=== PATIENT | female | born 1940 | race Caucasian/White ===

== ENCOUNTER 2021-02-10 13:03 | Outpatient (CLI) | payer MEDICARE, SELFPAY ==
--- NOTE | ~2021-02-10 | US_ITS ---
EXAMINATION: US venous doppler LE RT DATE: 02/10/2021 14:03 INDICATION: Right lower limb pain TECHNIQUE: Westbrook scale images without and with compression and Doppler images of the right lower extre mity veins were obtained. COMPARISON: 07/20/2016 FINDINGS: The right common femoral vein, profunda femoral vein, femoral vein, popliteal vein, peronea l trunk, posterior tibial veins, and greater saphenous vein are patent. IMPRESSION: 1. Patent right lower extremity veins. No evidence of deep venous thrombosis. Reviewed, dictated and finalized at location A.
== END 2021-02-10 13:04 | disposition home or self-care (01) ==
LOC: ANHIMG 13:04
PROVIDERS: PCP Nurse Practitioner Adult Health
DX: M79.661 Pain in right lower leg (principal)
CPT/HCPCS: 93971

== ENCOUNTER 2021-07-22 14:50 | Outpatient (CLI) | payer MEDICARE, SELFPAY ==
--- NOTE | ~2021-07-22 | CT_ITS ---
EXAMINATION: CT abdomen pelvis wo con DATE: 07/22/2021 15:15 INDICATION: Left lower quadrant abdominal pain TECHNIQUE: Computed tomography (CT) of the abdomen and pelvis was performed without intravenous contr ast. Automated exposure control and iterative reconstruction technique were employed. Exam dose: 991 .70 mGy-cm total exam DLP. COMPARISON: November 01, 2016 CT abdomen pelvis FINDINGS: Mild atelectasis at the lung bases. Normal heart size. No pericardial or pleural effusion. Large hiatal hernia. There are numerous calcified granulomas of the liver and spleen consistent with old granulomatous dis ease. The no hepatic, splenic, pancreatic, and adrenal or renal space-occupying mass lesion is eviden t on this limited noncontrast examination. Status post cholecystectomy. Bilateral renal cortical irregularity, which may be due to chronic pyelonephritis or less likely pers istent lobation. No urinary tract calculus or hydroureteronephrosis. Minimal sigmoid diverticulosis; no CT evidence of diverticulitis. No bowel obstruction, bowel wall th ickening, pneumatosis or intraperitoneal free air. The urinary bladder is relatively evacuated but otherwise unremarkable. Status post hysterectomy. There is atherosclerotic calcification but no aneurysm of the abdominal aorta. No intraperitoneal or retroperitoneal or pelvic mass lesion or adenopathy or ascites. Status post left total hip arthroplasty. Diffuse osteopenia. Degenerative changes of the thoracic and lumbar spine, including prominent degene rative disc disease at L2-3 and L4-5 and prominent degenerative change at the apophyseal joints, with associated minimal grade 1 anterolisthesis at L5-S1. IMPRESSION: Large hiatal hernia Old granulomatous disease Status post cholecystectomy Minimal diverticulosis of sigmoid colon; no CT evidence of diverticulitis Bilateral cortical irregularity, likely due to chronic pyelonephritis Status post hysterectomy Status post left total hip arthroplasty Reviewed, dictated and finalized at Location A. Reviewed, dictated and finalized at location A.
== END 2021-07-22 14:51 | disposition home or self-care (01) ==
LOC: ANHIMG 14:56
PROVIDERS: PCP Nurse Practitioner Adult Health; Visit Provider Nurse Practitioner Adult Health
DX: R10.32 Left lower quadrant pain (principal); K44.9 Diaphragmatic hernia without obstruction or gangrene; K57.30 Diverticulosis of large intestine without perforation or abscess without bleeding; Z90.49 Acquired absence of other specified parts of digestive tract; Z90.710 Acquired absence of both cervix and uterus; Z96.642 Presence of left artificial hip joint
CPT/HCPCS: 74176

== ENCOUNTER 2022-02-08 15:13 | Outpatient (CLI) | payer MEDICARE, SELFPAY ==
--- NOTE | ~2022-02-08 | MR_ITS ---
EXAMINATION: MR ankle LT wo con DATE: 02/08/2022 16:07 INDICATION: Posterior tibial tendinitis with dorsal left foot pain TECHNIQUE: Magnetic resonance imaging (MRI) of the left ankle was performed without intravenous contr ast. Sequences included sagittal, coronal, and axial proton-density weighted fast spin echo without a nd with fat saturation. COMPARISON: None. FINDINGS: Medial ankle ligaments: Deep and superficial deltoid ligaments as well as the spring ligament are normal. Lateral ankle ligaments: The anterior and posterior inferior tibiofibular ligaments are normal. The anterior talofibular and c alcaneofibular ligaments are normal. There is mild thickening and mild increased signal of the opener tender ior talofibular ligament. Tendons: Achilles tendon is normal. The peroneus longus and brevis tendons are normal. The tibialis anterior a nd extensor hallucis longus and extensor digitorum longus tendons are normal. The tibialis posterior, flexor digitorum longus and flexor hallucis longus tendons are normal. Plantar fascia: Moderate plantar calcaneal spur with mild thickening and mild increased signal of the proximal planta r aponeurosis and mild surrounding soft tissue edema consistent with mild likely acute on chronic hiren ntar fasciitis. Bones/other: Bone alignment is normal. No fracture or pathologic marrow replacing process. There is prominent syno vitis and small multiloculated ganglion cyst situated between the posterior margin of the posterior t alofibular ligament and a trigonal process at the posterior aspect of the talus. This can be seen in the setting of posterior ankle impingement. There is cystic change underlying the fibular footplate o f the posterior talofibular ligament. 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 Fluid: Ganglion cyst arising from the dorsal/lateral aspect of the talonavicular joint. Small subtalar joint effusion collecting both the anterior and posterior recess of the joint space. IMPRESSION: 1. Trigonal process, thickened posterior talofibular ligament and surrounding synovitis and small mul tilobulated ganglion cysts suggestive of posterior hindfoot impingement. 2. Likely acute on chronic mild plantar fasciitis. 3. Mild to moderate polyarticular osteoarthritis at a few joints in the left mid and hindfoot. Reviewed, dictated and finalized at location B. IMPRESSION: 1. Trigonal process, thickened posterior talofibular ligament and surrounding s ynovitis and small multilobulated ganglion cysts suggestive of posterior hindfo ot impingement. 2. Likely acute on chronic mild plantar fasciitis. 3. Mild to moderate polyarticular osteoarthritis at a few joints in the left mi d and hindfoot.
== END 2022-02-08 15:14 | disposition home or self-care (01) ==
PROVIDERS: PCP Nurse Practitioner Adult Health; Visit Provider Podiatrist Foot & Ankle Surgery
DX: M76.822 Posterior tibial tendinitis, left leg (principal); M67.462 Ganglion, left knee; M77.32 Calcaneal spur, left foot; M19.042 Primary osteoarthritis, left hand
CPT/HCPCS: 73721

== ENCOUNTER 2022-05-17 11:00 | Outpatient (CLI) | payer MEDICARE, SELFPAY ==
--- NOTE | ~2022-05-17 | US_ITS ---
EXAMINATION: US thyroid DATE: 05/17/2022 12:01 INDICATION: Dysphagia. Thyroid nodule. TECHNIQUE: Multiple ultrasound images of the thyroid were obtained. COMPARISON: 05/02/2012 FINDINGS: The right thyroid lobe measures 4.8 x 1.2 x 2.3 cm. The left thyroid lobe measures 4.3 x 1.9 x 1.7 c m. 1.1 cm TI RADS 1 entirely anechoic cystic nodules in the right thyroid lobe. 1.1 cm taller than w gillian solid isoechoic nodule with internal echogenic foci of (TI-RADS 5, highly suspicious , FNA if >=1 .0 cm, annual followup is >0.5 cm) at the inferior right thyroid lobe. 1.3 cm wider than tall solid v jarocho hypoechoic nodule with smooth margins and without echogenic foci. (TI-RADS 4, moderately suspicio us , FNA if >=1.5 cm, annual followup is >=1 cm) at the mid left thyroid. Again seen is a poorly visu alized 1.4 x 1.1 cm lesion at the posterior margin of the inferior left thyroid which appears more li ebonie extra thyroidal. Correlation with intervening CT neck dated 06/20/2013 demonstrates a likely degr ee in gas-filled diverticulum at this location. There is normal echotexture, echogenicity and vascula r flow throughout the thyroid gland. IMPRESSION: 1. Multinodular goiter. Recommend ultrasound-guided fine-needle aspiration of the 1.1 cm TI RADS 5 ri ght thyroid nodule. 2. 1.4 x 1.1 cm lesion along the posterior margin of the inferior left thyroid lobe which based on ne ck CT images dated 06/20/2013 most likely represents a Zenker's or proximal esophageal diverticulum. C ould consider either endoscopy or esophagram for further evaluation. Reviewed, dictated and finalized at location A. IMPRESSION: 1. Multinodular goiter. Recommend ultrasound-guided fine-needle aspiration of t he 1.1 cm TI RADS 5 right thyroid nodule. 2. 1.4 x 1.1 cm lesion along the posterior margin of the inferior left thyroid lobe which based on neck CT images dated 06/20/2013 most likely represents a Emir ker's or proximal esophageal diverticulum. Could consider either endoscopy or e sophagram for further evaluation.
== END 2022-05-17 11:01 | disposition home or self-care (01) ==
PROVIDERS: PCP Nurse Practitioner Adult Health; Visit Provider Nurse Practitioner Adult Health
DX: R13.10 Dysphagia, unspecified (principal); E04.2 Nontoxic multinodular goiter
CPT/HCPCS: 76536

== ENCOUNTER 2022-05-24 08:32 | Outpatient (CLI) | payer MEDICARE, SELFPAY ==
--- NOTE | ~2022-05-24 | XR_ITS ---
EXAMINATION: XR barium swallow DATE: 05/24/2022 09:25 INDICATION: Dysphagia. TECHNIQUE: The patient drank thick barium, gas-producing crystals, and thin barium. Fluoroscopic spot radiographs of the hypopharynx and esophagus were obtained. Fluoroscopy exposure time was 2.3 minut es. A total of 1541 fluoroscopic images were recorded. COMPARISON: CT dated 06/20/2013, 07/22/2021 and 07/20/2016 FINDINGS: The pharynx is symmetric and without evidence of mass lesion or mucosal irregularity. There is a Ratcliff Roel diverticulum arising from the left side of the proximal cervical esophagus. Th ere is a second pulsion diverticulum along the posterior margin of the mid thoracic esophagus. Esopha geal motility is within normal limits for age. There is a moderate-sized sliding-type hiatal hernia. There was no gastroesophageal reflux with provocative maneuvers. Prominent calcified lymph node in th e epigastric region likely related to old granulomatous disease. IMPRESSION: 1. Moderate-sized sliding-type hiatal hernia. 2. 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 Reviewed, dictated and finalized at location A. IMPRESSION: 1. Moderate-sized sliding-type hiatal hernia. 2. Ratcliff-Laredo diverticulum at the left side of the proximal cervical esoph piter with additional pulsion diverticulum at the posterior aspect of the mid th oracic esophagus.
== END 2022-05-24 08:33 | disposition home or self-care (01) ==
LOC: ANHIMG 08:36
PROVIDERS: PCP Nurse Practitioner Adult Health; Visit Provider Nurse Practitioner Adult Health
DX: R13.10 Dysphagia, unspecified (principal); K44.9 Diaphragmatic hernia without obstruction or gangrene; K57.90 Diverticulosis of intestine, part unspecified, without perforation or abscess without bleeding; M47.812 Spondylosis without myelopathy or radiculopathy, cervical region
CPT/HCPCS: 74220

== ENCOUNTER 2022-07-27 08:50 | Outpatient (CLI) | payer MEDICARE, SELFPAY ==
--- NOTE | ~2022-07-27 | US_ITS ---
EXAMINATION: US FNA w image guidance DATE: 07/27/2022 10:35 INDICATION: Multinodular goiter TECHNIQUE: A time-out was performed to verify the patient's name, date of , and procedure to be performed . The procedure and its benefits and risks were discussed with the patient. Risks specifically discus sed included bleeding and infection. The patient understood the risks and agreed to proceed. The neck was prepped and draped in the usual sterile manner. 3 mL 1% lidocaine was used for local anesthesia . 6 passes were made with a 25G needle into the lesion. Appropriate needle location was documented with continuous sonographic guidance. A sterile bandage was applied. There were no immediate compli cations. FINDINGS: Grayscale ultrasound images demonstrate biopsy needles advanced into the previous noted TI RADS 5 iso echoic nodule with multiple internal echogenic foci which currently measures 9 mm in the inferior rig ht thyroid. IMPRESSION: 1. Successful ultrasound-guided fine needle aspiration of a 9 mm TI RADS 5 nodule in the inferior ri ght thyroid. Reviewed, dictated and finalized at location A. IS SPECIALIST IMPRESSION: 1. Successful ultrasound-guided fine needle aspiration of a 9 mm TI RADS 5 nod ule in the inferior right thyroid.
== END 2022-07-27 08:51 | disposition home or self-care (01) ==
PROVIDERS: PCP Nurse Practitioner Adult Health
DX: E04.2 Nontoxic multinodular goiter (principal); E07.9 Disorder of thyroid, unspecified
CPT/HCPCS: 10005; 88173; 88305

== ENCOUNTER 2022-08-01 13:00 | Outpatient (NON) | payer MEDICARE, SELFPAY | END 2022-08-01 13:01 | disposition home or self-care (01) | LOC: ANHLAB 08-02 10:23 | PROVIDERS: PCP Nurse Practitioner Adult Health; Visit Provider Nurse Practitioner | DX: C44.311 Basal cell carcinoma of skin of nose (principal) | CPT/HCPCS: 88305 ==

== ENCOUNTER 2022-10-18 10:06 | Outpatient (CLI) | payer MEDICARE, SELFPAY ==
[2022-10-18 16:53] LABS: Kit Draw Collected
== END 2022-10-18 10:07 | disposition home or self-care (01) ==
LOC: ANHGOSHLAB 10:08
PROVIDERS: PCP Family Medicine; Visit Provider Internal Medicine
DX: E04.2 Nontoxic multinodular goiter (principal); M81.0 Age-related osteoporosis without current pathological fracture
CPT/HCPCS: 36415

== ENCOUNTER 2022-11-29 14:28 | Outpatient (CLI) | payer MEDICARE, SELFPAY ==
[2022-11-29 20:03] LABS: Immunoglobulin A 93 mg/dL (70-400); Immunoglobulin G 574 mg/dL (700-1600); Immunoglobulin M 33 mg/dL (40-230)
[2022-12-03 14:50] LABS: Kappa\\Lambda Light Chains 0.93 (0.26-1.65); Lambda Light Chain 10.4 mg/L (5.7-26.3)
== END 2022-11-29 14:29 | disposition home or self-care (01) ==
LOC: ANHGOSHLAB 14:30
PROVIDERS: PCP Family Medicine; Visit Provider Internal Medicine Cardiovascular Disease
DX: G93.32 Myalgic encephalomyelitis/chronic fatigue syndrome (principal); I51.7 Cardiomegaly
CPT/HCPCS: 36415; 82784; 83883; 86334

== ENCOUNTER 2022-12-07 00:14 | Day surgery (SDC) | payer MEDICARE, SELFPAY ==
[2022-10-13 13:00] VITALS: BMI 32.9
--- NOTE | 2022-10-25 14:25 | PM.HPGS ---
History of Present Illness History of Present Illness Consent: Risks, benefits, and alternatives have been discussed and questions answered. Patient agrees to proceed with procedure. Chief complaint: neoplasm screening Narrative: Mary Ellen Robles is a 82 year old female Was referred for colon cancer screening. A little more than 7 years ago she had 2 polyps removed. Review of Systems Review of Systems: All systems reviewed & are unremarkable except as noted in HPI and below PMFSH Past Medical History Medical History Actinic keratosis Benign mole Endometriosis Obesity Osteoporosis Skin neoplasm Surgical History Surgical History History of appendectomy 1960 History of cholecystectomy 1966 History of hip replacement 12/2005, left History of knee replacement right 2020 Left 2018 History of surgery on lower extremity 2001, closure of bilateral varicose veins S/P JASON-BSO 1969 Family History Family History Sibling Leukemia Lung cancer Social History Social History Smoking status: Never smoker Living arrangements: with family Spiritual care concerns: No Meds Home Medications and Allergies Home Medications Medication Instructions Recorded Confirmed Type ascorbic acid (vitamin C) 500 mg 500 mg PO DAILY 10/11/22 10/13/22 History capsule aspirin 81 mg chewable tablet 81 mg PO DAILY 10/11/22 10/13/22 History calcium carbonate 600 mg calcium 600 mg PO DAILY 10/11/22 10/13/22 History (1,500 mg) tablet (Calcium) cholecalciferol (vitamin D3) 25 25 mcg PO DAILY 10/11/22 10/13/22 History mcg (1,000 unit) capsule coenzyme Q10 10 mg capsule 10 mg PO DAILY 10/11/22 10/13/22 History losartan 25 mg tablet 100 mg PO DAILY 10/11/22 10/13/22 History mecobalamin (vitamin B12) 1,000 1,000 mcg PO DAILY 10/11/22 10/13/22 History mcg chewable tablet vitamins A,C,I-gjpp-bjdwla 4,296 1 cap PO DAILY 10/11/22 10/13/22 History mcg-226 mg-90 mg capsule (PreserVision AREDS) Allergies Allergy/AdvReac Type Severity Reaction Status Date / Time adhesive Allergy Mild BLISTERS/RA Verified 10/13/22 12:56 SH morphine Allergy Mild Rash, Verified 10/13/22 12:56 difficulty waking up lisinopril Allergy Unknown Cough Verified 10/13/22 12:56 olmesartan [From Benicar] Allergy Unknown Cough Verified 10/13/22 12:56 Exam Const: General: alert Orientation/consciousness: patient oriented x3 Resp: Auscultation: clear to auscultation bilaterally Cardio: Rhythm: regular rhythm GI: GI Palp: Yes Soft to palpation and No Tenderness to palpation present (GI) Neuro: General: patient oriented x3 Assessment and Plan Assessment and plan (1) Colon cancer screening: Code(s): Z12.11 - Encounter for screening for malignant neoplasm of colon Status: Acute Assessment and Plan: Colonoscopy with possible biopsy or polypectomy or cautery or injection of substances.
[2022-11-24 09:58] VITALS: BMI 32.9
--- NOTE | 2022-12-06 16:45 | PM.HPGS ---
History of Present Illness History of Present Illness Consent: Risks, benefits, and alternatives have been discussed and questions answered. Patient agrees to proceed with procedure. Chief complaint: neoplasm screening Narrative: Mary Ellen Robles is a 82 year old female Referred for colon cancer screening. Review of Systems Review of Systems: All systems reviewed & are unremarkable except as noted in HPI and below PMFSH Past Medical History Medical History (Updated 12/07/22 @ 08:02 by Gagan Atwood, DO) Actinic keratosis Aortic regurgitation mild,PERLA 1.4.23 Atrial fibrillation Benign mole Endometriosis Essential hypertension Hiatal hernia 9.7.22 barium swallow: . Moderate-sized sliding-type hiatal hernia. Obesity Osteoporosis PONV (postoperative nausea and vomiting) Skin neoplasm Surgical History Surgical History History of appendectomy 1960 History of cholecystectomy 1967 History of hip replacement 12/2005, left History of knee replacement right 2020 Left 2018 History of surgery on lower extremity 2001, closure of bilateral varicose veins S/P JASON-BSO 1969 Family History Family History Sibling Leukemia Lung cancer Social History Social History Smoking status: Never smoker Living arrangements: with family Spiritual care concerns: No Meds Home Medications and Allergies Home Medications Medication Instructions Recorded Confirmed Type ascorbic acid (vitamin C) 500 mg 500 mg PO DAILY 10/11/22 11/24/22 History capsule aspirin 81 mg chewable tablet 81 mg PO DAILY 10/11/22 11/24/22 History calcium carbonate 600 mg calcium 600 mg PO DAILY 10/11/22 11/24/22 History (1,500 mg) tablet (Calcium) cholecalciferol (vitamin D3) 25 25 mcg PO DAILY 10/11/22 11/24/22 History mcg (1,000 unit) capsule coenzyme Q10 10 mg capsule 10 mg PO DAILY 10/11/22 11/24/22 History mecobalamin (vitamin B12) 1,000 1,000 mcg PO DAILY 10/11/22 11/24/22 History mcg chewable tablet vitamins A,C,V-rcnp-pbvoth 4,296 1 cap PO DAILY 10/11/22 11/24/22 History mcg-226 mg-90 mg capsule (PreserVision AREDS) losartan 100 mg tablet 100 mg PO DAILY #90 tabs 11/15/22 11/24/22 Rx Allergies Allergy/AdvReac Type Severity Reaction Status Date / Time adhesive Allergy Mild BLISTERS/RA Verified 12/07/22 07:49 SH morphine Allergy Mild Rash, Verified 12/07/22 07:49 difficulty waking up lisinopril Allergy Unknown Cough Verified 12/07/22 07:49 olmesartan [From Benicar] Allergy Unknown Cough Verified 12/07/22 07:49 Exam Resp: Auscultation: clear to auscultation bilaterally Cardio: Rate: regular rate Rhythm: regular rhythm GI: GI Palp: Yes Soft to palpation and No Tenderness to palpation present (GI) Assessment and Plan Assessment and plan (1) Colon cancer screening: Code(s): Z12.11 - Encounter for screening for malignant neoplasm of colon Status: Acute Assessment and Plan: Colonoscopy with possible biopsy or polypectomy or cautery or injection of substances.
--- NOTE | 2022-12-07 07:34 | WPDANESEPPF ---
Anes - Initial Pre Proc Eval Procedure: Operation Date: 12/07/22 09:00 Proposed Procedures p Screening Colonoscopy - Preston Bertrand MD Date/Time: 12/07/22 07:34 Surgeon: Preston Bertrand MD Pre Op Diagnosis: neoplasm screening Patient Data Age: 82 Gender: F Height: 1.7 m Weight: 95.4 kg Allergies Allergy/AdvReac Type Severity Reaction Status Date / Time adhesive Allergy Mild BLISTERS/RA Verified 12/07/22 07:49 SH morphine Allergy Mild Rash, Verified 12/07/22 07:49 difficulty waking up lisinopril Allergy Unknown Cough Verified 12/07/22 07:49 olmesartan [From Benicar] Allergy Unknown Cough Verified 12/07/22 07:49 Home Medications Medication Instructions Recorded Confirmed Type ascorbic acid (vitamin C) 500 mg 500 mg PO DAILY 10/11/22 11/24/22 History capsule aspirin 81 mg chewable tablet 81 mg PO DAILY 10/11/22 11/24/22 History calcium carbonate 600 mg calcium 600 mg PO DAILY 10/11/22 11/24/22 History (1,500 mg) tablet (Calcium) cholecalciferol (vitamin D3) 25 25 mcg PO DAILY 10/11/22 11/24/22 History mcg (1,000 unit) capsule coenzyme Q10 10 mg capsule 10 mg PO DAILY 10/11/22 11/24/22 History mecobalamin (vitamin B12) 1,000 1,000 mcg PO DAILY 10/11/22 11/24/22 History mcg chewable tablet vitamins A,C,J-hqgb-wotiqg 4,296 1 cap PO DAILY 10/11/22 11/24/22 History mcg-226 mg-90 mg capsule (PreserVision AREDS) losartan 100 mg tablet 100 mg PO DAILY #90 tabs 11/15/22 11/24/22 Rx Patient hx anesthesia problems: none Family hx anesthesia problems: none Results Review: All pre-operative results and documents have been reviewed as part of the pre-operative evaluation. [facility] Past Medical History Medical History (Updated 12/07/22 @ 08:02 by Gagan Atwood DO) Actinic keratosis Aortic regurgitation mild,PERLA 1.4.23 Atrial fibrillation Benign mole Endometriosis Essential hypertension Hiatal hernia 9.7.22 barium swallow: . Moderate-sized sliding-type hiatal hernia. Obesity Osteoporosis PONV (postoperative nausea and vomiting) Skin neoplasm Surgical History Surgical History History of appendectomy 1960 History of cholecystectomy 1967 History of hip replacement 12/2005, left History of knee replacement right 2020 Left 2018 History of surgery on lower extremity 2001, closure of bilateral varicose veins S/P JASON-BSO 1969 Family History Family History Sibling Leukemia Lung cancer Social History Social History Smoking status: Never smoker Living arrangements: with family Spiritual care concerns: No Anes - Eval Final PreProcedure Day of Procedure 12/07/22 07:34 Patient weight: obese Heart: regular rate and rhythm Lungs: clear to auscultation Airway: Mallampati scale class II Neurological: alert and oriented Last oral intake: >/= 8 hours ASA classification: III Emergent: no Anesthetic plan: proceed Anesthesia type and monitoring: general GIVS and standard monitoring Results Review: All pre-operative results and documents have been reviewed as part of the pre-operative evaluation. Informed Consent: The patient's anesthetic plan and its attendant risks and benefits were discussed with the patient/family/POA. Questions were solicited and answers provided to the satisfaction of the patient/family/POA.
[2022-12-07 07:50] VITALS: BP 161/89; PULSE 86; RESP 18; TEMP 36.6; O2SAT 98
[2022-12-07] MEDS: LACTATED RINGERS 1,000 ML 150 ML IV CONT (07:59)
[2022-12-07 09:16] VITALS: BP 146/89; PULSE 77; RESP 17; O2SAT 99
[2022-12-07 09:26] VITALS: BP 161/86; PULSE 73; RESP 20; O2SAT 99
[2022-12-07 09:36] VITALS: BP 177/92; PULSE 71; RESP 17; O2SAT 99
== END 2022-12-07 09:48 | disposition home or self-care (01) ==
PROVIDERS: PCP Family Medicine; Visit Provider Internal Medicine Gastroenterology
PROC: 0DJD8ZZ Inspection of Lower Intestinal Tract, Via Natural or Artificial Opening Endoscopic (ICD-10-PCS; CPT 45378; principal; 2022-12-07 09:00)
DX: Z12.11 Encounter for screening for malignant neoplasm of colon (principal); D17.5 Benign lipomatous neoplasm of intra-abdominal organs; K57.30 Diverticulosis of large intestine without perforation or abscess without bleeding; I48.91 Unspecified atrial fibrillation; I10 Essential (primary) hypertension; M81.0 Age-related osteoporosis without current pathological fracture; E66.9 Obesity, unspecified; Z68.33 Body mass index [BMI] 33.0-33.9, adult; Z79.82 Long term (current) use of aspirin
CPT/HCPCS: G0121; J2001; J2704; J7120

== ENCOUNTER 2022-12-27 09:14 | Outpatient (NON) | payer MEDICARE, SELFPAY ==
[2022-12-27 19:07] LABS: Creatinine Urine 57.9 mg/dL
[2022-12-27 19:37] LABS: Creatinine 24 Hour Urine 1.1 gm/24 (0.8-1.8); Total Volume 24 Hour Urine 2000 ml
== END 2022-12-27 09:15 | disposition home or self-care (01) ==
LOC: ANHGOSHLAB 09:15
PROVIDERS: PCP Family Medicine; Visit Provider Internal Medicine
DX: M81.0 Age-related osteoporosis without current pathological fracture (principal)
CPT/HCPCS: 81050; 82570

== ENCOUNTER 2023-01-03 11:14 | Outpatient (CLI) | payer MEDICARE, SELFPAY ==
[2023-01-03 19:55] LABS: Parathyroid Intact 47.1 pg/mL (7.5-53.5)
[2023-01-10 05:47] LABS: Calcium/Creatinine Ratio, Ur 133 mg/g creat (10-320); Urine Calcium, Random 13.8 mg/dL (***)
== END 2023-01-03 11:15 | disposition home or self-care (01) ==
LOC: ANHGOSHLAB 11:18
PROVIDERS: PCP Family Medicine; Visit Provider Internal Medicine
DX: M81.0 Age-related osteoporosis without current pathological fracture (principal)
CPT/HCPCS: 36415; 82310; 82570; 83970

== ENCOUNTER 2023-01-17 09:59 | Outpatient (CLI) | payer MEDICARE, SELFPAY ==
--- NOTE | ~2023-01-17 | US_ITS ---
EXAMINATION: US thyroid DATE: 01/17/2023 10:44 INDICATION: Nontoxic multinodular goiter. TECHNIQUE: Multiple ultrasound images of the thyroid were obtained. COMPARISON: Ultrasound 05/17/2022, 05/02/12 FINDINGS: The right thyroid lobe measures 4.2 x 1.4 x 2.1 cm. The left thyroid lobe measures 3.5 x 1.1 x 1.5 c m. In the right thyroid lobe, there is an 11 mm cystic nodule (TI-RADS TR1). In the right thyroid lo be, there is a 7 mm solid, hyperechoic, wider than tall nodule with smooth margin with punctate echog enic foci (TR4). In the right thyroid lobe, there is a 9 mm solid, hyperechoic, wider than tall nodul e with smooth margin without echogenic foci (TR3). In the left thyroid lobe, there is a 10 mm solid, hypoechoic, wider than tall nodule with smooth margin without echogenic foci (TR4). IMPRESSION: 1. Small thyroid nodules. Consider thyroid ultrasound in one year if clinically indicated given the p atient's age. Reviewed, dictated and finalized at location A. IMPRESSION: 1. Small thyroid nodules. Consider thyroid ultrasound in one year if clinically indicated given the patient's age.
== END 2023-01-17 10:00 | disposition home or self-care (01) ==
LOC: ANHIMG 10:01
PROVIDERS: PCP Family Medicine; Visit Provider Internal Medicine
DX: E04.2 Nontoxic multinodular goiter (principal)
CPT/HCPCS: 76536

== ENCOUNTER 2023-01-29 11:25 | Observation (INO) | payer MEDICARE, SELFPAY ==
[2023-01-29] VITALS (27 sets, daily range): BP systolic 136–185; BP diastolic 52–105; PULSE 65–92; RESP 11–24; TEMP 36.1–36.8; O2SAT 97–99; BMI 34.5
--- NOTE | ~2023-01-29 | MR_ITS ---
MRI of the brain Clinical History: TIA Technique: Axial and sagittal T1-weighted images were acquired. These were followed by axial T2-weigh nuha, diffusion weighted, gradient, and FLAIR images. Following intravenous administration of 20 cc Mu ltiHance gadolinium, T1-weighted fat-sat imaging was performed in the axial and coronal planes. Findings: There is no acute infarct, intracranial hemorrhage, or mass lesion. There are moderate surface grinder tender jannet microvascular ischemic changes in the periventricular white matter bilaterally. Ventricles and subarachnoid spaces are mildly dilated. Orbits are unremarkable. Paranasal sinuses and mastoid air cell are clear. Major intracranial flow voids are intact. Sagittal midline structures are intact. IMPRESSION: No abnormal postcontrast enhancement identified. IMPRESSION: No intracranial hemorrhage, mass lesion, or acute infarct. Moderate chronic microvascular ischemic change, and mild generalized atrophy. Reviewed, dictated and finalized at [facility]. IMPRESSION: No abnormal postcontrast enhancement identified.
--- NOTE | ~2023-01-29 | XR_ITS ---
Clinical Indication: Stroke AP and lateral views of the chest: Comparison: 10/21/2017 Findings: The lungs are clear, without evidence of focal consolidation or pleural effusion. Cardiome diastinal silhouette is within normal limits. Probable small to moderate hiatal hernia. Osseous struc tures are intact. Impression: Clear lungs. Probable small to moderate hiatal hernia. Reviewed, dictated and finalized at location . Impression: Clear lungs. Probable small to moderate hiatal hernia.
--- NOTE | ~2023-01-29 | CT_ITS ---
EXAMINATION: CTA brain carotid DATE: 01/29/2023 14:21 INDICATION: Right facial weakness. TECHNIQUE: Computed tomographic angiography (CTA) of the head was performed without and with 100 mL O mnipaque-350 intravenous contrast. CTA of the neck was performed with intravenous contrast. Automated exposure control and iterative reconstruction technique were employed. The dose-length product was 1 715.78 mGy-cm. Maximum intensity projection and volume rendered 3D-reconstructions were created by jennifer dalal technologist on a separate workstation. COMPARISON: Head CT 11/16/2012 FINDINGS: HEAD CTA: There are scattered areas of low attenuation in the cerebral white matter. There is no intr acranial hemorrhage, acute infarction, or abnormal intracranial mass lesion. The ventricles are kaila l in size. There are likely changes of ocular lens replacement surgeries. There is mild mucosal thick ening in the paranasal sinuses. The mastoid air cells are normal. Left vertebral artery is dominant. There is no significant stenosis of basilar artery or the posterior cerebral arteries. The posterior communicating arteries are normal. There is no significant stenosis of intracranial internal carotid arteries or anterior or middle cerebral arteries. Anterior communicating artery is normal. There is n o aneurysm. NECK CTA: There is mild scarring at the lung apices. There are nodules in the thyroid measuring up to 10 mm, likely not clinically significant. There is no significant stenosis of the vertebral arteries . There is an aberrant right subclavian artery. There is plaque in the proximal internal carotid [place]. There is 0% stenosis of the proximal right internal carotid artery relative to normal distal ar melanie lumen diameter (NASCET criteria). There is 0% stenosis of the proximal left internal carotid art jarocho relative to normal distal artery lumen diameter. There is mild cervical spondylosis. IMPRESSION: 1. Moderate nonspecific cerebral white matter disease, which likely represents chronic small vessel i schemic disease. 2. No aneurysm or significant intracranial arterial stenosis. 3. 0% stenosis of the proximal internal carotid arteries relative to normal distal artery lumen diame ters (NASCET criteria). Reviewed, dictated and finalized at location A. IMPRESSION: 1. Moderate nonspecific cerebral white matter disease, which likely represents chronic small vessel ischemic disease. 2. No aneurysm or significant intracranial arterial stenosis. 3. 0% stenosis of the proximal internal carotid arteries relative to normal dis frannie artery lumen diameters (NASCET criteria).
--- NOTE | 2023-01-29 12:17 | ECG_ITS ---
Measurements Intervals [place] Rate: 75 P: 66 WI: 173 QRS: 40 QRSD: 102 T: 50 QT: 390 QTc: 436 Interpretive Statements SINUS RHYTHM POSSIBLE LEFT ATRIAL ENLARGEMENT MINIMAL Q WAVES- INFERIOR LEADS BASELINE ARTIFACT- I, III, AVL, V1-V3 BORDERLINE ECG COMPARED TO ECG 10/19/2018 16:50:11 NO SIGNIFICANT CHANGES Electronically Signed On 01-29-2023 13:20:30 CDT by All Marc D.O.
[2023-01-29 12:46] LABS: Basophils Absolute Auto 0.1 K/mm3 (0.0-0.1); Basophils Percent Auto 1.3 % (0.2-1.2); Eosinophils Absolute Auto 0.1 K/mm3 (0-0.3); Eosinophils Percent Auto 2.8 % (0-4.4); Hematocrit 34.3 % (37.0-47.0); Hemoglobin 10.4 g/dL (12.0-15.0); Lymphocytes Absolute Auto 1.93 K/mm3 (0.9-3.2); Lymphocytes Percent Auto 48.7 % (18.3-44.2); Mean Corpuscular HGB Conc 30.3 g/dl (32-36); Mean Corpuscular Hemoglobin 24.4 pg (26-34); Mean Corpuscular Volume 80.5 fl (80-100); Monocytes Absolute Auto 0.6 K/mm3 (0.1-0.6); Monocytes Percent Auto 14.4 % (2.6-8.5); Neutrophils Absolute Auto 1.3 K/mm3 (1.3-6.7); Neutrophils Percent Auto 32.8 % (45.5-73.1); Platelet Count Result 278 k/mm3 (150-375); Red Blood Count 4.26 M/mm3 (4.2-5.4); Red Cell Distribution Width 16.1 % (11.5-14.5)
[2023-01-29 12:52] LABS: Alanine Aminotransferase 28 U/L (6-35); Albumin Level 4.1 g/dL (3.5-5.1); Alkaline Phosphatase 102 U/L (38-126); Anion Gap 4 mmol/L (8-16); Aspartate Amino Transferase 34 U/L (14-36); Bilirubin,Total 0.3 mg/dL (0.2-1.3); Blood Urea Nitrogen 13 mg/dL (7-17); Calcium 8.7 mg/dL (8.4-10.2); Carbon Dioxide 31 mmol/L (22-30); Chloride 102 mmol/L (98-107); Estimated CRCL calculation 90 ml/min; Estimated Glomerular Filt Rate > 60; Glucose 110 mg/dL (65-110); Potassium 4.2 mmol/L (3.4-5.0); Sodium 137 mmol/L (137-145)
[2023-01-29 12:56] LABS: Glucose Point of Care 107 mg/dl (65-105)
[2023-01-29 12:57] LABS: Prothrombin Time 13.2 Seconds (11.1-14.7)
[2023-01-29 12:58] LABS: Partial Thromboplastin Time 25.1 SECONDS (22.3-36.8)
[2023-01-29] MEDS: ONDANSETRON INJ 4 MG/2 ML VIAL IV PUSH (13:02)
[2023-01-29 13:04] LABS: Troponin I < 0.012 ng/mL (0.000-0.034)
--- NOTE | 2023-01-29 13:52 | ED.GENADULT ---
HPI - General Adult General Chief complaint: Neuro Symptoms/Deficit Stated complaint: right facial droop Time Seen by Provider: 01/29/23 12:02 History of Present Illness HPI narrative: Patient is an 82-year-old female who presents ER with concerns for CVA. Woke up yesterday morning with right-sided facial droop. She noticed in the mirror and tried to make her face move but could not. She then went back to bed and when she woke up again it was gone. She went through her day without any additional issues. After contacting her PCP today she was told to come to the ER to be evaluated further for possible stroke. No history of previous CVA. Denies any chest pain or chest pressure. No irregular heartbeats or dizziness. No recent trauma. She has had some mild sinus congestion. Related Data Home Medications Medication Instructions Recorded Confirmed ascorbic acid (vitamin C) 500 mg 500 mg PO DAILY 10/11/22 01/29/23 capsule aspirin 81 mg chewable tablet 81 mg PO DAILY 10/11/22 01/29/23 cholecalciferol (vitamin D3) 25 25 mcg PO DAILY 10/11/22 01/29/23 mcg (1,000 unit) capsule coenzyme Q10 10 mg capsule 10 mg PO DAILY 10/11/22 01/29/23 mecobalamin (vitamin B12) 1,000 1,000 mcg PO DAILY 10/11/22 01/29/23 mcg chewable tablet vitamins A,C,X-xbus-puiroc 4,296 1 cap PO DAILY 10/11/22 01/29/23 mcg-226 mg-90 mg capsule (PreserVision AREDS) Allergies Allergy/AdvReac Type Severity Reaction Status Date / Time adhesive Allergy Mild BLISTERS/RA Verified 01/10/23 08:58 SH morphine Allergy Mild Rash, Verified 01/10/23 08:58 difficulty waking up lisinopril Allergy Unknown Cough Verified 01/10/23 08:58 olmesartan [From Benicar] Allergy Unknown Cough Verified 01/10/23 08:58 Review of Systems Review of Systems: All systems reviewed & are unremarkable except as noted in HPI and below Constitutional: Constitutional: Denies chills, Denies fatigue and Denies fever(s) ENT: Reports nasal congestion and Denies sore throat Cardiovascular: Cardiovascular: Denies chest pain, Denies rapid heart rate and Denies radiating jaw, neck or arm pain Respiratory: Respiratory: Denies cough and Denies dyspnea Gastrointestinal: Gastrointestinal: Denies abdominal pain, Denies nausea and Denies vomiting Neurologic: Denies syncope, Denies headache(s), Reports focal weakness and Denies numbness PMFSH Past Medical History Medical History Actinic keratosis Aortic regurgitation mild,PERLA 1.4.23 Atrial fibrillation Benign mole Endometriosis Essential hypertension Hiatal hernia 9.7.22 barium swallow: . Moderate-sized sliding-type hiatal hernia. Obesity Osteoporosis PONV (postoperative nausea and vomiting) Skin neoplasm Surgical History Surgical History History of appendectomy 1960 History of cholecystectomy 1966 History of hip replacement 12/2005, left History of knee replacement right 2020 Left 2018 History of surgery on lower extremity 2001, closure of bilateral varicose veins S/P JASON-BSO 1969 Family History Family History (Updated 01/29/23 @ 18:51 by Daija Martinez RN) Sibling Leukemia Lung cancer Parkinson disease Mother Parkinson disease Father Heart attack Sibling Brain tumor Sibling Diabetes mellitus Social History Social History Smoking status: Never smoker Second hand tobacco smoke exposure: Yes Alcohol intake: current Drinks per week: 1 Lack of Transportation: No Lack of Food: Never True Current Housing: I Have Housing Concerned About Future Housing: No Difficulty Paying Gas/Electric Bills: No Difficulty Paying for Meds: No Currently Unemployed: No Education: High School Diploma/GED Difficulty w/ Childcare or Family Care: No Living arrangements: with family Spiritual care concerns: No
--- NOTE | 2023-01-29 18:30 | ADMGEN ---
This patient, Mary Ellen Robles, was admitted to [facility] Surg Room 322-02. Patient/family oriented to hospital policies and general routines including ID bracelet, bed and alarms, visiting hours, pain management, procedures, bathroom and other care routines, personal items, smoking policy, room service/diet, and visiting hours. Information on how to activate the Rapid Response Team has been discussed. Patient/Family are encouraged to report perceived risks to care and to ask questions if they do not understand what they are told or what they should do.
--- NOTE | 2023-01-29 23:24 | PM.IMHP ---
H&P: HPI History of Present Illness Date/Time: 01/29/23 23:24 Chief Complaint: right facial droop Narrative: 82 years old lady with history of hypertension, paroxysmal atrial fibrillation, hyperlipidemia, presents ED with a chief complaint of right facial droop. Patient woke up on Sunday morning and noticed right facial droop. Patient denied headache, focal weakness. Patient also denies chest pain, palpitation, shortness of breath, fever, chills, nausea vomiting diarrhea dysuria. Patient denies history of CVA. Patient was brought to ED evaluation. CTA of head shows no aneurysm, or significant intracranial artery stenosis, EKG shows sinus rhythm Review of Systems Review of Systems: RS negative except above [facility] Past Medical History Medical History Actinic keratosis Aortic regurgitation mild,PERLA 1.4.23 Atrial fibrillation Benign mole Endometriosis Essential hypertension Hiatal hernia 9.7.22 barium swallow: . Moderate-sized sliding-type hiatal hernia. Obesity Osteoporosis PONV (postoperative nausea and vomiting) Skin neoplasm Surgical History Surgical History History of appendectomy 1960 History of cholecystectomy 1967 History of hip replacement 12/2005, left History of knee replacement right 2020 Left 2019 History of surgery on lower extremity 2001, closure of bilateral varicose veins S/P JASON-BSO 1968 Family History Family History (Updated 01/29/23 @ 18:51 by Daija Martinez RN) Sibling Leukemia Lung cancer Parkinson disease Mother Parkinson disease Father Heart attack Sibling Brain tumor Sibling Diabetes mellitus Social History Social History Smoking status: Never smoker Second hand tobacco smoke exposure: Yes Alcohol intake: current Drinks per week: 1 Lack of Transportation: No Lack of Food: Never True Current Housing: I Have Housing Concerned About Future Housing: No Difficulty Paying Gas/Electric Bills: No Difficulty Paying for Meds: No Currently Unemployed: No Education: High School Diploma/GED Difficulty w/ Childcare or Family Care: No Living arrangements: with family Spiritual care concerns: No Meds Home Medications and Allergies Home Medications Medication Instructions Recorded Confirmed Type ascorbic acid (vitamin C) 500 mg 500 mg PO DAILY 10/11/22 01/29/23 History capsule aspirin 81 mg chewable tablet 81 mg PO DAILY 10/11/22 01/29/23 History cholecalciferol (vitamin D3) 25 25 mcg PO DAILY 10/11/22 01/29/23 History mcg (1,000 unit) capsule coenzyme Q10 10 mg capsule 10 mg PO DAILY 10/11/22 01/29/23 History mecobalamin (vitamin B12) 1,000 1,000 mcg PO DAILY 10/11/22 01/29/23 History mcg chewable tablet vitamins A,C,X-deez-jjcsep 4,296 1 cap PO DAILY 10/11/22 01/29/23 History mcg-226 mg-90 mg capsule (PreserVision AREDS) losartan 100 mg tablet 100 mg PO DAILY #90 tabs 11/15/22 01/29/23 Rx calcium carbonate 600 mg calcium 600 mg PO DAILY #90 tabs 01/10/23 01/29/23 Rx (1,500 mg) tablet (Calcium) Allergies Allergy/AdvReac Type Severity Reaction Status Date / Time adhesive Allergy Mild BLISTERS/RA Verified 01/10/23 08:58 SH morphine Allergy Mild Rash, Verified 01/10/23 08:58 difficulty waking up lisinopril Allergy Unknown Cough Verified 01/10/23 08:58 olmesartan [From Benicar] Allergy Unknown Cough Verified 01/10/23 08:58 Vital Signs Vital Signs - 24 hr 01/29/23 11:27 01/29/23 11:56 01/29/23 12:01 Temperature 98.2 F Pulse Rate 91 82 75 Respiratory Rate 16 24 H 17 Blood Pressure 185/90 H 164/74 H 152/73 H Pulse Oximetry 99 Oxygen Delivery 01/29/23 12:15 01/29/23 12:17 01/29/23 12:30 Temperature Pulse Rate 78 74 76 Respiratory Rate 18 20 17 Blood Pressure 165/105 H Pulse Oximetry Ox
[2023-01-30] VITALS (7 sets, daily range): BP systolic 151–161; BP diastolic 74–76; PULSE 65–86; RESP 16; TEMP 36.3–36.4; O2SAT 95–97
--- NOTE | 2023-01-30 00:08 | ECHO_ITS ---
Patient Info Name: Mary Ellen Robles Age: 82 years : 1940 Gender: Female Ht: 67 in Wt: 220 lbs BSA: 2.21 m2 HR: 71 bpm BP: 144 / 52 mmHg Heart Rhythm: Sinus Rhythm Technical Quality: Good Exam Date: 01/30/2023 3:34 PM Exam Location: [facility] Pulmonary Patient Status: Outpatient Admit Date: 01/29/2023 Staff Ordering Physician: Mar Jacobsen MD Classification Inspector: Sintia Nieves RDCS Attending Provider: Serina Valverde MD Referring Physician: Gregory Cook MD; Exam Type: CA echo doppler w bubble study Study Info Indications - TIA Complete two-dimensional, color flow and Doppler transthoracic echocardiogram is performed with agitated saline. Contrast/Agitated Saline Contrast/Ag. Saline: Agitated Saline Amount: 20.00 ml Existing IV Access: Yes IV Access Condition: patent with no signs of infiltration Summary 1. Left ventricular chamber dimension is normal. 2. Left ventricular systolic function is normal, estimated at 65-70%. 3. There is mildly increased left ventricular wall thickness. 4. The left ventricular diastolic function is grade I diastolic dysfunction. 5. Left atrial chamber dimension is mildly enlarged. 6. Intact interatrial septum visualized by color flow and agitated saline imaging. 7. There is mild aortic valve regurgitation. 8. There is mild mitral valve regurgitation. 9. The mitral valve has thickened leaflets and calcified annulus. 10. There is mild tricuspid valve regurgitation. Left Ventricle Left ventricular chamber dimension is normal. Left ventricular systolic function is normal, estimated at 65-70%. There is mildly increased left ventricular wall thickness. The left ventricular diastolic function is grade I diastolic dysfunction. Right Ventricle Right ventricular chamber dimension is normal. Right ventricular systolic function is normal. Left Atria Left atrial chamber dimension is mildly enlarged. Right Atria Right atrial chamber dimension is normal. Atrial Septum Intact interatrial septum visualized by color flow and agitated saline imaging. Aortic Valve The aortic valve is trileaflet. There is no aortic valve sclerosis. There is no aortic valve stenosis. There is mild aortic valve regurgitation. Pulmonic Valve The pulmonic valve is normal. There is no pulmonic valve stenosis. There is trace pulmonic regurgitation. Mitral Valve The mitral valve has thickened leaflets and calcified annulus. There is no mitral valve stenosis. There is mild mitral valve regurgitation. Tricuspid Valve The tricuspid valve leaflets are normal. There is no significant tricuspid valve stenosis. There is mild tricuspid valve regurgitation. No pulmonary hypertension, estimated pulmonary arterial systolic pressure is 27 mmHg. Pericardium/Pleural The pericardium appears normal. There is no pericardial effusion. Inferior Vena Cava Normal inferior vena cava with >50% collapse upon inspiration consistent with normal right atrial pressure, 10 mmHg. Aorta The aortic root size at the sinus of Valsalva is normal. The prox ascending aorta size is normal. Left Ventricular Outflow Tract Name Value Normal LVOT 2D LVOT Diameter 2.0 cm LVOT Doppler
[2023-01-30 01:15] LABS: Cholesterol 150 mg/dL (0-200); HDL Direct 79 mg/dL; Triglycerides 84 mg/dL (<150)
[2023-01-30 01:26] LABS: LDL Cholesterol Direct 60 mg/dL
[2023-01-30 01:39] LABS: Iron 19 ug/dL (37-170)
[2023-01-30 01:50] LABS: Percent Iron Saturation 4 % (20-50)
[2023-01-30] MEDS: CYANOCOBALAMIN 1,000 MCG TABLET 1000 MCG PO (09:13)
[2023-01-30] MEDS: CHOLECALCIFEROL 1,000 UNITS TABLET 1000 UNITS PO (09:13)
[2023-01-30] MEDS: ATORVASTATIN 40 MG TABLET PO (09:13)
[2023-01-30] MEDS: ASPIRIN 81 MG CHEWABLE TABLET PO (09:13)
[2023-01-30] MEDS: LOSARTAN POTASSIUM 100 MG TABLET PO (09:13)
[2023-01-30] MEDS: OPTI-GEN TAB 1 TABLET PO (09:13)
--- NOTE | 2023-01-30 12:57 | PM.CNCAR ---
Assessment and Plan Assessment and plan (1) Brain TIA: Code(s): G45.9 - Transient cerebral ischemic attack, unspecified Status: Acute Assessment and Plan: Concern for TIA. Brain MRI negative for acute stroke. Continue ASA 81mg once daily. Has statin intolerance. Echo with bubble study is pending. Consider Neurology consultation. (2) Paroxysmal SVT (supraventricular tachycardia): Code(s): I47.1 - Supraventricular tachycardia Status: Acute Assessment and Plan: We are consulted to assess anticoagulation need in this patient as atrial fibrillation is listed in the chart. Patient states she has occasional atrial fibrillation that goes away whenever she bears down. Has not had an episode for almost a year. I reviewed Dr. Cook's clinic notes, which do not mention any history of atrial fibrillation, but she does have paroxysmal SVT. Telemetry thus far shows sinus rhythm without arrhythmias. Anticoagulation is not indicated for SVT. History of Present Illness History of Present Illness Consult date/time: 01/30/23 12:57 Requesting physician: Mar Jacobsen MD Consult reason: Other (History of atrial fibrillation, not on blood thinner) Reason For Visit: TIA Narrative: This is an 82-year-old female who follows with Dr. Cook in clinic. Has diabetes, hypertension, mild PAD, pulmonary hypertension, SVT, statin myopathy, PVCs who presented to [place] for right facial droop. Patient states she woke up on Sunday morning and had right facial droop. States she wasn't feeling right. Went back to sleep, and woke up an hour later and it was gone. She called her PCP and Dr. Cook's office on Sunday, who recommended going to ER. Brain MRI done 11/30 which shows no acute infarct or other acute findings. EKG with sinus rhythm. We are consulted to assess anticoagulation need in this patient as atrial fibrillation is listed in the chart. Patient states she has occasional atrial fibrillation that goes away whenever she bears down. Has not had an episode for almost a year. I reviewed Dr. Cook's clinic notes, which do not mention any history of atrial fibrillation, but she does have paroxsmal SVT. Telemetry thus far shows sinus rhythm without arrhythmias. Echocardiogram with bubble study is pending. Review of Systems Review of Systems: All systems reviewed & are unremarkable except as noted in HPI and below (HPI) PMFSH Past Medical History Medical History Actinic keratosis Aortic regurgitation mild,PERLA 1.4.23 Atrial fibrillation Benign mole Endometriosis Essential hypertension Hiatal hernia 9.7.22 barium swallow: . Moderate-sized sliding-type hiatal hernia. Obesity Osteoporosis PONV (postoperative nausea and vomiting) Skin neoplasm Surgical History Surgical History History of appendectomy 1960 History of cholecystectomy 1967 History of hip replacement 12/2005, left History of knee replacement right 2020 Left 2018 History of surgery on lower extremity 2001, closure of bilateral varicose veins S/P JASON-BSO 1969 Family History Family History Sibling Leukemia Lung cancer Parkinson disease Mother Parkinson disease Father Heart attack Sibling Brain tumor Sibling Diabetes mellitus Social History Social History Smoking status: Never smoker Second hand tobacco smoke exposure: Yes Alcohol intake: current Drinks per week: 1 Lack of Transportation: No Lack of Food: Never True Current Housing: I Have Housing Concerned About Future Housing: No Difficulty Paying Gas/Electric Bills: No Difficulty Paying for Meds: No Currently Unemployed: No Education: High School Diploma/GED Difficulty w/ Childcare or Family Care: No Living arrangements: with family Spiritual
[2023-01-30 14:59] LABS: IFOB Positive Control Positive; Immunochemical Fecal Occult Bl Negative (N)
--- NOTE | 2023-01-30 17:29 | PM.DS ---
DS: Admitting Diagnosis Discharge Date 01/30/2023 Admitting Diagnosis Facial droop TIA DS: Discharge Diagnosis Discharge Diagnosis (1) Brain TIA: Code(s): G45.9 - Transient cerebral ischemic attack, unspecified Status: Acute (2) Essential hypertension: Code(s): I10 - Essential (primary) hypertension Status: Acute Plan TIA Patient noticed facial droop when patient woke up on Sunday morning, and lasted about 4 hours. Patient denies focal weakness CTA of the head shows no acute intracranial intralesional,,show no stenosis no aneurysm ECG shows normal sinus rhythm no severe specific ST T wave changes continue aspirin 81 mg daily p.o., start Lipitor 40 mg daily p.o. follow-up brain MR neuro checks Fall percussion telemetry monitoring essential hypertension hypertension permission is over Continue losartan 100 mg daily p.o. optimize medication for better blood pressure control chronic anemia no obvious bleeding Follow-up stool guaiac, ferritin level, paroxysmal AFib Now patient has sinus rhythm Patient is not on blood thinner Patient states her last episode of proximal AFib possibly year ago given TIA, patient may need blood thinner Consult import/export agent for evaluation consult PT OT for evaluation cardiac diet DS: Summary Hospital Course Reason for hospitalization: 82 years old lady with history of hypertension, paroxysmal atrial fibrillation, hyperlipidemia, presents ED with a chief complaint of right facial droop.? Patient woke up? on Sunday morning and noticed right facial droop.? Patient denied headache, focal weakness.? Patient also denies chest pain, palpitation, shortness? of breath, fever, chills, nausea vomiting diarrhea dysuria.? Patient denies history of CVA.? Patient was brought to ED evaluation. ? CTA of head shows no aneurysm, or significant intracranial artery stenosis, EKG shows sinus rhythm Hospital Course: 82-year-old female presented with a complaint of facial droop to further evaluate patient had a CTA of the head and MRI of the brain essentially normal without any acute injury, a cardiac echo essentially normal, there was a concern the patient may have atrial fibrillation patient was seen her cardiology and review her telemetry patient has a SVT but no atrial fibrillation and does not need anticoagulation, patient is clinically stable will discharge the patient today. Time Spent with Patient Time attestation: Total time spent providing and/or coordinating discharge services: Exam Narrative: Patient is comfortable, NAD HEENT: eyes are clear and none icteric LUNGS: Normal respiratory ABD: Not distended Lower extremities: no edema SKIN: nonjaundiced Neuro: grossly intact. DS: Data Data Completed and Pending Labs on day of discharge: Labs from last 24 hours 01/30/23 01/30/23 11:36 00:39 Iron 19 L TIBC 452 % Saturation 4 L Triglycerides 84 Cholesterol 150 LDL Cholesterol Direct 60 HDL Direct 79 Stl Occult Blood (IFOB) Negative Discharge Plan Discharge Attending physician on discharge: Serina Valverde Consulting providers: Moises Hood; All Marc; Bharat Clemente V.; Jose Anna Discharging Clinician: Serina Valverde Patient Disposition: Home, Self-Care Activity: as tolerated Diet: heart healthy Discharge Instructions: Patient to follow-up with her primary care provider as soon as possible, patient is instructed if any symptoms redevelop to go to nearest emergency department Patient Instructions: Antibiotic Form Stand Alone Forms: General Discharge Information Follow-up/Referrals: Peyton Andre MD [Primary Care Provider] - Discharge Medications: New atorvastatin 40 mg Tablet 40 mg PO DAILY Qty: 30 0RF Continued aspirin 81 mg tablet,chewable 81 mg PO DAILY coenzyme Q10 10 mg capsule 10 mg PO DAILY PreserVision ARED
== END 2023-01-30 17:50 | disposition home or self-care (01) ==
LOC: ANHED 12:15 → ANH3MEDSUR 17:24
PROVIDERS: Admitting Provider Hospitalist; Emergency Provider Emergency Medicine; PCP Family Medicine; Referring Provider Internal Medicine Cardiovascular Disease; Visit Provider Family Medicine
DX: G45.9 Transient cerebral ischemic attack, unspecified (principal); I11.9 Hypertensive heart disease without heart failure; D64.9 Anemia, unspecified; I08.3 Combined rheumatic disorders of mitral, aortic and tricuspid valves; I47.1 Supraventricular tachycardia; I48.91 Unspecified atrial fibrillation; I48.0 Paroxysmal atrial fibrillation; E66.9 Obesity, unspecified; M81.0 Age-related osteoporosis without current pathological fracture; K44.9 Diaphragmatic hernia without obstruction or gangrene; R90.82 White matter disease, unspecified; Z68.34 Body mass index [BMI] 34.0-34.9, adult; F10.90 Alcohol use, unspecified, uncomplicated; Z79.82 Long term (current) use of aspirin; Z79.899 Other long term (current) drug therapy
CPT/HCPCS: 36415; 70496; 70498; 70553; 71046; 80053; 80061; 82274; 82948; 83540; 83550; 84484; 85025; 85610; 85730; 93005; 93306; 96374; 96375; 97161; 97165; 99285; A9270; A9577; G0378; J2405; Q9967

== ENCOUNTER 2023-04-12 10:34 | Outpatient (CLI) | payer MEDICARE, SELFPAY ==
[2023-04-12 13:06] LABS: Basophils Absolute Auto 0.1 K/mm3 (0.0-0.1); Basophils Percent Auto 0.9 % (0.2-1.2); Eosinophils Absolute Auto 0.1 K/mm3 (0-0.3); Eosinophils Percent Auto 2.5 % (0-4.4); Hematocrit 38.2 % (37.0-47.0); Hemoglobin 11.3 g/dL (12.0-15.0); Immature Granulocyte Absolute 0.01 K/mm3 (0.00-0.031); Immature Granulocyte Percent A 0.2 % (0-0.5); Lymphocytes Absolute Auto 1.86 K/mm3 (0.9-3.2); Lymphocytes Percent Auto 32.9 % (18.3-44.2); Mean Corpuscular HGB Conc 29.6 g/dl (32-36); Mean Corpuscular Hemoglobin 23.3 pg (26-34); Mean Corpuscular Volume 78.9 fl (80-100); Mean Platelet Volume 9.8 fl (7.4-10.4); Monocytes Absolute Auto 0.6 K/mm3 (0.1-0.6); Monocytes Percent Auto 10.2 % (2.6-8.5); Neutrophils Percent Auto 53.3 % (45.5-73.1); Platelet Count Result 331 k/mm3 (150-375); Red Blood Count 4.84 M/mm3 (4.2-5.4); Red Cell Distribution Width 19.5 % (11.5-14.5); White Blood Count 5.7 K/mm3 (4.5-10.0)
[2023-04-12 13:09] LABS: Alanine Aminotransferase 35 U/L (6-35); Albumin Level 4.3 g/dL (3.5-5.1); Alkaline Phosphatase 116 U/L (38-126); Anion Gap 6 mmol/L (8-16); Aspartate Amino Transferase 54 U/L (14-36); Bilirubin,Total 0.5 mg/dL (0.2-1.3); Blood Urea Nitrogen 18 mg/dL (7-17); Calcium 9.4 mg/dL (8.4-10.2); Carbon Dioxide 30 mmol/L (22-30); Chloride 102 mmol/L (98-107); Estimated Glomerular Filt Rate > 60; Glucose 87 mg/dL (65-110); Potassium 4.2 mmol/L (3.4-5.0); Sodium 138 mmol/L (137-145)
[2023-04-12 13:34] LABS: Anisocytosis 1+ (NORMAL); Hypochromasia 1+ (NORMAL); Microcytosis 1+ (NORMAL); Platelet Estimate Adequate (Adequate); Schistocytes None Seen (NORMAL)
[2023-04-12 14:20] LABS: Hemoglobin A1C 6.2 % (<5.7)
[2023-04-12 16:12] LABS: Free T4 Free Thyroxine 1.46 ng/mL (0.78-2.19); Vitamin D 25 Hydroxy 55.7 ng/mL
[2023-04-15 01:35] LABS: Thyroid Peroxidase Antibodies <1 IU/mL (<9)
[2023-04-15 19:01] LABS: Thyrotropin Receptor Antibody <1.00 IU/L (<=2.00)
[2023-04-18 13:52] LABS: Thyroid Stimulating Immunoglob <89 % baseline (<140)
== END 2023-04-12 10:35 | disposition home or self-care (01) ==
LOC: ANHWCLAB 10:39
PROVIDERS: PCP Family Medicine; Visit Provider Internal Medicine
DX: E04.2 Nontoxic multinodular goiter (principal); R73.03 Prediabetes; R73.9 Hyperglycemia, unspecified; I10 Essential (primary) hypertension; M81.0 Age-related osteoporosis without current pathological fracture; I35.1 Nonrheumatic aortic (valve) insufficiency; I47.1 Supraventricular tachycardia; E66.9 Obesity, unspecified; R53.83 Other fatigue
CPT/HCPCS: 36415; 80053; 82306; 82607; 83036; 83519; 84439; 84443; 84445; 85025; 86376

== ENCOUNTER → 2023-05-04 14:19 | Outpatient (CLI) | payer MEDICARE, SELFPAY ==
--- NOTE | ~2023-05-04 | US_ITS ---
EXAMINATION: US renal BI DATE: 05/04/2023 14:43 INDICATION: Urinary tract infection. Abdominal pain. TECHNIQUE: Multiple ultrasound grayscale images of the kidneys were obtained. COMPARISON: CT abdomen and pelvis dated 07/22/2021 FINDINGS: The right kidney measures 10.1 x 5.8 x 5.8 cm. The left kidney measures 12.7 x 3.8 x 4.9 cm. The kidn eys demonstrate normal echogenicity. Again seen are normal retained lobulations of both kidneys . There is no hydronephrosis in either kidney. No stones identified. The bladder is normal. A few sm all echogenic calcified granulomata in the liver. IMPRESSION: 1. Normal kidneys without hydronephrosis. Reviewed, dictated and finalized at location A.
== END ==
PROVIDERS: PCP Family Medicine; Visit Provider Nurse Practitioner Family
DX: R10.9 Unspecified abdominal pain (principal)
CPT/HCPCS: 76775

== ENCOUNTER 2023-05-09 09:02 | Outpatient (CLI) | payer MEDICARE, SELFPAY ==
[2023-05-09 19:03] LABS: Alanine Aminotransferase 53 U/L (6-35); Albumin Level 4.1 g/dL (3.5-5.1); Alkaline Phosphatase 113 U/L (38-126); Anion Gap 4 mmol/L (8-16); Aspartate Amino Transferase 56 U/L (14-36); Bilirubin,Total 0.3 mg/dL (0.2-1.3); Blood Urea Nitrogen 25 mg/dL (7-17); Calcium 9.1 mg/dL (8.4-10.2); Carbon Dioxide 34 mmol/L (22-30); Chloride 98 mmol/L (98-107); Estimated Glomerular Filt Rate > 60; Glucose 94 mg/dL (65-110); Potassium 4.5 mmol/L (3.4-5.0); Sodium 136 mmol/L (137-145)
[2023-05-09 19:05] LABS: Basophils Absolute Auto 0.1 K/mm3 (0.0-0.1); Basophils Percent Auto 0.9 % (0.2-1.2); Eosinophils Absolute Auto 0.1 K/mm3 (0-0.3); Eosinophils Percent Auto 1.9 % (0-4.4); Hematocrit 36.4 % (37.0-47.0); Hemoglobin 11.1 g/dL (12.0-15.0); Immature Granulocyte Absolute 0.05 K/mm3 (0.00-0.031); Immature Granulocyte Percent A 0.7 % (0-0.5); Lymphocytes Absolute Auto 2.16 K/mm3 (0.9-3.2); Lymphocytes Percent Auto 31.3 % (18.3-44.2); Mean Corpuscular HGB Conc 30.5 g/dl (32-36); Mean Corpuscular Hemoglobin 24.1 pg (26-34); Mean Corpuscular Volume 79.1 fl (80-100); Mean Platelet Volume 9.4 fl (7.4-10.4); Monocytes Absolute Auto 0.5 K/mm3 (0.1-0.6); Monocytes Percent Auto 7.4 % (2.6-8.5); Neutrophils Percent Auto 57.8 % (45.5-73.1); Platelet Count Result 404 k/mm3 (150-375); Red Cell Distribution Width 19.8 % (11.5-14.5); White Blood Count 6.9 K/mm3 (4.5-10.0)
[2023-05-09 19:11] LABS: Appearance Urine Clear (Clear); Bacteria Urine None Seen /hpf; Bilirubin Urine Negative (Negative); Blood Urine Negative (Negative); Color Urine Yellow (Yellow); Glucose Urine UA Negative (Negative); Ketones Urine Negative (Negative); Leukocyte Esterase Ur Trace LEU/UL (Negative); Nitrate Urine Negative (Negative); Protein Urine Negative (Negative); Specific Grav Ur 1.013 (1.001-1.035); Squamous Epithelial Cell Urine Occasional /hpf (Few); Urobilinogen Urine 0.2 mg/dL (<2.0)
[2023-05-09 19:18] LABS: Add Urine Microscopic? YES
== END 2023-05-09 09:03 | disposition home or self-care (01) ==
LOC: ANHGOSHLAB 09:05
PROVIDERS: PCP Family Medicine; Visit Provider Nurse Practitioner Family
DX: R10.9 Unspecified abdominal pain (principal); R53.83 Other fatigue; E66.9 Obesity, unspecified
CPT/HCPCS: 36415; 80053; 81001; 85025; 87086; 87088

== ENCOUNTER 2023-05-09 11:12 | Outpatient (CLI) | payer MEDICARE, SELFPAY ==
--- NOTE | ~2023-05-09 | US_ITS ---
EXAMINATION: US FNA w image guidance DATE: 05/09/2023 13:49 INDICATION: Thyroid nodules. TECHNIQUE: The procedure and its benefits and risks were discussed with the patient. Risks specifically discusse d included bleeding. The patient verbalized understanding of the risks and agreed to proceed. The nec k was prepped and draped in the usual sterile manner. 1% lidocaine was used for local anesthesia. 6 passes were made with a 25G needle into the lesion under ultrasound guidance. There were no immedia te complications. FINDINGS: Grayscale ultrasound images demonstrate needles advanced into a 10 mm nodule in left thyroid lobe for biopsy. IMPRESSION: 1. Ultrasound-guided fine needle aspiration of a 10 mm left thyroid nodule. Reviewed, dictated and finalized at location A.
== END 2023-05-09 11:13 | disposition home or self-care (01) ==
PROVIDERS: PCP Family Medicine; Visit Provider Internal Medicine
DX: E04.1 Nontoxic single thyroid nodule (principal)
CPT/HCPCS: 10005; 36415; 80053; 81001; 85025; 87086; 88173; 88305

== ENCOUNTER 2023-05-17 14:55 | Outpatient (CLI) | payer MEDICARE, SELFPAY ==
[2023-05-17 20:00] LABS: Appearance Urine Clear (Clear); Bacteria Urine None Seen /hpf; Bilirubin Urine Negative (Negative); Blood Urine Negative (Negative); Color Urine Yellow (Yellow); Glucose Urine UA Negative (Negative); Ketones Urine Negative (Negative); Leukocyte Esterase Ur Trace LEU/UL (NEGATIVE); Nitrate Urine Negative (Negative); Non Pathogenic Casts 0-2; Protein Urine Negative (Negative); RBC Urine 0-2 /hpf (0-2); Specific Grav Ur 1.011 (1.001-1.035); Squamous Epithelial Cell Urine Occasional /hpf (Few); Urobilinogen Urine 0.2 mg/dL (<2.0); pH Urine 5.5 (5.0-9.0)
[2023-05-17 20:02] LABS: Add Urine Microscopic? YES
== END 2023-05-17 14:56 | disposition home or self-care (01) ==
LOC: ANHGOSHLAB 15:03
PROVIDERS: PCP Family Medicine; Visit Provider Family Medicine
DX: R30.0 Dysuria (principal)
CPT/HCPCS: 81001

== ENCOUNTER 2023-05-23 09:16 | Outpatient (CLI) | payer MEDICARE, SELFPAY ==
[2023-05-23 17:57] LABS: Basophils Absolute Auto 0.1 K/mm3 (0.0-0.1); Basophils Percent Auto 1.4 % (0.2-1.2); Eosinophils Absolute Auto 0.1 K/mm3 (0-0.3); Hematocrit 38.3 % (37.0-47.0); Hemoglobin 11.5 g/dL (12.0-15.0); Immature Reticulocyte Fraction 15.8 % (3.0-15.9); Lymphocytes Absolute Auto 1.81 K/mm3 (0.9-3.2); Lymphocytes Percent Auto 41.9 % (18.3-44.2); Mean Corpuscular Hemoglobin 24.8 pg (26-34); Mean Corpuscular Volume 82.5 fl (80-100); Mean Platelet Volume 10.4 fl (7.4-10.4); Monocytes Absolute Auto 0.4 K/mm3 (0.1-0.6); Monocytes Percent Auto 9.3 % (2.6-8.5); Neutrophils Absolute Auto 1.9 K/mm3 (1.3-6.7); Neutrophils Percent Auto 44.4 % (45.5-73.1); Platelet Count Result 308 k/mm3 (150-375); Red Blood Count 4.64 M/mm3 (4.2-5.4); Reticulocyte Hemoglobin Conten 29.4 pg (28.2-35.7); Reticulocyte Percent 1.78 % (0.7-4.3); Reticulocytes Absolute 0.08 M/mm3 (0.02-0.1); White Blood Count 4.3 K/mm3 (4.5-10.0)
[2023-05-23 19:21] LABS: Iron 63 ug/dL (37-170)
[2023-05-23 20:05] LABS: Alanine Aminotransferase 33 U/L (6-35); Albumin Level 3.9 g/dL (3.5-5.1); Alkaline Phosphatase 99 U/L (38-126); Aspartate Amino Transferase 65 U/L (14-36); Bilirubin,Total 0.5 mg/dL (0.2-1.3)
[2023-05-23 20:57] LABS: Percent Iron Saturation 13 % (20-50)
== END 2023-05-23 09:17 | disposition home or self-care (01) ==
LOC: ANHGOSHLAB 09:19
PROVIDERS: PCP Family Medicine; Visit Provider Family Medicine
DX: D50.9 Iron deficiency anemia, unspecified (principal)
CPT/HCPCS: 36415; 80076; 82728; 83540; 83550; 85025; 85046

== ENCOUNTER 2023-06-01 15:43 | Outpatient (CLI) | payer MEDICARE, SELFPAY ==
[2023-06-01 15:58] LABS: Appearance Urine Clear (Clear); Bilirubin Urine Negative (Negative); Blood Urine Trace-Intact (Negative); Color Urine Light Yellow (Yellow); Glucose Urine UA Negative (Negative); Ketones Urine Negative (Negative); Leukocyte Esterase Ur Trace LEU/UL (Negative); Nitrate Urine Negative (Negative); Protein Urine Trace (Negative); Specific Grav Ur 1.025 (1.010-1.020); Urobilinogen Urine 0.2 mg/dL (0.2-1.0)
[2023-06-01 16:02] LABS: Add Urine Microscopic? YES
[2023-06-01 16:03] LABS: Bacteria Urine Trace /hpf; Mucus Urine Few /lpf; Squamous Epithelial Cell Urine Few /hpf (Few)
== END 2023-06-01 15:44 | disposition home or self-care (01) ==
LOC: CHSLAB 15:45
PROVIDERS: PCP Family Medicine; Visit Provider Nurse Practitioner Family
DX: R10.9 Unspecified abdominal pain (principal)
CPT/HCPCS: 81001

== ENCOUNTER 2023-06-27 08:12 | Outpatient (CLI) | payer MEDICARE, SELFPAY ==
[2023-06-27 18:25] LABS: Basophils Absolute Auto 0.1 K/mm3 (0.0-0.1); Basophils Percent Auto 1.4 % (0.2-1.2); Eosinophils Absolute Auto 0.1 K/mm3 (0-0.3); Hematocrit 40.4 % (37.0-47.0); Hemoglobin 12.5 g/dL (12.0-15.0); Immature Granulocyte Absolute 0.01 K/mm3 (0.00-0.031); Immature Granulocyte Percent A 0.2 % (0-0.5); Lymphocytes Absolute Auto 1.76 K/mm3 (0.9-3.2); Lymphocytes Percent Auto 40.2 % (18.3-44.2); Mean Corpuscular HGB Conc 30.9 g/dl (32-36); Mean Corpuscular Hemoglobin 26.3 pg (26-34); Mean Corpuscular Volume 85.1 fl (80-100); Mean Platelet Volume 10.3 fl (7.4-10.4); Monocytes Absolute Auto 0.5 K/mm3 (0.1-0.6); Monocytes Percent Auto 10.3 % (2.6-8.5); Neutrophils Percent Auto 44.9 % (45.5-73.1); Platelet Count Result 257 k/mm3 (150-375); Red Blood Count 4.75 M/mm3 (4.2-5.4); Red Cell Distribution Width 19.8 % (11.5-14.5); Reticulocyte Hemoglobin Conten 32.3 pg (28.2-35.7); Reticulocyte Percent 0.96 % (0.7-4.3); Reticulocytes Absolute 0.05 M/mm3 (0.02-0.1); White Blood Count 4.4 K/mm3 (4.5-10.0)
[2023-06-27 19:23] LABS: Alanine Aminotransferase 29 U/L (6-35); Albumin Level 4.3 g/dL (3.5-5.1); Alkaline Phosphatase 100 U/L (38-126); Anion Gap 4 mmol/L (8-16); Aspartate Amino Transferase 49 U/L (14-36); Bilirubin,Total 0.5 mg/dL (0.2-1.3); Blood Urea Nitrogen 14 mg/dL (7-17); Calcium 9.4 mg/dL (8.4-10.2); Carbon Dioxide 34 mmol/L (22-30); Chloride 102 mmol/L (98-107); Cholesterol 176 mg/dL (0-200); Estimated Glomerular Filt Rate > 60; Glucose 96 mg/dL (65-110); HDL Direct 84 mg/dL; Potassium 3.7 mmol/L (3.4-5.0); Sodium 140 mmol/L (137-145); Triglycerides 59 mg/dL (<150)
[2023-06-27 19:34] LABS: LDL Cholesterol Direct 70 mg/dL
[2023-06-27 20:11] LABS: Vitamin D 25 Hydroxy 66.8 ng/mL
[2023-06-27 20:13] LABS: Vitamin B12 > 1000.0 pg/mL (239-931)
[2023-06-27 20:56] LABS: Hemoglobin A1C 5.5 % (<5.7)
== END 2023-06-27 08:13 | disposition home or self-care (01) ==
PROVIDERS: PCP Family Medicine; Visit Provider Family Medicine
DX: D50.9 Iron deficiency anemia, unspecified (principal); R73.03 Prediabetes; E66.9 Obesity, unspecified; M81.0 Age-related osteoporosis without current pathological fracture; E04.2 Nontoxic multinodular goiter
CPT/HCPCS: 36415; 80053; 80061; 82306; 82607; 82728; 83036; 84443; 85025; 85046

== ENCOUNTER 2023-07-04 00:52 | Day surgery (SDC) | payer MEDICARE, SELFPAY ==
[2023-06-25 09:31] VITALS: BMI 32.0
--- NOTE | 2023-07-03 14:53 | PM.HPGS ---
History of Present Illness History of Present Illness Consent: Risks, benefits, and alternatives have been discussed and questions answered. Patient agrees to proceed with procedure. Chief complaint: iron deficiency anemia, HX of peptic ulcer disease Narrative: Mary Ellen Robles is a 83 year old female referred for endoscopy because of a history of peptic ulcer disease and ongoing anemia. Recent ferritin level is 10.8 Review of Systems Review of Systems: All systems reviewed & are unremarkable except as noted in HPI and below PMFSH Past Medical History Medical History Actinic keratosis Aortic regurgitation mild,PERLA 1.4.23 Atrial fibrillation Benign mole Brain TIA 2022 Endometriosis Essential hypertension Hiatal hernia 9.7.22 barium swallow: . Moderate-sized sliding-type hiatal hernia. Obesity PONV (postoperative nausea and vomiting) Skin neoplasm Surgical History Surgical History History of appendectomy 1960 History of cholecystectomy 1966 History of hip replacement 12/2005, left History of knee replacement right 2020 Left 2018 History of surgery on lower extremity 2001, closure of bilateral varicose veins S/P JASON-BSO 1969/endometriosis Family History Family History Sibling Leukemia Lung cancer Parkinson disease Mother Parkinson disease Father Heart attack Sibling Brain tumor Sibling Diabetes mellitus Social History Social History Smoking status: Never smoker Second hand tobacco smoke exposure: Yes Alcohol intake: current Drinks per week: 1 Substance use type: does not use Lack of Transportation: No Lack of Food: Never True Current Housing: I Have Housing Concerned About Future Housing: No Difficulty Paying Gas/Electric Bills: No Difficulty Paying for Meds: No Currently Unemployed: No Education: High School Diploma/GED Difficulty w/ Childcare or Family Care: No Living arrangements: other Additional living arrangements comments: with sp Spiritual care concerns: No Meds Home Medications and Allergies Home Medications Medication Instructions Recorded Confirmed Type ascorbic acid (vitamin C) 500 mg 500 mg PO DAILY 10/11/22 06/25/23 History capsule aspirin 81 mg chewable tablet 81 mg PO DAILY 10/11/22 06/25/23 History cholecalciferol (vitamin D3) 25 25 mcg PO DAILY 10/11/22 06/25/23 History mcg (1,000 unit) capsule coenzyme Q10 10 mg capsule 10 mg PO DAILY 10/11/22 06/25/23 History mecobalamin (vitamin B12) 1,000 1,000 mcg PO DAILY 10/11/22 06/25/23 History mcg chewable tablet vitamins A,C,N-riul-vlltvw 4,296 2 cap PO DAILY 10/11/22 06/25/23 History mcg-226 mg-90 mg capsule (PreserVision AREDS) losartan 100 mg tablet 100 mg PO DAILY #90 tabs 11/15/22 06/25/23 Rx calcium carbonate 600 mg calcium 600 mg PO DAILY #90 tabs 01/10/23 06/25/23 Rx (1,500 mg) tablet (Calcium) blood-glucose meter (KetchupppTouch #1 ea 02/27/23 06/25/23 Rx Verio Flex Meter) lancets 33 gauge (OneTouch Delica #100 ea 02/27/23 06/25/23 Rx Lancets) blood sugar diagnostic (Blood #100 ea 03/09/23 06/25/23 Rx Glucose Test strips) amlodipine 10 mg tablet 10 mg PO DAILY 06/25/23 06/25/23 History Allergies Allergy/AdvReac Type Severity Reaction Status Date / Time atorvastatin Allergy Intermediate Cramping Verified 07/04/23 07:54 of the Muscles adhesive Allergy Mild BLISTERS/RA Verified 07/04/23 07:54 SH morphine Allergy Mild Rash, Verified 07/04/23 07:54 difficulty waking up lisinopril Allergy Unknown Cough Verified 07/04/23 07:54 olmesartan [From Benicar] Allergy Unknown Cough Verified 07/04/23 07:54 Exam Const: General: alert Orientation/consciousness: patient oriented x3 Resp: Auscultation: nikole
[2023-07-04 08:00] VITALS: BP 169/92; PULSE 85; RESP 18; TEMP 36.2; O2SAT 99
[2023-07-04] MEDS: LACTATED RINGERS 1,000 ML 150 ML IV CONT (08:17)
[2023-07-04 09:00] VITALS: BP 132/71; PULSE 73; RESP 12; O2SAT 98
[2023-07-04 09:10] VITALS: BP 136/79; PULSE 79; RESP 15; O2SAT 98
[2023-07-04 09:20] VITALS: BP 128/79; PULSE 73; RESP 20; O2SAT 96
== END 2023-07-04 09:31 | disposition home or self-care (01) ==
PROVIDERS: PCP Family Medicine; Visit Provider Internal Medicine Gastroenterology
PROC: 0DJ08ZZ Inspection of Upper Intestinal Tract, Via Natural or Artificial Opening Endoscopic (ICD-10-PCS; CPT 43235; principal; 2023-07-04 09:00)
DX: K25.9 Gastric ulcer, unspecified as acute or chronic, without hemorrhage or perforation (principal); D50.9 Iron deficiency anemia, unspecified; K21.9 Gastro-esophageal reflux disease without esophagitis; K44.9 Diaphragmatic hernia without obstruction or gangrene; K29.70 Gastritis, unspecified, without bleeding; I48.91 Unspecified atrial fibrillation; I10 Essential (primary) hypertension; Z86.73 Personal history of transient ischemic attack (TIA), and cerebral infarction without residual deficits; E66.9 Obesity, unspecified; Z68.32 Body mass index [BMI] 32.0-32.9, adult
CPT/HCPCS: 43239; 87081; 88305; J2704; J7120

== ENCOUNTER 2023-07-05 19:13 | Outpatient (NON) | payer MEDICARE, SELFPAY | END 2023-07-05 19:14 | disposition home or self-care (01) | LOC: ANHGOSHLAB 19:17 | PROVIDERS: PCP Family Medicine; Visit Provider Physician Assistant | DX: N30.01 Acute cystitis with hematuria (principal) | CPT/HCPCS: 87077; 87086; 87186 ==

== ENCOUNTER 2023-07-06 07:16 | Outpatient (CLI) | payer MEDICARE, SELFPAY ==
--- NOTE | ~2023-07-06 | XR_ITS ---
XR abdomen/kub 1V DATE: 07/06/2023 07:38 INDICATION: Microhematuria TECHNIQUE: 2 supine AP views COMPARISON: 07/06/2023 CT abdomen pelvis FINDINGS: Multiple surgical clips, right upper quadrant, consistent with cholecystectomy. Hepatic and particularly numerous splenic calcified granulomas. The psoas shadows are intact. No visceromegaly is evident. Moderately large hiatal hernia. There is a prominent of fecal material in the right colon in particul ar. No bowel obstruction is noted. Osteitis pubis. Status post left total hip arthroplasty. Levoscoliosis and degenerative change of the lumbar spine. IMPRESSION: Status post cholecystectomy Moderately large hiatal hernia. Prominent amount fecal material in the colon; no bowel obstruction Osteitis pubis Status post left total hip arthroplasty Levoscoliosis and degenerative change of the lumbar spine Reviewed, dictated and finalized at Location [facility]. Reviewed, dictated and finalized at location B.
--- NOTE | ~2023-07-06 | CT_ITS ---
EXAMINATION: CT abdomen pelvis wo/w con DATE: 07/06/2023 08:04 INDICATION: Microhematuria TECHNIQUE: Computed tomography (CT) of the abdomen and pelvis was performed without and subsequently with 130 CC Omnipaque 350 intravenous contrast. Automated exposure control and iterative reconstructi on technique were employed. Exam dose: 1978.34 mGy-cm total exam DLP. COMPARISON: 07/22/2021 CT abdomen pelvis 07/06/2023 KUB FINDINGS: There is mild left basilar atelectasis or fibrotic change. No infiltrate or consolidation a t the lung bases. Heart size is borderline. No pericardial or pleural effusion. Moderately large sliding hiatal hernia. Numerous hepatic and splenic calcified granulomas consistent with old granulomatous disease. Status post cholecystectomy. No bile duct dilatation. No pancreatic mass lesion, calcification or ductal dilatation. Normal morphology of the adrenal glands. There is severe right hydroureteronephrosis. The right ureter is dilated up to 2.1 cm diameter. There is an approximately 1.5-2 cm soft tissue mass of the right ureter at the lower sacroiliac level, lik alejandra a urothelial malignancy obstructing the ureter, normal caliber of the right ureter distal to this point. There is bilateral renal persistent lobation. No renal mass lesion is evident. There is atherosclerotic calcification but normal caliber of the abdominal aorta and iliac arteries. No intraperitoneal or retroperitoneal or pelvic mass lesion or adenopathy or ascites is noted otherwi se. There is considerable streak artifact from left total hip arthroplasty hardware, limiting evaluation of the pelvic structures. The urinary bladder therefore is not optimally evaluated, in addition to un henrique distention of the urinary bladder. Recommend urological consultation for evaluation for any possi ble drop metastases. Status post hysterectomy. The appendix is not identified. Diverticulosis of the sigmoid colon; no CT evidence of diverticulitis . No bowel obstruction, bowel wall thickening, pneumatosis or intraperitoneal free air. Very small fat-containing umbilical hernia. Degenerative changes of the thoracic and particularly lumbar spine, including particularly severe deg enerative change at the lumbar apophyseal joints with associated grade 1 anterolisthesis of L5-S1, an d moderately severe degenerative disc disease at L2-3 and L4-5. Left total hip arthroplasty. No suspicious osteolytic or osteoblastic lesions are noted. 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 Reviewed, dictated and finalized at location B. 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
== END 2023-07-06 07:17 | disposition home or self-care (01) ==
PROVIDERS: PCP Family Medicine; Visit Provider Nurse Practitioner Adult Health
DX: R31.29 Other microscopic hematuria (principal); K44.9 Diaphragmatic hernia without obstruction or gangrene; M86.9 Osteomyelitis, unspecified; M41.86 Other forms of scoliosis, lumbar region; Z90.49 Acquired absence of other specified parts of digestive tract; Z96.642 Presence of left artificial hip joint
CPT/HCPCS: 74018; 74178; Q9967

== ENCOUNTER 2023-08-02 00:44 | Day surgery (SDC) | payer MEDICARE, SELFPAY ==
[2023-07-30 14:51] VITALS: BMI 32.0
--- NOTE | 2023-07-30 14:58 | PC.NURSE ---
Report to the Outpatient Waiting Room, entrance under the green pavilion located off [facility], at time _0630_ on date _[id number]_. Planned Procedure Time: _0830_. Time changes happen often and if your time is changed the preop area will call you the afternoon before. - You and your visitor will be asked to self-screen and do not enter if you have any COVID symptoms. - A mask is optional within the hospital at this time. Patients may have clear liquids (water, carbonated beverages, clear teas, apple juice) until 3 hours prior to surgery with a maximum of 20 ounces. - No food from midnight until time of surgery Take the following medications with a SIP of water the morning of surgery: __Amlodipine DO NOT STOP ANY OF YOUR OTHER PRESCRIPTION MEDICATIONS PRIOR TO SURGERY ?EXCEPT THE FOLLOWING Medications to discontinue per physician ___Vitamins and supplements. Date to take last dose___Stop today. Please no make-up, nail maori, hairspray, perfume, deodorant, or body powder the day of surgery. No jewelry (including any body piercings) or valuables the day of surgery, leave them at home. Please take a shower or bath the night before, or the morning of, surgery with an antibacterial soap. Wear comfortable, loose fitting clothing. - Jewelry must be removed prior to entering the operating room. Rings and piercings that are not removed may be cut off. - The hospital will not accept responsibility for valuables. - Please leave all valuables, including medications, at home the day of surgery. If you are going home after surgery, a licensed scoop driver must drive you home. - NO public transportation without another adult if you receive anesthesia. - We recommend that an adult stay with you for 24 hours following discharge. - We also recommend that you do not drive, make important decision, drink alcoholic beverages, or take any drugs that were not prescribed by your health care provider for at least 24 hours after your discharge time. Follow any additional instructions given to you from your surgeon. If you or anyone in your household have experienced Covid symptoms in the past week, please notify your surgeon or the nurse liaison at the phone number below for possible testing. Telephone instructions given to __Mary Ellen__and asked if any additional questions and then verbalized understanding. Patient advised to call surgeon office or pre surgery nurse liaison [phone] if any additional questions.
--- NOTE | 2023-08-01 06:55 | PM.HPGS ---
History of Present Illness History of Present Illness Consent: Risks, benefits, and alternatives have been discussed and questions answered. Patient agrees to proceed with procedure. Chief complaint: Ureteral Mass Narrative: Mary Ellen Robles is a 83 year old female who been seen in our office with overactive bladder symptoms. During the course of evaluation she was found to have microscopic hematuria. CT urogram demonstrated right hydronephrosis with an apparent filling defect in the right mid to distal ureter. She presents for cystoscopy with right retrograde pyelography, right ureteroscopy with biopsy. She is aware the risk including, but not limited to, need for additional procedures, ureteral stent placement and hematuria. Review of Systems Review of Systems: All systems reviewed & are unremarkable except as noted in HPI and below PMFSH Past Medical History Medical History Actinic keratosis Aortic regurgitation mild,PERLA 1.4.23 Atrial fibrillation Benign mole Brain TIA 2022 Endometriosis Essential hypertension Hiatal hernia 9.7.22 barium swallow: . Moderate-sized sliding-type hiatal hernia. Obesity PONV (postoperative nausea and vomiting) Skin neoplasm Surgical History Surgical History History of appendectomy 1960 History of cholecystectomy 1967 History of hip replacement 12/2005, left History of knee replacement right 2020 Left 2018 History of surgery on lower extremity 2001, closure of bilateral varicose veins S/P JASON-BSO 1969/endometriosis Family History Family History Sibling Leukemia Lung cancer Parkinson disease Mother Parkinson disease Father Heart attack Sibling Brain tumor Sibling Diabetes mellitus Social History Social History Smoking status: Never smoker Second hand tobacco smoke exposure: Yes Alcohol intake: current Drinks per week: 1 Substance use type: does not use Lack of Transportation: No Lack of Food: Never True Current Housing: I Have Housing Concerned About Future Housing: No Difficulty Paying Gas/Electric Bills: No Difficulty Paying for Meds: No Currently Unemployed: No Education: High School Diploma/GED Difficulty w/ Childcare or Family Care: No Living arrangements: with family Additional living arrangements comments: with sp Spiritual care concerns: No Meds Home Medications and Allergies Home Medications Medication Instructions Recorded Confirmed Type ascorbic acid (vitamin C) 500 mg 500 mg PO DAILY 10/11/22 07/30/23 History capsule cholecalciferol (vitamin D3) 25 25 mcg PO DAILY 10/11/22 07/30/23 History mcg (1,000 unit) capsule coenzyme Q10 10 mg capsule 10 mg PO DAILY 10/11/22 07/30/23 History mecobalamin (vitamin B12) 1,000 1,000 mcg PO DAILY 10/11/22 07/30/23 History mcg chewable tablet vitamins A,C,S-jbvq-dnsqxe 4,296 2 cap PO DAILY 10/11/22 07/30/23 History mcg-226 mg-90 mg capsule (PreserVision AREDS) losartan 100 mg tablet 100 mg PO DAILY #90 tabs 11/15/22 07/30/23 Rx calcium carbonate 600 mg calcium 600 mg PO DAILY #90 tabs 01/10/23 07/30/23 Rx (1,500 mg) tablet (Calcium) blood sugar diagnostic (Blood #100 ea 03/09/23 07/30/23 Rx Glucose Test strips) amlodipine 10 mg tablet 10 mg PO DAILY 06/25/23 07/30/23 History pantoprazole 40 mg tablet,delayed 40 mg PO QAM #30 tabs 07/04/23 07/30/23 Rx release blood-glucose meter (Contour Next 07/26/23 07/30/23 History Glucose Meter kit) Allergies Allergy/AdvReac Type Severity Reaction Status Date / Time atorvastatin Allergy Intermediate Cramping Verified 07/30/23 14:48 of the Muscles adhesive Allergy Mild BLISTERS/RA Verified 07/30/23 14:48 SH morphine Allergy Mild Rash, Ve
[2023-08-02] VITALS (8 sets, daily range): BP systolic 160–180; BP diastolic 75–90; PULSE 63–82; RESP 10–18; TEMP 36.2–36.7; O2SAT 94–100; BMI 31.8
--- NOTE | ~2023-08-02 | XR_ITS ---
EXAMINATION: XR retrograde pyelogram RT DATE: 08/02/2023 09:08 INDICATION: Right ureteral mass. TECHNIQUE: 105 intraoperative fluoroscopic views of the abdomen and pelvis were obtained. I was not p resent. Fluoroscopy exposure time was 144 seconds. COMPARISON: CT abdomen and pelvis 07/06/2023 FINDINGS: There is a focal stricture of distal right ureter with proximal hydroureter. The cystogram is normal. There is a total left hip arthroplasty. IMPRESSION: 1. Focal stricture of the distal right ureter, consistent with urothelial carcinoma. Reviewed, dictated and finalized at location A. KEEPER RECEPTIONIST IMPRESSION: 1. Focal stricture of the distal right ureter, consistent with urothelial carci noma.
--- NOTE | 2023-08-02 06:19 | WPDHPUPDATE1 ---
History and Physical Update Update Date/Time: 08/02/23 06:19 History and Physical has been reviewed, including an updated exam of the patient. There are NO changes in the patient's condition. Risks, benefits, and alternatives have been discussed and questions answered. Patient agrees to proceed with procedure.
--- NOTE | 2023-08-02 07:26 | WPDANESEPPF ---
Anes - Initial Pre Proc Eval Procedure: Operation Date: 08/02/23 08:30 Proposed Procedures p Cystoscopy, Right Ureteroscopy with Possible Right Ureteral Biopsy, Right Retrograde Pyelogram - Champ Simental MD Date/Time: 08/02/23 07:26 Surgeon: Champ Simental MD Pre Op Diagnosis: Ureteral Mass Patient Data Age: 83 Gender: F Height: 1.7 m Weight: 92.7 kg Allergies Allergy/AdvReac Type Severity Reaction Status Date / Time atorvastatin Allergy Intermediate Cramping Verified 07/30/23 14:48 of the Muscles adhesive Allergy Mild BLISTERS/RA Verified 07/30/23 14:48 SH morphine Allergy Mild Rash, Verified 07/30/23 14:48 difficulty waking up lisinopril Allergy Unknown Cough Verified 07/30/23 14:48 olmesartan [From Benicar] Allergy Unknown Cough Verified 07/30/23 14:48 Home Medications Medication Instructions Recorded Confirmed Type ascorbic acid (vitamin C) 500 mg 500 mg PO DAILY 10/11/22 07/30/23 History capsule cholecalciferol (vitamin D3) 25 25 mcg PO DAILY 10/11/22 07/30/23 History mcg (1,000 unit) capsule coenzyme Q10 10 mg capsule 10 mg PO DAILY 10/11/22 07/30/23 History mecobalamin (vitamin B12) 1,000 1,000 mcg PO DAILY 10/11/22 07/30/23 History mcg chewable tablet vitamins A,C,V-hpcz-svfftp 4,296 2 cap PO DAILY 10/11/22 07/30/23 History mcg-226 mg-90 mg capsule (PreserVision AREDS) losartan 100 mg tablet 100 mg PO DAILY #90 tabs 11/15/22 07/30/23 Rx calcium carbonate 600 mg calcium 600 mg PO DAILY #90 tabs 01/10/23 07/30/23 Rx (1,500 mg) tablet (Calcium) blood sugar diagnostic (Blood #100 ea 03/09/23 07/30/23 Rx Glucose Test strips) amlodipine 10 mg tablet 10 mg PO DAILY 06/25/23 07/30/23 History pantoprazole 40 mg tablet,delayed 40 mg PO QAM #30 tabs 07/04/23 07/30/23 Rx release blood-glucose meter (Contour Next 07/26/23 07/30/23 History Glucose Meter kit) Patient hx anesthesia problems: none Family hx anesthesia problems: none Results Review: All pre-operative results and documents have been reviewed as part of the pre-operative evaluation. [facility] Past Medical History Medical History Actinic keratosis Aortic regurgitation mild,PERLA 1.4.23 Atrial fibrillation Benign mole Brain TIA 2022 Endometriosis Essential hypertension Hiatal hernia 9.7.22 barium swallow: . Moderate-sized sliding-type hiatal hernia. Obesity PONV (postoperative nausea and vomiting) Skin neoplasm Surgical History Surgical History History of appendectomy 1960 History of cholecystectomy 1966 History of hip replacement 12/2005, left History of knee replacement right 2020 Left 2018 History of surgery on lower extremity 2001, closure of bilateral varicose veins S/P JASON-BSO 1969/endometriosis Family History Family History Sibling Leukemia Lung cancer Parkinson disease Mother Parkinson disease Father Heart attack Sibling Brain tumor Sibling Diabetes mellitus Social History Social History Smoking status: Never smoker Second hand tobacco smoke exposure: Yes Alcohol intake: current Drinks per week: 1 Substance use type: does not use Lack of Transportation: No Lack of Food: Never True Current Housing: I Have Housing Concerned About Future Housing: No Difficulty Paying Gas/Electric Bills: No Difficulty Paying for Meds: No Currently Unemployed: No Education: High School Diploma/GED Difficulty w/ Childcare or Family Care: No Living arrangements: with family Additional living arrangements comments: with sp Spiritual care concerns: No Anes - Eval Final PreProcedure Day of Procedure 08/02/23 07:26 Patient weight: obese Heart: regular rate and rhythm Lungs: clear to auscultation
[2023-08-02] MEDS: LACTATED RINGERS 1,000 ML 30 ML IV CONT (07:50)
[2023-08-02] MEDS: ceFAZolin 2 GM/D5W 50 ML 2 GM/50 ML BAG IVPB (08:22)
--- NOTE | 2023-08-02 08:44 | SUR.OPER ---
urine cytology given to JUAN Hodgson. Received in lab by He at [id number]
--- NOTE | 2023-08-02 09:01 | W.PM.PROC2 ---
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 Cystoscopy was undertaken with a 19 F rigid cystoscope. Bladder neck and urethra endoscopically normal. Urine was collected for cytology. Bladder mucosa is normal without hyperemia. There was no intravesical neoplasm. She has a single orthotopic ureteral orifice bilaterally. 0.035 in glidewire was advanced into her right renal pelvis and the distal ureter was dilated with an 8 F 10 F dilator. Ureteroscopy was 1st undertaken with a semi-rigid ureteral scope. Most distal ureter is endoscopically normal but there is a obvious, very papillary, low-grade appearing neoplasm that is confined to the right mid ureter, just below the iliac vessels. Filling defect can clearly be identified on the retrograde pyelogram which I obtain. Biopsies were obtained with a small biopsy forceps. Or flexible ureteroscopy was undertaken with a 7.5 F flexible ureteral scope. Retrograde pyelography and outline all calices which were carefully inspected. The upper urinary tract including the collecting system and more proximal ureter were without mucosal abnormalities. Scopes and wires removed. I did perform a cystogram which demonstrated low pressure filling to 350 cc. Pathology Yes Condition Stable
--- NOTE | 2023-08-02 09:25 | SUR.PHASEI ---
0925: Simple mask removed.
== END 2023-08-02 10:45 | disposition home or self-care (01) ==
PROVIDERS: PCP Family Medicine; Visit Provider Urology
PROC: (CPT 52352; principal; 2023-08-02 08:30)
DX: C66.1 Malignant neoplasm of right ureter (principal); I10 Essential (primary) hypertension; I48.91 Unspecified atrial fibrillation; Z85.828 Personal history of other malignant neoplasm of skin; Z80.1 Family history of malignant neoplasm of trachea, bronchus and lung; Z82.49 Family history of ischemic heart disease and other diseases of the circulatory system; Z86.73 Personal history of transient ischemic attack (TIA), and cerebral infarction without residual deficits; E66.9 Obesity, unspecified; Z68.31 Body mass index [BMI] 31.0-31.9, adult
CPT/HCPCS: 52354; 74420; 88108; 88305; C1769; J0690; J1200; J2405; J2704; J3010; J7120; Q9966

== ENCOUNTER 2023-08-27 13:43 | Outpatient (CLI) | payer MEDICARE, SELFPAY ==
--- NOTE | ~2023-08-27 | XR_ITS ---
EXAMINATION: XR chest 2V DATE: 08/27/2023 15:18 INDICATION: Malignant neoplasm of right ureter. TECHNIQUE: Frontal and lateral views of the chest were obtained. COMPARISON: Chest 2 views 01/29/2023 FINDINGS: There is no pneumonia, pleural effusion, or pneumothorax. The heart size is normal. There i s a moderate-sized hiatal hernia. There are surgical clips in right abdomen. IMPRESSION: 1. Moderate-sized hiatal hernia. Reviewed, dictated and finalized at location A. TIC INSTALLER
[2023-08-27 15:03] LABS: Basophils Absolute Auto 0.1 K/mm3 (0.0-0.1); Basophils Percent Auto 0.8 % (0.2-1.2); Eosinophils Absolute Auto 0.2 K/mm3 (0-0.3); Eosinophils Percent Auto 3.5 % (0-4.4); Hemoglobin 12.1 g/dL (12.0-15.0); Immature Granulocyte Absolute 0.02 K/mm3 (0.00-0.031); Immature Granulocyte Percent A 0.3 % (0-0.5); Lymphocytes Absolute Auto 2.43 K/mm3 (0.9-3.2); Lymphocytes Percent Auto 38.9 % (18.3-44.2); Mean Corpuscular HGB Conc 31.8 g/dl (32-36); Mean Corpuscular Hemoglobin 27.7 pg (26-34); Mean Platelet Volume 9.1 fl (7.4-10.4); Monocytes Absolute Auto 0.5 K/mm3 (0.1-0.6); Monocytes Percent Auto 8.5 % (2.6-8.5); Platelet Count Result 262 k/mm3 (150-375); Red Blood Count 4.37 M/mm3 (4.2-5.4); Red Cell Distribution Width 15.9 % (11.5-14.5); White Blood Count 6.2 K/mm3 (4.5-10.0)
[2023-08-27 15:13] LABS: Prothrombin Time 13.1 Seconds (11.1-14.7)
[2023-08-27 15:14] LABS: Alanine Aminotransferase 26 U/L (6-35); Albumin Level 4.3 g/dL (3.5-5.1); Alkaline Phosphatase 112 U/L (38-126); Anion Gap 7 mmol/L (8-16); Aspartate Amino Transferase 31 U/L (14-36); Bilirubin,Total 0.3 mg/dL (0.2-1.3); Blood Urea Nitrogen 23 mg/dL (7-17); Calcium 9.6 mg/dL (8.4-10.2); Carbon Dioxide 28 mmol/L (22-30); Chloride 100 mmol/L (98-107); Estimated Glomerular Filt Rate > 60; Glucose 113 mg/dL (65-110); Partial Thromboplastin Time 25.2 SECONDS (22.3-36.8); Potassium 4.1 mmol/L (3.4-5.0); Sodium 135 mmol/L (137-145)
== END 2023-08-27 13:44 | disposition home or self-care (01) ==
LOC: ANHSURGERY 13:48
PROVIDERS: PCP Family Medicine; Visit Provider Urology
DX: Z01.812 Encounter for preprocedural laboratory examination (principal); C66.1 Malignant neoplasm of right ureter; K44.9 Diaphragmatic hernia without obstruction or gangrene
CPT/HCPCS: 36415; 71046; 80053; 85025; 85610; 85730; 86850; 86900; 86901

== ENCOUNTER 2023-09-06 14:09 | Inpatient (IN) | payer MEDICARE, SELFPAY ==
[2023-08-27 13:53] VITALS: BMI 31.8
--- NOTE | 2023-08-27 14:25 | PC.NURSE ---
Report to the Outpatient Waiting Room, entrance under the green pavilion located off [facility], at time _0600 on date 09/06/23 . Planned Procedure Time: __0730 . Time changes happen often and if your time is changed the preop area will call you the afternoon before. - You and your visitor will be asked to self-screen and do not enter if you have any COVID symptoms. - A mask is optional within the hospital at this time. Patients may have clear liquids (water, carbonated beverages, clear teas, apple juice) until 3 hours prior to surgery(4:30 am) with a maximum of 20 ounces. - No food from midnight until time of surgery - Infants may have breast milk until 4 hours before surgery, infant formula 6 hours prior to surgery. - Children will be allowed to drink immediately following surgery. If applicable, please bring a bottle or sippy cup to assist with drinking. Juice, water, soda, and popsicles are readily available. For infants on formula, please bring formula the day of surgery. Pacifiers are allowed. Take the following medications with a SIP of water the morning of surgery: __AMLODIPINE, DO NOT STOP ANY OF YOUR OTHER PRESCRIPTION MEDICATIONS PRIOR TO SURGERY ?EXCEPT THE FOLLOWING Medications to discontinue per physician _PATIENT STATES HOLD ASPIRIN AND ALL VITAMINS AND SUPPLEMENTS 7 DAYS PRE OP PER DR ANGELES. LAST DOSE 08/29/23 Please no make-up, nail south african, hairspray, perfume, deodorant, or body powder the day of surgery. No jewelry (including any body piercings) or valuables the day of surgery, leave them at home. Please take a shower or bath the night before, or the morning of, surgery with an antibacterial soap. Wear comfortable, loose fitting clothing. Children are encouraged to wear pajamas. - Jewelry must be removed prior to entering the operating room. Rings and piercings that are not removed may be cut off. - The hospital will not accept responsibility for valuables. - Please leave all valuables, including medications, at home the day of surgery. If you are going home after surgery, a licensed gravel truck driver must drive you home. - NO public transportation without another adult if you receive anesthesia. - We recommend that an adult stay with you for 24 hours following discharge. - We also recommend that you do not drive, make important decision, drink alcoholic beverages, or take any drugs that were not prescribed by your health care provider for at least 24 hours after your discharge time. For Pediatric surgeries, we recommend two adults accompany the child home. Follow any additional instructions given to you from your surgeon. If you or anyone in your household have experienced Covid symptoms in the past week, please notify your surgeon or the nurse liaison at the phone number below for possible testing. VERBAL AND WRITTEN instructions given to ____PATIENT and asked if any additional questions and then verbalized understanding. Patient advised to call surgeon office or pre surgery nurse liaison [phone] if any additional questions.
[2023-08-27 14:44] VITALS: BP 173/85; PULSE 71; RESP 18; TEMP 36.6; O2SAT 98
--- NOTE | 2023-08-29 07:41 | PM.IMHP ---
H&P: HPI History of Present Illness Date/Time: 08/29/23 07:41 Chief Complaint: Right ureteral mass Review of Systems Review of Systems: Mary Ellen Robles is a 83 year old female?who been seen in our office with overactive bladder symptoms.? During the course of evaluation she was found to have microscopic hematuria.? CT urogram demonstrated right hydronephrosis with an apparent filling defect in the right mid to distal ureter.? 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 The more proximal ureter and collecting system were endoscopically normal, as was the bladder. After careful discussion she elects for robotic assisted right distal ureterectomy with ureteral reimplantation including possible psoas hitch. she is aware of the risks including, but not limited to, adverse cardiopulmonary events, wound infection, need for additional procedures for this carcinoma in the potential for recurrence. Cardiovascular: Cardiovascular: Denies chest pain, Denies lightheadedness, Denies palpitations and Denies dyspnea Respiratory: Respiratory: Denies dyspnea Gastrointestinal: Gastrointestinal: Denies diarrhea, Denies nausea and Denies vomiting Genitourinary: Genitourinary: Denies hematuria and Denies dysuria Endocrine: Endocrine: Denies palpitations PMFSH Past Medical History Medical History Actinic keratosis Aortic regurgitation mild,PERLA 1.4.23 Atrial fibrillation Benign mole Brain TIA 2022 Endometriosis Essential hypertension Hiatal hernia 9.7.22 barium swallow: . Moderate-sized sliding-type hiatal hernia. Obesity PONV (postoperative nausea and vomiting) Skin neoplasm Surgical History Surgical History History of appendectomy 1960 History of cholecystectomy 1967 History of hip replacement 12/2005, left History of knee replacement right 2020 Left 2019 History of surgery on lower extremity 2001, closure of bilateral varicose veins S/P JASON-BSO 1969/endometriosis Family History Family History Sibling Leukemia Lung cancer Parkinson disease Mother Parkinson disease Father Heart attack Sibling Brain tumor Sibling Diabetes mellitus Social History Social History Smoking status: Never smoker Second hand tobacco smoke exposure: Yes Alcohol intake: current Drinks per week: 1 Substance use type: does not use Lack of Transportation: No Lack of Food: Never True Current Housing: I Have Housing Concerned About Future Housing: No Difficulty Paying Gas/Electric Bills: No Difficulty Paying for Meds: No Currently Unemployed: No Education: High School Diploma/GED Difficulty w/ Childcare or Family Care: No Living arrangements: with family Additional living arrangements comments: with sp Spiritual care concerns: No Meds Home Medications and Allergies Home Medications Medication Instructions Recorded Confirmed Type ascorbic acid (vitamin C) 500 mg 500 mg PO DAILY 10/11/22 08/27/23 History capsule vitamins A,C,I-tcgk-drturd 4,296 2 cap PO DAILY 10/11/22 08/27/23 History mcg-226 mg-90 mg capsule (PreserVision AREDS) losartan 100 mg tablet 100 mg PO DAILY #90 tabs 11/15/22 08/27/23 Rx calcium carbonate 600 mg calcium 600 mg PO DAILY #90 tabs 01/10/23 08/27/23 Rx (1,500 mg) tablet (Calcium) blood sugar diagnostic (Blood #100 ea 03/09/23 08/10/23 Rx Glucose Test strips) blood-glucose meter (Contour Next 07/26/23 08/10/23 History Glucose Meter kit) aspirin 81 mg tablet,delayed 81 mg PO DAILY 08/27/23 08/27/23 History release (Adult Low Dose Aspirin) cholecalciferol (vitamin D3) 125 12.5 mcg PO DAILY 08/27/23 12
--- NOTE | 2023-09-05 14:08 | WPDANESEPPF ---
Anes - Initial Pre Proc Eval Procedure: Operation Date: 09/06/23 07:30 Proposed Procedures p Robotic Assisted Right Distal Ureterectomy with Psoas Hitch, Ureteroneocystotomy - Champ Simental MD Date/Time: 09/05/23 14:08 Surgeon: Champ Simental MD Pre Op Diagnosis: right ureteral ca Patient Data Age: 83 Gender: F Height: 1.7 m Weight: 92.1 kg Last Vital Signs Temp 36.6 C 08/27/23 14:44 Pulse 71 08/27/23 14:44 Resp 18 08/27/23 14:44 BP 173/85 H 08/27/23 14:44 Pulse Ox 98 08/27/23 14:44 O2 Del Method Room Air 08/27/23 14:44 Allergies Allergy/AdvReac Type Severity Reaction Status Date / Time atorvastatin Allergy Intermediate Cramping Verified 08/29/23 13:03 of the Muscles cephalexin Allergy Intermediate Rash TO Verified 09/06/23 06:30 LEGS adhesive Allergy Mild BLISTERS/RA Verified 08/29/23 13:03 SH morphine Allergy Mild Rash, Verified 08/29/23 13:03 difficulty waking up lisinopril Allergy Unknown Cough Verified 08/29/23 13:03 olmesartan [From Benicar] Allergy Unknown Cough Verified 08/29/23 13:03 Home Medications Medication Instructions Recorded Confirmed Type ascorbic acid (vitamin C) 500 mg 500 mg PO DAILY 10/11/22 09/06/23 History capsule vitamins A,C,G-bgsz-oaagxi 4,296 2 cap PO DAILY 10/11/22 09/06/23 History mcg-226 mg-90 mg capsule (PreserVision AREDS) losartan 100 mg tablet 100 mg PO DAILY #90 tabs 11/15/22 09/06/23 Rx calcium carbonate 600 mg calcium 600 mg PO DAILY #90 tabs 01/10/23 09/06/23 Rx (1,500 mg) tablet (Calcium) blood sugar diagnostic (Blood #100 ea 03/09/23 08/10/23 Rx Glucose Test strips) blood-glucose meter (Contour Next 07/26/23 08/10/23 History Glucose Meter kit) aspirin 81 mg tablet,delayed 81 mg PO DAILY 08/27/23 09/06/23 History release (Adult Low Dose Aspirin) cholecalciferol (vitamin D3) 125 12.5 mcg PO DAILY 08/27/23 09/06/23 History mcg/mL (5,000 unit/mL) oral drops coQ10 (ubiquinol) 200 mg capsule 200 mg PO DAILY 08/27/23 09/06/23 History cyanocobalamin (vitamin B-12) 1,000 mcg PO DAILY 08/27/23 09/06/23 History 1,000 mcg tablet amlodipine 10 mg tablet 10 mg PO DAILY #90 tabs 08/28/23 09/06/23 Rx nitrofurantoin 100 mg PO BID 09/06/23 09/06/23 History monohydrate/macrocrystals 100 mg capsule Patient hx anesthesia problems: post op nausea/vomiting Family hx anesthesia problems: none Results Review: All pre-operative results and documents have been reviewed as part of the pre-operative evaluation. [facility] Past Medical History Medical History (Updated 09/05/23 @ 14:09 by Gagan Atwood DO) Actinic keratosis Aortic regurgitation mild,PERLA 1.4.23 Atrial fibrillation Benign mole Brain TIA 2022 Endometriosis Essential hypertension Hiatal hernia 9.7.22 barium swallow: . Moderate-sized sliding-type hiatal hernia. Obesity PONV (postoperative nausea and vomiting) Skin neoplasm SVT (supraventricular tachycardia) Surgical History Surgical History History of appendectomy 1960 History of cholecystectomy 1967 History of hip replacement 12/2005, left History of knee replacement right 2020 Left 2019 History of surgery on lower extremity 2001, closure of bilateral varicose veins S/P JASON-BSO 1969/endometriosis Family History Family History Sibling Leukemia Lung cancer Parkinson disease Mother Parkinson disease Father Heart attack Sibling Brain tumor Sibling Diabetes mellitus Social History Social History Smoking status: Never smoker Second hand tobacco smoke exposure: Yes Alcohol intake: current Drinks per week: 1 Substance use type: does not use Lack of Transportation: No Lack of Food: Never True Current Housing: I Have Housing Concerned A
[2023-09-06] VITALS (15 sets, daily range): BP systolic 125–169; BP diastolic 72–89; PULSE 72–88; RESP 10–18; TEMP 35.8–36.4; O2SAT 92–99
--- NOTE | ~2023-09-06 | XR_ITS ---
EXAM: XR abdomen/kub 1V DATE: 09/06/2023 16:54 HISTORY: Right ureteral stent position . COMPARISON: Retrograde pyelogram 08/02/2023; CT abdomen pelvis 07/06/2023. FINDINGS: Dense left medial pleural calcification. Cholecystectomy clips. A catheter overlies the lo wer abdomen. Partially visualized left hip arthroplasty hardware. Right ureteral stent, proximal coil overlying the expected location of the renal pelvis, distal coil overlying the expected location of the urinary bladder. Subcutaneous gas over the right lateral abdomen. Normal bowel gas pattern. No or ganomegaly. Degenerative changes in the lumbar spine, pubic symphysis and right hip. IMPRESSION: Right ureteral stent, in good position. Reviewed, dictated and finalized at location K. RVISOR PERSONNEL CLERKS
--- NOTE | 2023-09-06 06:32 | WPDHPUPDATE1 ---
History and Physical Update Update Date/Time: 09/06/23 06:32 History and Physical has been reviewed, including an updated exam of the patient. There are NO changes in the patient's condition. Risks, benefits, and alternatives have been discussed and questions answered. Patient agrees to proceed with procedure.
[2023-09-06] MEDS: LACTATED RINGERS 1,000 ML 30 ML IV CONT ×3 (06:45→13:42)
[2023-09-06 06:52] LABS: Glucose Point of Care 112 mg/dl (65-105)
[2023-09-06] MEDS: levoFLOXacin 500 MG/D5W 100 ML 500 MG/100 ML BAG 100 MG IVPB (07:26)
[2023-09-06 12:44] LABS: Glucose Point of Care 165 mg/dl (65-105)
[2023-09-06] MEDS: fentaNYL CITRATE INJ (*CRX) 100 MCG/2 ML VIAL 25 MCG IV PUSH ×7 (12:48→13:52)
--- NOTE | 2023-09-06 12:52 | W.PM.PROC2 ---
Procedure Note - Detailed Date of Procedure 09/06/23 Pre-op Diagnosis Right ureteral ca Post-op Diagnosis Same Procedure Performed Robotic assisted right distal ureterectomy with right pelvic lymphadenectomy, right psoas hitch /Boari flap ureteral reimplantation Surgeon Champ Simental MD Anesthesia General Description of Procedure patient has brought the operative suite where she was prepped prepped and draped in routine fashion while in dorsal lithotomy position after the uneventful induction of a general endotracheal anesthetic. Arobotic trocar is placed in a supra-umbilical position after inflating the abdomen with a Veress needle. There was a very few wispy adhesions in the right lower quadrant. Three robotic trocars and a 12mm city carrier assistant port or placed in a crescent shaped fashion in the lower abdomen, each by 10 cm. finely, a 5 mm suction port is placed. The peritoneum in the right lower quadrant is incised allowing for access to the right retroperitoneum. The right ureter is easily identified and found to be quite dilated to the iliac vessels where there is a obvious neoplasm in the ureter. The more distal ureter is of normal caliber. The ureter is dissected from above the iliac vessels to the ureterovesical junction. Bladder was filled and a bladder cuff is taken. The bladder was closed in 2 layers of 2-0 Vicryl. The ureter is then transected above the iliac vessels and sent for frozen section. The frozen section shows some mild atypia so I took a 2nd section approximately 2 cm proximal. That showed no signs of neoplasm, carcinoma in Situ dysplasia or atypia. Bladder was dropped by incising lateral to the median umbilical ligaments. Psoas hitch is performed using a 0 silk in the anterior psoas muscle with great care to avoid injury to the genitofemoral no refill ( which is easily identify) and placed in a superficial fashion to minimize any risk of injury to the femoral nerve. Although I can reach the distal right ureter to the dome of the bladder it seems to be under just enough tension that I opted to perform a Boari flap. A 4 cm flap with a 3 cm base is created and tubularized over a 10 F red rubber catheter. Ureteral vesical anastomosis is undertaken across a 6 F stent using a combination of interrupted and running 4-0 Vicryl. The cystotomy was closed in 2 layers with 2-0 Vicryl. A 10 mm IAN drain is placed in the pelvis and secured with a nylon suture. A pelvic lymphadenectomy had been performed with the limits being the inguinal ligament distally the obturator nerve posteriorly. The bifurcation of the iliac vein proximally in the lateral aspect of the iliac artery laterally. Blood loss was less than 30 cc. Patient tolerated the procedure well was taken recovery room good condition. Estimated Blood Loss 30 Drains No Packing No Pathology Yes
[2023-09-06] MEDS: ONDANSETRON INJ 4 MG/2 ML VIAL IV PUSH ×2 (13:41→14:55)
--- NOTE | 2023-09-06 13:51 | SUR.PHASEI ---
CORRCTION: CHARTING FROM 1315 ON IS BY THIS RN, IVORY MAN RN.
--- NOTE | 2023-09-06 14:20 | ADMGEN ---
This patient, Mary Ellen Robles, was admitted to [facility] Surg Room 321-01. Patient/family oriented to hospital policies and general routines including ID bracelet, bed and alarms, visiting hours, pain management, procedures, bathroom and other care routines, personal items, smoking policy, room service/diet, and visiting hours. Information on how to activate the Rapid Response Team has been discussed. Patient/Family are encouraged to report perceived risks to care and to ask questions if they do not understand what they are told or what they should do.
--- NOTE | 2023-09-06 14:42 | PC.NURSE ---
Patient arrived to the floor from surgery. Patient is actively vomiting. No PRN nausea medications to be given to the patient. This RN called MD cell, office number and surgery department. Unable to reach MD at this time.
--- NOTE | 2023-09-06 14:45 | PC.NURSE ---
Physician returned call. States he will put new orders in.
[2023-09-06] MEDS: KETOROLAC 15 MG/ML VIAL (*BKC) IV PUSH ×2 (14:56→20:52)
[2023-09-06] MEDS: LACTATED RINGERS 1,000 ML 125 ML IV CONT ×2 (14:57→20:52)
--- NOTE | 2023-09-06 15:11 | SUR.PHASEI ---
FLOOR RN CALLED RE: SLIGHT REDNESS AND SWELLING TO RIGHT UP AND LOWER LIPS. DR. RESTREPO STATED THAT IT WAS PROBABLY FROM PRESSURE OF THE ENDOTRACHEAL TUBE DURING SURGERY.
[2023-09-06] MEDS: HYOSCYAMINE SULFATE 0.125 MG TABLET SUBLINGUAL (20:52)
[2023-09-07 03:54] VITALS: BP 139/67; PULSE 69; RESP 16; TEMP 36.6; O2SAT 96
[2023-09-07] MEDS: KETOROLAC 15 MG/ML VIAL (*BKC) IV PUSH (05:55)
[2023-09-07] MEDS: LACTATED RINGERS 1,000 ML 125 ML IV CONT (05:56)
--- NOTE | 2023-09-07 07:18 | WPDUROPN2 ---
Progress Note: A&P Assessment and Plan (1) Carcinoma of right ureter: Code(s): C66.1 - Malignant neoplasm of right ureter Status: Acute Assessment and Plan: Doing well POD #1. Increase diet/ambulation today. Right ureteral stent in good position. Check IAN creat. -> remove prior to discharge output doesn't progress. Anticipate discharge Sunday Subjective Subjective Date/Time Seen: 09/07/23 07:18 Interval history: POD #1 Right distal ureterectomy with ureteroneocystostomy - comfortable, no events overnight Review of Systems Cardiovascular: Cardiovascular: Denies chest pain, Denies lightheadedness, Denies palpitations and Denies dyspnea Respiratory: Respiratory: Denies dyspnea Gastrointestinal: Gastrointestinal: Denies diarrhea, Denies nausea and Denies vomiting Genitourinary: Genitourinary: Denies hematuria and Denies dysuria Endocrine: Endocrine: Denies palpitations Objective Data Vital Signs Vital Signs: Vital Signs - 24 hr 09/06/23 12:16 09/06/23 12:30 09/06/23 12:45 Temperature 97.4 F L Pulse Rate 81 77 75 Respiratory Rate 16 14 14 Blood Pressure 125/89 144/78 H 139/73 Pulse Oximetry 95 98 97 Oxygen Delivery Simple Face Mask Simple Face Mask Simple Face Mask Oxygen Flow Rate 10 6 6 09/06/23 13:00 09/06/23 13:30 09/06/23 13:45 Temperature Pulse Rate 73 72 79 Respiratory Rate 11 L 10 L 15 Blood Pressure 142/75 H 144/72 H 143/76 H Pulse Oximetry 92 94 96 Oxygen Delivery Room Air Nasal Cannula Nasal Cannula Oxygen Flow Rate 1 1 09/06/23 14:00 09/06/23 14:45 09/06/23 15:00 Temperature 96.4 F L 96.9 F L Pulse Rate 78 78 78 Respiratory Rate 12 18 18 Blood Pressure 146/74 H 152/78 H 152/75 H Pulse Oximetry 94 94 99 Oxygen Delivery Nasal Cannula Oxygen Flow Rate 1 09/06/23 15:30 09/06/23 16:30 09/06/23 14:50 Temperature 97.0 F L 97.1 F L Pulse Rate 84 84 Respiratory Rate 18 18 Blood Pressure 149/77 H 146/82 H Pulse Oximetry 98 99 98 Oxygen Delivery Nasal Cannula Oxygen Flow Rate 2 09/06/23 22:24 09/06/23 19:54 12/21/23 23:54 Temperature 97.3 F L 97.4 F L Pulse Rate 88 82 Respiratory Rate 16 16 Blood Pressure 155/75 H 149/76 H Pulse Oximetry 98 98 Oxygen Delivery Room Air Oxygen Flow Rate 09/07/23 03:54 Temperature 97.9 F Pulse Rate 69 Respiratory Rate 16 Blood Pressure 139/67 Pulse Oximetry 96 Oxygen Delivery Oxygen Flow Rate Intake/Output Intake/Output: Intake & Output 09/04/23 09/05/23 09/06/23 09/07/23 23:59 23:59 23:59 23:59 Intake Total 1950 1000 Output Total 2120 1815 Balance -170 -815 Meds/Results Medications: Active Medications Generic Name Dose Route Start Last Admin Trade Name Freq PRN Reason Stop Dose Admin Amlodipine Besylate 10 mg 09/07/23 09:00 Amlodipine Besylate 5 Mg Tablet PO DAILY CRISTINE Hyoscyamine 0.125 mg 09/06/23 14:09 09/06/23 20:52 Hyoscyamine Sulfate 0.125 Mg Tablet SUBLINGUAL 0.125 mg Q4H PRN Administration Bladder Spasm Lactated Ringer's 1,000 mls @ 125 mls/hr 09/06/23 14:09 09/07/23 05:56 Lr - Lactated Ringers Iv IV CONT 125 mls/hr .Q8H CRISTINE Administration Ketorolac Tromethamine 15 mg 09/06/23 14:09 09/07/23 05:55 Ketorolac 15 Mg/Ml Vial (*Bkc) IV PUSH 09/07/23 14:08 15 mg Q6H PRN Administration Pain Rated 4-6 Levofloxacin 500 mg 09/07/23 09:00 Levofloxacin 500 Mg Tablet PO DAILY CRISTINE Naloxone HCl 0.1 mg 09/06/23 14:09 Naloxone Hcl 0.4 Mg/Ml Vial IV PUSH Q2M PRN Opiate Reversal Ondansetron HCl 4 mg 09/06/23 14:47 09/06/23 14:55 Ondansetron Inj 4 Mg/2 Ml Vial IV PUSH 4 mg Q4H PRN Administration Nausea And Vomiting Radiology Results: ITS Impressions Abdomen X-Ray 09/06/23 16:55 IMPRESSION: Right ureteral stent, in good position. Labs Labs: Laboratory Results - last 24 hr 09/06/23 12:41 POC Capillary Glucose 165 H
[2023-09-07 07:29] LABS: Hematocrit 32.3 % (37.0-47.0); Hemoglobin 10.2 g/dL (12.0-15.0)
[2023-09-07 07:40] LABS: Anion Gap 6 mmol/L (8-16); Blood Urea Nitrogen 12 mg/dL (7-17); Calcium 8.8 mg/dL (8.4-10.2); Carbon Dioxide 26 mmol/L (22-30); Chloride 102 mmol/L (98-107); Estimated CRCL calculation 64 ml/min; Estimated Glomerular Filt Rate > 60; Glucose 112 mg/dL (65-110); Potassium 3.6 mmol/L (3.4-5.0); Sodium 134 mmol/L (137-145)
[2023-09-07 07:41] VITALS: BP 141/60; PULSE 64; RESP 16; TEMP 36.4; O2SAT 98
[2023-09-07 08:42] LABS: Creatinine Urine < 3.2 mg/dL
[2023-09-07] MEDS: amLODIPine BESYLATE 5 MG TABLET 10 MG PO (09:32)
[2023-09-07] MEDS: levoFLOXacin 500 MG TABLET PO (09:32)
[2023-09-07 11:54] VITALS: BP 141/60; PULSE 64; RESP 16; TEMP 36.4; O2SAT 98
[2023-09-07 15:54] VITALS: BP 149/61; PULSE 77; RESP 18; TEMP 36.9; O2SAT 95
[2023-09-07 21:14] VITALS: PULSE 77; RESP 18; O2SAT 95
[2023-09-07 21:59] VITALS: BP 167/78; PULSE 76; RESP 16; TEMP 36.8; O2SAT 95
[2023-09-08 06:11] VITALS: BP 158/65; PULSE 76; RESP 18; TEMP 36.6; O2SAT 94
[2023-09-08] MEDS: amLODIPine BESYLATE 5 MG TABLET 10 MG PO (09:04)
[2023-09-08] MEDS: levoFLOXacin 500 MG TABLET PO (09:04)
[2023-09-08 10:00] VITALS: PULSE 76; RESP 18; O2SAT 94
--- NOTE | 2023-09-08 11:26 | WPDUROPN2 ---
Progress Note: A&P Assessment and Plan (1) Carcinoma of right ureter: Code(s): C66.1 - Malignant neoplasm of right ureter Status: Acute Assessment and Plan: Cleared for d/c home Nursing to remove IAN drain, provider catheter teaching Follow up already arranged per Dr. Simental Subjective Subjective Date/Time Seen: 09/08/23 11:26 Interval history: POD #2 ? Right distal ureterectomy with ureteroneocystostomy - comfortable, no events overnight; IAN Cr was low -- tolerating diet, ready for d/c home Exam Narrative: No acute distress IAN serous Crawford pink Incisions c/d/i Abd appropriately tender to touch Objective Data Vital Signs Vital Signs: Vital Signs - 24 hr 09/07/23 11:54 09/07/23 15:54 09/07/23 21:14 Temperature 36.4 C L 36.9 C Pulse Rate 64 77 77 Respiratory Rate 16 18 18 Blood Pressure 141/60 H 149/61 H Pulse Oximetry 98 95 95 Oxygen Delivery Room Air 09/07/23 21:59 09/08/23 06:11 Temperature 36.8 C 36.6 C Pulse Rate 76 76 Respiratory Rate 16 18 Blood Pressure 167/78 H 158/65 H Pulse Oximetry 95 94 Oxygen Delivery Intake/Output Intake/Output: Intake & Output 09/05/23 09/06/23 09/07/23 09/08/23 23:59 23:59 23:59 23:59 Intake Total 1950 3600 540 Output Total 2120 3915 2050 Balance -693 -369 -1118 Meds/Results Medications: Active Medications Generic Name Dose Route Start Last Admin Trade Name Freq PRN Reason Stop Dose Admin Amlodipine Besylate 10 mg 09/07/23 09:00 09/08/23 09:04 Amlodipine Besylate 5 Mg Tablet PO 10 mg DAILY CRISTINE Administration Hyoscyamine 0.125 mg 09/06/23 14:09 09/06/23 20:52 Hyoscyamine Sulfate 0.125 Mg Tablet SUBLINGUAL 0.125 mg Q4H PRN Administration Bladder Spasm Levofloxacin 500 mg 09/07/23 09:00 09/08/23 09:04 Levofloxacin 500 Mg Tablet PO 500 mg DAILY CRISTINE Administration Naloxone HCl 0.1 mg 09/06/23 14:09 Naloxone Hcl 0.4 Mg/Ml Vial IV PUSH Q2M PRN Opiate Reversal Ondansetron HCl 4 mg 09/06/23 14:47 09/06/23 14:55 Ondansetron Inj 4 Mg/2 Ml Vial IV PUSH 4 mg Q4H PRN Administration Nausea And Vomiting Radiology Results: ITS Impressions Abdomen X-Ray 09/06/23 16:55 IMPRESSION: Right ureteral stent, in good position.
--- NOTE | 2023-09-08 11:44 | PM.DS ---
DS: Admitting Diagnosis Discharge Date 09/08/2023 Admitting Diagnosis Right ureteral malignancy DS: Discharge Diagnosis Discharge Diagnosis Plan D/c home without IAN, but with barrientos. Has cystogram and follow up arranged. DS: Summary Hospital Course Reason for hospitalization: Right ureteral tumor Hospital Course: Patient underwent right distal ureterectomy and reimplant with Dr. Simental on 09/06/2023 -- did well post-op transitioning from IV to PO. IAN output minimal and IAN Cr was serum. Discharged to home 09/08/2023 without IAN and with Barrientos. Status at Discharge Overall status at discharge: patient is progressing back to baseline Time Spent with Patient Time attestation: Total time spent providing and/or coordinating discharge services: Exam Narrative: NAD Nontender abdomen Incisions c/d/i IAN Serous Barrientos CYU DS: Data Data Completed and Pending Completed studies during hospitalization: Pending at discharge 09/06/23 08:52 Surgical [PTH] Routine Pending studies at discharge: Pending at discharge 09/06/23 10:15 Surgical [PTH] Routine 09/06/23 11:16 Surgical [PTH] Routine Discharge Plan Discharge Attending physician on discharge: Champ Simental Discharging Clinician: Champ Simental Patient Disposition: Home, Self-Care Activity: other - see discharge instructions Diet: other - see discharge instructions Discharge Instructions: 1) Barrientos catheter -> leg bag / bedside bag at night. 2) No lifting/straining >15lbs. x3 weeks. 3) No driving x1-week. 4) Resume normal, pre-operative diet. 5) My office will contact regarding follow-up in 1-week with cystogram. Patient Instructions: Antibiotic Form, Aspirin (By mouth) Stand Alone Forms: General Discharge Information Follow-up/Referrals: Champ Simental MD [Physician] - Discharge Medications: New ketorolac 10 mg tablet 10 mg PO Q6H 5 Days Qty: 20 0RF sulfamethoxazole-trimethoprim 800-160 mg tablet 1 tablet PO Q12H Qty: 10 0RF Continued PreserVision AREDS 14,320-226-200 oebx-er-ksji capsule 2 cap PO DAILY ascorbic acid (vitamin C) 500 mg capsule 500 mg PO DAILY (DME) blood-glucose meter [Contour Next Glucose Meter] Kit See Rx Instructions .Route Rx Instructions: As directed calcium carbonate [Calcium 600] 600 mg calcium (1,500 mg) tablet 600 mg PO DAILY Qty: 90 0RF aspirin [Adult Low Dose Aspirin] 81 mg Tablet,Delayed Release (Dr/Ec) 81 mg PO DAILY coQ10 (ubiquinol) 200 mg Capsule 200 mg PO DAILY cholecalciferol (vitamin D3) 125 mcg/mL (5,000 unit/mL) Drops 12.5 mcg PO DAILY cyanocobalamin (vitamin B-12) 1,000 mcg Tablet 1,000 mcg PO DAILY nitrofurantoin monohyd/m-cryst 100 mg capsule 100 mg PO BID losartan 100 mg tablet 100 mg PO DAILY Qty: 90 1RF (DME) Blood Glucose Test Strip See Rx Instructions .Route Qty: 100 3RF Rx Instructions: 1 q day amlodipine 10 mg tablet 10 mg PO DAILY Qty: 90 3RF Date of admission: 09/06/23 14:09 Primary Care Provider: Peyton Andre Admitting Provider: Champ Simental Attending physician on admission: Champ Simental Condition: Stable
== END 2023-09-08 15:30 | disposition home or self-care (01) | DRG 654 ==
LOC: ANH3MEDSUR 14:20
PROVIDERS: Admitting Provider Urology; PCP Family Medicine; Visit Provider Urology
PROC: 0TSB4ZZ Reposition Bladder, Percutaneous Endoscopic Approach (ICD-10-PCS; CPT 50949; principal; 2023-09-06 07:30)
DX: C66.1 Malignant neoplasm of right ureter (principal); N13.30 Unspecified hydronephrosis; R31.29 Other microscopic hematuria; E66.9 Obesity, unspecified; I10 Essential (primary) hypertension; I48.91 Unspecified atrial fibrillation; Z96.653 Presence of artificial knee joint, bilateral; Z96.642 Presence of left artificial hip joint; Z86.73 Personal history of transient ischemic attack (TIA), and cerebral infarction without residual deficits; Z68.32 Body mass index [BMI] 32.0-32.9, adult; Z90.49 Acquired absence of other specified parts of digestive tract; Z90.710 Acquired absence of both cervix and uterus; Z90.722 Acquired absence of ovaries, bilateral
CPT/HCPCS: 36415; 74018; 80048; 82570; 82948; 85014; 85018; 88305; 88331; 88332; 88342; A9270; C1769; C2617; J1100; J1885; J1956; J2405; J2704; J3010; J7120; Q9968

== ENCOUNTER 2023-09-14 10:53 | Outpatient (CLI) | payer MEDICARE, SELFPAY ==
--- NOTE | ~2023-09-14 | XR_ITS ---
EXAMINATION: XR cystogram DATE: 09/14/2023 11:34 INDICATION: Right ureteral mass status post right distal ureterectomy. TECHNIQUE: Water-soluble contrast was gravity-infused through the patient's Crawford catheter. Multiple fluoroscopic images were obtained. Fluoroscopy exposure time was 0.3 minutes. The total number of shakira ges was 9. COMPARISON: CT abdomen and pelvis 07/06/2023 FINDINGS: There is a right internal ureteral stent in expected position. There are surgical changes o f right-sided psoas hitch. There is no extraluminal leakage of contrast. No ureteral reflux. There is a total left hip arthroplasty. IMPRESSION: 1. No extraluminal leakage of contrast. Reviewed, dictated and finalized at location A. [employer]
== END 2023-09-14 10:54 | disposition home or self-care (01) ==
PROVIDERS: PCP Family Medicine; Visit Provider Urology
DX: N28.89 Other specified disorders of kidney and ureter (principal)
CPT/HCPCS: 51600; 74430; Q9967

== ENCOUNTER 2023-10-10 10:52 | Outpatient (CLI) | payer MEDICARE, SELFPAY ==
[2023-10-10 14:18] LABS: Appearance Urine Clear (Clear); Bacteria Urine None Seen /hpf; Bilirubin Urine Negative (Negative); Blood Urine Trace (Negative); Color Urine Yellow (Yellow); Glucose Urine UA Negative (Negative); Ketones Urine Negative (Negative); Leukocyte Esterase Ur Trace LEU/UL (Negative); Nitrate Urine Negative (Negative); Protein Urine 1+ mg/dL (Negative); Specific Grav Ur 1.015 (1.001-1.035); Squamous Epithelial Cell Urine Occasional /hpf (Few); Urobilinogen Urine 0.2 mg/dL (<2.0)
[2023-10-10 14:20] LABS: Add Urine Microscopic? YES
[2023-10-10 20:05] LABS: Hemoglobin A1C 5.8 % (<5.7)
== END 2023-10-10 10:53 | disposition home or self-care (01) ==
PROVIDERS: Internal Medicine; PCP Family Medicine; Visit Provider Family Medicine
DX: R73.03 Prediabetes (principal); N30.00 Acute cystitis without hematuria
CPT/HCPCS: 36415; 81001; 83036; 87086

== ENCOUNTER 2023-10-17 08:19 | Outpatient (CLI) | payer MEDICARE, SELFPAY ==
--- NOTE | ~2023-10-17 | CT_ITS ---
Clinical Indication: Ureteral cancer CT Scan of the Chest with Contrast: Technique: Contiguous sections were acquired throughout the chest after intravenous administration of 75 cc of Omnipaque 350. Dose reduction technique was used on this scan by utilizing automated exposu re control and iterative reconstruction technique. The dose-length product (DLP) was 204.65 mGy-cm. Findings: There is no evidence of any significant mediastinal, hilar or axillary lymphadenopathy. There is no f illing defect in the pulmonary arterial tree to suggest pulmonary embolus. There is no evidence of ao rtic dissection or aneurysm. Aberrant right subclavian artery noted. Moderate hiatal hernia present. There is no evidence of pleural or pericardial effusion. The lungs are clear. No pulmonary nodules or infiltrates are noted. Images through the upper abdomen reveal calcified granulomas and cholecystectomy clips. Impression: No evidence of malignancy or metastatic disease in the thorax. Moderate hiatal hernia. Reviewed, dictated and finalized at [facility]. AGING COORDINATOR Impression: No evidence of malignancy or metastatic disease in the thorax. Moderate hiatal hernia.
== END 2023-10-17 08:20 | disposition home or self-care (01) ==
PROVIDERS: PCP Family Medicine; Visit Provider Internal Medicine Hematology & Oncology
DX: C66.9 Malignant neoplasm of unspecified ureter (principal); K44.9 Diaphragmatic hernia without obstruction or gangrene
CPT/HCPCS: 71260; Q9967

== ENCOUNTER 2023-12-17 12:12 | Outpatient (CLI) | payer MEDICARE, SELFPAY ==
--- NOTE | ~2023-12-17 | US_ITS ---
EXAMINATION: US venous doppler UE LT DATE: 12/17/2023 14:12 INDICATION: Left upper limb swelling. TECHNIQUE: Grayscale ultrasound images without and with compression and Doppler ultrasound images of the left upper extremity veins were obtained. COMPARISON: None. FINDINGS: The visualized portions of the left internal jugular vein, subclavian vein, axillary vein, brachial v eins, basilic vein, cephalic vein, radial vein, and ulnar vein are patent. IMPRESSION: 1. No deep venous thrombosis. Reviewed, dictated and finalized at location A.
== END 2023-12-17 12:13 | disposition home or self-care (01) ==
PROVIDERS: PCP Family Medicine; Visit Provider Internal Medicine Hematology & Oncology
DX: M79.89 Other specified soft tissue disorders (principal); L53.9 Erythematous condition, unspecified
CPT/HCPCS: 93971

== ENCOUNTER 2023-12-19 02:12 | Day surgery (SDC) | payer MEDICARE, SELFPAY ==
[2023-12-18 10:57] VITALS: BMI 31.7
--- NOTE | 2023-12-18 11:22 | PC.NURSE ---
Report to the Outpatient Waiting Room, entrance under the green pavilion located off [facility], at time __11:45AM on date __12/19/23 . Planned Procedure Time: ___1:45PM . Time changes happen often and if your time is changed the preop area will call you the afternoon before. - You and your visitor will be asked to self-screen and do not enter if you have any COVID symptoms. - A mask is optional within the hospital at this time. Patients may have clear liquids (water, carbonated beverages, clear teas, apple juice) until 3 hours prior to surgery with a maximum of 20 ounces. - No food from midnight until time of surgery - Infants may have breast milk until 4 hours before surgery, infant formula 6 hours prior to surgery. - Children will be allowed to drink immediately following surgery. If applicable, please bring a bottle or sippy cup to assist with drinking. Juice, water, soda, and popsicles are readily available. For infants on formula, please bring formula the day of surgery. Pacifiers are allowed. Take the following medications with a SIP of water the morning of surgery: ___AMLODIPINE & NITROFURANTOIN DO NOT STOP ANY OF YOUR OTHER PRESCRIPTION MEDICATIONS PRIOR TO SURGERY ?EXCEPT THE FOLLOWING Medications to discontinue per physician ___HOLD ALL VITAMINS/SUPPLEMENTS STARTING NOW-12/18/23 Please no make-up, nail yi, hairspray, perfume, deodorant, or body powder the day of surgery. No jewelry (including any body piercings) or valuables the day of surgery, leave them at home. Please take a shower or bath the night before, or the morning of, surgery with an antibacterial soap. Wear comfortable, loose fitting clothing. Children are encouraged to wear pajamas. - Jewelry must be removed prior to entering the operating room. Rings and piercings that are not removed may be cut off. - The hospital will not accept responsibility for valuables. - Please leave all valuables, including medications, at home the day of surgery. If you are going home after surgery, a licensed lumber stacker driver must drive you home. - NO public transportation without another adult if you receive anesthesia. - We recommend that an adult stay with you for 24 hours following discharge. - We also recommend that you do not drive, make important decision, drink alcoholic beverages, or take any drugs that were not prescribed by your health care provider for at least 24 hours after your discharge time. For Pediatric surgeries, we recommend two adults accompany the child home. Follow any additional instructions given to you from your surgeon. If you or anyone in your household have experienced Covid symptoms in the past week, please notify your surgeon or the nurse liaison at the phone number below for possible testing. Telephone instructions given to ____PATIENT and asked if any additional questions and then verbalized understanding. Patient advised to call surgeon office or pre surgery nurse liaison [phone] if any additional questions.
--- NOTE | ~2023-12-19 | XR_ITS ---
XR chest port-a-cath/central DATE: 12/19/2023 15:18 INDICATION: Port-A-Cath insertion TECHNIQUE: Portable upright AP chest on December 19, 2023 at 1513 hours COMPARISON: 08/27/2023 2 view chest FINDINGS: Right subclavian Port-A-Cath catheter tip overlies the superior vena cava. Heart size is within normal range. Is aortic calcification. Moderate sized hiatal hernia. There is mild atelectasis in the left lower lobe. The lungs otherwise a ppear clear. No pleural effusion or pulmonary vascular congestion or pneumothorax. Osteopenia. Surgical clips, right upper quadrant, consistent with cholecystectomy. IMPRESSION: Right subclavian Port-A-Cath catheter placement, distal tip overlying superior vena cava Reviewed, dictated and finalized at Location [facility]. Reviewed, dictated and finalized at location B. IMPRESSION: Right subclavian Port-A-Cath catheter placement, distal tip overlyi ng superior vena cava
--- NOTE | ~2023-12-19 | XR_ITS ---
EXAMINATION: XR fl guide central line place DATE: 12/19/2023 15:02 INDICATION: Port placement. TECHNIQUE: A single intraoperative fluoroscopic view of the chest was obtained. I was not present. Fl uoroscopy exposure time was 22 seconds. COMPARISON: Chest CT 10/17/2023 FINDINGS: There is a right subclavian port with tip at superior cavoatrial junction. IMPRESSION: 1. Right subclavian port with tip at superior cavoatrial junction. Reviewed, dictated and finalized at location A.
[2023-12-19 12:53] VITALS: BP 151/84; PULSE 87; RESP 16; TEMP 36.8; O2SAT 99
--- NOTE | 2023-12-19 12:58 | PM.IMHP ---
H&P: HPI History of Present Illness Date/Time: 12/19/23 12:58 Chief Complaint: Ureteral cancer Narrative: The patient is an 83-year-old female presenting for venous access device. The patient is undergoing chemotherapy for ureteral cancer. The patient denies any previous central venous catheterization. Patient reports she is ambidextrous but prefers port be placed on right side. Review of Systems Review of Systems: All systems reviewed & are unremarkable except as noted in HPI and below PMFSH Past Medical History Medical History Actinic keratosis Aortic regurgitation mild,PERLA 1.4.23 Atrial fibrillation Benign mole Brain TIA 2022 Endometriosis Essential hypertension Hiatal hernia 9.7.22 barium swallow: . Moderate-sized sliding-type hiatal hernia. Obesity PONV (postoperative nausea and vomiting) Skin neoplasm SVT (supraventricular tachycardia) Surgical History Surgical History History of appendectomy 1960 History of cholecystectomy 1966 History of hip replacement 12/2005, left History of knee replacement right 2020 Left 2019 History of surgery on lower extremity 2001, closure of bilateral varicose veins S/P JASON-BSO 1969/endometriosis Family History Family History Sibling Leukemia Lung cancer Parkinson disease Mother Parkinson disease Father Heart attack Sibling Brain tumor Sibling Diabetes mellitus Social History Social History Smoking status: Never smoker Second hand tobacco smoke exposure: Yes Alcohol intake: never Drinks per week: 1 Substance use: never Substance use type: does not use Do You Feel Safe in your Home?: Yes Lack of Transportation: No Lack of Food: Never True Current Housing: I Have Housing Concerned About Future Housing: No Difficulty Paying Gas/Electric Bills: No Difficulty Paying for Meds: No Currently Unemployed: No Education: Decline to Answer Difficulty w/ Childcare or Family Care: No Living arrangements: with family Additional living arrangements comments: [facility] Spiritual care concerns: No Meds Home Medications and Allergies Home Medications Medication Instructions Recorded Confirmed Type ascorbic acid (vitamin C) 500 mg 500 mg PO DAILY 10/11/22 12/18/23 History capsule vitamins A,C,J-lwxb-clbrgn 4,296 2 cap PO DAILY 10/11/22 12/18/23 History mcg-226 mg-90 mg capsule (PreserVision AREDS) calcium carbonate 600 mg calcium 600 mg PO DAILY #90 tabs 01/10/23 12/18/23 Rx (1,500 mg) tablet (Calcium) blood sugar diagnostic (Blood #100 ea 03/09/23 12/12/23 Rx Glucose Test strips) blood-glucose meter (Contour Next 07/26/23 12/12/23 History Glucose Meter kit) cholecalciferol (vitamin D3) 125 12.5 mcg PO DAILY 08/27/23 12/18/23 History mcg/mL (5,000 unit/mL) oral drops coQ10 (ubiquinol) 200 mg capsule 200 mg PO DAILY 08/27/23 12/18/23 History cyanocobalamin (vitamin B-12) 1,000 mcg PO DAILY 08/27/23 12/18/23 History 1,000 mcg tablet amlodipine 10 mg tablet 10 mg PO DAILY #90 tabs 08/28/23 12/18/23 Rx ferrous sulfate 325 mg (65 mg 325 mg PO DAILY 12/18/23 12/18/23 History iron) capsule,extended release lactobacillus combination no.8 3 3 cell PO DAILY 12/18/23 12/18/23 History billion cell capsule losartan 100 mg tablet 100 mg PO QAM 12/18/23 12/18/23 History magnesium 500 mg tablet 15 mg PO DAILY 12/18/23 12/18/23 History nitrofurantoin macrocrystal 50 mg 50 mg PO QAM 12/18/23 12/18/23 History capsule zoledronic acid 5 mg/100 mL in 5 mg IV ONCE 12/18/23 12/18/23 History mannitol 5 %-water intravenous piggybck (Reclast) Allergies Allergy/AdvReac Type Severity Reaction Status Date / Time cephalexin Allergy Intermediate Rash TO Verified 12/19/23 11:39
--- NOTE | 2023-12-19 13:00 | WPDHPUPDATE1 ---
History and Physical Update Update Date/Time: 12/19/23 13:00 History and Physical has been reviewed, including an updated exam of the patient. There are NO changes in the patient's condition. Risks, benefits, and alternatives have been discussed and questions answered. Patient agrees to proceed with procedure.
[2023-12-19] MEDS: LACTATED RINGERS 1,000 ML 30 ML IV CONT (13:04)
[2023-12-19 13:14] LABS: Glucose Point of Care 90 mg/dl (65-105)
[2023-12-19 13:20] LABS: INR 0.9; Prothrombin Time 12.7 Seconds (11.1-14.7)
[2023-12-19 13:21] LABS: Partial Thromboplastin Time 23.3 Seconds (22.3-36.8)
--- NOTE | 2023-12-19 13:43 | WPDANESEPPF ---
Anes - Initial Pre Proc Eval Procedure: Operation Date: 12/19/23 13:45 Proposed Procedures p Insertion Vivienne Cath - Tasia Tadeo MD Date/Time: 12/19/23 13:43 Surgeon: Tasia Tadeo MD Pre Op Diagnosis: Malig Neoplasm of Ureter Patient Data Age: 83 Gender: F Height: 1.7 m Weight: 92.9 kg Last Vital Signs Temp 98.3 F 12/19/23 12:53 Pulse 87 12/19/23 12:53 Resp 16 12/19/23 12:53 BP 151/84 H 12/19/23 12:53 Pulse Ox 99 12/19/23 12:53 O2 Del Method Room Air 12/19/23 12:53 Allergies Allergy/AdvReac Type Severity Reaction Status Date / Time cephalexin Allergy Intermediate Rash TO Verified 12/19/23 11:39 LEGS adhesive Allergy Mild BLISTERS/RA Verified 12/19/23 11:39 SH morphine Allergy Mild Rash, Verified 12/19/23 11:39 difficulty waking up atorvastatin AdvReac Intermediate Cramping Verified 12/19/23 11:39 of the Muscles lisinopril AdvReac Unknown Cough Verified 12/19/23 11:39 olmesartan [From Benicar] AdvReac Unknown Cough Verified 12/19/23 11:39 Home Medications Medication Instructions Recorded Confirmed Type ascorbic acid (vitamin C) 500 mg 500 mg PO DAILY 10/11/22 12/18/23 History capsule vitamins A,C,Y-esid-lvnqjd 4,296 2 cap PO DAILY 10/11/22 12/18/23 History mcg-226 mg-90 mg capsule (PreserVision AREDS) calcium carbonate 600 mg calcium 600 mg PO DAILY #90 tabs 01/10/23 12/18/23 Rx (1,500 mg) tablet (Calcium) blood sugar diagnostic (Blood #100 ea 03/09/23 12/12/23 Rx Glucose Test strips) blood-glucose meter (Contour Next 07/26/23 12/12/23 History Glucose Meter kit) cholecalciferol (vitamin D3) 125 12.5 mcg PO DAILY 08/27/23 12/18/23 History mcg/mL (5,000 unit/mL) oral drops coQ10 (ubiquinol) 200 mg capsule 200 mg PO DAILY 08/27/23 12/18/23 History cyanocobalamin (vitamin B-12) 1,000 mcg PO DAILY 08/27/23 12/18/23 History 1,000 mcg tablet amlodipine 10 mg tablet 10 mg PO DAILY #90 tabs 08/28/23 12/18/23 Rx ferrous sulfate 325 mg (65 mg 325 mg PO DAILY 12/18/23 12/18/23 History iron) capsule,extended release lactobacillus combination no.8 3 3 cell PO DAILY 12/18/23 12/18/23 History billion cell capsule losartan 100 mg tablet 100 mg PO QAM 12/18/23 12/18/23 History magnesium 500 mg tablet 15 mg PO DAILY 12/18/23 12/18/23 History nitrofurantoin macrocrystal 50 mg 50 mg PO QAM 12/18/23 12/18/23 History capsule zoledronic acid 5 mg/100 mL in 5 mg IV ONCE 12/18/23 12/18/23 History mannitol 5 %-water intravenous piggybck (Reclast) Laboratory Tests 12/19/23 12/19/23 12:25 13:06 PT 12.7 Seconds (11.1-14.7) INR 0.9 APTT 23.3 Seconds (22.3-36.8) POC Capillary Glucose 90 mg/dl (65-105) Patient hx anesthesia problems: other (Pt reports she had some confusion the evening of her most recent GA. ) Family hx anesthesia problems: none Results Review: All pre-operative results and documents have been reviewed as part of the pre-operative evaluation. FORMERLY [facility], [facility] Past Medical History Medical History Actinic keratosis Aortic regurgitation mild,PERLA 1.4.23 Atrial fibrillation Benign mole Brain TIA 2022 Endometriosis Essential hypertension Hiatal hernia 9.7.22 barium swallow: . Moderate-sized sliding-type hiatal hernia. Obesity PONV (postoperative nausea and vomiting) Skin neoplasm SVT (supraventricular tachycardia) Surgical History Surgical History History of appendectomy 1960 History of cholecystectomy 1967 History of hip replacement 12/2005, left History of knee replacement right 2020 Left 2019 History of surgery on lower extremity 2001, closure of bilateral varicose veins S/P JASON-BSO 1969/endometriosis Family History Family History Sibling Leukemia Lung cancer Parkinson dise
[2023-12-19] MEDS: KETOROLAC 15 MG/ML VIAL (*BKC) IV PUSH (13:51)
[2023-12-19] MEDS: CLINDAMYCIN 900 MG/D5W 50 ML 900 MG/50 ML PIGGYBACK 50 MG IVPB (14:30)
[2023-12-19] MEDS: BUPIVACAINE/EPINEPHRINE 0.5% 30 ML VIAL INFILTRATE (14:55)
[2023-12-19 15:10] VITALS: BP 132/56; PULSE 85; RESP 20; O2SAT 97
--- NOTE | 2023-12-19 15:11 | W.PM.PROC2 ---
Procedure Note - Detailed Date of Procedure 12/19/23 Pre-op Diagnosis Ureteral cancer Post-op Diagnosis Same Procedure Performed placement right subclavian venous access device under fluroscopic guidance Surgeon Tasia Tadeo MD Anesthesia General and Local Indications 83-year-old female with ureteral cancer requiring access for chemotherapy Findings 1st stick R SCV Description of Procedure Patient was brought into the operating room and placed in the supine position. After adequate induction of general anesthesia, the patient was prepped and draped in normal sterile fashion. Time-out was then done to verify the patient's identity, as well as the procedure being performed. I began by making a small incision in the right chest, I then gained access into the right subclavian vein with an 18 gauge needle. I then placed the guidewire into the vein and confirmed placement via fluoroscopic guidance. I then locally anesthetized the area in the right chest. I then enlarged the incision around the guidewire including making a subcutaneous pocket inferiorly to allow placement of the port itself. I then placed a dilating sheath over the guidewire into the right subclavian vein via sterile Seldinger technique. This was once again done and confirmed via fluoroscopic guidance. I then removed the dilator and the guidewire, now just leaving the sheath in the vein. I then fed the previously flushed catheter into the right subclavian vein under fluoroscopic guidance. At approximately 15 cm, the catheter was noted to be near the atrial caval junction. I then peeled away the sheath, now just leaving the catheter in the vein. I then was able to easily draw and flush from the catheter. The catheter was cut to fit and attached to the port itself. The port was placed into the previously made subcutaneous pocket and sutured in with 0 Ethibond suture. Final fluoroscopic view showed the termination of the catheter at the atrial caval junction with a nice smooth curvature back to the port itself. I was able to gain access to the port with a Estrada needle and was able to easily draw and flush from the port. I then flushed 4 cc of a final heparin flush into the port. The incision was closed with 3 0 Vicryl suture in the subcutaneous tissue and the skin was closed with 4 O Monocryl subcuticular suture. Dermabond was then placed on wound. The patient tolerated the procedure well and will be sent to the recovery room in stable condition. Implants R SCV VAD Estimated Blood Loss 5 Drains No Packing No Pathology None sent Complications No immediate complications Condition Stable Disposition PACU [facility] Billing Surgery - Charge Forward: Surgery Billing
[2023-12-19 15:40] VITALS: BP 131/51; PULSE 80; RESP 20
[2023-12-19 16:00] VITALS: BP 136/66; PULSE 78; RESP 20
== END 2023-12-19 16:10 | disposition home or self-care (01) ==
PROVIDERS: PCP Family Medicine; Visit Provider Surgery
PROC: (CPT 36561; principal; 2023-12-19 13:45)
DX: C66.9 Malignant neoplasm of unspecified ureter (principal); I48.91 Unspecified atrial fibrillation; I10 Essential (primary) hypertension; Z86.73 Personal history of transient ischemic attack (TIA), and cerebral infarction without residual deficits; E66.9 Obesity, unspecified; Z68.32 Body mass index [BMI] 32.0-32.9, adult; Z79.899 Other long term (current) drug therapy
CPT/HCPCS: 36561; 36415; 77001; 82948; 85610; 85730; C1788; J1644; J1885; J2704; J3010; J7030; J7120

== ENCOUNTER 2024-02-26 11:47 | Outpatient (CLI) | payer MEDICARE, SELFPAY ==
--- NOTE | ~2024-02-26 | XR_ITS ---
EXAMINATION: XR chest 2V 02/26/2024 12:01 INDICATION: Pneumonia PROCEDURE: AP and lateral views of the chest COMPARISON: Comparison to multiple prior studies sequentially, with oldest reviewed study dated 12/2027. FINDINGS: The lungs are clear. The cardiomediastinal silhouette is within normal limits. There are no pleural effusions. There is no pneumothorax suspected. There is a hiatal hernia. Port catheter t ip in the SVC. There are cholecystectomy clips. IMPRESSION: 1: NO ACUTE CARDIOPULMONARY DISEASE. Reviewed, dictated and finalized at location B.
== END 2024-02-26 11:48 ==
PROVIDERS: PCP Family Medicine; Visit Provider Family Medicine
DX: J18.9 Pneumonia, unspecified organism (principal)
CPT/HCPCS: 71046

== ENCOUNTER 2024-03-12 13:21 | Emergency (ER) | payer MEDICARE, SELFPAY ==
--- NOTE | ~2024-03-12 | XR_ITS ---
EXAMINATION: XR chest 2V DATE: 03/12/2024 14:41 INDICATION: Chest pain. Cough. TECHNIQUE: Frontal and lateral views of the chest were obtained. COMPARISON: Chest 2 views 02/26/2024 FINDINGS: There is mild atelectasis in lingula. No pleural effusion or pneumothorax. The heart size i s normal. There is a moderate-sized hiatal hernia. There is a right subclavian port with tip in super ior vena cava. Again seen is deviation of the catheter between the clavicle and first rib. Surgical c lips in the right upper quadrant are likely from cholecystectomy. IMPRESSION: 1. Mild atelectasis in lingula. 2. Moderate-sized hiatal hernia. Reviewed, dictated and finalized at location A.
--- NOTE | 2024-03-12 13:22 | ECG_ITS ---
Test Date: 2024-03-12 13:26:34 Measurements Intervals Spicer Rate: 89 P: 49 [place]: 158 QRS: 12 QRSD: 102 T: 47 QT: 346 QTc: 423 Interpretive Statements SINUS RHYTHM WITH FREQUENT SUPRAVENTRICULAR PREMATURE COMPLEXES POSSIBLE LEFT ATRIAL ENLARGEMENT [-0.1mV P-WAVE IN V1/V2] No previous ECG available for comparison Electronically Signed On 03-13-2024 13:29:41 CDT by Moises Hood M.D.
[2024-03-12 13:33] VITALS: BP 146/74; PULSE 89; RESP 16; TEMP 36.9; O2SAT 100
[2024-03-12 13:53] LABS: Basophils Absolute Auto 0.1 K/mm3 (0.0-0.1); Eosinophils Absolute Auto 0.1 K/mm3 (0-0.3); Eosinophils Percent Auto 1.4 % (0-4.4); Hematocrit 38.7 % (37.0-47.0); Hemoglobin 12.2 g/dL (12.0-15.0); Immature Granulocyte Absolute 0.06 K/mm3 (0.00-0.031); Immature Granulocyte Percent A 0.8 % (0-0.5); Lymphocytes Absolute Auto 2.21 K/mm3 (0.9-3.2); Lymphocytes Percent Auto 28.6 % (18.3-44.2); Mean Corpuscular HGB Conc 31.5 g/dl (32-36); Mean Corpuscular Hemoglobin 29.5 pg (26-34); Mean Corpuscular Volume 93.7 fl (80-100); Monocytes Absolute Auto 0.7 K/mm3 (0.1-0.6); Monocytes Percent Auto 8.9 % (2.6-8.5); Neutrophils Absolute Auto 4.6 K/mm3 (1.3-6.7); Neutrophils Percent Auto 59.3 % (45.5-73.1); Platelet Count Result 306 k/mm3 (150-375); Red Blood Count 4.13 M/mm3 (4.2-5.4); Red Cell Distribution Width 19.1 % (11.5-14.5); White Blood Count 7.7 K/mm3 (4.5-10.0)
[2024-03-12 14:03] LABS: Alanine Aminotransferase 39 U/L (6-35); Albumin Level 4.3 g/dL (3.5-5.1); Alkaline Phosphatase 88 U/L (38-126); Anion Gap 7 mmol/L (4-12); Aspartate Amino Transferase 29 U/L (14-36); Bilirubin,Total 0.3 mg/dL (0.2-1.3); Blood Urea Nitrogen 22 mg/dL (7-17); Calcium 9.6 mg/dL (8.4-10.2); Carbon Dioxide 30 mmol/L (22-30); Chloride 99 mmol/L (98-107); Estimated CRCL calculation 72 ml/min; Estimated Glomerular Filt Rate > 60; Glucose 146 mg/dL (65-110); Lipase 60 U/L (23-300); Potassium 4.1 mmol/L (3.4-5.0); Prothrombin Time 13.2 Seconds (11.1-14.7); Sodium 136 mmol/L (137-145)
[2024-03-12 14:04] LABS: Partial Thromboplastin Time 31.1 Seconds (22.3-36.8)
[2024-03-12 14:14] LABS: Troponin I < 0.012 ng/mL (0.000-0.034)
[2024-03-12] MEDS: ASPIRIN 81 MG CHEWABLE TABLET 324 MG PO (14:19)
--- NOTE | 2024-03-12 15:13 | ED.CHESTPAIN ---
HPI - Chest Pain General Chief Complaint: Chest Pain Stated Complaint: chest tightness, hx pnemonia Time Seen by Provider: 03/12/24 15:03 History of Present Illness HPI narrative: Pt presents with complaints of intermittent chest tightness over the last 5 days. Pt says she just got over pneumonia and has just completed antibiotics and prednisone. Pt has an occasional dry cough but no fever or SOB. She says the feeling of tightness will come and go on it's own and it's not exertional. Pt is still on an inhaler. Pt says the spells last and hour or so and are mild and resolve on their own. Pt has probable had 10 or so spells in the last 5 days. Pt was instructed to get checked out by her PCP. Pt is asymptomatic now. Related Data Home Medications Medication Instructions Recorded Confirmed ascorbic acid (vitamin C) 500 mg 500 mg PO DAILY 10/11/22 02/26/24 capsule vitamins A,C,G-mtgu-bnzdnw 4,296 2 cap PO DAILY 10/11/22 02/26/24 mcg-226 mg-90 mg capsule (PreserVision AREDS) blood-glucose meter (Contour Next 07/26/23 02/26/24 Glucose Meter kit) cholecalciferol (vitamin D3) 125 12.5 mcg PO DAILY 08/27/23 02/26/24 mcg/mL (5,000 unit/mL) oral drops coQ10 (ubiquinol) 200 mg capsule 200 mg PO DAILY 08/27/23 02/26/24 cyanocobalamin (vitamin B-12) 1,000 mcg PO DAILY 08/27/23 02/26/24 1,000 mcg tablet ferrous sulfate 325 mg (65 mg 325 mg PO DAILY 12/18/23 02/26/24 iron) capsule,extended release lactobacillus combination no.8 3 3 cell PO DAILY 12/18/23 02/26/24 billion cell capsule losartan 100 mg tablet 100 mg PO QAM 12/18/23 02/26/24 magnesium 500 mg tablet 15 mg PO DAILY 12/18/23 02/26/24 zoledronic acid 5 mg/100 mL in 5 mg IV ONCE 12/18/23 02/26/24 mannitol 5 %-water intravenous piggybck (Reclast) Allergies Allergy/AdvReac Type Severity Reaction Status Date / Time cephalexin Allergy Intermediate Rash TO Verified 03/12/24 14:15 LEGS adhesive Allergy Mild BLISTERS/RA Verified 03/12/24 14:15 SH morphine Allergy Mild Rash, Verified 03/12/24 14:15 difficulty waking up atorvastatin AdvReac Intermediate Cramping Verified 03/12/24 14:15 of the Muscles lisinopril AdvReac Unknown Cough Verified 03/12/24 14:15 olmesartan [From Benicar] AdvReac Unknown Cough Verified 03/12/24 14:15 Review of Systems Review of Systems: All systems reviewed & are unremarkable except as noted in HPI and below PMFSH Past Medical History Medical History (Updated 03/12/24 @ 15:29 by Inderjit Martin III, DO) Actinic keratosis Aortic regurgitation mild,PERLA 1.4.23 Benign mole Brain TIA 2022 Endometriosis Essential hypertension Hiatal hernia 9.7.22 barium swallow: . Moderate-sized sliding-type hiatal hernia. Obesity PONV (postoperative nausea and vomiting) Skin neoplasm SVT (supraventricular tachycardia) Surgical History Surgical History History of appendectomy 1960 History of cholecystectomy 1967 History of hip replacement 12/2005, left History of knee replacement right 2020 Left 2019 History of surgery on lower extremity 2001, closure of bilateral varicose veins S/P JASON-BSO 1969/endometriosis Family History Family History Sibling Leukemia Lung cancer Parkinson disease Mother Parkinson disease Father Heart attack Sibling Brain tumor Sibling Diabetes mellitus Social History Social History Smoking status: Never smoker Second hand tobacco smoke exposure: Yes Alcohol intake: never Drinks per week: 1 Substance use: never Substance use type: does not use Do You Feel Safe in your Home?: Yes Lack of Transportation: No Lack of Food: Never True Current Housing: I Have Housing Concerned About Future Housing: No Difficulty Paying Gas/Electric Bills: No Difficulty P
[2024-03-12 15:40] VITALS: PULSE 82
[2024-03-12 15:41] VITALS: BP 149/75; PULSE 70; RESP 14; O2SAT 95
== END 2024-03-12 15:42 | disposition home or self-care (01) ==
PROVIDERS: Emergency Provider Emergency Medicine; PCP Family Medicine
DX: R07.89 Other chest pain (principal); I35.1 Nonrheumatic aortic (valve) insufficiency; I10 Essential (primary) hypertension; E66.9 Obesity, unspecified; Z68.32 Body mass index [BMI] 32.0-32.9, adult; Z96.642 Presence of left artificial hip joint; Z96.653 Presence of artificial knee joint, bilateral; Z90.710 Acquired absence of both cervix and uterus; Z90.49 Acquired absence of other specified parts of digestive tract; Z85.828 Personal history of other malignant neoplasm of skin; Z86.73 Personal history of transient ischemic attack (TIA), and cerebral infarction without residual deficits; Z79.899 Other long term (current) drug therapy; R94.31 Abnormal electrocardiogram [ECG] [EKG]
CPT/HCPCS: 36415; 71046; 80053; 83690; 84484; 85025; 85610; 85730; 93005; 99284; A9270

== ENCOUNTER 2024-04-08 11:24 | Outpatient (CLI) | payer MEDICARE, SELFPAY ==
--- NOTE | ~2024-04-08 | US_ITS ---
EXAMINATION:US venous doppler LE RT INDICATION:Right leg swelling and pain TECHNIQUE: Multiple grayscale, color flow and Doppler images of the right lower extremity deep venous systems were obtained and reviewed. COMPARISON:02/10/2021 FINDINGS: The common femoral, superficial femoral and popliteal veins demonstrate normal respiratory variation, augmentation and compressibility. Color flow is also seen within the posterior tibial, pe roneal, greater saphenous and profunda veins. IMPRESSION: 1: No lower extremity deep venous thrombosis. Reviewed, dictated and finalized at location B.
== END 2024-04-08 11:25 | disposition home or self-care (01) ==
LOC: ANHIMG 11:24
PROVIDERS: PCP Family Medicine; Visit Provider Family Medicine
DX: M79.89 Other specified soft tissue disorders (principal)
CPT/HCPCS: 93971

== ENCOUNTER 2024-04-11 11:01 | Outpatient (CLI) | payer MEDICARE, SELFPAY ==
--- NOTE | ~2024-04-11 | US_ITS ---
EXAMINATION: US thyroid DATE: 04/11/2024 11:39 INDICATION: Multinodular goiter. TECHNIQUE: Multiple ultrasound images of the thyroid were obtained. COMPARISON: Ultrasound 01/17/2023 FINDINGS: The right thyroid lobe measures 3.7 x 1.3 x 2.1 cm. The left thyroid lobe measures 3.2 x 1.2 x 1.5 c m. The thyroid demonstrates increased vascularity. There are multiple subcentimeter nodules in the t hyroid. In the right thyroid lobe, there is a 9 mm predominantly solid, hypoechoic, wider than tall n odule with ill-defined margin without echogenic foci (TR4). In the right thyroid lobe, there is a 12 mm mixed cystic and solid, isoechoic, wider than tall nodule with smooth margin without echogenic foc i (TR2). In the thyroid isthmus, there is an 8 mm solid, hypoechoic, wider than tall nodule with ill- defined margin without echogenic foci (TR4). In the left thyroid lobe, is 11 mm solid, hypoechoic, wi henrique than tall nodule with smooth margin without echogenic foci (TR4), stable from 05/09/23 when biopsy was benign. IMPRESSION: 1. Multinodular goiter, likely not clinically significant. No follow-up is needed. Reviewed, dictated and finalized at location E. IMPRESSION: 1. Multinodular goiter, likely not clinically significant. No follow-up is need ed.
== END 2024-04-11 11:02 | disposition home or self-care (01) ==
PROVIDERS: PCP Family Medicine; Visit Provider Internal Medicine
DX: E04.2 Nontoxic multinodular goiter (principal)
CPT/HCPCS: 76536

== ENCOUNTER 2024-04-29 08:52 | Outpatient (CLI) | payer MEDICARE, SELFPAY ==
--- NOTE | ~2024-04-29 | CT_ITS ---
CT abdomen pelvis w con Ordering provider: Riki Garcia MD History: 84 years Female with . Malignant neoplasm of ureter . Comparison: None. Technique: CT abdomen and pelvis with IV and without oral contrast. Automated exposure control and it erative reconstruction technique were employed. The dose-length product was 795.30 mGy-cm. 100 mL Omn ipaque 350 was given IV. Findings: VISUALIZED LOWER CHEST: Dependent atelectatic changes. UPPER ABDOMINAL ORGANS: Liver: Mild fat infiltration. Multiple small benign calcifications. Gallbladder: Status post cholecystectomy. Spleen: Benign calcifications. Stomach/duodenum: Normal. Pancreas: Normal. Adrenals: Normal. Kidneys: Minimal fullness of the renal pelvis bilaterally. No definite mass is seen along the course of the ureters. The lower ureters are not demonstrated due to artifacts. Possibility of slight thicke helder of the junction of the bladder with the right ureter is not excluded with tenting in the urinar y bladder as seen in the sagittal images. Lobulated outline of the kidneys. Small cyst in the right k idney upper pole. PELVIC ORGANS: The bladder is not well demonstrated due to artifacts. Thickened wall is seen with und erfilling. BOWEL AND MESENTERY: Colon: Mild sigmoid diverticulosis without diverticulitis. Fecal material is seen in the colon sugges tive of constipation. Appendix is not well demonstrated. Small Bowel: Normal. No obstruction. Peritoneum/mesentery: No free air or free fluid. No mesenteric lymphadenopathy. RETROPERITONEUM: Mild atheromatous disease of the abdominal aorta. No retroperitoneal lymphadenopat hy. Small para-aortic lymph nodes are noted. MUSCULOSKELETAL: Superficial soft tissues: The superficial soft tissues are normal. Bones: Age appropriate degenerative changes of the spine. Left total hip replacement. Levoscoliosis. IMPRESSION: 1. No evidence of acute abdominal process. 2. Large sliding hiatus hernia. 3. Minimal fullness of the renal pelvis bilaterally. Slight thickening in the lower ureter at the ju nction with the urinary bladder with tenting of the bladder in the area. 4. Constipation. Reviewed, dictated and finalized at location A. IMPRESSION: 1. No evidence of acute abdominal process. 2. Large sliding hiatus hernia. 3. Minimal fullness of the renal pelvis bilaterally. Slight thickening in the lower ureter at the junction with the urinary bladder with tenting of the bladd er in the area. 4. Constipation.
== END 2024-04-29 08:53 | disposition home or self-care (01) ==
PROVIDERS: PCP Family Medicine; Visit Provider Internal Medicine Hematology & Oncology
DX: C66.9 Malignant neoplasm of unspecified ureter (principal); K44.9 Diaphragmatic hernia without obstruction or gangrene; K59.00 Constipation, unspecified
CPT/HCPCS: 74177; Q9967

== ENCOUNTER 2024-07-24 08:14 | Outpatient (CLI) | payer MEDICARE, SELFPAY ==
[2024-07-24 09:49] LABS: Cholesterol 202 mg/dL (0-200); HDL Direct 95 mg/dL; Triglycerides 88 mg/dL (<150)
[2024-07-24 10:00] LABS: LDL Cholesterol Direct 75 mg/dL
== END 2024-07-24 08:15 | disposition home or self-care (01) ==
LOC: ANHGOSHLAB 08:16
PROVIDERS: PCP Family Medicine; Visit Provider Student in an Organized Health Care Education/Training Program
DX: E78.2 Mixed hyperlipidemia (principal)
CPT/HCPCS: 36415; 80061

== ENCOUNTER 2024-07-29 07:57 | Outpatient (CLI) | payer MEDICARE, SELFPAY ==
--- NOTE | ~2024-07-29 | CT_ITS ---
EXAMINATION: CT abdomen pelvis w con DATE: 07/29/2024 09:03 INDICATION: Malignant neoplasm of the ureter TECHNIQUE: Computed tomography (CT) of the abdomen and pelvis was performed with 100 mL Omnipaque-350 intravenous contrast. Automated exposure control and iterative reconstruction technique were employe d. The dose-length product was 1021.25 mGy-cm. COMPARISON: None FINDINGS: Mild reticular opacities at the periphery of the dependent lower lobes which could represent atelecta sis or mild chronic interstitial lung disease. Heart size is normal. No pericardial or pleural effusi on. Moderate-sized sliding-type hiatal hernia. Calcified left subphrenic lymph node and numerous smal l hepatic and splenic calcifications consistent with old granulomatous disease. Cholecystectomy clips the gallbladder fossa. Pancreas, bilateral adrenal glands and kidneys are normal. No hydronephrosis. Postoperative change of prior distal right ureteral resection with psoas hitch procedure resulting i n cephalad tenting of the right side of the dome of the bladder. The uterus is not identified and has likely been surgically resected. There is mild colonic diverticulosis with a sigmoid predominance. There is no adjacent inflammatory change to suggest diverticulitis. Unchanged small region of mild luo ziness to the root of the mesentery consistent with chronic mesenteric panniculitis. The appendix is not visualized. No pericecal inflammatory change to suggest acute appendicitis. No free intraperitone al gas or fluid. No pathologically enlarged abdominal or pelvic lymphadenopathy. Thoracolumbar levosc oliosis with moderate lower thoracic and moderate to severe lumbar spondylosis. Left total hip arthro plasty. IMPRESSION: 1. Postoperative change of prior distal right ureteral resection and reanastomosis with psoas hitch f or reported ureteral malignancy. No hydronephrosis or evident residual, locally recurrent or metastat ic disease. 2. Moderate-sized sliding-type hiatal hernia. Reviewed, dictated and finalized at location B. 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 Postoperative change of prior distal right ureteral resection and reanastomo sis with psoas hitch for reported ureteral malignancy. No hydronephrosis or carolina dent residual, locally recurrent or metastatic disease. 2. Moderate-sized sliding-type hiatal hernia.
[2024-07-29 08:54] LABS: Estimated Glomerular Filt Rate > 60
== END 2024-07-29 07:58 | disposition home or self-care (01) ==
PROVIDERS: PCP Family Medicine; Visit Provider Internal Medicine Hematology & Oncology
DX: C66.9 Malignant neoplasm of unspecified ureter (principal); K44.9 Diaphragmatic hernia without obstruction or gangrene
CPT/HCPCS: 74177; Q9967

== ENCOUNTER 2024-09-15 09:32 | Outpatient (CLI) | payer MEDICARE, SELFPAY ==
--- NOTE | ~2024-09-15 | XR_ITS ---
CHEST RADIOGRAPH, PA AND LATERAL CLINICAL HISTORY: R05.9 - Cough, unspecified . COMPARISON: 03/12/2024 TECHNIQUE: PA and lateral views of the chest. FINDINGS Left subclavian central venous port catheter identified with tip projecting over the superior vena ca va. Hiatal hernia is redemonstrated. The remainder of the cardiomediastinal silhouette is otherwise unremarkable. The lungs are clear. Visualized osseous structures and soft tissues are unremarkable. IMPRESSION: No focal infiltrate or effusion. Reviewed, dictated and finalized at location A. 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
== END 2024-09-15 09:33 | disposition home or self-care (01) ==
LOC: GOSHIMG 09:33
PROVIDERS: PCP Internal Medicine Hematology & Oncology; Referring Provider Urology; Visit Provider Student in an Organized Health Care Education/Training Program
DX: R05.9 Cough, unspecified (principal)
CPT/HCPCS: 71046

== ENCOUNTER 2024-10-14 11:23 | Outpatient (CLI) | payer MEDICARE, SELFPAY ==
--- OUTSIDE RECORDS SUMMARY | 2024-10-14 12:33 | XMS_ITS | Encounter Summary ---
Author Organization [facility] Health Address [address] [place] [address] Care Team Providers Care Maintenance Worker Municipal Name Role Phone Maury Mcgarry MD Unavailable [phone] Brenda Durbin MD Primary Care Provider [phone] Valencia Luna MD Primary Care Provider [phone] Gregory Cook MD Unavailable [phone] Brenda Durbin MD Primary Care Provider [phone] Emilia [facility] Primary Care Provider + Encounter Details Date Type Department Care Team (Late st Contact Info) Description 01/14/2018 [facility] Outpatient [facility] [address] [place] [address] [place] [address] [address] Social History Tobacco Use Types Packs/Day Years Used Date Smoking Tobacco: Never Smokeless Tobacco: Never Alcohol Use Standard Drinks/Week Comments Yes 0 (1 standard drink = 0.6 oz pur e alcohol) Sex and Gender Information Value Date Recorded Sex Assigned at Not on file Gender Identity Not on file Sexual Orientation Not on file documented as of this encounter Plan of Treatment Not on file documented as of this encounter Visit Diagnoses Not on filedocumented in this encounter Care Teams Maintenance Worker Municipal Relationship Specialty Start Date End Date Brenda Durbin MD [address] [facility] [address] [place] [address] PCP - General 04/18/19 10/28/19 Valencia Luna MD [address] [place] [phone] PCP - General Family Medicine 10/29/19 07/02/22 Brenda Durbin MD [address] [facility] [address] [place] [phone] PCP - General 07/03/22 08/15/22 Emilia Brown APRN-[facility] [address] [facility] [address] [phone] PCP - General 08/16/22 [place] [address] [facility] [address] [place] [address] Orthopedic Surgery 07/26/15 Gregory Cook MD [facility] [facility] [address] [place] [address] Cardiovascular Disease 12/03/19 documented as of this encounter
--- OUTSIDE RECORDS SUMMARY | 2024-10-14 12:33 | XMS_ITS | Referral Summary ---
Author Organization [facility] [address] [facility] [address] Address [address] [place] [address] Care Team Providers Care Small Animal Veterinarian Name Role Phone Peyton Andre MD Primary Care Provider + Allergies Active Allergy Reactions Criticality Noted Date Comments Adhesive Hives Medium 07/26/2015 Adhesive Tape-Silicones Unknown 07/26/2015 Aspirin Other (See comments) Medium Peptic Ulcers Clindamycin Diarrhea Low 04/30/2023 Latex Rash Medium 01/03/2021 Morphine Unknown 07/26/2015 Doluozz-Zdp-Knq Reductase Inhibitors Muscle pain Medium 10/14/2020 Ezetimibe Muscle pain Medium 06/25/2023 Medications losartan (COZAAR) 100 mg tablet take 1 tablet (100MG) by oral route every day 30 5 2 Active coenzyme Q10 200 mg capsule Take 1 capsule (200 mg total) by mouth daily Active VIT A/VIT C/VIT E/ZINC/COPPER (PRESERVISION AREDS ORAL) Take by mouth. Active ascorbate calcium/bioflavono id (TALA-C WITH BIOFLAVONOIDS ORAL) Take by mouth as directed 3 tablets daily Active cyanocobalamin (Vitamin B-12) 100 mcg tabletIndications: Prevention of Vitamin B12 Deficiency Take 1 tablet (100 mcg total) by mouth daily Active cholecalciferol, vitamin D3, 500 unit/5 mL liquid Take 5,000 Units by mouth daily Active ascorbic acid (VITAMIN C) 500 mg tablet,chewable Acti ve amLODIPine (NORVASC) 10 mg tablet Take 1 tablet (10 mg total) by mouth daily 3 Active ferrous sulfate 325 mg (65 mg of elemental iron) tabletIndications: Iron Deficiency Anemia Take 1 tablet (325 mg total) by mouth 2 (two) times a day Active Active Problems Problem Noted Date Diagnosed Date TIA (transient ischemic attack) 02/02/2023 Moderate left ventricular hypertrophy 11/29/2022 Nonrheumatic mitral valve stenosis 04/14/2022 Mixed diabetic hyperlipidemi a associated with type 2 diabetes mellitus 04/20/2021 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 Double vision 09/11/2019 H/O: duodenal ulcer 09/11/2019 PSVT (paroxysmal supraventricular tachycardia) ( [facility]/HCC) 11/29/2017 Preoperative cardiovascular examination 08/15/20 17 Gastroduodenal ulcer 01/15/2017 Overview (02/09/2017): PUD (peptic ulcer disease) Iron deficiency anemia 01/15/2017 Overview (02/09/2017): Other iron deficiency anemia Chronic fatigue syndrome 07/27/2016 Overview (12/22/2016): Chronic fatigue Chest pain 07/27/2016 Overview (12/22/2016): Chest pain in adult Dyspnea on exertion 07/27/2016 Overview (12/22/2016): SERRATO (dyspnea on exertion) Pulmonary hypertension 06/20/2016 Overview (12/22/2016): Pulmonary HTN Diabetes mellitus with circulatory complication 06/20/2016 Overview (12/22/2016): Type 2 diabetes mellitus with complication, without long-term current use of insulin Hypertension associated with diabetes 06/20/2016 Overview (12/22/2016): HTN (hypertension), benign PVCs (premature ventricular contractions) 2015 Overview (12/22/2016): PVC's (premature ventricular contractions) Peripheral arterial occlusive disease 06/20/2016 Overview (12/22/2016): Peripheral artery disease Aortic valve insufficiency 06/20/2016 Overview (12/22/2016): Nonrheumatic aortic valve insufficiency Knee pain 11/25/2012 Arthralgia of hip 11/21/2012 Social History Tobacco Use Types Packs/Day Years Used Date Smoking Tobacco: Never Smokeless Tobacco: Never Tobacco Cessation:Counseling Given: Not Answered Alcohol Use Standard Drinks/Week Comments Yes 0 (1 standard drink = 0.6 oz pur e alcohol) Comments Unknown Sex and Gender Information Value Date Recorded Sex Assigned at Not on file Legal Sex Female 6:50 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 Gender Identity Not on file Sexual Orientation Not on file Last Filed Vital Signs Vital Sign Reading Time Taken Comments Blood Pressure 120/64 02/19/2024 2:30 PM CDT Pulse 86 02/19/2024 2:30 PM CDT Temperature - - Respiratory Rate - - Oxygen Saturation 97% 02/19/2024 2:30 PM CDT Inhaled Oxygen Concentration - - Weight 95.7 kg (211 lb) 02/19/2024 2:30 PM CDT Height 170.2 cm (5' 7 ) 02/19/2024 2:30 PM CDT Body Mass Index 33.05 02/19/2024 2:30 PM CDT Plan of Treatment Not on file Procedures Procedure Name Priority Date/Time Associated Diagnosis Comments POCT LIPID PANEL Routine 06/25/2023 1:30 PM CDT Mixed diabetic hyperlipidemia associated with type 2 diabetes mellitus (HCC) from Last 3 Months or Most Recently Relevant to Health Maintenance Results * POCT lipid panel (06/25/2023 1:30 PM CDT) Cholesterol, POC 169 mg/dL Comment:GLU = 95 HDL, POC 78 mg/dL Triglycerides, POC 52 mg/dL LDL Cholesterol POC 81 mg/dL Chol/HDL Ratio, POC 1.0 Non-HDL Cholesterol, POC 91 mg/dL Cholesterol Total, POC 169 mg/dL Capillary blood 06/25/2023 1 :30 PM CDT Gregory Cook MD POINT OF CARE TEST ORDER GELY Final Result from Last 3 Months or Most Recently Relevant to Health Maintenance Insurance [place] [employer] [facility] Care Teams Small Animal Veterinarian Relationship Specialty Start Date End Date Peyton Andre MD PCP - General Family Medicine 10/18/22
--- OUTSIDE RECORDS SUMMARY | 2024-10-14 12:33 | XMS_ITS | Continuity of Care Document ---
Author Organization [facility] Address [address] [place] [address] [address] [place] [address] Phone Care Team Providers Care Watch Technician Name Role Phone Fatuma Snyder Unavailable Unavailable Advance Directives Directive Yes / No Effective Date File Name No Information Encounters Encounter Description Practice Location Reason(s) For Visit Diagnoses Date Provider Providers Copied on Encounter [facility], [address], [place], [place], [id number], [place] tel:[phone] [facility] No Information 0-200 6 Lillian Burris. [address] , [address], [place], [address], [place]. tel:[phone] Family History Family Member Type Diagnosis Age At Onset No Information Payers Payer name Insurance type Covered libertarian ID Authoriza timeena(s) [facility] CI [id number] Social History Type Description Quantity Date Captured [...]
--- OUTSIDE RECORDS SUMMARY | 2024-10-14 12:33 | XMS_ITS | Referral Summary ---
Author Organization [facility] Address [address] [facility] [place] [address] Care Team Providers Care Mail Order Sorter Name Role Phone Maury Mcgarry MD Unavailable [phone] Gregory Cook MD Unavailable [phone] Emilia Brown APRN-PRICE CHANGER Primary Care Provider + Source Comments [facility],non-owned Affiliates and Associated Physician Practices is amultiple site organization consisting of ambulatory clinics and hospital sitesin [place], [place], [place] and [place]. This disclosure is being madepursuant to the Care Everywhere program and may not contain all information available regarding this patient. Last updated 18.[facility] Allergies Active Allergy Reactions Criticality Noted Date Comments Adhesive Sensitivity 07/26/2015 Hmg-Coa-R Inhibitors Myalgias Medium 10/14/2020 Latex Rash Medium 01/03/2021 Morphine Rash Medium 07/26/2015 Medications * Be aware that medications may not be up to date on this document. Alwaysverify current medications with the patient. Medication Sig Dispensed Refills Start Date End Date Status losartan (COZAAR) 100 MG tablet Take 100 mg by mouth once daily Active Coenzyme Q10 (COQ10) 200 MG Take 1 Tab by mouth once daily Active cyanocobalamin 100 MCG tablet Take 100 mcg by mouth once daily Active Vitamin Mixture (TALA-C PO) Active Cholecalciferol (VITAMIN D3) 30 MCG/15ML LIQD Take 5,000 mg by mouth Active Grape Seed 100 MG Take 300 mg by mouth Active CALCIUM LACTATE PO Take 2 tablets by mouth Active Multiple Vitamins-Minerals (EYE VITAMINS) CAPS Take 1 capsule by mouth once daily Active collagenase (SANTYL) 250 UNIT/GM ointment Acti ve mupirocin (BACTROBAN) 2 % ointment mupirocin 2 % topical ointment APPLY TO LEFT GREAT TOE NAIL BED DAILY FOR THE NEXT WEEK AND COVER WITH BAND AID Active Active Problems Problem Noted Date Diagnosed Date 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 Essential hypertension 03/26/2019 Irritable bowel syndrome 03/26/2019 Type 2 diabetes mellitus 03/26/2019 Vitamin D deficiency 03/26/2019 Primary osteoarthritis of right knee 11/04/2018 PSVT (paroxysmal supraventricular tachycardia) 0 11/29/2017 Peripheral arterial occlusive disease 06/20/2016 Overview (03/26/2019): Overview: Peripheral artery disease Primary osteoarthritis of both knees 10/19/2015 Immunizations Name Administration Dates Next Due Modulus Video primary monoval ent 12+ yr 0.3mL Purple cap 12/23/2020,12/02/2020 Pneumococcal Pcv13 Conj 08/25/2019 TDAP (7yrs+) 06/14/2020,03/15/2015 Social History Tobacco Use Types Packs/Day Years Used Date Smoking Tobacco: Never Smokeless Tobacco: Never Tobacco Cessation:Counseling Given: Not Answered Alcohol Use Standard Drinks/Week Comments Not Currently 0 (1 standard drink = 0.6 oz pur e alcohol) Sex and Gender Information Value Date Recorded Sex Assigned at Not on file Gender Identity Not on file Sexual Orientation Not on file Last Filed Vital Signs Vital Sign Reading Time Taken Comments Blood Pressure 184/96 07/14/2022 9:40 AM CDT Pulse 93 07/14/2022 9:40 AM CDT Temperature 36.4 ??C (97.5 ??F) 01/26/2021 7:27 AM CD T Respiratory Rate 16 01/26/2021 7:27 AM CDT Oxygen Saturation 96% 01/26/2021 7:27 AM CDT Inhaled Oxygen Concentration - - Weight 99.2 kg (218 lb 9.6 oz) 07/14/2022 9:40 A M CDT Height 170.2 cm (5' 7 ) 07/14/2022 9:40 AM CDT Body Mass Index 34.24 07/14/2022 9:40 AM CDT Plan of Treatment Not on file Medical Devices Implanted Type Area Civil Estimator Device Identifier Shelf Expiration Date Model / Serial / Lot Wale Bone Sundance-G Hv 40/20 Implanted:Qty: 1 on 02/04/2018 by Maury Mcgarry MD at [facility] Left: Knee [employer] 02/14/2019 600-15-100 / / [id number] Cmpnt Ptlr 28mm 1 Pg Wire Ascnt Arcm Kn Implanted:Qty: 1 on 02/04/2018 by Maury Mcgarry MD at [facility] Left: Knee [employer] 12/28/2022 [id number] / / [id number] Tray Tib 75mm Kn Cocr I Beam Implanted:Qty: 1 on 02/04/2018 by Maury Mcgarry MD at [facility] Left: Knee [employer] 10/21/2027 [id number] / / [id number] Cmpnt Fem Kn Lt Cr Cmnt Prm Vngrd Intlk Implanted:Qty: 1 on 02/04/2018 by Maury Mcgarry MD at [facility] Left: Knee [employer] 12/14/2027 [id number] / / [id number] Brng [id number] Vngrd Arcm Kn Ant Stab Implanted:Qty: 1 on 02/04/2018 by Maury Mcgarry MD at [facility] Left: Knee [employer] 10/31/2022 [id number] / / [id number] Brng [id number] Vngrd Arcm Kn Ant Stab Implanted:Qty: 1 on 01/24/2021 by Maury Mcgarry MD at [facility] Right: Knee [employer] 05/30/2024 [id number] / / [id number] Cmpnt Fem Kn Rt Cr Cmnt Prm Vngrd Intlk Implanted:Qty: 1 on 01/24/2021 by Maury Mcgarry MD at [facility] Right: Knee [employer] 11/15/2030 [id number] / / [id number] Wale Bone Sundance-G Hv 40/20 Implanted:Qty: 1 on 01/24/2021 by Maury Mcgarry MD at [facility] Right: Knee [employer] 08/28/2021 [id number] / / [id number] Tray Tib 79mm Kn Cocr I Beam Implanted:Qty: 1 on 01/24/2021 by Maury Mcgarry MD at [facility] Right: Knee [employer] 03/02/2030 [id number] / / [id number] Cmpnt Ptlr 28mm 1 Pg Wire Ascnt Arcm Kn Implanted:Qty: 1 on 01/24/2021 by Maury Mcgarry MD at [facility] Right: Knee [employer] 12/28/2022 [id number] / / [id number] Procedures Procedure Name Priority Date/Time Associated Diagnosis Comments COMPREHENSIVE METABOLIC PANEL STAT 01/03/2021 1:38 PM CDT Preop examination HEMOGLOBIN A1C Routine 01/03/2021 1:38 PM CDT Preop examination from Last 3 Months or Most Recently Relevant to Health Maintenance Results * (ABNORMAL) HEMOGLOBIN A1C (01/03/2021 1:38 PM CDT) Hemoglobin A1c 5.7(H) 4.2 - 5.6 % 01/03/2021 2:00 PM CDT [facility] Estimated Average Glucose 117 mg/dL 01/03/2021 2:00 PM CDT [facility] Blood BLOOD SPECIMEN / Unknown Venipuncture / Unknown 01/03/2021 1:38 PM CDT 01/03/2021 1:44 PM CDT [facility] - 01/03/2021 2:00 PM CDT The following cutoff levels are recommended by [place] [employer]. ?? A1c ??> 6.5% : considered as diabetes if two separate tests >6.5% or in an appropriate clinical setting. A1c ??5.7% - 6.4% : considered as prediabetes (suggest increased risk for diabetes and cardiovascular disease) Control target level: ??Should be individualized. ??< 7 ??for general (non- ) , ??< 8% less stringent goal, ??< 6.5 ??more stringent goal. Hemoglobin A1c measurements are used as an aid in the diagnosis of diabetic mellitus, as an aid to identify patients who may be at the risk for developing diabetic mellitus, and for the monitoring long-term blood glucose control in individuals with diabetes mellitus. ??This test should not replace glucose testing for patients with Type 1 diabetes, pediatric patients, or women. ??Falsely low HbA1c results may be observed in patients with clinical conditions that shorten erythrocyte life span or decrease mean erythrocyte age such as the presence of unstable hemoglobin variants, elevated hemoglobin F level ??or other causes of hemolytic anemia . ??HbA1c may not accurately reflect glycemic control when clinical conditions that affect erythrocyte survival are present. ??Severe Iron deficiency anemia may yield falsely high results. ??Hemoglobin A1c assay should not be used to diagnose or monitor diabetes in patients with malignancy, recent blood transfusion, chronic kidney or liver disease. ?? This method may yield falsely low results when hemoglobin (HbF) exceeds 5% in the specimen. [facility] - HOTEL REGISTRATION CLERK RY ORDERABLES [facility] [address] [place] [address] * (ABNORMAL) COMPREHENSIVE METABOLIC PANEL (01/03/2021 1:38 PM CDT) [facility] Glucose 98 70 - 105 mg/dL 01/03/2021 2:02 PM CDT [facility] Sodium 139 136 - 145 mmol/L 01/03/2021 2:02 PM CDT [facility] Potassium 4.1 3.5 - 5.1 mmol/L 01/03/2021 2:02 PM CDT [facility] Chloride 107 98 - 107 mmol/L 01/03/2021 2:02 PM CDT [facility] CO2 26 23 - 31 mmol/L 01/03/2021 2:02 PM CDT [facility] Calcium 9.0 8.4 - 10.4 mg/dL 01/03/2021 2:02 PM CDT [facility] Anion Gap 6(L) 8 - 18 mmol/L 01/03/2021 2:02 PM CDT [facility] Comment:Attention clinician: ??Reference Range change. BUN 16 9.8 - 20.1 mg/dL 01/03/2021 2:02 PM CDT [facility] Creatinine 0.71 0.57 - 1.11 mg/dL 01/03/2021 2:02 PM CDT [facility] Alkaline Phosphatase 99 40 - 150 U/L 01/03/2021 2:02 PM CDT [facility] Comment:Attention clinician: ??Reference Range change. ALT 21 0 - 61 U/L 01/03/2021 2:02 PM CDT [facility] AST 23 5 - 34 U/L 01/03/2021 2:02 PM CDT [facility] Protein Total 6.5 6.4 - 8.3 gm/dL 01/03/2021 2:02 PM CDT [facility] Albumin 4.1 3.2 - 4.6 gm/dL 01/03/2021 2:02 PM CDT [facility] Bilirubin Total 0.3 0.2 - 1.2 mg/dL 01/03/2021 2:02 PM CDT [facility] Comment:Attention clinician: ??Reference Range change. eGFR by MDRD >60 mL/min/1.7 3m2 01/03/2021 2:02 PM CDT [facility] eGFR by MDRD >60 mL/min/1.7 3m2 01/03/2021 2:02 PM CDT [facility] Blood BLOOD SPECIMEN / Unknown Venipuncture / Unknown 01/03/2021 1:38 PM CDT 01/03/2021 1:44 PM CDT [facility] - HOTEL REGISTRATION CLERK RY ORDERABLES [facility] [address] [place] [address] from Last 3 Months or Most Recently Relevant to Health Maintenance Administered Medications Advance Directives Documents on File Type Date Recorded Patient Student Records Coordinator Expl anation Adv Directive/Living Will/POA 01/11/2018 10:24 AM [place] POA * Full Code (Latest Code Status on File) Date Activated Date Inactivated Comments 01/24/2021 11:38 AM 01/26/2021 3:15 PM * Full Code Date Activated Date Inactivated Comments 02/04/2018 11:32 AM 02/07/2018 1:39 PM Care Teams Mail Order Sorter Relationship Specialty Start Date End Date Emilia Brown APRN-PRICE CHANGER [address] [phone] PCP - General 08/16/22 [place] [address] [facility] [address] [place], [place] [id number] Orthopedic Surgery 07/26/15 Gregory Cook MD [facility] [facility] [address] [place], [place] [id number] Cardiovascular Disease 12/03/19
--- OUTSIDE RECORDS SUMMARY | 2024-10-14 12:33 | XMS_ITS | Clinical Summary ---
Author Organization [facility] [address] [facility] [address] Address [address] [place] [address] Care Team Providers Care Superannuation Clerk Name Role Phone Peyton Andre MD Primary Care Provider + Allergies Active Allergy Reactions Criticality Noted Date Comments Adhesive Hives Medium 07/26/2015 Adhesive Tape-Silicones Unknown 07/26/2015 Aspirin Other (See comments) Medium Peptic Ulcers Clindamycin Diarrhea Low 04/30/2023 Latex Rash Medium 01/03/2021 Morphine Unknown 07/26/2015 Qpdwlmw-Edl-Qwm Reductase Inhibitors Muscle pain Medium 10/14/2020 Ezetimibe [...] ulcer 09/11/2019 PSVT (paroxysmal supraventricular tachycardia) ( [facility]) 11/29/2017 Preoperative cardiovascular examination 08/15/20 17 [...] Knee pain 11/25/2012 Arthralgia of hip 11/21/2012 Medical History Medical History Date Comments Hypertension Hypertension Hx Other Medical Diabetes Type I I Adiposity Obesity Hx Other Medical Arrhythmias Family History Medical History Relation Name Comments Heart attack Father 2 Myocardial Infa rction; Relation Name Status Comments Father 1 Alive Father 2 Social History Tobacco Use Types Packs/Day Years Used Date Smoking Tobacco: Never Smokeless Tobacco: Never Tobacco Cessation:Counseling Given: Not Answered Alcohol Use Standard Drinks/Week Comments Yes 0 (1 standard drink = 0.6 oz pur e alcohol) Comments Unknown Sex and Gender Information Value Date Recorded Sex Assigned at Not on file Legal Sex Female 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 Gender Identity Not on file Sexual Orientation Not on file Obstetrics History Last Filed Vital Signs Vital Sign Reading [...] 02/19/2024 2:30 PM CDT Plan of Treatment Health Maintenance Due Date Last Done Comments Albumin Creatinine Ratio, Urine 1942 Depression Screening 1942 Fall Risk Assessment 1942 Hemoglobin A1C 1942 eGFR 1942 Dilated Eye Exam 1942 Foot Exam 1942 Hepatitis B Screening 02/06/1960 Zoster Vaccine (1 of 2) 02/06/1992 Well Visit 65+ 2007 Pneumococcal vaccine 65+ (3 of 3 - PPSV23 or PCV20) 08/25/2020 08/25/2019, 09/17/2006 Influenza Vaccine (#1) 2024 Lipid Panel 06/25/2024 06/25/2023, 07/18, 04/20/2021, Additional history exists Osteoporosis Screening-Bone Density Scan 08/27/2025 08/27/2023, 08/07/2022, 08/03/2020 DTaP/Tdap/Td Vaccine (4 - Td or Tdap) 06/14/2030 06/14/2020, 03/15/2015, 03/14/2015 Procedures Procedure Name Priority Date/Time Associated Diagnosis [...] Most Recently Relevant to Health Maintenance [place] [address] MEDICARE [facility] MEDICARE [employer] [place] MEDICARE [facility] Care Teams Superannuation Clerk Relationship Specialty Start Date End Date Peyton Andre MD PCP - General Family Medicine 10/18/22
--- OUTSIDE RECORDS SUMMARY | 2024-10-14 12:33 | XMS_ITS | Clinical Summary ---
Author Organization [facility] Address [address] [place] [address]. [place], [place] [address] [place] [address] Care Team Providers Care Data Security Consultant Name Role Phone Peyton Andre MD Primary Care Provider [phone] Allergies Active Allergy Reactions Criticality Noted Date Comments Clindamycin Diarrhea 04/30/2023 Latex Rash Medium 01/03/2021 Morphine Rash,Unknown Medium 07/26/2015 Statins Myalgias Medium 10/14/2020 Tape Hives 07/26/2015 Medications vitamin C (ASCORBIC ACID) 500 MG tablet Active aspirin EC (ECOTRIN) 81 MG tablet Take 1 tablet (81 mg total) by mouth daily. Active losartan (COZAAR) 100 MG tablet Take 1 tablet (100 mg total) by mouth daily. Active amLODIPine (NORVASC) 10 MG tablet Take 1 tablet (10 mg total) by mouth daily. 90 tablet 06/18/2023 Active Active Problems Problem Noted Date Diagnosed Date Stress incontinence 10/13/2022 Encounters Date Type Department Care Team Description 10/09/2024 3:00 PM WARD AIDE Office Visit [facility] Audiology [address] [place] [address] Grisel Restrepo AUD Mulligan, Michelle P, MD Hearing Loss; Hearing Aid Check 10/09/2024 Travel 10/02/2024 2:17 PM WARD AIDE - 10/02/2024 11:59 PM WARD AIDE Hospital Encounter [facility] Diagnostic Imaging [address] [place] [address] Andrae Zhang NP Discharge Disposition: Home or Self Care (Routine Discharge) 10/02/2024 Travel from Last 3 Months Immunizations Name Administration Dates Next Due PFIZER COVID-19 (ORIGINAL FO RMULATION, PURPLE CAP) mRNA, LNP-S, PF, 30 MCG/0.3 ML DOSE 12/23/2020,12/02/2020 Pneumococcal (Pneumovax 23) 09/17/2006 Pneumococcal (Prevnar 13) 08/25/2019 Tdap (Generic) 06/14/2020,03/15/2015,03/14/2015 Family History Medical History Relation Comments Breast Cancer Other 1 Breast Cancer Other 2 Relation Status Comments Other 1 Alive Other 2 Alive Social History Tobacco Use Types Packs/Day Years Used Date Smoking Tobacco: Never Passive Smoke Exposure: Never Smokeless Tobacco: Never Tobacco Cessation:Counseling Given: No Alcohol Use Standard Drinks/Week Comments Not Currently 0 (1 standard drink = 0.6 oz pur e alcohol) PHQ-2 Answer Date Recorded Patient Health Questionnaire-2 Score 0 04/30/2023 Comments No Sex and Gender Information Value Date Recorded Sex Assigned at Not on file Legal Sex Female 4:44 PM CDT Gender Identity Not on file Sexual Orientation Not on file Last Filed Vital Signs Vital Sign Reading Time Taken Comments Blood Pressure 174/91 06/18/2023 8:00 AM CDT Pulse 71 06/18/2023 7:44 AM CDT Temperature 35.9 ??C (96.7 ??F) 06/18/2023 12:57 AM C DT Respiratory Rate 20 06/18/2023 7:44 AM CDT Oxygen Saturation 95% 06/18/2023 8:00 AM CDT Inhaled Oxygen Concentration - - Weight 93 kg (205 lb) 06/18/2023 12:57 AM CDT Height 170.2 cm (5' 7 ) 06/18/2023 12:57 AM CDT Body Mass Index 32.11 06/18/2023 12:57 AM CDT Plan of Treatment Health Maintenance Due Date Last Done Comments Zoster Vaccines (1 of 2) 02/06/1992 Annual Medicare Wellness Visit 2007 RSV Immunization or 60+ Years (1 - 1-dose 75+ series) 2017 PHQ-2 (Physician [place]) 04/30/2024 04/30/2023 COVID-19 Vaccine (3 - season) 2024 12/23/2020, 12/02/2020 Influenza Adult (#1) 2024 Pneumococcal Vaccine: 65+ Years (3 of 3 - PPSV23 or PCV20) 08/25/2024 08/25/2019, 09/17/2006 PHQ-2 (Physician [place]) 09/17/2024 04/30/2023 DTaP, Tdap and Td Vaccines (4 - Td or Tdap) 06/14/2030 06/14/2020, 03/15/2015, 03/14/2015 Dexa Scan (General) Completed 10/02/2024, 08/27/2023, 08/27/2023, Additional history exists Meningococcal B Vaccine Aged Out No l onger eligible based on patient's age to complete this topic Meningococcal Vaccine Aged Out No tameka elliot eligible based on patient's age to complete this topic RSV Immunizations Under 20 Months Aged Out No longer eligible based on patient's age to complete this topic Procedures Procedure Name Priority Date/Time Associated Diagnosis Comments BONE DENSITY/DEXA Routine 10/02/2024 3:1 1 PM WARD AIDE Age-related osteoporosis without current pathological fracture from Last 3 Months Results * BONE DENSITY/DEXA (10/02/2024 3:11 PM WARD AIDE) Anatomical Region Laterality Modality Bone Bone Density 10/03/2024 7:26 AM WARD AIDE Impressions 10/03/2024 7:27 AM WARD AIDE IMPRESSION: WHO Classification: Osteoporosis RECOMMENDATIONS: All patients should ensure an adequate intake of dietary calcium and vitamin D. The NOF recommend adults under the age of 50 need 1000 mg of calcium and 400-800 IU of vitamin D daily. Effective therapy for the prevention and treatment of osteoporosis include bisphosphonates. Follow-up: People with diagnosed cases of osteoporosis or at high risk for fracture should have regular bone mineral density test. For patients eligible for Medicare, routine testing is allowed once every 2 years. Testing frequency can be increased to one year for patients who have rapidly progressing disease, those who are receiving or discontinuing medical therapy to restore bone mass, or have additional risk factors. Referred By: ANDRAE RISKY Interpreted By: Zheng Tejada MD, 10/03/2024 7:26 AM Narrative 10/03/2024 7:27 AM WARD AIDE [facility] [address] [place] [address] EXAMINATION: BONE DENSITY/DEXA INDICATIONS: Age-related osteoporosis without current pathological fracture TECHNIQUE: DEXA bone mineral density evaluation was performed in the AP projection over the lumbar spine and both hips utilizing standard imaging techniques. ASSESSMENT: The BMD measured at the AP spine L1-L4 is 1.194 g/cm? with a T-score of 1.3. ?? The BMD measured at the left distal third of forearm is 0.479 g/cm? with a T- score of -3.5. The BMD measured at the total left forearm is 0.362 g/cm? with a T-score of - 4.0. ?? The BMD measured at the right femoral neck is 0.530 g/cm? with a T-score of - 2.9. ?? The BMD measured at the right hip is 0.671 g/cm? with a T-score of -2.2. ?? FRAX 10-year fracture risk: Not reported because some T scores are at or below -2.5. ??Patient was treated for osteoporosis. Procedure Note Zheng Tejada MD - 10/03/2024 [facility] [address] [place] [address] EXAMINATION: BONE DENSITY/DEXA INDICATIONS: Age-related osteoporosis without current pathologicalfracture TECHNIQUE: DEXA bone mineral density evaluation was performed in the APprojection over the lumbar spine and both hips utilizing standard imagingtechniques. ASSESSMENT: The BMD measured at the AP spine L1-L4 is 1.194 g/cm? with a T-score of1.3. The BMD measured at the left distal third of forearm is 0.479 g/cm? with aT- score of -3.5. The BMD measured at the total left forearm is 0.362 g/cm? with a T-scoreof -4.0. The BMD measured at the right femoral neck is 0.530 g/cm? with a T-scoreof -2.9. The BMD measured at the right hip is 0.671 g/cm? with a T-score of -2.2. FRAX 10-year fracture risk: Not reported because some T scores are at or below -2.5. Patient wastreated for osteoporosis. IMPRESSION: WHO Classification: Osteoporosis RECOMMENDATIONS: All patients should ensure an adequate intake of dietary calcium andvitamin D. The NOF recommend adults under the age of 50 need 1000 mg ofcalcium and 400-800 IU of vitamin D daily. Effective therapy for theprevention and treatment of osteoporosis include bisphosphonates. Follow-up: People with diagnosed cases of osteoporosis or at high risk for fractureshould have regular bone mineral density test. For patients eligible forMedicare, routine testing is allowed once every 2 years. Testing frequencycan be increased to one year for patients who have rapidly progressingdisease, those who are receiving or discontinuing medical therapy torestore bone mass, or have additional risk factors. Referred By: ANDRAE ZHANG Interpreted By: Zheng Tejada MD, 10/03/2024 7:26 AM Andrae Zhang DTP OPERATOR DEXA Final Result from Last 3 [place] [address] MEDICARE [facility] Care Teams Data Security Consultant Relationship Specialty Start Date End Date Peyton Andre MD [address] [facility] [address] [address] PCP - General FAMILY PRACTICE 11/16/22
--- OUTSIDE RECORDS SUMMARY | 2024-10-14 12:33 | XMS_ITS | Clinical Summary ---
Author Organization [facility] Address [address] [place] [address] Care Team Providers Care Mill Turner Name Role Phone Maury Mcgarry MD Unavailable [phone] Gregory Cook MD Unavailable [phone] Emilia Brown APRN-CSM CONSULTANT Primary Care Provider + Source Comments [facility],non-owned Affiliates and Associated Physician Practices is amultiple site organization consisting of ambulatory clinics and hospital sitesin [place], [place], [place] and [place]. This disclosure is being madepursuant to the Care Everywhere program and may not contain all information available regarding this patient. Last updated 18.[facility] Allergies Active Allergy Reactions Criticality Noted [...] 10/19/2015 Immunizations Name Administration Dates Next Due [employer] primary monoval ent 12+ yr 0.3mL Purple [...] 07/14/2022 9:40 AM CDT Plan of Treatment Health Maintenance Due Date Last Done Comments BONE DENSITY TESTING 1940 MEDICARE AWV ? 12 MONTHS 1940 DIABETES-STATIN 1982 ZOSTER VACCINE (1 of 2) 02/06/1992 Respiratory Syncytial Virus (RSV) Vaccine Pt: or over 60 yrs (1 - 1-dose 75+ series) 2017 DIABETES RETINOPATHY SCREENING 03/26/2019 DIABETES-FOOT EXAM WITH MONOFILAMENT 03/26/2019 PNEUMOCOCCAL VACCINE 50+ (2 of 2 - PPSV23) 10/20/2019 08/25/2019 DIABETES-HGB A1C 07/05/2021 01/03/2021, 10/29/2019 DIABETES-SERUM CREATININE 01/03/20222020, 10/29/2019, 01/11/2018 COVID-19 VACCINE (3 - 2023-2 5 season) 2024 12/23/2020, 12/02/2020 INFLUENZA VACCINE (#1) 2024 DEPRESSION SCREENING 09/17/2024 DIABETES - URINE PROTEIN SCREENING 09/17/2024 DTAP/TDAP/TD VACCINES (3 - T d or Tdap) 06/14/2030 06/14/2020, 03/15/2015 HEPATITIS B VACCINE Aged Out No longe r eligible based on patient's age to complete this topic HIB VACCINE Aged Out No longer eligi ble based on patient's age to complete this topic HPV VACCINE Aged Out No longer eligi ble based on patient's age to complete this topic MENINGOCOCCAL (Group B) VACCINE Aged Out No longer eligible b ased on patient's age to complete this topic MENINGOCOCCAL VACCINE Aged Out No tameka elliot eligible based on patient's age to complete this topic Medical Devices Implanted Type Area Snow Blower Device Identifier Shelf Expiration Date Model / Serial / Lot Wale Bone Arco-G Hv 40/20 Implanted:Qty: 1 on 02/04/2018 by Maury Mcgarry MD at [facility] Left: Knee [employer] 02/14/2019 600-15-100 / / [id number] Cmpnt Ptlr 28mm 1 Pg Wire Ascnt Arcm Kn Implanted:Qty: 1 on 02/04/2018 by Maury Mcgarry MD at [facility] Left: Knee [employer] 12/28/2022 [id number] / / [id number] Tray Tib 75mm Kn Cocr I Beam Implanted:Qty: 1 on 02/04/2018 by Maury Mcgarry MD at [facility] Left: Knee [employer] 10/21/2027 [id number] / / [id number] Cmpnt Fem Kn Lt Cr Cmnt Prm Vngrd Intlk Implanted:Qty: 1 on 02/04/2018 by Maury Mcgarry MD at [facility] Left: Knee [employer] 12/14/2027 [id number] / / [id number] Brng [id number] Vngrd Arcm Kn Ant Stab Implanted:Qty: 1 on 02/04/2018 by Maury Mcgarry MD at [facility] Left: Knee [employer] 10/31/2022 [id number] / / [id number] Brng [id number] Vngrd Arcm Kn Ant Stab Implanted:Qty: 1 on 01/24/2021 by Maury Mcgarry MD at [facility] Right: Knee [employer] 05/30/2024 [id number] / / [id number] Cmpnt Fem Kn Rt Cr Cmnt Prm Vngrd Intlk Implanted:Qty: 1 on 01/24/2021 by Maury Mcgarry MD at [facility] Right: Knee [employer] 11/15/2030 [id number] / / [id number] Wale Bone Arco-G Hv 40/20 Implanted:Qty: 1 on 01/24/2021 by Maury Mcgarry MD at [facility] Right: Knee [employer] 08/28/2021 600-15-100 / / [id number] Tray Tib 79mm Kn Cocr I Beam Implanted:Qty: 1 on 01/24/2021 by Maury Mcgarry MD at [facility] Right: Knee [employer] 03/02/2030 [id number] / / [id number] Cmpnt Ptlr 28mm 1 Pg Wire Ascnt Arcm Kn Implanted:Qty: 1 on 01/24/2021 by Maury Mcgarry MD at [facility] Right: Knee [employer] 12/28/2022 [id number] / / [id number] Procedures Procedure Name Priority Date/Time Associated Diagnosis Comments COMPREHENSIVE METABOLIC PANEL STAT 01/03/2021 1:38 PM CDT Preop examination HEMOGLOBIN A1C Routine 01/03/2021 1:38 PM CDT Preop examination from Last 3 Months or Most Recently Relevant to Health Maintenance Results * (ABNORMAL) HEMOGLOBIN A1C (01/03/2021 1:38 PM CDT) Hemoglobin A1c 5.7(H) 4.2 - 5.6 % 01/03/2021 2:00 PM CDT [facility] Estimated Average Glucose 117 mg/dL 01/03/2021 2:00 PM CDT [facility] Blood BLOOD SPECIMEN / Unknown Venipuncture / Unknown 01/03/2021 1:38 PM CDT 01/03/2021 1:44 PM CDT Narrative [facility] - 01/03/2021 2:00 PM CDT The following cutoff levels are recommended by [place] [employer]. ?? A1c ??> 6.5% : [...] (HbF) exceeds 5% in the specimen. Sandra Farrell APRN-CSM CONSULTANT LAB - RN SUPPLEMENTAL RY ORDERABLES Performing Organization Address City/State/[facility] Co de Phone Number [facility] [address] [place] [address] * (ABNORMAL) COMPREHENSIVE METABOLIC PANEL (01/03/2021 1:38 PM CDT) Pathologist [facility] Glucose 98 70 - 105 mg/dL 01/03/2021 2:02 PM CDT [facility] Sodium 139 136 - 145 mmol/L 01/03/2021 2:02 PM CDT [facility] Potassium 4.1 3.5 - 5.1 mmol/L 01/03/2021 2:02 PM CDT [facility] Chloride 107 98 - 107 mmol/L 01/03/2021 2:02 PM CDT [facility] CO2 26 23 - 31 mmol/L 01/03/2021 2:02 PM CDT [facility] Calcium 9.0 8.4 - 10.4 mg/dL 01/03/2021 2:02 PM CDT [facility] Anion Gap 6(L) 8 - 18 mmol/L 01/03/2021 2:02 PM CDT [facility] Comment:Attention clinician: ??Reference Range change. BUN 16 9.8 - 20.1 mg/dL 01/03/2021 2:02 PM CDT [facility] Creatinine 0.71 0.57 - 1.11 mg/dL 01/03/2021 2:02 PM CDT [facility] Alkaline Phosphatase 99 40 - 150 [...] 3m2 01/03/2021 2:02 PM CDT [facility] Blood BLOOD SPECIMEN / Unknown Venipuncture / Unknown 01/03/2021 1:38 PM CDT 01/03/2021 1:44 PM CDT Sandra Farrell APRN-RYAN LAB - RN SUPPLEMENTAL RY ORDERABLES [facility] [address] [place] [address] from Last 3 Months or Most Recently Relevant to Health Maintenance Advance Directives Documents on File Type Date Recorded Patient Slot Floorperson Expl anation Adv Directive/Living Will/POA 01/11/2018 10:24 AM [place]A * Full Code (Latest Code Status on File) Date Activated Date Inactivated Comments 01/24/2021 11:38 AM 01/26/2021 3:15 PM * Full Code Date Activated Date Inactivated Comments 02/04/2018 11:32 AM 02/07/2018 1:39 PM Care Teams Mill Turner Relationship Specialty Start Date End Date Emilia Brown APRN-RYAN [address] [phone] PCP - General 08/16/22 [place] [address] [facility] [address] [place] [address] Orthopedic Surgery 07/26/15 Gregory Cook MD [address] [place] [address] [facility] [address] [place] [address] Cardiovascular Disease 12/03/19
--- OUTSIDE RECORDS SUMMARY | 2024-10-14 12:33 | XMS_ITS | Clinical Summary ---
[facility] Organization [facility] Address [address] [place] [address] Care Team Providers Care Specification Manager Name Role Phone Peyton Andre MD Primary Care Provider [phone] Allergies Active Allergy Reactions Criticality Noted Date Comments Adhesive Hives High 07/26/2015 Aspirin Other (See Comments) Medium 10/10/2023 Peptic Ulcers Clindamycin Diarrhea Low 04/30/2023 Ezetimibe Muscle Pain Medium 06/25/2023 Latex Rash Medium 01/03/2021 Morphine Rash,Unknown Medium 07/26/2015 Xbepyph-Oqt-Cbu Reductase Inhibitors Muscle Pain Medium 10/14/2020 Medications amLODIPine (NORVASC) 10 mg tablet Take 10 mg by mouth daily. 06/18/2023 Active ascorbic acid (VITAMIN C) 500 mg Tablet, Chewable Active cholecalciferol , vitamin D3, 12.5 mcg/5 mL (500 unit/5 mL) Liquid Take 5,000 Units by mouth daily. Active cyanocobalamin (VITAMIN B-12) 100 mcg tablet Take 100 mcg by mouth daily. Active losartan (COZAAR) 100 mg tablet Take 100 mg by mouth daily. Active coenzyme Q10 200 mg Capsule Take 200 mg by mouth daily. Active mirabegron (Myrbetriq) 25 mg Extended Release 24 hour tablet Take 25 mg by mouth daily. Active CALCIUM AMINO ACID CHELATE ORAL Take by mouth. Active Vit C-Vit B-Rszqeh-GtLv-L utein (PRESERVISION) 226-90-0.8-5 mg Capsule Take 1 Capsule by mouth daily. Active ondansetron (ZOFRAN ODT) 8 mg Tablet, Rapid Dissolve Dissolve 1 tablet on top of tongue then swallow with saliva every 8 hours as needed for nausea or vomiting 30 Tablet 1 11/08/2023 Active sulfamethoxazol e-trimethoprim (BACTRIM DS) 800-160 mg tablet Take 1 Tablet by mouth 2 times daily. Active lidocaine-prilo kris (EMLA) 2.5-2.5 % Cream Apply a quarter size amount to port area 30 minutes because access. 30 Gram 1 12/26/2023 Active mometasone/form oterol (DULERA INHALATION) Take by inhalation. Active Active Problems Problem Noted Date Diagnosed Date Double vision 09/11/2019 H/O: duodenal ulcer 09/11/2019 Gastroduodenal ulcer 01/15/2017 Overview (10/10/2023): PUD (peptic ulcer disease) Chest pain 07/27/2016 Overview (10/10/2023): Chest pain in adult Chronic fatigue syndrome 07/27/2016 Overview (10/10/2023): Chronic fatigue Dyspnea on exertion 07/27/2016 Overview (10/10/2023): SERRATO (dyspnea on exertion) Aortic valve insufficiency 06/20/2016 Overview (10/10/2023): Nonrheumatic aortic valve insufficiency Diabetes mellitus with circulatory complication 06/20/2016 Overview (10/10/2023): Type 2 diabetes mellitus with complication, without long-term current use of insulin Knee pain 11/25/2012 Arthralgia of hip 11/21/2012 Encounters Date Type Department Care Team Description 10/07/2024 External Device Data STL ABSTRACTION Provider, Abstract 10/06/2024 Orders Only [facility] Oncology and Hematology - [place] [address] [place] [id number] Riki Garcia MD Malignant neoplasm of ureter, unspecified laterality (CMS/HCC) 09/30/2024 External Device Data STL ABSTRACTION Provider, Abstract 09/22/2024 Orders Only [facility] Oncology and Hematology - [place] [address] [place] [address] Riki Garcia MD Malignant neoplasm of ureter, unspecified laterality (CMS/HCC) 09/08/2024 Orders Only [facility] Oncology and Hematology - [place] [address] [place] [phone] Riki Garcia MD Malignant neoplasm of ureter, unspecified laterality (CMS/HCC) 08/25/2024 Orders Only [facility] Oncology and Hematology - [place] [address] [place] [phone] Riki Garcia MD Malignant neoplasm of ureter, unspecified laterality (CMS/HCC) 08/11/2024 Orders Only [facility] Oncology and Hematology - [place] [address] [place] [phone] Riki Garcia MD Malignant neoplasm of ureter, unspecified laterality (CMS/HCC) 08/07/2024 Orders Only [facility] Oncology and Hematology - [place] [address] [place] [phone] Riki Garcia MD 08/05/2024 10:00 AM CHILDREN'S AUTHOR Office Visit [facility] Oncology and Hematology - [place] [address] [place] [address] Riki Garcia MD Malignant neoplasm of ureter, unspecified laterality (CMS/HCC) (Primary Dx) 07/30/2024 Orders Only [facility] Oncology and Hematology - [place] [address] [place] [address] Riki Garcia MD 07/28/2024 Orders Only [facility] Oncology and Hematology - [place] [address] [place] [address] Riki Garcia MD Malignant neoplasm of ureter, unspecified laterality (CMS/HCC) 07/14/2024 Orders Only [facility] Oncology and Hematology [facility] [address] [place] [address] Riki Garcia MD Malignant neoplasm of ureter, unspecified laterality (CMS/HCC) from Last 3 Months Family History Medical History Relation Name Comments Melanoma Brother 1 Leukemia Brother 2 Heart Disease Father Brain Cancer Sister Relation Name Status Comments Brother 1 Brother 2 Daughter 1 Alive Daughter 2 Alive Daughter 3 Alive Father Mother Sister Social History Tobacco Use Types Packs/Day Years Used Date Smoking Tobacco: Never Smokeless Tobacco: Never Tobacco Cessation:Counseling Given: Not Answered Alcohol Use Standard Drinks/Week Comments Not Currently 0 (1 standard drink = 0.6 oz pur e alcohol) Comments Unknown Sex and Gender Information Value Date Recorded Sex Assigned at Not on file Legal Sex Female 1:19 PM CHILDREN'S AUTHOR Gender Identity Not on file Sexual Orientation Not on file Last Filed Vital Signs Vital Sign Reading Time Taken Comments Blood Pressure 143/81 08/05/2024 10:22 AM CHILDREN'S AUTHOR Pulse 71 08/05/2024 10:20 AM CHILDREN'S AUTHOR Temperature 36.6 ??C (97.8 ??F) 08/05/2024 10:[address] Respiratory Rate 15 08/05/2024 10:20 AM CHILDREN'S AUTHOR Oxygen Saturation 95% 08/05/2024 10:20 AM CHILDREN'S AUTHOR Inhaled Oxygen Concentration - - Weight 93.7 kg (206 lb 9.6 oz) 08/05/2024 10:20 AM CHILDREN'S AUTHOR Height - - Body Mass Index - - Plan of Treatment Upcoming Encounters Date Type Department Care Team (Late st Contact Info) Description 12/04/2024 9:00 AM CDT Office Visit [facility] Oncology and Hematology [facility] [address] [place] [address] Riki Garcia MD [address] [facility] [address] [place] [address] Health Maintenance Due Date Last Done Comments DIABETES ANNUAL FOOT EXAM 02/06/1960 DIABETES MICROALBUMIN ANNUAL SCREEN 02/06/1960 LDL CHOLESTEROL ANNUAL 02/06/1960 ZOSTER VACCINE (1 of 2) 02/06/1992 RSV VACCINE (60+ or ) (1 - 1-dose 75+ series) 2017 DIABETES ANNUAL RETINAL EXAM 10/06/2023, 11/02/2021, 09/13/2021, Additional history exists DIABETES HBA1C Q 6 MONTHS 12/27/20232022, 04/12/2023, 10/11/2022, Additional history exists INFLUENZA VACCINE (#1) 2024 PNEUMOCOCCAL VACCINE 65+ YEA RS (3 of 3 - PCV20 or PCV21) 08/25/2024 08/25/2019, 09/17/2006 DTAP/TDAP/TD VACCINES (4 - T d or Tdap) 06/14/2030 06/14/2020, 03/15/2015, 03/14/2015 OSTEOPOROSIS SCREENING Completed , 08/27/2023, 08/07/2022, Additional history exists Procedures Procedure Name Priority Date/Time Associated Diagnosis Comments COMPREHENSIVE METABOLIC PANEL Routine 08/05/2024 3:19 PM CHILDREN'S AUTHOR CBC WITH DIFFERENTIAL Routine 08/05/2024 2:42 PM CHILDREN'S AUTHOR BASIC METABOLIC PANEL Routine 08/05/2024 2:25 PM CHILDREN'S AUTHOR CREATININE Routine 07/29/2024 11:[address] ABDOMEN PELVIS W CONTRAST Routine 07/29/2024 8:01 AM CHILDREN'S AUTHOR from Last 3 Months Results * COMPREHENSIVE METABOLIC PANEL (08/05/2024 3:19 PM CHILDREN'S AUTHOR) Blood Riki Garcia MD CHEMISTRY ORDERABLES Final Resu lt * CBC WITH DIFFERENTIAL (08/05/2024 2:42 PM CHILDREN'S AUTHOR) Blood us Riki Garcia MD HEMATOLOGY ORDERABLES Final Res ult * BASIC METABOLIC PANEL (08/05/2024 2:25 PM CHILDREN'S AUTHOR) Blood Riki Garcia MD CHEMISTRY ORDERABLES Final Resu lt * CREATININE (07/29/2024 11:36 AM CHILDREN'S AUTHOR) Blood Riki Garcia MD CHEMISTRY ORDERABLES Final Resu lt * CT ABDOMEN PELVIS W CONTRAST (07/29/2024 8:01 AM CHILDREN'S AUTHOR) Anatomical Region Laterality Modality Abdomen Other Riki Garcia MD CT ORDERABLES Final Result from Last 3 [place] [address] MEDICARE PART A AND B [facility] Care Teams Specification Manager Relationship Specialty Start Date End Date Peyton Andre MD [facility] [facility] [address] [place] [phone] PCP - General Family Practice 09/26/23
--- OUTSIDE RECORDS SUMMARY | 2024-10-14 12:34 | XMS_ITS | Encounter Summary ---
Author Organization [facility] Healthcare Address [address] [place] [address] Care Team Providers Care Metal Weather Stripper Name Role Phone Emilia Brown NP Primary Care Provider [phone] Peyton Andre MD Primary Care Provider + Encounter Details Date Type Department Care Team (Late st Contact Info) Description 07/29/2020 Telephone [facility] [address] [place] [id number] Dmitri Patel, RT Social History Tobacco Use Types Packs/Day Years Used Date Smoking Tobacco: Never Smokeless Tobacco: Never Alcohol Use Standard Drinks/Week Comments Yes 0 (1 standard drink = 0.6 oz pur e alcohol) Comments Unknown Sex and Gender Information Value Date Recorded Sex Assigned at Not on file Legal Sex Female 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
--- OUTSIDE RECORDS SUMMARY | 2024-10-14 12:34 | XMS_ITS | Patient Health Summary ---
Author Organization [facility] Address [address] [place] [address] Care Team Providers Care Avionics Installer Name Role Phone Maury Mcgarry MD Unavailable [phone] Gregory Cook MD Unavailable [phone] Emilia Brown APRN-[facility] Primary Care Provider + Note from [facility],non-owned Affiliates and Associated Physician Practices is amultiple site organization consisting of ambulatory clinics and hospital sitesin [place], [place] and [place]. This disclosure is being madepursuant to the Care Everywhere program and may not contain all information available regarding this patient. Last updated 18.[facility] Allergies * Adhesive Sensitivity * Hmg-Coa-R Inhibitors(Myalgias) -Medium Criticality * Latex(Rash) -Medium Criticality * Morphine(Rash) -Medium Criticality Medications * Be aware that medications may not be up to date on this document. Alwaysverify current medications with the patient. * losartan (COZAAR) 100 MG tablet Take 100 mg by mouth once daily * Coenzyme Q10 (COQ10) 200 MG Take 1 Tab by mouth once daily * cyanocobalamin 100 MCG tablet Take 100 mcg by mouth once daily * Vitamin Mixture (TALA-C PO) * Cholecalciferol (VITAMIN D3) 30 MCG/15ML LIQD Take 5,000 mg by mouth * Grape Seed 100 MG Take 300 mg by mouth * CALCIUM LACTATE PO Take 2 tablets by mouth * Multiple Vitamins-Minerals (EYE VITAMINS) CAPS Take 1 capsule by mouth once daily * collagenase (SANTYL) 250 UNIT/GM ointment * mupirocin (BACTROBAN) 2 % ointment mupirocin 2 % topical ointment APPLY TO LEFT GREAT TOE NAIL BED DAILY FOR THE NEXT WEEK AND COVER WITH BAND AID Active Problems Problem Noted Date Diagnosed Date 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 Essential hypertension 03/26/2019 Irritable bowel syndrome 03/26/2019 Type 2 diabetes mellitus 03/26/2019 Vitamin D deficiency 03/26/2019 Primary osteoarthritis of right knee 11/04/2018 PSVT (paroxysmal supraventricular tachycardia) 0 11/29/2017 Peripheral arterial occlusive disease 06/20/2016 Primary osteoarthritis of both knees 10/19/2015 Immunizations * Covid Pfizer primary monovalent 12+ yr 0.3mL Purple cap(Given 12/23/2020, 12/02/2020) * Pneumococcal Pcv13 Conj(Given 08/25/2019) * TDAP (7yrs+)(Given 06/14/2020, 03/15/2015) Social History Tobacco Use Types Packs/Day Years [...] Mass Index 34.24 07/14/2022 9:40 AM CDT Medical Devices Implanted Type Area Traveling Clerk Device Identifier Shelf Expiration Date Model / Serial / Lot Wale Bone [place]-G Hv 40/20 Implanted:Qty: 1 on 02/04/2018 by Maury Mcgarry MD at [facility] Left: Knee [employer] 02/14/2019 600-15-100 / / [id number] Cmpnt Ptlr 28mm 1 Pg Wire Ascnt Arcm Kn Implanted:Qty: 1 on 02/04/2018 by Maury Mcgarry MD at [facility] Left: Knee [employer] 12/28/2022 [id number] / / [id number] Tray Tib 75mm Kn Cocr I Beam Implanted:Qty: 1 on 02/04/2018 by Maury Mcgarry MD at [facility] Left: Knee [employer] 10/21/2027 [id number] / / [id number] Cmpnt Fem Kn Lt Cr Cmnt Prm Vngrd Intlk Implanted:Qty: 1 on 02/04/2018 by Maury Mcgarry MD at [facility] Left: Knee [employer] 12/14/2027 [id number] / / [id number] Brng [id number] Vngrd Arcm Kn Ant Stab Implanted:Qty: 1 on 02/04/2018 by Maury Mcgarry MD at [facility] Left: Knee [employer] 10/31/2022 [id number] / / [id number] Brng [id number] Vngrd Arcm Kn Ant Stab Implanted:Qty: 1 on 01/24/2021 by Maury Mcgarry MD at [facility] Right: Knee [employer] 05/30/2024 [id number] / / [id number] Cmpnt Fem Kn Rt Cr Cmnt Prm Vngrd Intlk Implanted:Qty: 1 on 01/24/2021 by Maury Mcgarry MD at [facility] Right: Knee [employer] 11/15/2030 [id number] / / [id number] Wale Bone [place]-G Hv 40/20 Implanted:Qty: 1 on 01/24/2021 by Maury Mcgarry MD at [facility] Right: Knee [employer] 08/28/2021 600-15-100 / / [id number] Tray Tib 79mm Kn Cocr I Beam Implanted:Qty: 1 on 01/24/2021 by Maury Mcgarry MD at [facility] Right: Knee [employer] 03/02/2030 [id number] / / [id number] Cmpnt Ptlr 28mm 1 Pg Wire Ascnt Arcm Kn Implanted:Qty: 1 on 01/24/2021 by Maury Mcgarry MD at [facility] Right: Knee [employer] 12/28/2022 [id number] / / [id number] Procedures * XR KNEE RIGHT 3VW(Performed 03/08/2021) Performed for Aftercare following right knee joint replacement surgery * GLUCOSE - POINT OF CARE(Performed 01/26/2021) * GLUCOSE - POINT OF CARE(Performed 01/25/2021) * NEURAXIAL BLOCK(Performed 01/24/2021) * DC TOTAL KNEE REPLACEMENT(Performed 01/24/2021) * GLUCOSE - POINT OF CARE(Performed 01/24/2021) * EKG 12-LEAD(Performed 01/03/2021) Performed for Preop examination * HEMOGLOBIN A1C(Performed 01/03/2021) Performed for Preop examination * COMPREHENSIVE METABOLIC PANEL(Performed 01/03/2021) Performed for Preop examination * CBC W AUTO DIFFERENTIAL(Performed 01/03/2021) Performed for Preop examination * XR KNEE RIGHT 3VW(Performed 10/18/2020) Performed for Primary osteoarthritis of right knee * HEMOGLOBIN A1C(Performed 10/29/2019) Performed for Pre-diabetes , Pre-op evaluation * CBC W AUTO DIFFERENTIAL(Performed 10/29/2019) Performed for Pre-op evaluation * COMPREHENSIVE METABOLIC PANEL(Performed 10/29/2019) Performed for Pre-op evaluation * CULTURE MSSA/MRSA(Performed 10/29/2019) Performed for Pre-op evaluation * XR KNEE RIGHT 3VW(Performed 11/04/2018) Performed for Right knee pain, unspecified chronicity * VAS LEFT VENOUS DUPLEX LE(Performed 02/25/2018) Performed for Left leg pain * GLUCOSE - POINT OF CARE(Performed 02/07/2018) * GLUCOSE - POINT OF CARE(Performed 02/06/2018) * GLUCOSE - POINT OF CARE(Performed 02/06/2018) * GLUCOSE - POINT OF CARE(Performed 02/06/2018) * HGB HCT PANEL(Performed 02/06/2018) * GLUCOSE - POINT OF CARE(Performed 2018) * GLUCOSE - POINT OF CARE(Performed 2018) * GLUCOSE - POINT OF CARE(Performed 2018) * GLUCOSE - POINT OF CARE(Performed 2018) * NEURAXIAL BLOCK(Performed 2018) * HGB HCT PANEL(Performed 2018) * GLUCOSE - POINT OF CARE(Performed 02/04/2018) * ARTHROPLASTY TOTAL KNEE(Performed 02/04/2018) * COMPREHENSIVE METABOLIC PANEL(Performed 01/11/2018) Performed for Preop examination * CBC W AUTO DIFFERENTIAL(Performed 01/11/2018) Performed for Preop examination * CULTURE MSSA/MRSA(Performed 01/11/2018) Performed for Preop examination * EKG 12-LEAD(Performed 01/11/2018) Performed for Preop examination * DERMATOPATHOLOGY(Performed 02/24/2016) * DERMATOPATHOLOGY(Performed 07/17/2012) Results * XR KNEE RIGHT 3VW (03/08/2021 11:13 AM CDT) Only the most recent of3 resultswithin the time period is included. Anatomical Region Laterality Modality Lower Extremity Computed Radiogr aphy Narrative 03/08/2021 11:13 AM CDT Sudha Hines ? 03/16/2021 ??4:15 PM Please see progress notes for xray results Pamela Ellis PA-C DIAGNOSTIC IM AGING ORDERABLES * (ABNORMAL) GLUCOSE - POINT OF CARE (01/26/2021 6:22 AM CDT) Only the most recent of12 resultswithin the time period is included. Glucose WB/POC 107(H) 70 - 106 mg/dL 01/26/2021 6:26 AM CDT [facility] Specimen Type Arterial/C apillary 01/26/2021 6:26 AM CDT [facility] Blood BLOOD SPECIMEN / Unknown 01/26/2021 6:22 AM CDT 01/26/2021 6:25 AM CDT Maury Mcgarry MD LAB - POINT OF CARE ORDERABLES [facility] [address] [place] [address] * Neuraxial Block (01/24/2021 8:53 AM CDT) Narrative Jose Britton, [facility]ICAL LABORATORY MANAGER - 01/24/2021 8:53 AM CDT Jose Britton, [facility] LABORATORY MANAGER ? 01/24/2021 ??8:54 AM Neuraxial Block Note ?? Pre-Procedure: ?? Procedure Name: ??Neuraxial Block Patient Location: ??OR Indications: ??surgical anesthesia Pre-Anesthetic Checklist: ??Patient identified, IV Checked, Risks and benefits discussed, Surgical consent verified, Monitors and equipment, Site examined, Pre-op evaluation done, Informed consent obtained, Questions answered/anesthesia questions answered and Allergies reviewed Anticoagulation/ Anti-thrombosis status confirmed? ??Yes Supplemental O2: ??room air Monitors: ??continuous pluse ox and BP Patient Condition: ??sedated, meaningful contact maintained throughout procedure Patient Sedated? ??Nursing sedation administration ? Sedation Agents (manual): ??versed ?? fentanyl mL Procedure: ?? Block Type: ??Spinal Prep: ??Betadine Sterile Field: ??mask, cap/hat, sterile established and sterile gloves Approach: ??midline Skin was localized? ??Nursing documentation on [facility] Skin localized with: ??Lidocaine 1% and 1 mL Spinal Block: ?? Needle Type: ??spinal needle Needle Gauge: ??22 Needle Length: ??90 mm Placement Site: ??L3-4 Number of Attempts: ??1 CSF: ??free flow, ?? aspiration before injection Local anesthetics used? ??Nursing documentation on the MAR Spinal Local Anesthetic: ? Bupivacaine: ??0.75% in dextrose 1.8 ??mL Degree of difficulty: ??none Procedure Tolerance: ??tolerated well ?? performed while the patient was sedated Sensory Level: ??T8 Motor Blockade: ??Yes Position post procedure: ??supine Vital Signs: ??Vital signs monitored and stable throughout. ??See anesthesia record for details. Start Time: ??01/24/2021 8:21 AM End Time: ??01/24/2021 8:29 AM Total Time: ??8 Staff: ?? Anesthesia Provider: ??Jose Britton, [facility]ORAT[facility] MANAGER ?? - ?? performed the procedure Guille Alberto DO GENERAL ANESTHESIA O RDERABLES * EKG 12-LEAD (01/03/2021 2:36 PM CDT) Only the most recent of2 resultswithin the time period is included. Ventricular Rate 73 BPM [facility] Atrial Rate 73 BPM [facility] P-R Interval 172 ms [facility] QRS Duration ms 82 ms [facility] Q-T Interval ms 388 ms [facility] QTC Calculation (Bezet) 427 ms [facility] Calculated P [place] 55 degrees [facility] Calculated R [place] 29 degrees [facility] Calculated T [place] 57 degrees [facility] Interpretation EKG Normal sinus rhythm Possible Left atrial enlargement Borderline ECG When compared with ECG of 11-JAN-2018 09:52, No significant change was found Confirmed by VALDEZ LACEY, ARPAN ([id number]) on 01/04/2021 10:42:52 AM [facility] 01/03/2021 2:36 PM CDT 01/04/2021 10:42 AM CDT Aurora Tolbert DO ECG ORDERABLES [facility] * (ABNORMAL) HEMOGLOBIN A1C (01/03/2021 1:38 PM CDT) Only the most recent of2 resultswithin the time period is included. Hemoglobin A1c 5.7(H) 4.2 - 5.6 % 01/03/2021 2:00 PM CDT [facility] Estimated Average Glucose 117 mg/dL 01/03/2021 2:00 PM CDT [facility] Blood BLOOD SPECIMEN / Unknown Venipuncture / Unknown 01/03/2021 1:38 PM CDT 01/03/2021 1:44 PM CDT Narrative [facility] - 01/03/2021 2:00 PM CDT The following cutoff levels are recommended by [employer]. ?? A1c ??> 6.5% : [...] exceeds 5% in the specimen. Sandra Farrell APRN-RYAN LAB - CLINICAL DOCUMENTATION NURSE RY ORDERABLES [facility] [address] [place] [address] * (ABNORMAL) CBC W AUTO DIFFERENTIAL (01/03/2021 1:38 PM CDT) Only the most recent of3 resultswithin the time period is included. WBC 5.3 4.4 - 10.7 x10E9/L 01/03/2021 1:51 PM CDT [facility] WBC Corrected 01/03/2021 1:51 PM CDT [facility] RBC 4.31 3.80 - 5.20 x10E12/L 01/03/2021 1:51 PM CDT [facility] Hemoglobin 12.2 12.0 - 15.6 gm/dL 01/03/2021 1:51 PM CDT [facility] Hematocrit 38.2 35.9 - 45.5 % 01/03/2021 1:51 PM CDT [facility] MCV 88.6 80.7 - 98.3 fl 01/03/2021 1:51 PM CDT [facility] MCH 28.3 26.7 - 34.0 pg 01/03/2021 1:51 PM CDT [facility] MCHC 31.9 30.8 - 35.9 gm/dL 01/03/2021 1:51 PM CDT [facility] Platelet Count 270 153 - 416 x10E9/L 01/03/2021 1:51 PM CDT [facility] RDW-CV 15.3(H) 12.1 - 14.9 % 01/03/2021 1:51 PM CDT [facility] MPV 9.3(L) 9.4 - 12.9 fl 01/03/2021 1:51 PM CDT [facility] Neutrophils % 48.5 44.0 - 73.0 % 01/03/2021 1:51 PM CDT [facility] Lymphocytes % 41.1 20.0 - 43.0 % 01/03/2021 1:51 PM CDT [facility] Monocytes % 7.0 5.0 - 13.0 % 01/03/2021 1:51 PM CDT [facility] Eosinophils % 1.9 0.0 - 6.0 % 01/03/2021 1:51 PM CDT [facility] Basophils % 1.3 0.0 - 2.0 % 01/03/2021 1:51 PM CDT [facility] Immature Granulocytes 0.2 0 - 1 % 01/03/2021 1:51 PM CDT [facility] Neutrophil Absolute 2.57 2.01 - 7.14 x10E9/L 01/03/2021 1:51 PM CDT [facility] Lymphocytes Absolute 2.18 1.07 - 3.94 x10E9/L 01/03/2021 1:51 PM CDT [facility] Monocytes Absolute 0.37 0.26 - 1.07 x10E9/L 01/03/2021 1:51 PM CDT [facility] Eosinophils Absolute 0.10 0 - 0.47 x10E9/L 01/03/2021 1:51 PM CDT [facility] Basophils Absolute 0.07 0 - 0.08 x10E9/L 01/03/2021 1:51 PM CDT [facility] Immature Granulocytes Absolute 0.01 0.00 - 0.06 x10E9/L 01/03/2021 1:51 PM CDT [facility] nRBC Auto 0 /100 WBC 01/03/2021 1:51 PM CDT [facility] Blood BLOOD SPECIMEN / Unknown Venipuncture / Unknown 01/03/2021 1:38 PM CDT 01/03/2021 1:45 PM CDT Sandra Selvin Farrell BACK HAND-DIE CAST OPERATOR LAB - HEMATOL OGY ORDERABLES Performing Organization Address City/State/[facility] Co de Phone Number [facility] [address] [place] [address] * (ABNORMAL) COMPREHENSIVE METABOLIC PANEL (01/03/2021 1:38 PM CDT) Only the most recent of3 resultswithin the time period is included. [facility] Glucose 98 70 - 105 mg/dL 01/03/2021 2:02 PM CDT [facility] Sodium 139 136 - 145 mmol/L 01/03/2021 2:02 PM CDT [facility] Potassium 4.1 3.5 - 5.1 mmol/L 01/03/2021 2:02 PM CDT [facility] Chloride 107 98 - 107 mmol/L 01/03/2021 2:02 PM CDT [facility] CO2 26 23 - 31 mmol/L 01/03/2021 2:02 PM CDT [facility] Calcium 9.0 8.4 - 10.4 mg/dL 01/03/2021 2:02 PM CDT [facility] Anion Gap 6(L) 8 - 18 mmol/L 01/03/2021 2:02 PM CDT [facility] Comment:Attention clinician: ??Reference Range change. BUN 16 9.8 - 20.1 mg/dL 01/03/2021 2:02 PM CDT [facility] Creatinine 0.71 0.57 - 1.11 mg/dL 01/03/2021 2:02 PM CDT [facility] Alkaline Phosphatase 99 40 - 150 U/L 01/03/2021 2:02 PM CDT [facility] Comment:Attention clinician: ??Reference Range change. ALT 21 0 - 61 U/L 01/03/2021 2:02 PM CDT [facility] AST 23 5 - 34 U/L 01/03/2021 2:02 PM CDT [facility] Protein Total 6.5 6.4 - 8.3 gm/dL 01/03/2021 2:02 PM CDT [facility] Albumin 4.1 3.2 - 4.6 gm/dL 01/03/2021 2:02 PM CDT [facility] Bilirubin Total 0.3 0.2 - 1.2 mg/dL 01/03/2021 2:02 PM CDT [facility] Comment:Attention clinician: ??Reference Range change. eGFR by MDRD >60 mL/min/1.7 3m2 01/03/2021 2:02 PM CDT [facility] eGFR by MDRD >60 mL/min/1.7 3m2 01/03/2021 2:02 PM CDT [facility] Blood BLOOD SPECIMEN / Unknown Venipuncture / Unknown 01/03/2021 1:38 PM CDT 01/03/2021 1:44 PM CDT Sandra Farrell BACK HAND-DIE CAST OPERATOR LAB - CLINICAL DOCUMENTATION NURSE RY ORDERABLES Performing Organization Address City/State/[facility] Co de Phone Number [facility] [address] [place] [address] * CULTURE MSSA/MRSA (10/29/2019 10:32 AM COLLET MAKER) Only the most recent of2 resultswithin the time period is included. Culture Negative for Staphylococcus aureus (MRSA/MSSA) 10/30/2019 2:55 PM COLLET MAKER [facility] MICRO[facility] Microbiology SPECIMEN FROM NASAL FOSSAE / Unknown Collection / Unknown 10/29/2019 10:32 AM COLLET MAKER 10/29/2019 10:41 AM COLLET MAKER Valentine Trammell BACK HAND-DIE CAST OPERATOR LAB - MICR OBIOLOGY ORDERABLES [facility]CRO[facility] [address] [place] [address], [facility] [phone] * VAS LEFT VENOUS DUPLEX LE (02/25/2018 3:58 PM CDT) Anatomical Region Laterality Modality Lower Extremity, Upper Extremity Ultrasound 02/25/2018 2:40 PM CDT Narrative Procedure Note Morales Vaughan MD - 02/25/2018 [facility] [place] [address], [address] [place] [address] Lower Extremity Venous Ultrasound Report Pat.Name: THAD MCCLELLAN Pat.ID: [id number] .Date: 02/25/2018 Exam Time: 2:40:00 PM Study Type:LE Venous Age: 5 1940,78Y Sex: FEMALE Sonogrphr: Burton Swanson RVT Pat. 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 CPT - 4: 01544 Procedures:Lower Extremity Venous - Left Visit ID: [id number] SUMMARY: There is no evidence of an acute deep or superficial venous thrombosis in the left lower extremity. FINDINGS: Procedure: Venous duplex imaging of the left lower extremity was performed using color flow and spectral Doppler analysis. The contralateral common femoral vein was also examined. Study Quality: This study is of adequate technical quality. Technically difficult exam due to edema. Lt Leg: All vessels seen appear patent and compressible. There was spontaneous and phasic flow seen in all major veins of the left lower extremity. Appropriate augmentation with distal compression. No evidence of reflux with proximal compression. Signed 02/25/2018 04:21 PM Morales Vaughan MD Pamela Ellis PA-C VASCULAR LAB ORDERABLES * (ABNORMAL) HGB HCT PANEL (02/06/2018 3:03 AM CDT) Only the most recent of2 resultswithin the time period is included. Hemoglobin 10.8(L) 12.0 - 15.6 gm/dL 02/06/2018 3:31 AM CDT [facility] Hematocrit 34.5(L) 35.9 - 45.5 % 02/06/2018 3:31 AM CDT [facility] Blood BLOOD SPECIMEN / Unknown Venipuncture / Unknown 02/06/2018 3:03 AM CDT 02/06/2018 3:27 AM CDT Maury Mcgarry MD LAB - HEMATOLOGY ORD ERABLES Performing Organization Address City/State/[facility] Co de Phone Number [facility] [address] [place] [phone] * NEURAXIAL BLOCK (2018 5:59 AM CDT) Narrative Guille Alberto, - 2018 5:59 AM CDT Madhu Corcoran, BACK HAND-MEDICAL LABORATORY MANAGER ? 02/04/2018 ??8:49 AM Neuraxial Block Note ?? Procedure Name: ??Neuraxial Block Patient Location: ??OR Pre-Procedure: ?? Indications: ??surgical anesthesia Pre-Anesthetic Checklist: ??Patient identified, IV Checked, Risks and benefits discussed, Surgical consent verified, Monitors and equipment, Site examined, Pre-op evaluation done, Time-out performed, Informed consent obtained, Questions answered/anesthesia questions answered and Allergies reviewed Anticoagulation/ Anti-thrombosis status confirmed? ??Yes Monitors: ??BP and continuous pluse ox Patient Condition: ??awake Patient Position: ??sitting Patient Sedated? ??Yes ? Sedation Agents: versed, ?? fentanyl Procedure: ?? Block Type: ??Spinal Prep: ??Betadine Sterile Field: ??mask, cap/hat, sterile established and sterile gloves Approach: ??midline Skin localized with: ??lidocaine 1%, ??3 mL Spinal Block: ?? Needle Type: ??pencil-point Needle Gauge: ??22 Needle Length: ??90 mm Placement Site: ??L3-4 Number of Attempts: ??1 CSF: ??free flow, ?? aspiration before injection, ?? aspiration during injection Spinal Local Anesthetic: ? Bupivacaine: ??2.8 ?? mL ??of ??0.5% PF Degree of difficulty: ??none Procedure Tolerance: ??tolerated well Sensory Level: ??T6 Motor Blockade: ??Yes Position post procedure: ??supine Vital Signs: ??Vital sings monitored and stable throughout. ??See anesthesia record for details. Staff: ?? Anesthesia Provider: ??MADHU CORCORAN ?? - ?? performed the procedure Guille Alberto DO GENERAL ANESTHESIA O RDERABLES * PATHOLOGY TISSUE FOR DERMATOLOGY (02/24/2016 12:00 AM CDT) Only the most recent of2 resultswithin the time period is included. Result CASE: [id number] PATIENT: THAD MCCLELLAN PATHOLOGIC DIAGNOSIS: Right jacinto: ULCER WITH SUPERFICIAL DERMAL NECROSIS STASIS DERMATITIS (see microscopic description) CLINICAL DATA: R/O SCCIS. GROSS DESCRIPTION: Received is one formalin filled container labeled with the patients name and designated right jacinto. The specimen consists of a shave measuring [id number]. Jar 0. MICROSCOPIC DESCRIPTION: There is an ulcer, beneath which there are vascular proliferation, fibroblasts, and an edematous stroma. There is focal spongiosis. ??The dermis shows a sparse, perivascular lymphocytic infiltrate surrounding dilated, thick-walled vessels, which are increased in number. ??There is no evidence of epithelial dysplasia or malignancy in multiple deeper sections examined. Electronically signed out by Stephanie Bonner M.D., PhD. 02/28/2016 2:15:22PM [facility] Comment: Performed at: Dermatopathology Laboratory [facility] - Department of Dermatology [address] [facility], [address]th [place] [address] Phone number: [phone] FAX: [phone] 02/24/2016 02/25/2016 Astrid Adams MD LAB - PATHOLOGY/CYTO LOGY ORDERABLES [facility] [address] [place] [address]. [address] [place] [address], [facility] [phone] Care Teams Avionics Installer Relationship Specialty Start Date End Date Emilia Brown APRN-DIE CAST OPERATOR [address] [phone] PCP - General 08/16/22 [place] [id number] [facility] [address] [place] [address] Orthopedic Surgery 07/26/15 Gregory Cook MD [address] [facility] [address] [place] [id number] Cardiovascular Disease 12/03/19
[2024-10-14 13:34] LABS: Hematocrit 40.5 % (37.0-47.0); Hemoglobin 12.8 g/dL (12.0-15.0); Mean Corpuscular HGB Conc 31.6 g/dl (32-36); Mean Corpuscular Volume 91.8 fl (80-100); Mean Platelet Volume 9.6 fl (7.4-10.4); Platelet Count Result 274 k/mm3 (150-375); Red Blood Count 4.41 M/mm3 (4.2-5.4); Red Cell Distribution Width 14.6 % (11.5-14.5); White Blood Count 5.3 K/mm3 (4.5-10.0)
[2024-10-14 14:48] LABS: Parathyroid Intact 51.9 pg/mL (14.5-75.2)
[2024-10-14 14:54] LABS: Free T4 Free Thyroxine 1.15 ng/dL (0.78-2.19); Vitamin D 25 Hydroxy 71.5 ng/mL
[2024-10-14 15:19] LABS: Alanine Aminotransferase 27 U/L (6-35); Albumin Level 4.2 g/dL (3.5-5.1); Alkaline Phosphatase 84 U/L (38-126); Anion Gap 8 mmol/L (4-12); Aspartate Amino Transferase 30 U/L (14-36); Bilirubin,Total 0.5 mg/dL (0.2-1.3); Blood Urea Nitrogen 18 mg/dL (7-17); Calcium 9.2 mg/dL (8.4-10.2); Carbon Dioxide 28 mmol/L (22-30); Chloride 102 mmol/L (98-107); Estimated Glomerular Filt Rate > 60; Glucose 100 mg/dL (65-110); Magnesium 2.3 mg/dL (1.6-2.3); Potassium 4.1 mmol/L (3.4-5.0); Sodium 138 mmol/L (137-145)
[2024-10-14 19:48] LABS: Hemoglobin A1C 6.3 % (<5.7)
== END 2024-10-14 11:24 | disposition home or self-care (01) ==
PROVIDERS: PCP Family Medicine; Visit Provider Internal Medicine
DX: E04.2 Nontoxic multinodular goiter (principal); M81.0 Age-related osteoporosis without current pathological fracture; E66.9 Obesity, unspecified; Z68.32 Body mass index [BMI] 32.0-32.9, adult; I10 Essential (primary) hypertension; R73.03 Prediabetes; E78.2 Mixed hyperlipidemia
CPT/HCPCS: 36415; 80053; 82306; 83036; 83735; 83970; 84100; 84439; 84443; 85027

== ENCOUNTER 2024-11-17 09:02 | Outpatient (CLI) | payer MEDICARE, SELFPAY | END 2024-11-17 09:03 | disposition home or self-care (01) | PROVIDERS: PCP Family Medicine; Visit Provider Nurse Practitioner Family | DX: M51.34 Other intervertebral disc degeneration, thoracic region (principal); M25.511 Pain in right shoulder; Z95.828 Presence of other vascular implants and grafts | CPT/HCPCS: 72070; 73030 ==

== ENCOUNTER 2024-11-27 07:46 | Outpatient (CLI) | payer MEDICARE, SELFPAY ==
--- NOTE | ~2024-11-27 | CT_ITS ---
CT of the Abdomen and Pelvis: Indication: Malignancy of ureter Technique: 2.5 mm axial scans were obtained through the abdomen and pelvis following intravenous adm inistration of 100 cc of Omnipaque 350. Dose reduction technique was used on this scan by utilizing a utomated exposure control and iterative reconstruction technique. The dose-length product (DLP) was 9 40.89 mGy-cm. COMPARISON: 07/29/2024 Findings: Scans through the lung bases are unremarkable. Moderate to large hiatal hernia present. The liver, pancreas, adrenals and kidneys are within normal limits. Cholecystectomy clips are present . Multiple calcified splenic granulomas are present. No evidence of aortic aneurysm. No lymphadenopa thy. No bowel obstruction or bowel wall thickening. There is no evidence to suggest acute appendicitis. Images through the pelvis are degraded by streak artifact from left hip arthroplasty. Urinary bladder grossly unremarkable. No pelvic mass seen. No ascites. Impression: No evidence of active malignancy or metastatic disease. Moderate to large hiatal hernia. Reviewed, dictated and finalized at [facility]. Impression: No evidence of active malignancy or metastatic disease. Moderate to large hiatal hernia.
--- OUTSIDE RECORDS SUMMARY | 2024-11-27 07:52 | XMS_ITS | Encounter Summary ---
Author Organization [facility] Address [address] [place] [address] Care Team Providers Care Teaching Manager Name Role Phone Peyton Andre MD Primary Care Provider [phone] Encounter Details Date Type Department Care Team (Latest Contact Info) Description 11/26/2024 Travel Social History Tobacco Use Types Packs/Day Years Used Date Smoking Tobacco: Never Passive Smoke Exposure: Never Smokeless Tobacco: Never Alcohol Use Standard Drinks/Week Comments Not Currently [...] on filedocumented in this encounter Care Teams Teaching Manager Relationship Specialty Start Date End Date Peyton Andre MD [address] [facility] [address] [place] [address] PCP - General FAMILY PRACTICE 11/16/22 documented as of this encounter
--- OUTSIDE RECORDS SUMMARY | 2024-11-27 07:52 | XMS_ITS | Encounter Summary ---
Author Organization [facility] Address [address] [place] [address] Care Team Providers Care Zipper Repairer Name Role Phone Peyton Andre MD Primary Care Provider [phone] Reason for Visit * Reason Comments Hearing Aid Check Encounter Details Date Type Department Care Team (Late st Contact Info) Description 11/26/2024 8:00 AM CDT Office Visit [facility] Audiology [address] [place] [address] Grisel Restrepo AUD [address] [place] [address] Hearing Aid Check Social History Tobacco Use Types Packs/Day Years [...] on file documented as of this encounter Progress Notes * APOLONIA Kelsey - 11/26/2024 8:00 AM CDTSummary: Hearing Aid Check Right Left Date Fit April Hearing Aid Phonak Audeo V70 Phonak Audeo V70 Serial Number [id number] Battery 13 13 Superintendent Division size/power 3xP (cerustop) 2xP (cerustop) Dome Small power Small power Warranty Expiration 07/17/2019 07/17/2019 Mary Ellen Robles was seen today for a hearing aid check. She reports R wire broken. Actions: - Hearing aids were cleaned and checked; R food and nutrition supervisor replaced, wax guards changed, microphones vacuumed/brushed, retention wires replaced, and new domes put on. Listening check after cleaning revealedgood gain and sound quality. - Patient reported aids sounded good after cleaning/food and nutrition supervisor repair. - Patient wanting pack of wax guards. Plan: Patient to pay $105 for food and nutrition supervisor repair and $8.75 for pack of wax guards. Patient will contact the office if changes/concerns arise. Apolonia Kelsey, [facility]-A Enrichment Teacher [facility] documented in this encounter Plan of Treatment Not on file documented as of this encounter Visit Diagnoses Diagnosis Sensorineural hearing loss, bilateral- Primary documented in this encounter Care Teams Zipper Repairer Relationship Specialty Start Date End Date Peyton Andre MD [address] [facility] [address] [address] PCP - General FAMILY PRACTICE 11/16/22 documented as of this encounter
--- OUTSIDE RECORDS SUMMARY | 2024-11-27 07:52 | XMS_ITS | Encounter Summary ---
Author Organization [facility] Address [address] [place] [address] Care Team Providers Care Armature Bander Name Role Phone Maury Mcgarry MD Unavailable [phone] Brenda Durbin MD Primary Care Provider + [phone] Valencia Luna MD Primary Care Provider [phone] Gregory Cook MD Unavailable [phone] Brenda Durbin MD Primary Care Provider [phone] Emilia Brown [facility] Primary Care Provider + Encounter Details Date Type Department Care Team (Late st Contact Info) Description 01/14/2018 [facility] [address] [place] [address] [place] [address] [address] Social History Tobacco Use Types [...] on filedocumented in this encounter Care Teams Armature Bander Relationship Specialty Start Date End Date Brenda Durbin MD [address] [facility] [address] [place] [address] PCP - General 04/18/19 10/28/19 Valencia Luna MD [address] [place] [phone] PCP - General Family Medicine 10/29/19 07/02/22 Brenda Durbin MD [address] [facility] [address] [place] [phone] PCP - General 07/03/22 08/15/22 Emilia Brown APRN[facility] [address] [facility] [address] [phone] PCP - General 08/16/22 [place] [address] [facility] [address] [place] [address] Orthopedic Surgery 07/26/15 Gregory Cook MD [facility] [address] [place] [address] Cardiovascular Disease 12/03/19 documented as of this encounter
--- OUTSIDE RECORDS SUMMARY | 2024-11-27 07:52 | XMS_ITS | Clinical Summary ---
Author Organization [facility] Address [address] [place] [address] Care Team Providers Care Human Resources Specialist Name Role Phone Peyton Andre MD Primary Care Provider [phone] Allergies Active Allergy Reactions Criticality Noted Date [...] Encounters Date Type Department Care Team Description 11/26/2024 8:00 AM CDT Office Visit [facility] Audiology [address] [place] [address] Grisel Restrepo AUD Hearing Aid Check 11/26/2024 Travel 10/09/2024 3:00 PM TRACK LABORER Office Visit [facility] Audiology [address] [place] [address] Grisel Restrepo AUD Mulligan, Michelle P, MD Hearing Loss; Hearing Aid Check 10/09/2024 Travel 10/02/2024 2:17 PM TRACK LABORER - 10/02/2024 11:59 PM TRACK LABORER Hospital Encounter [facility] Diagnostic Imaging [address] [place] [address] Andrae Zhang NP Discharge Disposition: Home or [...] 71 06/18/2023 7:44 AM CDT Temperature 35.9 C (96.7 F) 06/18/2023 12:57 AM CDT Respiratory Rate 20 06/18/2023 7:44 AM CDT [...] Years (1 - 1-dose 75+ series) 2017 COVID-19 Vaccine (3 - season) 2024 12/23/2020, 12/02/2020 Influenza Adult (#1) 2024 Pneumococcal Vaccine: 65+ Years (3 of 3 - PPSV23 or PCV20) 08/25/2024 08/25/2019, 09/17/2006 PHQ-2 (Physician [place]) 09/17/2024 04/30/2023 DTaP, Tdap and Td Vaccines [...] BONE DENSITY/DEXA Routine 10/02/2024 3:1 1 PM TRACK LABORER Age-related osteoporosis without current pathological fracture from Last 3 Months Results * BONE DENSITY/DEXA (10/02/2024 3:11 PM TRACK LABORER) Anatomical Region Laterality Modality Bone Bone Density 10/03/2024 7:26 AM TRACK LABORER Impressions 10/03/2024 7:27 AM TRACK LABORER IMPRESSION: WHO Classification: Osteoporosis RECOMMENDATIONS: All patients [...] 10/03/2024 7:26 AM Narrative 10/03/2024 7:27 AM TRACK LABORER [facility] [address] [place] [address] EXAMINATION: BONE DENSITY/DEXA INDICATIONS: Age-related osteoporosis without current pathological fracture TECHNIQUE: DEXA bone mineral density evaluation was performed in the AP projection over the lumbar spine and both hips utilizing standard imaging techniques. ASSESSMENT: The BMD measured at the AP spine L1-L4 is 1.194 g/cm? with a T-score of 1.3. The BMD measured at the left distal third of forearm is 0.479 g/cm? with a T- score of -3.5. The BMD measured at the total left forearm is 0.362 g/cm? with a T-score of - 4.0. The BMD measured at the right femoral neck is 0.530 g/cm? with a T-score of - 2.9. The BMD measured at the right hip is 0.671 g/cm? with a T-score of -2.2. FRAX 10-year fracture risk: Not reported because some T scores are at or below -2.5. Patient was treated for osteoporosis. Procedure Note Zheng Tejada MD - 10/03/2024 [facility] [address] [place] [address] EXAMINATION: BONE DENSITY/DEXA INDICATIONS: Age-related osteoporosis without [...] Tejada MD, 10/03/2024 7:26 AM Andrae Zhang JOB SETTER DEXA Final Result from Last 3 [place] [address] MEDICARE [facility] Care Teams Human Resources Specialist Relationship Specialty Start Date End Date Peyton Andre MD [address] [facility] [address] [address] PCP - General FAMILY PRACTICE 11/16/22
--- OUTSIDE RECORDS SUMMARY | 2024-11-27 07:52 | XMS_ITS | Continuity of Care Document ---
Author Organization [facility] Address [address] [place] [address] [address] [place] [address] Phone Care Team Providers Care Tub Rider Name Role Phone Fatuma Snyder Unavailable Unavailable Advance Directives Directive Yes / No Effective Date File Name No Information Encounters Encounter Description Practice Location Reason(s) For Visit Diagnoses Date Provider Providers Copied on Encounter [facility], [address], [place], [place], [id number], [place] tel:[phone] [facility] No Information 0-200 6 Lillian Burris. [address] , [address], [place], [address], [place]. tel:[phone] Family History Family Member Type Diagnosis Age At Onset No Information Payers Payer name Insurance type Covered alliance party ID Authoriza timeena(s) [facility] CI [id number] Social History Type Description Quantity Date Captured [...]
--- OUTSIDE RECORDS SUMMARY | 2024-11-27 07:52 | XMS_ITS | Clinical Summary ---
Author Organization [facility] Address [address] [place] [address] Care Team Providers Care Triple Drum Operator Name Role Phone Peyton Andre MD Primary Care Provider [phone] Allergies Active Allergy Reactions Criticality Noted Date Comments Adhesive Hives High 07/26/2015 Aspirin Other (See Comments) Medium 10/10/2023 Peptic Ulcers Clindamycin Diarrhea Low 04/30/2023 Ezetimibe Muscle Pain Medium 06/25/2023 Latex Rash Medium 01/03/2021 Morphine Rash,Unknown Medium 07/26/2015 Nhjtcdn-Okj-Vpu Reductase Inhibitors Muscle Pain Medium 10/14/2020 Medications [...] ORAL Take by mouth. Active Vit C-Vit S-Iboxrt-SdFz-L utein (PRESERVISION) 226-90-0.8-5 mg Capsule Take 1 [...] Encounters Date Type Department Care Team Description 11/17/2024 Orders Only [facility] Oncology and Hematology - [place] [address] [place] [address] Riki Garcia MD Malignant neoplasm of ureter, unspecified laterality (CMS/HCC) 11/03/2024 Orders Only [facility] Oncology and Hematology - [place] [address] [place] [address] Riki Garcia MD Malignant neoplasm of ureter, unspecified laterality (CMS/HCC) 10/20/2024 Orders Only [facility] Oncology and Hematology - [place] [address] [place] [address] Riki Garcia MD Malignant neoplasm of ureter, unspecified laterality (CMS/HCC) 10/07/2024 External Device Data STL ABSTRACTION Provider, Abstract 10/06/2024 Orders Only [facility] Oncology and Hematology - [place] [address] [place] [address] Riki Garcia MD Malignant neoplasm of ureter, unspecified laterality (CMS/HCC) 09/30/2024 External Device Data STL ABSTRACTION Provider, Abstract 09/22/2024 Orders Only [facility] Oncology and Hematology - [place] [address] [place] [phone] Riki Garcia MD Malignant neoplasm of ureter, unspecified laterality (CMS/HCC) 09/08/2024 Orders Only [facility] Oncology and Hematology - [place] [address] [place] [address] Riki Garcia MD Malignant neoplasm of ureter, [...] on file Legal Sex Female 1:19 PM ENDODONTIST Gender Identity Not on file Sexual Orientation Not on file Last Filed Vital Signs Vital Sign Reading Time Taken Comments Blood Pressure 143/81 08/05/2024 10:22 AM ENDODONTIST Pulse 71 08/05/2024 10:20 AM ENDODONTIST Temperature 36.6 C (97.8 F) 08/05/2024 10:20 AM ENDODONTIST Respiratory Rate 15 08/05/2024 10:20 AM ENDODONTIST Oxygen Saturation 95% 08/05/2024 10:20 AM ENDODONTIST Inhaled Oxygen Concentration - - Weight 93.7 kg (206 lb 9.6 oz) 08/05/2024 10:20 AM ENDODONTIST Height - - Body Mass Index - - Plan of Treatment Upcoming Encounters Date Type Department Care Team (Late st Contact Info) Description 12/04/2024 9:00 AM CDT Office Visit [facility] Oncology and Hematology - [place] [address] [facility] [address] [place] [address] Riki Garcia MD [address] [facility] [address] [place] [address] Health Maintenance Due Date Last [...] exists INFLUENZA VACCINE (#1) 2024 PNEUMOCOCCAL VACCINE 50+ YEA RS (3 of 3 - PCV20 or PCV21) 08/25/2024 08/25/2019, 09/17/2006 DTAP/TDAP/TD VACCINES (4 - T d or Tdap) 06/14/2030 06/14/2020, 03/15/2015, 03/14/2015 OSTEOPOROSIS SCREENING Completed , 08/27/2023, 08/07/2022, [place] [address] MEDICARE PART A AND B [employer] SUPP Care Teams Triple Drum Operator Relationship Specialty Start Date End Date Peyton Andre MD [address] [place] [address] [address] [place] [phone] PCP - General Family Practice 09/26/23
--- OUTSIDE RECORDS SUMMARY | 2024-11-27 07:53 | XMS_ITS | Encounter Summary ---
Author Organization [facility] Address [address] [place] [address] Care Team Providers Care Brand Attendant Name Role Phone Emilia Brown NP Primary Care Provider [phone] Peyton Andre MD Primary Care Provider + Encounter Details Date Type Department Care Team (Late st Contact Info) Description 07/29/2020 Telephone [facility] [address] [place] [id number] Dmitri Patel, RT Social History Tobacco Use Types Packs/Day Years Used Date Smoking Tobacco: Never Smokeless Tobacco: Never Alcohol Use Standard Drinks/Week Comments Yes 0 (1 standard drink = 0.6 oz pur e alcohol) Comments Unknown Sex and Gender Information Value Date Recorded Sex Assigned at Not on file Legal Sex Female 6:50 AM PRE K TEACHER Gender Identity Not on file Sexual Orientation Not on file documented as of this encounter Plan of Treatment Not on file documented as of this encounter Visit Diagnoses Not on filedocumented in this encounter Care Teams Brand Attendant Relationship Specialty Start Date End Date Emilia Brown NP PCP - General 07/12/12 10/17/22 Peyton Andre MD PCP - General Family Medicine 10/18/22 documented as of this encounter
--- OUTSIDE RECORDS SUMMARY | 2024-11-27 07:53 | XMS_ITS | Referral Summary ---
Author Organization [facility] [address] [facility] [address] Address [address] [place] [address] Care Team Providers Care Banquet Houseperson Name Role Phone Peyton Andre MD Primary Care Provider + Allergies Active Allergy Reactions Criticality Noted Date Comments Adhesive Hives Medium 07/26/2015 Adhesive Tape-Silicones Unknown 07/26/2015 Aspirin Other (See comments) Medium Peptic Ulcers Clindamycin Diarrhea Low 04/30/2023 Latex Rash Medium 01/03/2021 Morphine Unknown 07/26/2015 Eodcbkz-Mib-Oth Reductase Inhibitors Muscle pain Medium 10/14/2020 Ezetimibe [...] ulcer 09/11/2019 PSVT (paroxysmal supraventricular tachycardia) ( [facility]/HCC) 11/29/2017 Preoperative cardiovascular examination 08/15/20 17 [...] on file Legal 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
--- OUTSIDE RECORDS SUMMARY | 2024-11-27 07:53 | XMS_ITS | Clinical Summary ---
Author Organization [facility] Address [address] [place] [address] Care Team Providers Care Premium Auditor Name Role Phone Maury Mcgarry MD Unavailable [phone] Gregory Cook MD Unavailable [phone] Emilia Brown APRN-EMERGENCY ROOM CLINICIAN Primary Care Provider + Source Comments [facility],non-owned Affiliates and Associated Physician Practices is amultiple site organization consisting of ambulatory clinics and hospital sitesin [place], [place], [place] and [place]. This disclosure is being madepursuant to the Care Everywhere program and may not contain all information available regarding this patient. Last updated 18.[facility] Allergies Active Allergy Reactions Criticality Noted [...] 10/19/2015 Immunizations Name Administration Dates Next Due 365looks primary monoval ent 12+ yr 0.3mL Purple [...] 93 07/14/2022 9:40 AM CDT Temperature 36.4 C (97.5 F) 01/26/2021 7:27 AM CDT Respiratory Rate 16 01/26/2021 7:27 AM CDT [...] Comments BONE DENSITY TESTING 1942 MEDICARE AWV 12 MONTHS 1942 DIABETES-STATIN 1982 ZOSTER VACCINE [...] complete this topic MENINGOCOCCAL (Group B) VACCINE SHARED DECISION-MAKING Aged Out No longer eligible based on patient's age to complete this topic MENINGOCOCCAL GROUPS A/C/Y/W VACCINE Aged Out No longer eligible b ased on patient's age to complete this topic Medical Devices Implanted Type Area Manager Requirements Device Identifier Shelf Expiration Date Model / Serial / Lot Wale Bone [place]-G Hv 40/20 Implanted:Qty: 1 on 02/04/2018 by Maury Mcgarry MD at [facility] Left: Knee [employer] 02/14/2019 600-15-100 / / [id number] Cmpnt Ptlr 28mm 1 Pg Wire Ascnt Arcm Kn Implanted:Qty: 1 on 02/04/2018 by Maury Mcgarry MD at [facility] Left: Knee [employer] 12/28/2022 [id number] / / [id number] Tray Tib 75mm Kn Cocr I Beam Implanted:Qty: 1 on 02/04/2018 by Maury Mcgarry MD at [facility] Left: Knee [employer] 10/21/2027 [id number] / / [id number] Cmpnt Fem Kn Lt Cr Cmnt Prm Vngrd Intlk Implanted:Qty: 1 on 02/04/2018 by Maury Mcgarry MD at [facility] Left: Knee [employer] 12/14/2027 [id number] / / [id number] Brng [id number] Vngrd Arcm Kn Ant Stab Implanted:Qty: 1 on 02/04/2018 by Maury Mcgarry MD at [facility] Left: Knee [employer] 10/31/2022 [id number] / / [id number] Brng [id number] Vngrd Arcm Kn Ant Stab Implanted:Qty: 1 on 01/24/2021 by Maury Mcgarry MD at [facility] Right: Knee [employer] 05/30/2024 [id number] / / [id number] Cmpnt Fem Kn Rt Cr Cmnt Prm Vngrd Intlk Implanted:Qty: 1 on 01/24/2021 by Maury Mcgarry MD at [facility] Right: Knee [employer] 11/15/2030 [id number] / / [id number] Wale Bone [place]-G Hv 40/20 Implanted:Qty: 1 on 01/24/2021 by Maury Mcgarry MD at [facility] Right: Knee [employer] 08/28/2021 600-15-100 / / [id number] Tray Tib 79mm Kn Cocr I Beam Implanted:Qty: 1 on 01/24/2021 by Maury Mcgarry MD at [facility] Right: Knee [employer] 03/02/2030 [id number] / / [id number] Cmpnt Ptlr 28mm 1 Pg Wire Ascnt Arcm Kn Implanted:Qty: 1 on 01/24/2021 by Maury Mcgarry MD at [facility] Right: Knee [employer] 12/28/2022 [id number] / / [id number] Procedures Procedure Name Priority Date/Time Associated Diagnosis [...] PM CDT 01/03/2021 1:44 PM CDT Narrative [facility] - 01/03/2021 2:00 PM CDT The following cutoff levels are recommended by [place] [employer]. A1c > 6.5% : considered as diabetes if two separate tests >6.5% or in an appropriate clinical setting. A1c 5.7% - 6.4% : considered as prediabetes (suggest increased risk for diabetes and cardiovascular disease) Control target level: Should be individualized. < 7 for general (non-) , < 8% less stringent goal, < 6.5 more stringent goal. Hemoglobin A1c measurements are used as an aid in the diagnosis of diabetic mellitus, as an aid to identify patients who may be at the risk for developing diabetic mellitus, and for the monitoring long-term blood glucose control in individuals with diabetes mellitus. This test should not replace glucose testing for patients with Type 1 diabetes, pediatric patients, or women. Falsely low HbA1c results may be observed in patients with clinical conditions that shorten erythrocyte life span or decrease mean erythrocyte age such as the presence of unstable hemoglobin variants, elevated hemoglobin F level or other causes of hemolytic anemia . HbA1c may not accurately reflect glycemic control when clinical conditions that affect erythrocyte survival are present. Severe Iron deficiency anemia may yield falsely high results. Hemoglobin A1c assay should not be used to diagnose or monitor diabetes in patients with malignancy, recent blood transfusion, chronic kidney or liver disease. This method may yield falsely low results when hemoglobin (HbF) exceeds 5% in the specimen. Sandra Farrell SHIPPER-EMERGENCY ROOM CLINICIAN LAB - FERN CUTTER RY ORDERABLES [facility] [address] [place] [address] * (ABNORMAL) COMPREHENSIVE METABOLIC PANEL (01/03/2021 1:38 PM CDT) Pathologist [facility] Glucose 98 70 - 105 mg/dL 01/03/2021 2:02 PM CDT [facility] Sodium 139 136 - 145 mmol/L 01/03/2021 2:02 PM CDT [facility] Potassium 4.1 3.5 - 5.1 mmol/L 01/03/2021 2:02 PM CDT [facility] Chloride 107 98 - 107 mmol/L 01/03/2021 2:02 PM CDT [facility] CO2 26 23 - 31 mmol/L 01/03/2021 2:02 PM CDT [facility] Calcium 9.0 8.4 - 10.4 mg/dL 01/03/2021 2:02 PM CDT [facility] Anion Gap 6(L) 8 - 18 mmol/L 01/03/2021 2:02 PM CDT [facility] Comment:Attention clinician: Reference Range change. BUN 16 9.8 - 20.1 mg/dL 01/03/2021 2:02 PM CDT [facility] Creatinine 0.71 0.57 - 1.11 mg/dL 01/03/2021 2:02 PM CDT [facility] Alkaline Phosphatase 99 40 - 150 U/L 01/03/2021 2:02 PM CDT [facility] Comment:Attention clinician: Reference Range change. ALT 21 0 - 61 [...] 2:02 PM CDT [facility] Comment:Attention clinician: Reference Range change. eGFR by MDRD >60 mL/min/1.7 3m2 01/03/2021 2:02 PM CDT [facility] eGFR by MDRD >60 mL/min/1.7 3m2 01/03/2021 2:02 PM CDT [facility] Blood BLOOD SPECIMEN / Unknown Venipuncture / Unknown 01/03/2021 1:38 PM CDT 01/03/2021 1:44 PM CDT Sandra Farrell APRN-EMERGENCY ROOM CLINICIAN LAB - FERN CUTTER RY ORDERABLES [facility] [address] [place] [address] from Last 3 Months or Most Recently Relevant to Health Maintenance Advance Directives Documents on File Type Date Recorded Patient Teacher Private Expl anation Adv Directive/Living Will/POA 01/11/2018 10:24 AM [place] POA * Full Code (Latest Code Status on File) Date Activated Date Inactivated Comments 01/24/2021 11:38 AM 01/26/2021 3:15 PM * Full Code Date Activated Date Inactivated Comments 02/04/2018 11:32 AM 02/07/2018 1:39 PM Care Teams Premium Auditor Relationship Specialty Start Date End Date Emilia Brown APRN-EMERGENCY ROOM CLINICIAN [address] [place] [phone] PCP - General 08/16/22 [place] [address] [place] [address] Orthopedic Surgery 07/26/15 Gregory Cook MD [address] [place] [address] Cardiovascular Disease 12/03/19
--- OUTSIDE RECORDS SUMMARY | 2024-11-27 07:53 | XMS_ITS | Referral Summary ---
Author Organization [facility] Address [address] [place] [address] Care Team Providers Care Web Mobile Designer Name Role Phone Maury Mcgarry MD Unavailable [phone] Gregory Cook MD Unavailable [phone] Emilia Brown APRN-MANAGER OF TAX Primary Care Provider + Source Comments [facility],non-owned Affiliates and Associated Physician Practices is amultiple site organization consisting of ambulatory clinics and hospital sitesin [place], [place], [place] and [place]. This disclosure is being madepursuant to the Care Everywhere program and may not contain all information available regarding this patient. Last updated 18.[facility] Allergies Active Allergy Reactions Criticality Noted Date [...] 10/19/2015 Immunizations Name Administration Dates Next Due [employer] primary monoval ent 12+ yr 0.3mL Purple [...] on file Medical Devices Implanted Type Area Still Operator Brandy Device Identifier Shelf Expiration Date Model / Serial / Lot Wale Bone [place]-G Hv 40/ Implanted:Qty: 1 on 02/04/2018 by Maury Mcgarry MD at [facility] Left: Knee [employer] 02/14/2019 600-15-100 / / [id number] Cmpnt Ptlr 28mm 1 Pg Wire Ascnt Arcm Kn Implanted:Qty: 1 on 02/04/2018 by Maury Mcgarry MD at [facility] Left: Knee [employer] 12/28/2022 [id number] / / [id number] Tray Tib 75mm Kn Cocr I Beam Implanted:Qty: 1 on 02/04/2018 by Maury Mcgarry MD at [facility] Left: Knee [employer] 10/21/2027 [id number] / / [id number] Cmpnt Fem Kn Lt Cr Cmnt Prm Vngrd Intlk Implanted:Qty: 1 on 02/04/2018 by Maury Mcgarry MD at [facility] Left: Knee [employer] 12/14/2027 [id number] / / [id number] Brng [id number] Vngrd Arcm Kn Ant Stab Implanted:Qty: 1 on 02/04/2018 by Maury Mcgarry MD at [facility] Left: Knee [employer] 10/31/2022 [id number] / / [id number] Brng [id number] Vngrd Arcm Kn Ant Stab Implanted:Qty: 1 on 01/24/2021 by Maury Mcgarry MD at [facility] Right: Knee [employer] 05/30/2024 [id number] / / [id number] Cmpnt Fem Kn Rt Cr Cmnt Prm Vngrd Intlk Implanted:Qty: 1 on 01/24/2021 by Maury Mcgarry MD at [facility] Right: Knee [employer] 11/15/2030 [id number] / / [id number] Wale Bone [place]-G Hv 40/20 Implanted:Qty: 1 on 01/24/2021 by Maury Mcgarry MD at [facility] Right: Knee [employer] 08/28/2021 600-15-100 / / [id number] Tray Tib 79mm Kn Cocr I Beam Implanted:Qty: 1 on 01/24/2021 by Maury Mcgarry MD at [facility] Right: Knee [employer] 03/02/2030 [id number] / / [id number] Cmpnt Ptlr 28mm 1 Pg Wire Ascnt Arcm Kn Implanted:Qty: 1 on 01/24/2021 by Maury Mcgarry MD at [facility] Right: Knee [employer] 12/28/2022 [id number] / / [id number] Procedures Procedure Name Priority Date/Time Associated Diagnosis [...] 1:38 PM CDT 01/03/2021 1:44 PM CDT [facility] - 01/03/2021 2:00 PM CDT The following cutoff levels are recommended by [place] [employer]. A1c > 6.5% : considered [...] exceeds 5% in the specimen. Sandra Farrell APRN-MANAGER OF TAX LAB - MANAGER STRATEGY & ACCOUNT RY ORDERABLES [facility] [address] [place] [address] * (ABNORMAL) COMPREHENSIVE METABOLIC PANEL (01/03/2021 1:38 PM CDT) Pathologist [facility] Glucose 98 70 - 105 mg/dL 01/03/2021 2:02 PM CDT [facility] Sodium 139 136 - 145 mmol/L 01/03/2021 2:02 PM CDT [facility] Potassium 4.1 3.5 - 5.1 mmol/L 01/03/2021 2:02 PM CDT [facility] Chloride 107 98 - 107 mmol/L 01/03/2021 2:02 PM CDT [facility] CO2 26 23 - 31 mmol/L 01/03/2021 2:02 PM CDT [facility] Calcium 9.0 8.4 - 10.4 mg/dL 01/03/2021 2:02 PM CDT [facility] Anion Gap 6(L) 8 - 18 mmol/L 01/03/2021 2:02 PM CDT [facility] Comment:Attention clinician: Reference Range change. BUN 16 9.8 - 20.1 mg/dL 01/03/2021 2:02 PM CDT [facility] Creatinine 0.71 0.57 - 1.11 mg/dL 01/03/2021 2:02 PM CDT [facility] Alkaline Phosphatase 99 40 - 150 U/L 01/03/2021 2:02 PM CDT [facility] Comment:Attention clinician: Reference Range change. ALT [...] CDT 01/03/2021 1:44 PM CDT Sandra Farrell APRN-MANAGER OF TAX LAB - MANAGER STRATEGY & ACCOUNT RY ORDERABLES [facility] [address] [place] [address] from Last 3 Months or Most Recently Relevant to Health Maintenance Administered Medications Advance Directives Documents on File Type Date Recorded Patient Hay Farmer Expl anation Adv Directive/Living Will/POA 01/11/2018 10:24 AM [place] POA * Full Code (Latest Code Status on File) Date Activated Date Inactivated Comments 01/24/2021 11:38 AM 01/26/2021 3:15 PM * Full Code Date Activated Date Inactivated Comments 02/04/2018 11:32 AM 02/07/2018 1:39 PM Care Teams Web Mobile Designer Relationship Specialty Start Date End Date Emilia Brown APRN-CNP [address] [phone] PCP - General 08/16/22 [place] [address] [address] [place], [place] [id number] Orthopedic Surgery 07/26/15 Gregory Cook MD [address] [facility] [address] [place], [place] [address] Cardiovascular Disease 12/03/19
--- OUTSIDE RECORDS SUMMARY | 2024-11-27 07:53 | XMS_ITS | Clinical Summary ---
Author Organization [facility] [place] [address] [facility] [address] Address [address] [place] [address] Care Team Providers Care Lumber Material Handler Name Role Phone Peyton Andre MD Primary Care Provider + Allergies Active Allergy Reactions Criticality Noted Date Comments Adhesive Hives Medium 07/26/2015 Adhesive Tape-Silicones Unknown 07/26/2015 Aspirin Other (See comments) Medium Peptic Ulcers Clindamycin Diarrhea Low 04/30/2023 Latex Rash Medium 01/03/2021 Morphine Unknown 07/26/2015 Wvmsrfz-Tvp-Uwg Reductase Inhibitors Muscle pain Medium 10/14/2020 Ezetimibe [...] ulcer 09/11/2019 PSVT (paroxysmal supraventricular tachycardia) ( [facility]/HCC) 11/29/2017 Preoperative cardiovascular examination 08/15/20 17 Gastroduodenal [...] on file Legal Sex 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 Gender Identity Not on file Sexual Orientation [...] Depression Screening 1942 Fall Risk Assessment 1942 eGFR 1942 Dilated Eye Exam 1942 Foot Exam 1942 Hepatitis B Screening 02/06/1960 Zoster Vaccine (1 of 2) 02/06/1992 Well Visit 65+ 2007 Hemoglobin A1C 07/05/2021 01/03/2021, 10/29/2019 Influenza Vaccine (#1) 2024 Lipid Panel 06/25/2024 06/25/2023, 07/18, 04/20/2021, Additional history exists Pneumococcal vaccine 65+ (3 of 3 - PCV20 or PCV21) 08/25/2024 08/25/2019, 09/17/2006 Osteoporosis Screening-Bone Density Scan 08/27/2025 08/27/2023, 08/07/2022, [...] Capillary blood 06/25/2023 1 :30 PM CDT us Gregory Cook MD POINT OF CARE TEST ORDER GELY Final Result from Last 3 Months or Most Recently Relevant to Health Maintenance [place] [address] MEDICARE [facility] MEDICARE [facility] MEDICARE [facility] [place] Care Teams Lumber Material Handler Relationship Specialty Start Date End Date Peyton Andre MD PCP - General Family Medicine 10/18/22
--- OUTSIDE RECORDS SUMMARY | 2024-11-27 07:53 | XMS_ITS | Patient Health Summary ---
Author Organization [facility] Address [address] [place] [address] Care Team Providers Care Dealer Relationship Manager Name Role Phone Maury Mcgarry MD Unavailable [phone] Gregory Cook MD Unavailable [phone] Emilia Brown APRN-[facility] Primary Care Provider + Note from [facility],non-owned Affiliates and Associated Physician Practices is amultiple site organization consisting of ambulatory clinics and hospital sitesin [place], [place], [place] and [place]. This disclosure is being madepursuant to the Care Everywhere program and may not contain all information available regarding this patient. Last updated 18.[facility] Allergies * Adhesive Sensitivity * Hmg-Coa-R Inhibitors(Myalgias) [...] AM CDT Medical Devices Implanted Type Area Cryptological Technician Device Identifier Shelf Expiration Date Model / Serial / Lot Wale Bone [place]-G Hv 40/20 Implanted:Qty: 1 on 02/04/2018 by Maury Mcgarry MD at [facility] Left: Knee [employer] 02/14/2019 600-15-100 / / [id number] Cmpnt Ptlr 28mm 1 Pg Wire Ascnt Arcm Kn Implanted:Qty: 1 on 02/04/2018 by Maury Mcgarry MD at [facility] Left: Knee [employer] 12/28/2022 [id number] / / [id number] Tray Tib 75mm Kn Cocr I Beam Implanted:Qty: 1 on 02/04/2018 by Maury Mcgarry MD at [facility] Left: Knee [employer] 10/21/2027 [id number] / / [id number] Cmpnt Fem Kn Lt Cr Cmnt Prm Vngrd Intlk Implanted:Qty: 1 on 02/04/2018 by Maury Mcgarry MD at [facility] Left: Knee [employer] 12/14/2027 [id number] / / [id number] Brng [id number] Vngrd Arcm Kn Ant Stab Implanted:Qty: 1 on 02/04/2018 by Maury Mcgarry MD at [facility] Left: Knee [employer] 10/31/2022 [id number] / / [id number] Brng [id number] Vngrd Arcm Kn Ant Stab Implanted:Qty: 1 on 01/24/2021 by Maury Mcgarry MD at [facility] Right: Knee [employer] 05/30/2024 [id number] / / [id number] Cmpnt Fem Kn Rt Cr Cmnt Prm Vngrd Intlk Implanted:Qty: 1 on 01/24/2021 by Maury Mcgarry MD at [facility] Right: Knee [employer] 11/15/2030 [id number] / / [id number] Wale Bone [place]-G Hv 40/20 Implanted:Qty: 1 on 01/24/2021 by Maury Mcgarry MD at [facility] Right: Knee [employer] 08/28/2021 600-15-100 / / [id number] Tray Tib 79mm Kn Cocr I Beam Implanted:Qty: 1 on 01/24/2021 by Maury Mcgarry MD at [facility] Right: Knee [employer] 03/02/2030 [id number] / / [id number] Cmpnt Ptlr 28mm 1 Pg Wire Ascnt Arcm Kn Implanted:Qty: 1 on 01/24/2021 by Maury Mcgarry MD at [facility] Right: Knee [employer] 12/28/2022 [id number] / / [id number] Procedures * XR KNEE RIGHT 3VW(Performed 03/08/2021) Performed for Aftercare following right knee joint replacement surgery * GLUCOSE - POINT OF CARE(Performed 01/26/2021) * GLUCOSE - POINT OF CARE(Performed 01/25/2021) * NEURAXIAL BLOCK(Performed 01/24/2021) * VA TOTAL KNEE REPLACEMENT(Performed 01/24/2021) * GLUCOSE - [...] Narrative 03/08/2021 11:13 AM CDT Sudha Hines 03/16/2021 4:15 PM Please see progress notes for xray results Pamela Ellis PA-C DIAGNOSTIC IM AGING ORDERABLES * (ABNORMAL) GLUCOSE - POINT OF CARE (01/26/2021 6:22 AM CDT) Only the most recent of12 resultswithin the time period is included. Glucose WB/POC 107(H) 70 - 106 mg/dL 01/26/2021 6:26 AM CDT [facility] Specimen Type Arterial/C apillary 01/26/2021 6:26 AM CDT [facility] Blood BLOOD SPECIMEN / Unknown 01/26/2021 6:22 AM CDT 01/26/2021 6:25 AM CDT Maury Mcgarry MD LAB - POINT OF CARE ORDERABLES [facility] [address] [place] [address] * Neuraxial Block (01/24/2021 8:53 AM CDT) Narrative Jose Britton APRN-CRNA - 01/24/2021 8:53 AM CDT Jose Britton APRN-CRNA 01/24/2021 8:54 AM Neuraxial Block Note Pre-Procedure: Procedure Name: Neuraxial Block Patient Location: OR Indications: surgical anesthesia Pre-Anesthetic Checklist: Patient identified, IV Checked, Risks and benefits discussed, Surgical consent verified, Monitors and equipment, Site examined, Pre-op evaluation done, Informed consent obtained, Questions answered/anesthesia questions answered and Allergies reviewed Anticoagulation/ Anti-thrombosis status confirmed? Yes Supplemental O2: room air Monitors: continuous pluse ox and BP Patient Condition: sedated, meaningful contact maintained throughout procedure Patient Sedated? Nursing sedation administration Sedation Agents (manual): versed fentanyl mL Procedure: Block Type: Spinal Prep: Betadine Sterile Field: mask, cap/hat, sterile established and sterile gloves Approach: midline Skin was localized? Nursing documentation on [facility] Skin localized with: Lidocaine 1% and 1 mL Spinal Block: Needle Type: spinal needle Needle Gauge: 22 Needle Length: 90 mm Placement Site: L3-4 Number of Attempts: 1 CSF: free flow, aspiration before injection Local anesthetics used? Nursing documentation on the [facility] Spinal Local Anesthetic: Bupivacaine: 0.75% in dextrose 1.8 mL Degree of difficulty: none Procedure Tolerance: tolerated well performed while the patient was sedated Sensory Level: T8 Motor Blockade: Yes Position post procedure: supine Vital Signs: Vital signs monitored and stable throughout. See anesthesia record for details. Start Time: 01/24/2021 8:21 AM End Time: 01/24/2021 8:29 AM Total Time: 8 Staff: Anesthesia Provider: Jose Britton APRN-CRNA - performed the procedure Guille Alberto DO GENERAL [...] (Bezet) 427 ms [facility] Calculated P Mon[place] 55 degrees [facility] Calculated R [place] 29 degrees [facility] Calculated T [place] 57 degrees [facility] Interpretation EKG Normal sinus rhythm Possible Left atrial enlargement Borderline ECG When compared with ECG of 11-JAN-2018 09:52, No significant change was found Confirmed by ARPAN KELLOGG MD ([id number]) on 01/04/2021 10:42:52 AM [facility] 01/03/2021 2:36 PM CDT 01/04/2021 10:42 AM CDT Aurora Tolbert DO ECG ORDERABLES [facility] * (ABNORMAL) HEMOGLOBIN A1C (01/03/2021 1:38 PM CDT) Only the most recent of2 resultswithin the time period is included. Hemoglobin A1c 5.7(H) 4.2 - 5.6 % 01/03/2021 2:00 PM CDT [facility] Estimated Average Glucose 117 mg/dL 01/03/2021 2:00 PM CDT [facility] Blood BLOOD SPECIMEN / Unknown Venipuncture / Unknown 01/03/2021 1:38 PM CDT 01/03/2021 1:44 PM CDT Narrative [facility] - 01/03/2021 2:00 PM CDT The following cutoff levels are recommended by [place]. A1c > 6.5% : considered [...] exceeds 5% in the specimen. Sandra Farrell RADIO TOWER TECHNICIAN-MELT [employer]SE DRAG OPERATOR LAB - RADAR OPERATOR RY ORDERABLES Performing Organization Address City/State/[facility] Co de Phone Number [facility] [address] [place] [address] * (ABNORMAL) CBC W AUTO DIFFERENTIAL (01/03/2021 1:38 PM CDT) Only the most recent of3 resultswithin the time period is included. WBC 5.3 4.4 - 10.7 x10E9/L 01/03/2021 1:51 PM CDT [facility] WBC Corrected 01/03/2021 1:51 PM CDT [facility] RBC 4.31 3.80 - 5.20 x10E12/L 01/03/2021 1:51 PM CDT [facility] Hemoglobin 12.2 12.0 - 15.6 gm/dL 01/03/2021 1:51 PM CDT [facility] Hematocrit 38.2 35.9 - 45.5 % 01/03/2021 1:51 PM CDT [facility] MCV 88.6 80.7 - 98.3 fl 01/03/2021 1:51 PM CDT [facility] MCH 28.3 26.7 - 34.0 pg 01/03/2021 1:51 PM CDT [facility] MCHC 31.9 30.8 - 35.9 gm/dL 01/03/2021 1:51 PM CDT [facility] Platelet Count 270 153 - 416 x10E9/L 01/03/2021 1:51 PM CDT [facility] RDW-CV 15.3(H) 12.1 - 14.9 % 01/03/2021 1:51 PM CDT [facility] MPV 9.3(L) 9.4 - 12.9 fl 01/03/2021 1:51 PM CDT [facility] Neutrophils % 48.5 44.0 - 73.0 % 01/03/2021 1:51 PM CDT [facility] Lymphocytes % 41.1 20.0 - 43.0 % 01/03/2021 1:51 PM CDT [facility] Monocytes % 7.0 5.0 - 13.0 % 01/03/2021 1:51 PM CDT [facility] Eosinophils % 1.9 0.0 - 6.0 % 01/03/2021 1:51 PM CDT [facility] Basophils % 1.3 0.0 - 2.0 % 01/03/2021 1:51 PM CDT [facility] Immature Granulocytes 0.2 0 - 1 % 01/03/2021 1:51 PM CDT [facility] Neutrophil Absolute 2.57 2.01 - 7.14 x10E9/L 01/03/2021 1:51 PM CDT [facility] Lymphocytes Absolute 2.18 1.07 - 3.94 x10E9/L 01/03/2021 1:51 PM CDT [facility] Monocytes Absolute 0.37 0.26 - 1.07 x10E9/L 01/03/2021 1:51 PM CDT [facility] Eosinophils Absolute 0.10 0 - 0.47 x10E9/L 01/03/2021 1:51 PM CDT [facility] Basophils Absolute 0.07 0 - 0.08 x10E9/L 01/03/2021 1:51 PM CDT [facility] Immature Granulocytes Absolute 0.01 0.00 - 0.06 x10E9/L 01/03/2021 1:51 PM CDT [facility] nRBC Auto 0 /100 WBC 01/03/2021 1:51 PM CDT [facility] Blood BLOOD SPECIMEN / Unknown Venipuncture / Unknown 01/03/2021 1:38 PM CDT 01/03/2021 1:45 PM CDT Sandra Farrell RADIO TOWER TECHNICIAN-[employer]ELT [employer]SE DRAG OPERATOR LAB - HEMATOL OGY ORDERABLES [facility] [address] [place] [address] * (ABNORMAL) COMPREHENSIVE METABOLIC PANEL (01/03/2021 1:38 PM CDT) Only the most recent of3 resultswithin the time period is included. Glucose 98 70 - 105 mg/dL 01/03/2021 2:02 PM CDT [facility] Sodium 139 136 - 145 mmol/L 01/03/2021 2:02 PM CDT [facility] Potassium 4.1 3.5 - 5.1 mmol/L 01/03/2021 2:02 PM CDT [facility] Chloride 107 98 - 107 mmol/L 01/03/2021 2:02 PM CDT [facility] CO2 26 23 - 31 mmol/L 01/03/2021 2:02 PM CDT [facility] Calcium 9.0 8.4 - 10.4 mg/dL 01/03/2021 2:02 PM CDT [facility] Anion Gap 6(L) 8 - 18 mmol/L 01/03/2021 2:02 PM CDT [facility] Comment:Attention clinician: Reference Range change. BUN 16 9.8 - 20.1 mg/dL 01/03/2021 2:02 PM CDT [facility] Creatinine 0.71 0.57 - 1.11 mg/dL 01/03/2021 2:02 PM CDT [facility] Alkaline Phosphatase 99 40 - 150 U/L 01/03/2021 2:02 PM CDT [facility] Comment:Attention clinician: Reference Range change. ALT 21 0 - 61 U/L 01/03/2021 2:02 PM CDT [facility] AST 23 5 - 34 U/L 01/03/2021 2:02 PM CDT [facility] Protein Total 6.5 6.4 - 8.3 gm/dL 01/03/2021 2:02 PM CDT [facility] Albumin 4.1 3.2 - 4.6 gm/dL 01/03/2021 2:02 PM CDT [facility] Bilirubin Total 0.3 0.2 - 1.2 mg/dL 01/03/2021 2:02 PM CDT [facility] Comment:Attention clinician: Reference Range change. eGFR by MDRD >60 mL/min/1.7 3m2 01/03/2021 2:02 PM CDT [facility] eGFR by MDRD >60 mL/min/1.7 3m2 01/03/2021 2:02 PM CDT [facility] Blood BLOOD SPECIMEN / Unknown Venipuncture / Unknown 01/03/2021 1:38 PM CDT 01/03/2021 1:44 PM CDT Sandra Farrell APRN-[facility] LAB - RADAR OPERATOR RY ORDERABLES Performing Organization Address City/[facility]/ZIP Co de Phone Number [facility] [address] [place] [address] * CULTURE MSSA/MRSA (10/29/2019 10:32 AM TITLE I MATH TUTOR) Only the most recent of2 resultswithin the time period is included. Culture Negative for Staphylococcus aureus (MRSA/MSSA) 10/30/2019 2:55 PM TITLE I MATH TUTOR [facility] MICROBIOLOGY Microbiology SPECIMEN FROM NASAL FOSSAE / Unknown Collection / Unknown 10/29/2019 10:32 AM TITLE I MATH TUTOR 10/29/2019 10:41 AM TITLE I MATH TUTOR Valentine Trammell APRN-[facility] LAB - MICR OBIOLOGY ORDERABLES Performing Organization Address City/[facility]/ZIP Co de Phone Number [facility] MICROBIOLOGY [address] [place] [address], [facility] [phone] * VAS LEFT VENOUS DUPLEX LE (02/25/2018 3:58 PM CDT) Anatomical Region Laterality Modality Lower Extremity, Upper Extremity Ultrasound 02/25/2018 2:40 PM CDT Narrative Procedure Note Morales Vaughan MD - 02/25/2018 [facility] [address] [facility], [address] [place] [address] Lower Extremity Venous Ultrasound Report Pat.Name: THAD MCCLELLAN Pat.ID: [id number] St.Date: 02/25/2018 Exam Time: 2:40:00 PM Study Type:LE Venous Age: 5 1940,78Y Sex: FEMALE Sonogrphr: Burton Swanson RVT Pat. 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 CPT - 4: 56146 Procedures:Lower Extremity Venous - Left Visit ID: [id number] SUMMARY: There is no evidence of an [...] - 15.6 gm/dL 02/06/2018 3:31 AM CDT [facility] Hematocrit 34.5(L) 35.9 - 45.5 % 02/06/2018 3:31 AM CDT [facility] Blood BLOOD SPECIMEN / Unknown Venipuncture / Unknown 02/06/2018 3:03 AM CDT 02/06/2018 3:27 AM CDT Maury Mcgarry MD LAB - HEMATOLOGY ORD ERABLES [facility] [address] [place] [address] * NEURAXIAL BLOCK (2018 5:59 AM CDT) Narrative Guille Alberto DO - 2018 5:59 AM CDT Madhu Corcoran, RADIO TOWER TECHNICIAN-[employer] 02/04/2018 8:49 AM Neuraxial Block Note Procedure Name: Neuraxial Block Patient Location: OR Pre-Procedure: Indications: surgical anesthesia Pre-Anesthetic Checklist: Patient identified, IV Checked, Risks and benefits discussed, Surgical consent verified, Monitors and equipment, Site examined, Pre-op evaluation done, Time-out performed, Informed consent obtained, Questions answered/anesthesia questions answered and Allergies reviewed Anticoagulation/ Anti-thrombosis status confirmed? Yes Monitors: BP and continuous pluse ox Patient Condition: awake Patient Position: sitting Patient Sedated? Yes Sedation Agents: versed, fentanyl Procedure: Block Type: Spinal Prep: Betadine Sterile Field: mask, cap/hat, sterile established and sterile gloves Approach: midline Skin localized with: lidocaine 1%, 3 mL Spinal Block: Needle Type: pencil-point Needle Gauge: 22 Needle Length: 90 mm Placement Site: L3-4 Number of Attempts: 1 CSF: free flow, aspiration before injection, aspiration during injection Spinal Local Anesthetic: Bupivacaine: 2.8 mL of 0.5% PF Degree of difficulty: none Procedure Tolerance: tolerated well Sensory Level: T6 Motor Blockade: Yes Position post procedure: supine Vital Signs: Vital sings monitored and stable throughout. See anesthesia record for details. Staff: Anesthesia Provider: MADHU CORCORAN - performed the procedure Guille J Alberto DO GENERAL ANESTHESIA O RDERABLES * PATHOLOGY TISSUE FOR DERMATOLOGY (02/24/2016 12:00 AM CDT) Only the most recent of2 resultswithin the time period is included. Result CASE: [id number] PATIENT: THAD MCCLELLAN PATHOLOGIC DIAGNOSIS: Right jacinto: ULCER WITH SUPERFICIAL DERMAL NECROSIS STASIS DERMATITIS (see microscopic description) CLINICAL DATA: R/O SCCIS. GROSS DESCRIPTION: Received is one formalin filled container labeled with the patients name and designated right jacinto. The specimen consists of a shave measuring [id number]. Jar 0. MICROSCOPIC DESCRIPTION: There is an ulcer, beneath which there are vascular proliferation, fibroblasts, and an edematous stroma. There is focal spongiosis. The dermis shows a sparse, perivascular lymphocytic infiltrate surrounding dilated, thick-walled vessels, which are increased in number. There is no evidence of epithelial dysplasia or malignancy in multiple deeper sections examined. Electronically signed out by Stephanie Bonner M.D., PhD. 02/28/2016 2:15:22PM [facility] Comment: Performed at: Dermatopathology Laboratory [facility] - Department of Dermatology [address] [place] [address] 5th [place] [address] Phone number: [phone] FAX: [phone] 02/24/2016 02/25/2016 Astrid Adams MD LAB - PATHOLOGY/CYTO LOGY ORDERABLES [facility] [address] [place] [address]. 5th Floor Lab [address] [phone] Care Teams Dealer Relationship Manager Relationship Specialty Start Date End Date Emilia Brown APRN-[employer] DRAG OPERATOR [address] [phone] PCP - General 08/16/22 [place] [address] [address] Orthopedic Surgery 07/26/15 Gregory Cook MD [address] [facility] [address] [place], [place] [id number] Cardiovascular Disease 12/03/19
== END 2024-11-27 07:47 | disposition home or self-care (01) ==
PROVIDERS: PCP Family Medicine; Visit Provider Internal Medicine Hematology & Oncology
DX: K44.9 Diaphragmatic hernia without obstruction or gangrene (principal); C66.9 Malignant neoplasm of unspecified ureter
CPT/HCPCS: 74177; Q9967

== ENCOUNTER 2025-01-27 09:12 | Outpatient (CLI) | payer MEDICARE, SELFPAY ==
--- OUTSIDE RECORDS SUMMARY | 2025-01-27 09:25 | XMS_ITS | Encounter Summary ---
Author Organization [facility] Healthcare Address [address] [place] [address] Care Team Providers Care Heater Furnace Name Role Phone Emilia Brown NP Primary Care Provider Peyton Andre MD Primary Care Provider + Encounter Details Date Type Department Care Team (Late st Contact Info) Description 07/29/2020 Telephone [facility] [address] [place] [id number] Dmitri Patel, RT Social History Tobacco Use Types Packs/Day Years Used Date Smoking Tobacco: Never Smokeless Tobacco: Never Alcohol Use Standard Drinks/Week Comments Yes 0 (1 standard drink = 0.6 oz pur e alcohol) Comments Unknown Sex and Gender Information Value Date Recorded Sex Assigned at Not on file 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
--- OUTSIDE RECORDS SUMMARY | 2025-01-27 09:25 | XMS_ITS | Referral Summary ---
Author Organization [facility] [address] [facility] [address] Address [address] [place] [address] Care Team Providers Care Clam Dredger Name Role Phone Peyton Andre MD Primary Care Provider + Allergies Active Allergy Reactions Criticality Noted Date Comments Adhesive Hives Medium 07/26/2015 Adhesive Tape-Silicones Unknown 07/26/2015 Aspirin Other (See comments) Medium Peptic Ulcers Clindamycin Diarrhea Low 04/30/2023 Latex Rash Medium 01/03/2021 Morphine Unknown 07/26/2015 Dtbwmhp-Rlz-Jnq Reductase Inhibitors Muscle pain Medium 10/14/2020 Ezetimibe [...] ulcer 09/11/2019 PSVT (paroxysmal supraventricular tachycardia) ( [facility]) 11/29/2017 Preoperative cardiovascular examination 08/15/20 17 [...] on file 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
--- OUTSIDE RECORDS SUMMARY | 2025-01-27 09:25 | XMS_ITS | Data Portability ---
Author Organization [facility], [id number] [facility] Address [address] [place] [address] Assessment No assessment recorded. Plan of Treatment Reminders Order Date Submit Date Provider Last Modified By Organization Details Last Modified Time Details Appointments ANNUAL- EST 15 2025 10:15A M BRAD IGNACIO MD Not available Not available Not available Lab None recorded. Referral None recorded. Procedures None recorded. Surgeries None recorded. Imaging MAMMO, screening , tomosynth esis, bilateral 2024 025 [facility] [employer], [address] [facility], [place], [address], 01/14/2025 10:36:08 Medication Orders None recorded. Patient TargetsNo targets recorded. Patient InstructionsNo instructions recorded. Reason for Referral None Reported. 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 chemothera py NEHA ST MD [address] [facility] [address], [place], [address] , [facility] 5 08:46:48 Osteoporo sis 48930835 Active ADP referred pt to endocrinol ogy [address] MD [address] [facility] [address], [place], [address] , [facility] 5 08:47:05 Migraine 41053669 Active 2024 Betsy Eli [facility], [place] [facility] 5 09:01:38 Degenerat toan disorder of macula 030087843 Active 2024 Betsy chan, [facility] 5 09:01:50 Hypertens toan disorder 74249048 Active 2024 Betsy chan, [facility] 5 09:01:57 Glaucoma 77431346 Active 2024 Betsy chan, [facility] 5 09:02:04 Diabetes mellitus 97393407 Active 2024 [facility]rolled [facility] 5 09:02:21 Disorder of thyroid gland 71239522 Active 2024 Betsy chan [facility] 5 09:02:47 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 Procedures Surgical History Date Name Laterality Status Provider Name and Address Organization Details Recorded Time 024 Date of Last Mammogram completed NEHA ST MD [address] [facility] [address], [place], [address], [facility] 12/31/2024 08:48:25 017 colonoscopy completed Betsy Eli [facility] 12/31/2024 09:26:42 006 total replacement of hip completed Betsy Eli [facility] 12/31/2024 09:27:15 004 operative procedure on knee completed Betsy Eli [facility] 12/31/2024 09:27:37 [address] MD [address] [facility] [address], [place], [address], [facility] 12/31/2024 08:47:48 967 cholecystectomy completed Betsy Eli [facility] 12/31/2024 09:26:57 960 Appendectomy completed Betsy Eli [facility] 12/31/2024 09:26:10 Dilation and Curettage completed Betsy Eli [facility] 12/31/2024 09:24:24 biopsy of uterine ligament completed Betsy Eli [facility] 12/31/2024 09:26:03 Unlisted px femur/knee completed Not Available [facility] 01/15/2025 15:33:33 Appendectomy completed Not Available [facility] 01/15/2025 15:33:33 Laparoscopic cholecystectomy completed Not Available [facility] 01/15/2025 15:33:33 Biopsy of uterus lining completed Not Available [facility] 01/15/2025 15:33:33 dilation and curettage completed Not Available [facility] 01/15/2025 15:33:34 hysterectomy completed Not Available [facility] 01/15/2025 15:33:34 repair of hip completed Not Available [facility] 01/15/2025 15:33:34 total knee replacement completed Not Available [facility] 01/15/2025 15:33:34 colonoscopy completed Not Available [facility] 01/15/2025 15:33:34 Imaging Results None recorded. Procedure Notes None recorded. Medical Equipment None Reported. Allergies Allergen ID Allergen Name Allergen Category Reaction Reaction Severity Criticality Documentation Date Start Date Code Code System Note Provider Name and Address Organization Details Recorded Time 420915 adhesive tape environme nt,medica tion Not available Not available Not available 12/31/2024 75894 UNK Betsy chan [facility] 08:52:33 684980 Benicar medicatio n Not available Not available Not available 12/31/2024 07592 3 RxNorm Betsy Voellinge r null, [facility] 5 08:52:40 716412 lisinopri l medicatio n Not available Not available Not available 12/31/2024 16110 RxNorm Betsy Voellinge r null, [facility] 5 08:52:48 081231 morphine medicatio n Not available Not available Not available 12/31/2024 7052 RxNorm Betsy Voellinge r null, [facility] 5 08:53:16 Medications Name Sig Start Date Stop Date Status Note LastModified by Organization Details LastModified Time nitrofurant oin macrocrysta l 50 mg capsule TAKE 1 CAPSULE BY MOUTH ONCE DAILY active Not Available Not Available No t Available benzonatate 200 mg capsule TAKE 200 MG(1 CAPSULE) ORALLY THREE TIMES A DAY 12/31 completed Not Available Not Available Not Available prednisone 20 mg tablet TAKE 2 TABLETS BY MOUTH ONCE DAILY FOR 7 DAYS THEN 1 TABLET ONCE DAILY FOR 7 DAYS 12/31 completed Not Available Not Available Not Available sulfamethox azole 800 mg-trimetho prim 160 mg tablet TAKE 1 TABLET BY MOUTH TWICE DAILY 12/31 completed Not Available Not Available Not Available amlodipine 10 mg tablet TAKE 1 TABLET BY MOUTH ONCE DAILY active Not Available Not Available No t Available cephalexin 500 mg capsule TAKE 1 CAPSULE BY MOUTH THREE TIMES DAILY 12/31 completed Not Available Not Available Not Available losartan 100 mg tablet TAKE 1 TABLET BY MOUTH IN THE MORNING active Not Available Not Available No t Available gentamicin 0.1 % topical ointment APPLY OINTMENT EXTERNALL Y TO AFFECTED WOUND ONCE DAILY AND COVER WITH GAUZE AND PAPER TAPE 12/31 completed Not Available Not Available Not Available amoxicillin 875 mg-potassiu m clavulanate 125 mg tablet TAKE 1 TABLET BY MOUTH TWICE DAILY FOR 7 DAYS 12/31 completed Not Available Not Available Not Available Dulera 200 mcg-5 mcg/actuati on HFA aerosol inhaler INHALE 2 PUFFS EVERY 12 HOURS RINSE MOUTH AFTER USE 12/31 completed Not Available Not Available Not Available Vitals Date Recorded Body weight Body mass index (BMI) Body height Systolic blood pressure Diastolic blood pressure Provider Name and Address Organization Details Last Updated DateTime 12/31/2024 21251.05 g 33.5 kg/m2 170.18 cm 142 mm[Hg] 88 mm[Hg] Betsy Eli [facility] 09:18:08 Social History Question Answer Notes LastModified by [employer] Details LastModified Time Tobacco Smoking Status Never Smoker Betsy Eli null, [facility] 12/31/2024 09:21:39 What Is Your Relationship Status? Information not available 12/31/2024 Sex: Female Functional Status Question Answer Note LastModified by [employer] Details LastModified Time Do you use any illicit or recreational drugs? No Information not available 12/31/2024 What is your level of alcohol consumption? Occasional Qty: occas-wine; Note: Use status used: Current some day Amount used: occas-wine Information not available 01/15/2025 What is your occupation? Note: retired Information not available 01/15/2025 What is your exercise level? Moderate SocialHistor yQuestion: 'Moderate Amount of Exercise (1-3 times weekly)'; Information not available 01/15/2025 Mental Status None recorded. Family History Relationship Description Onset Age of this Age Resolved Age Notes LastModified by Organization Details LastModified Time Brother Malignant neoplastic disease Cancer brothe r - luekem ia brothe r -lung Not available 01/15/2025 17:58:53 Brother Hypertensive disorder High Blood Pressu re Not available 01/15/2025 17:58:54 Brother Heart disease Heart Diseas e Not available 01/15/2025 17:58:54 Brother Diabetes mellitus Diabet es Not available 01/15/2025 17:58:55 Sister Malignant neoplastic disease Cancer brothe r - luekem ia brothe r -lung Not available 01/15/2025 17:58:53 Sister Parkinson's disease Kirby son's Diseas e Not available 01/15/2025 17:58:54 Father Hypertensive disorder High Blood Pressu re Not available 01/15/2025 17:58:54 Father Heart disease Heart Diseas e Not available 01/15/2025 17:58:55 Mother Parkinson's disease Kirby son's Diseas e Not available 01/15/2025 17:58:54 Medical History Condition Response Cancer- Genetic screening Eyes- Glaucoma Y Ortho-Other Neurology- Headaches/Migraines Y Cardiology- High Blood Pressure Y Endocrinology- Thyroid Problems Y Endocrinology- Diabetes Y Gynecological History Statement/Question Response Post Menopausal Hormone Therapy User Nev er Date of Last Colonoscopy Flow Heavy Date of Last Mammogram 01/29/2024 Date of LMP 09/17/1968 Current Control Method: Menopause Date of Last HPV Test Age at Menarche 11 Current Control Method None Date of Last Cholesterol Screening 09/17 Date of Last Bone Density Obstetrics History GPAL:G 4 P 3 0 1 3 Type Value Full Term 3 Spontaneous 1 Living 3 Total 4 Immunizations Vaccine Type Date Status Note Provider Nam e and Address Organization Details Recorded Time SARS-COV-2 (COVID-19) vaccine, UNSPECIFIED 09/17/2020 [facility] 12/31/2024 08:53:39 Hep B, unspecified formulation 05/25/2016 completed Betsy chan [facility] 12/31/2024 08:53:53 Past Encounters Encounter ID Performer Location Encounter Start Date Encounter Closed Date Diagnosis/Indication Diagnosis SNOMED-CT Code Diagnosis ICD10 Code Diagnosis Note [id number] NEHA ST MD [id number] [facility] [place] [address] [facility] [place] [address] 12/31/2024 08:44:59 12/31/2024 09:52:55 Screening mammography 80824719 Z12.31 Gynecologi c examination 48824621 Z01.419 Malignant tumor of kidney 074009496 C64.9 Osteoporosis 19619710 M8 1.0 Health Concerns Section Related Observation LastModified by Organization Detai ls LastModified Time None Recorded Concern Status LastModified by Organization Details LastModified Time None Recorded Advance Directives Directive None Recorded Payers Insurance Date Sequence Insurance Name Policy Number Policy Moreland Covered Member ID Moreland Member ID Guarantor Name 01/08/2025 2 [place] [id number] Mary Ellen Robles [id number] Mary Ellen Eisenbergbennett 12/31/2024 1 [place] Mary Ellen Atkinson Margaret [id number] Mary Ellen K Margaret Notes Date Note Type Note Provider Name and Address Organization Details Recorded Time 12/31/2024 text/html Annual WELDER TECH - McwhcReported bypatient.Urinary symptoms:No hematuria; No incontinence Vulvar complaints:None Vaginal complaints:none Gastrointestinal symptoms:no gastrointestinal symptoms Breast:No breast pain; No breast lump; No nipple discharge Menopausal Symptoms:No menopausal symptoms; Normal vaginal lubrication Psychological symptoms:No depression; No anxiety; No PMDD finished chemo, still has port in, gets flushed at [facility] [address] [place] recl[place] and has done PT for balance too. got some ED meds from [facility] and pt wants to resume SA, has not since her treatment, ok to do so based on my exam and be patient, sometimes leaks at night only NEHA ST MD [address] [facility] [address], [place], [address], [facility] 12/31/2024 09:33:35 OBGyn Episode No OBEpisode recorded.
--- OUTSIDE RECORDS SUMMARY | 2025-01-27 09:25 | XMS_ITS | Encounter Summary ---
Author Organization [facility] Health Address [address] [place] [address] Care Team Providers Care Roving Changer Name Role Phone Maury Mcgarry MD Unavailable [phone] Brenda Durbin MD Primary Care Provider + [phone] Valencia Luna MD Primary Care Provider [phone] Gregory Cook MD Unavailable [phone] Brenda Durbin MD Primary Care Provider [phone] [facility] Primary Care Provider + Encounter Details Date Type Department Care Team (Late st Contact Info) Description 01/14/2018 [facility] [address] [place] [address] [place] [address] [address] Social History Tobacco Use Types Packs/Day Years Used Date Smoking Tobacco: Never Smokeless Tobacco: Never Alcohol Use Standard Drinks/Week Comments Yes 0 (1 standard drink = 0.6 oz pur e alcohol) Comments Unknown Sex and Gender Information Value Date Recorded Sex Assigned at Not on file 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 [place] [address] PCP - General Family Medicine 10/29/19 07/02/22 Brenda Durbin MD [address] [address] PCP - General 07/03/22 08/15/22 Emilia Brown [facility] [address] [address] PCP - General 08/16/22 [place] [address] [facility] [address] [place], [place] [id number] Orthopedic Surgery 07/26/15 Gregory Cook MD [facility] [address] [place], [place] [address] Cardiovascular Disease 12/03/19 documented as of this encounter
--- OUTSIDE RECORDS SUMMARY | 2025-01-27 09:25 | XMS_ITS | Continuity of Care Document ---
Author Organization [facility] Address [address] [place] [address] [address] [place] [address] Phone Care Team Providers Care Anthropology Professor Name Role Phone Fatuma Snyder Unavailable Unavailable Advance Directives Directive Yes / No Effective Date File Name No Information Encounters Encounter Description Practice Location Reason(s) For Visit Diagnoses Date Provider Providers Copied on Encounter [facility], [address], [place], [place], [address], [place] tel:[phone] [facility] No Information [phone] Lillian Burris. [address], [place], [address], [place]. tel:[phone] Family History Family Member Type Diagnosis Age At Onset No Information Payers Payer name Insurance type Covered democrat ID Authoriza timeena(s) [facility] CI [id number] Social History Type Description Quantity Date Captured [...]
--- OUTSIDE RECORDS SUMMARY | 2025-01-27 09:25 | XMS_ITS | Clinical Summary ---
Author Organization [facility] Address [address] [place] [address] Care Team Providers Care Homicide Detective Name Role Phone Peyton Andre MD Primary Care Provider [phone] Allergies Active Allergy Reactions Criticality Noted Date [...] Description 11/26/2024 8:00 AM CDT Office Visit [facility] Audiology [address] [place] [address] Grisel Restrepo AUD Hearing Aid Check 11/26/2024 Travel from Last 3 Months Immunizations Immunization Administration Dates Next Due PFIZER COVID-19 (ORIGINAL [...] 06/18/2023 12:57 AM CDT Plan of Treatment Upcoming Encounters Date Type Department Care Team (Late st Contact Info) Description 02/10/2025 3:30 PM CDT Appointment [facility] Mammography [address] [place] [address] Idalmis Antonio MD [address] [place] [id number] Health Maintenance Due Date Last Done Comments Zoster Vaccines (1 of 2) 02/06/1992 Annual Medicare Wellness Visit 2007 RSV Immunization or 60+ Years (1 - 1-dose 75+ series) 2017 COVID-19 Vaccine (3 - season) 2024 12/23/2020, 12/02/2020 Pneumococcal Vaccine: 50+ Years (3 of 3 - PCV20 or PCV21) 08/25/2024 08/25/2019, 09/17/2006 PHQ-2 (Physician [place]) 09/17/2024 04/30/2023 DTaP, Tdap and Td Vaccines [...] BONE DENSITY/DEXA Routine 10/02/2024 3:1 1 PM RESTAURANT ASSISTANT MANAGER Age-related osteoporosis without current pathological fracture from Last 3 Months or Most Recently Relevant to Health Maintenance Results * BONE DENSITY/DEXA (10/02/2024 3:11 PM RESTAURANT ASSISTANT MANAGER) Anatomical Region Laterality Modality Bone Bone Density 10/03/2024 7:26 AM RESTAURANT ASSISTANT MANAGER Impressions 10/03/2024 7:27 AM RESTAURANT ASSISTANT MANAGER IMPRESSION: WHO Classification: Osteoporosis RECOMMENDATIONS: All patients [...] 10/03/2024 7:26 AM Narrative 10/03/2024 7:27 AM RESTAURANT ASSISTANT MANAGER [place] [address] [place] [address] EXAMINATION: BONE DENSITY/DEXA INDICATIONS: Age-related osteoporosis without [...] Procedure Note Zheng Tejada MD - 10/03/2024 [facility] [address] [place] [address] EXAMINATION: BONE DENSITY/DEXA INDICATIONS: Age-related osteoporosis without [...] Tejada MD, 10/03/2024 7:26 AM Andrae Zhang COSTUME SPECIALIST DEXA Final Result from Last 3 Months or Most Recently Relevant to Health Maintenance Insurance MEDICARE [facility] Care Teams Homicide Detective Relationship Specialty Start Date End Date Peyton Andre MD [facility] [facility] [address] [address] PCP - General FAMILY PRACTICE 11/16/22
--- OUTSIDE RECORDS SUMMARY | 2025-01-27 09:25 | XMS_ITS | Clinical Summary ---
Author Organization [facility] Address [address] [place] [address] Care Team Providers Care Supervisor Fishing Name Role Phone Maury Mcgarry MD Unavailable [phone] Gregory Cook MD Unavailable [phone] Emilia Brown APRN-SUPERVISOR LINE DEPARTMENT Primary Care Provider + Source Comments [facility],non-owned Affiliates and Associated Physician Practices is amultiple site organization consisting of ambulatory clinics and hospital sitesin [place], [place], [place] and [place]. This disclosure is being madepursuant to the Care Everywhere program and may not contain all information available regarding this patient. Last updated 18.[facility] Allergies Active Allergy Reactions Criticality Noted Date Comments Adhesive Sensitivity 07/26/2015 Hmg-Coa-R Inhibitors Myalgias Medium 10/14/2020 Latex Rash Medium 01/03/2021 Morphine Rash Medium 07/26/2015 Medications * Be aware that medications may not be up to date on this document. Alwaysverify current medications with the patient. 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 Gender Identity Not on file Sexual Orientation [...] - 2023-2 5 season) 2024 12/23/2020, 12/02/2020 DEPRESSION SCREENING 09/17/2024 DIABETES - URINE PROTEIN SCREENING 09/17/2024 INFLUENZA VACCINE (Season Ended) 2025 DTAP/TDAP/TD VACCINES (3 - T d or [...] this topic Medical Devices Implanted Type Area E Commerce Merchandising Coordinator Device Identifier Shelf Expiration Date Model / Serial / Lot W[place] Bone [place]-G Hv 40/20 Implanted:Qty: 1 on 02/04/2018 by Maury Mcgarry MD at [facility] Left: Knee [employer] 02/14/2019 600-15-100 / / [id number] Cmpnt Ptlr 28mm 1 Pg Wire Ascnt Arcm Kn Implanted:Qty: 1 on 02/04/2018 by Maury Mcgarry MD at [facility] Left: Knee [employer] 12/28/2022 [id number] / / [id number] Tray Tib 75mm Kn Cocr I Beam Implanted:Qty: 1 on 02/04/2018 by Maury Mcgarry MD at [facility] Left: Knee [employer] 10/21/2027 [id number] / / [id number] Cmpnt Fem Kn Lt Cr Cmnt Prm Vngrd Intlk Implanted:Qty: 1 on 02/04/2018 by Maury Mcgarry MD at [facility] Left: Knee [employer] 12/14/2027 [id number] / / [id number] Brng [id number] Vngrd Arcm Kn Ant Stab Implanted:Qty: 1 on 02/04/2018 by Maury Mcgarry MD at [facility] Left: Knee [employer] 10/31/2022 [id number] / / [id number] Brng [id number] Vngrd Arcm Kn Ant Stab Implanted:Qty: 1 on 01/24/2021 by Maury Mcgarry MD at [facility] Right: Knee [employer] 05/30/2024 [id number] / / [id number] Cmpnt Fem Kn Rt Cr Cmnt Prm Vngrd Intlk Implanted:Qty: 1 on 01/24/2021 by Maury Mcgarry MD at [facility] Right: Knee [employer] 11/15/2030 [id number] / / [id number] Wale Bone [place]-G Hv 40/20 Implanted:Qty: 1 on 01/24/2021 by Maury Mcgarry MD at [facility] Right: Knee [employer] 08/28/2021 600-15-100 / / [id number] Tray Tib 79mm Kn Cocr I Beam Implanted:Qty: 1 on 01/24/2021 by Maury Mcgarry MD at [facility] Right: Knee [employer] 03/02/2030 [id number] / / [id number] Cmpnt Ptlr 28mm 1 Pg Wire Ascnt Arcm Kn Implanted:Qty: 1 on 01/24/2021 by Maury Mcgarry MD at [facility] Right: Knee [employer] 12/28/2022 [id number] / / [id number] Procedures Procedure Name Priority Date/Time Associated Diagnosis [...] The following cutoff levels are recommended by [place] [employer]. A1c > 6.5% : considered [...] exceeds 5% in the specimen. Sandra Farrell MEDIA RELATIONS COORDINATOR-SUPERVISOR LINE DEPARTMENT LAB - CHEMISTRY ORDER GELY Final Result [facility] [address] [place] [address] * (ABNORMAL) COMPREHENSIVE METABOLIC PANEL (01/03/2021 1:38 PM CDT) Pathologist [facility] Glucose 98 70 - 105 mg/dL 01/03/2021 2:02 PM CDT [facility] Sodium 139 136 - 145 mmol/L 01/03/2021 2:02 PM CDT [facility] Potassium 4.1 3.5 - 5.1 mmol/L 01/03/2021 2:02 PM CDT [facility] Chloride 107 98 - 107 mmol/L 01/03/2021 2:02 PM CDT [facility] CO2 26 23 - 31 mmol/L 01/03/2021 2:02 PM CDT [facility] Calcium 9.0 8.4 - 10.4 mg/dL 01/03/2021 2:02 PM CDT [facility] Anion Gap 6(L) 8 - 18 mmol/L 01/03/2021 2:02 PM CDT [facility] Comment:Attention clinician: Reference Range change. BUN 16 9.8 - 20.1 mg/dL 01/03/2021 2:02 PM CDT [facility] Creatinine 0.71 0.57 - 1.11 mg/dL 01/03/2021 2:02 PM CDT [facility] Alkaline Phosphatase 99 40 - 150 U/L 01/03/2021 2:02 PM CDT [facility] Comment:Attention clinician: Reference Range change. ALT [...] CDT 01/03/2021 1:44 PM CDT Sandra Farrell MEDIA RELATIONS COORDINATOR-SUPERVISOR LINE DEPARTMENT LAB - CHEMISTRY ORDER GELY Final Result [facility] [id number] [place] [id number] from Last 3 Months or Most Recently Relevant to Health Maintenance [place] [address] [facility]ICARE [facility] MEDICARE MEDICARE MEDICARE MEDICARE ANTHEM Advance Directives Documents on File Type Date Recorded Patient Internet Developer Expl anation Adv Directive/Living Will/POA 01/11/2018 10:24 AM [place] POA * Full Code (Latest Code Status on File) Date Activated Date Inactivated Comments 01/24/2021 11:38 AM 01/26/2021 3:15 PM * Full Code Date Activated Date Inactivated Comments 02/04/2018 11:32 AM 02/07/2018 1:39 PM Care Teams Supervisor Fishing Relationship Specialty Start Date End Date Emilia Brown APRN-RYAN [address] [phone] PCP - General 08/16/22 [place] [address] [address] [address] Orthopedic Surgery 07/26/15 Gregory Cook MD [address] [place] [address] [place] [id number] Cardiovascular Disease 12/03/19
--- OUTSIDE RECORDS SUMMARY | 2025-01-27 09:25 | XMS_ITS | Clinical Summary ---
[facility] Address [address] [address] Care Team Providers Care Reagent Tender Name Role Phone Peyton Andre MD Primary Care Provider [phone] Allergies Active Allergy Reactions Criticality Noted Date Comments Adhesive Hives High 07/26/2015 Aspirin Other (See Comments) Medium 10/10/2023 Peptic Ulcers Clindamycin Diarrhea Low 04/30/2023 Ezetimibe Muscle Pain Medium 06/25/2023 Latex Rash Medium 01/03/2021 Morphine Rash,Unknown Medium 07/26/2015 Mzgtpun-Mfp-Mqz Reductase Inhibitors Muscle Pain Medium 10/14/2020 Medications [...] ORAL Take by mouth. Active Vit C-Vit W-Bhsgio-LvDc-L utein (PRESERVISION) 226-90-0.8-5 mg Capsule Take 1 [...] Encounters Date Type Department Care Team Description 01/20/2025 External Device Data ST[facility] ABSTRACTION Provider, Abstract 01/16/2025 Abstract [facility] Oncology and Hematology - [place] [address] [place] [phone] Riki Garcia MD 12/30/2024 External Device Data STL ABSTRACTION Provider, Abstract 12/05/2024 Orders Only [facility] Oncology and Hematology - [place] [address] [address] [place] [phone] Riki Garcia MD 12/04/2024 9:00 AM CDT Office Visit [facility] Oncology and Hematology [place] [address] [address] [place] [phone] Riki Garcia MD Malignant neoplasm of ureter, unspecified laterality (CMS/HCC) (Primary Dx) 12/03/2024 External Device Data STL ABSTRACTION Provider, Abstract 12/01/2024 Orders Only [facility] Oncology and Hematology - [place] [address] [place] [phone] Riki Garcia MD Malignant neoplasm of ureter, unspecified laterality (CMS/HCC) 11/27/2024 Orders Only [facility] Oncology and Hematology - [place] [address] [place] [phone] Riki Garcia MD 11/17/2024 Orders Only [facility] Oncology and Hematology - [place] [address] [place] [phone] Riki Garcia MD Malignant neoplasm of ureter, unspecified laterality (CMS/HCC) 11/03/2024 Orders Only [facility] Oncology and Hematology - [place] [address] [place] [phone] Riki Garcia MD Malignant neoplasm of ureter, [...] on file 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 Gender Identity Not on file Sexual Orientation Not on file Last Filed Vital Signs Vital Sign Reading Time Taken Comments Blood Pressure 127/75 12/04/2024 8:52 AM CDT Pulse 74 12/04/2024 8:52 AM CDT Temperature 35.9 C (96.7 F) 12/04/2024 8:52 AM CDT Respiratory Rate 15 12/04/2024 8:52 AM CDT Oxygen Saturation 96% 12/04/2024 8:52 AM CDT Inhaled Oxygen Concentration - - Weight 94.5 kg (208 lb 5.8 oz) 12/04/2024 8:52 A M CDT Height - - Body Mass Index - - Plan of Treatment Upcoming Encounters Date Type Department Care Team (Late st Contact Info) Description 06/12/2025 9:45 AM CDT Office Visit [facility] Oncology and Hematology - [place] [address] [facility] [address] [place] [phone] Riki Garcia MD [address] [facility] [address] [place] [phone] Health Maintenance Due Date Last [...] - PCV20 or PCV21) 08/25/2024 08/25/2019, 09/17/2006 OSTEOPOROSIS SCREENING 10/02/2029 , 10/02/2024, 08/27/2023, Additional history exists DTAP/TDAP/TD VACCINES (4 - T d or Tdap) 06/14/2030 06/14/2020, 03/15/2015, 03/14/2015 Procedures Procedure Name Priority Date/Time Associated Diagnosis Comments BASIC METABOLIC PANEL Routine 12/04/2024 12:34 PM CDT COMPREHENSIVE METABOLIC PANEL Routine 12/04/2024 12:[address] ABDOMEN PELVIS W CONTRAST Routine 11/27/2024 11:23 AM CDT from Last 3 Months Results * BASIC METABOLIC PANEL (12/04/2024 12:34 PM CDT) Blood us Riki Garcia MD CHEMISTRY ORDERABLES Final Resu lt * COMPREHENSIVE METABOLIC PANEL (12/04/2024 12:06 PM CDT) Blood us Riki Garcia MD CHEMISTRY ORDERABLES Final Resu lt * CT ABDOMEN PELVIS W CONTRAST (11/27/2024 11:23 AM CDT) Anatomical Region Laterality Modality Abdomen Computed Tomogra phy us Riki Garcia MD CT ORDERABLES Final Result from Last [address] [place] [address] MEDICARE PART A AND B [facility] SUPP Care Teams Reagent Tender Relationship Specialty Start Date End Date Peyton Andre MD [address] [place] [address] Dr [address] [place] [phone] PCP - General Family Practice 09/26/23
--- OUTSIDE RECORDS SUMMARY | 2025-01-27 09:25 | XMS_ITS | Clinical Summary ---
Author Organization [facility] [address] Address [address] [place] [address] Care Team Providers Care Saw Grinder Name Role Phone Peyton Andre MD Primary Care Provider + Allergies Active Allergy Reactions Criticality Noted Date Comments Adhesive Hives Medium 07/26/2015 Adhesive Tape-Silicones Unknown 07/26/2015 Aspirin Other (See comments) Medium Peptic Ulcers Clindamycin Diarrhea Low 04/30/2023 Latex Rash Medium 01/03/2021 Morphine Unknown 07/26/2015 Xdihmlz-Pla-Fhr Reductase Inhibitors Muscle pain Medium 10/14/2020 Ezetimibe [...] ulcer 09/11/2019 PSVT (paroxysmal supraventricular tachycardia) ( [facility]/HCC) 11/29/2017 Preoperative cardiovascular examination 08/15/20 17 Gastroduodenal [...] on file 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 Gender Identity Not on file Sexual Orientation [...] 65+ 2007 Hemoglobin A1C 07/05/2021 01/03/2021, 10/29/2019 Lipid Panel 06/25/2024 06/25/2023, 07/18, 04/20/2021, Additional history exists Pneumococcal vaccine 65+ (3 of 3 - PCV20 or PCV21) 08/25/2024 08/25/2019, 09/17/2006 Influenza Vaccine (Season Ended) 2025 Osteoporosis Screening-Bone Density Scan 08/27/2025 08/27/2023, 08/07/2022, [...] Recently Relevant to Health Maintenance [place] [address] MEDICARE [facility] MEDICARE [facility] MEDICARE [facility] [place] Care Teams Saw Grinder Relationship Specialty Start Date End Date Peyton Andre MD PCP - General Family Medicine 10/18/22
[2025-01-27 13:13] LABS: Hematocrit 41.9 % (37.0-47.0); Hemoglobin 13.2 g/dL (12.0-15.0); Mean Corpuscular HGB Conc 31.5 g/dl (32-36); Mean Corpuscular Hemoglobin 28.3 pg (26-34); Mean Corpuscular Volume 89.7 fl (80-100); Mean Platelet Volume 10.2 fl (7.4-10.4); Platelet Count Result 246 k/mm3 (150-375); Red Blood Count 4.67 M/mm3 (4.2-5.4); Red Cell Distribution Width 14.6 % (11.5-14.5); White Blood Count 4.3 K/mm3 (4.5-10.0)
[2025-01-27 13:34] LABS: Parathyroid Intact 50.6 pg/mL (14.5-75.2)
[2025-01-27 13:44] LABS: Free T4 Free Thyroxine 1.18 ng/dL (0.78-2.19)
[2025-01-27 13:58] LABS: Alanine Aminotransferase 23 U/L (6-35); Albumin Level 4.4 g/dL (3.5-5.1); Alkaline Phosphatase 73 U/L (38-126); Anion Gap 7 mmol/L (4-12); Aspartate Amino Transferase 63 U/L (14-36); Blood Urea Nitrogen 19 mg/dL (7-17); Calcium 9.5 mg/dL (8.4-10.2); Carbon Dioxide 30 mmol/L (22-30); Chloride 103 mmol/L (98-107); Estimated Glomerular Filt Rate > 60; Glucose 91 mg/dL (65-110); Magnesium 2.2 mg/dL (1.6-2.3); Potassium 4.1 mmol/L (3.4-5.0); Sodium 140 mmol/L (137-145)
[2025-01-27 15:24] LABS: Vitamin B12 > 1000.0 pg/mL (239-931)
== END 2025-01-27 09:13 | disposition home or self-care (01) ==
PROVIDERS: PCP Internal Medicine; Visit Provider Internal Medicine
DX: D64.9 Anemia, unspecified (principal); E66.811 Obesity, class 1; Z68.33 Body mass index [BMI] 33.0-33.9, adult; E04.2 Nontoxic multinodular goiter; R73.03 Prediabetes; I10 Essential (primary) hypertension; M81.0 Age-related osteoporosis without current pathological fracture; E78.2 Mixed hyperlipidemia
CPT/HCPCS: 36415; 80053; 82607; 83735; 83970; 84100; 84439; 84443; 85027

== ENCOUNTER 2025-01-30 14:00 | Outpatient (RCR) | payer MEDICARE, SELFPAY ==
--- NOTE | 2024-11-03 15:41 | PTOPEVAL1 ---
Assessment and note entered by Marti Grewal, PT Evaluation Information Assessment Status Evaluation Diagnosis R29.6 repeated falls, R26.89 other abnormalities of gait and mobility ICD-10 Condition Codes (PT) Abnormalities of gait and mobility R26.9,Weakness R53.1 Subjective Information Patient reports 6 months having a fall while in the laundry room and put a load of clothes on the floor; and forgot it was on the ground and stumbled over it. patient reports having osteoporosis and a history of chemo of 8 treatments last year in the [place]; getting a check up every [address] scan. Patient reports while walking feels off balance; but no dizziness occurring. Patient reports having previous history bilateral knee replacement and a hip replacement; which is not causing any pain that is contributing toward imbalance while walking. Patient reports increase imbalance with walking on grave, and minimal dizziness upon standing from sitting position. Reported Pain Level Pain Score 0: Self Report Assessment PT Clinical Summary Patient presents with gait abnormalities and weakness. Pt demonstrates increase gait deviations to right with increase feeling of imbalance, bilateral hip weakness, moderate quad tightness, increase sway with balance on uneven surface with narrow THEO, and mild hip ROM limitation. Patient would benefit from physical therapy to address these deficits and accomplish goals. Plan of Care Interventions Gait Training,Hot Pack/Cold Pack,Neuro Re- education,Therapeutic Activities,Therapeutic Exercise PT Services Indicated Yes Treatment Frequency and 1-2x/week for 10 visits Duration These treatments will address the objective and functional deficits as defined above. The patient will be advanced safely and appropriately in order for the patient to progress towards his/her prior level of function. Additional exercises will be introduced and as well as a comprehensive home exercise program upon discharge, if needed, to ensure carryover of functional gains achieved in the clinic. This treatment plan has been reviewed and agreement upon by the patient.
--- NOTE | 2024-11-03 15:41 | OPREHPOC ---
Outpatient Therapy Plan of Care This is a Multidisciplinary Plan of Care that may contain components documented by all disciplines (PT, OT, and ST.) PT Problem 1 PT Problem #1 Knowledge Deficit PT Goal 1 Goal / Goal Update Patient will be independent with performing HEP Target Visit 10 PT Problem 2 PT Problem #2 Impaired Strength PT Goal 1 Goal / Goal Update Patient will demonstrate increase bilateral hip strength 3+/5 Target Visit 5 PT Goal 2 Goal / Goal Update Patient will demonstrate increase bilateral hip strength 4/5 Target Visit 10 PT Problem 3 PT Problem #3 Impaired Balance PT Goal 1 Goal / Goal Update patient will demonstrate a score of 23 or greater on tinetti scale and >20 sec for 5xSTS with improved STS mechanics Target Visit 5 PT Goal 2 Goal / Goal Update Patient will demonstrate a score of 24 or greater for the tinetti scale and 15 sec for 5xSTS with improved STS mechanics Target Visit 10 PT Problem 4 PT Problem #4 Impaired Gait PT Goal 1 Goal / Goal Update Patient will demonstrate improved gait mechanics with minimal gait deviations and imbalance with walking > 10 minutes Target Visit 5 PT Goal 2 Goal / Goal Update Patient will demonstrate improved gait mechanics with no gait deviations or feeling of imbalance with prolonged walking > 20 minutes Target Visit 10
--- NOTE | 2024-11-27 12:47 | PTOPPROG ---
Assessment and note entered by Sonia Malhotra, PT Re-Evaluation Information Assessment Status Progress Diagnosis R29.6, R26.89, M54.6, M25.511 ICD-10 Condition Codes (PT) Pain in Thoracic Spine M54.6,Pain in right shoulder M25.511,Abnormalities of gait and mobility R26.9,Weakness R53.1 Subjective Information Pt reports that the shoulder pain is bothering her more than anything and it affected all of her daily functioning, worst when pulling, reaching or lifting something; would occasionally feel pain when keeping R shoulder at a certain position for a period of time and may feel the need to move it/ change position. However she is still concerned about her balance and have a fear of falling and would like to continue working on it with therapy as much as possible. Assessment PT Clinical Summary Pt has been on caseload for balance and gait training and demos good progress and improved stability. However, currently experiencing increased pain to R shoulder which significantly limits her ability to perform functional mobility at this time. She will benefit from continued therapy to further improve balance to reduce risk for falls and address current deficits in R shoulder ROM, strength and pain levels to return to performing IADLs without increased discomfort. Plan of Care Interventions Check Out for Orthotic/Prosthetic,Electrical Stimulation,Gait Training,Hot Pack/Cold Pack,Neuro Re-education,Patient/Caregiver Education, Therapeutic Activities,Therapeutic Exercise, Ultrasound,Other Other Interventions [facility] Services Indicated Yes Treatment Frequency and 2x/wk x 12 visits Duration These treatments will address the objective and functional deficits as defined above. The patient will be advanced safely and appropriately in order for the patient to progress towards his/her prior level of function. Additional exercises will be introduced and as well as a comprehensive home exercise program upon discharge, if needed, to ensure carryover of functional gains achieved in the clinic. This treatment plan has been reviewed and agreement upon by the patient.
--- NOTE | 2024-12-29 11:45 | PTOPPROG ---
Assessment and note entered by Sonia Malhotra, PT Progress Information Assessment Status Progress Diagnosis R29.6, R26.89, M54.6, M25.511 ICD-10 Condition Codes (PT) Pain in Thoracic Spine M54.6,Pain in right shoulder M25.511,Abnormalities of gait and mobility R26.9,Weakness R53.1 Subjective Information Pt reports she feel her R shoulder is feeling better but it is not quite there yet. It continues to make a clicking sound too. States wants to work on reducing the pain further and improve strength. She also noted good improvement of her balance and stability eversince she started using the heel lift that was recommended by therapy. Assessment PT Clinical Summary Pt demos good progress towards goals with gains in mobility and strength with reduced pain levels at this time allowing improved functional mobility, presents with improved balance and gait mechanics, BLE strength and no pain to L hip. However, she continue to c/o limited stability and occasional pain with R shoulder ER and IR and still unable to carry a weighted object without discomfort. She will benefit from continued skilled PT interventions to address remaining deficits and improve understanding and compliance of maintenance HEPs post DC. Plan of Care Interventions Check Out for Orthotic/Prosthetic,Electrical Stimulation,Gait Training,Hot Pack/Cold Pack,Neuro Re-education,Patient/Caregiver Education, Therapeutic Activities,Therapeutic Exercise, Ultrasound,Other Other Interventions [facility] Indicated Yes Treatment Frequency and 1-2x/wk x 6 visits Duration These treatments will address the objective and functional deficits as defined above. The patient will be advanced safely and appropriately in order for the patient to progress towards his/her prior level of function. Additional exercises will be introduced and as well as a comprehensive home exercise program upon discharge, if needed, to ensure carryover of functional gains achieved in the clinic. This treatment plan has been reviewed and agreement upon by the patient.
--- NOTE | 2025-01-29 18:03 | PTOPPROG ---
Assessment and note entered by Sonia Malhotra, PT Progress Information Assessment Status Progress Diagnosis R29.6, R26.89, M54.6, M25.511 ICD-10 Condition Codes (PT) Pain in Thoracic Spine M54.6,Pain in right shoulder M25.511,Abnormalities of gait and mobility R26.9,Weakness R53.1 Subjective Information Pt reports feeling better; ankle weakness, tendency to roll L > R, popping of R shoulders upon movement; Assessment PT Clinical Summary Pt demos good progress with skilled PT intervention, noted reduction with pain levels allowing improved functional mobility and strength . Pt also demos improved dynamic standing balance and ambulation. However, she continue to demo postural instability with SLS and continued weakness to bilateral hip abduction at this time. Her R shoulder is improving but continue to demo scapular instability. Pt may benefit from continued therapy to address remaining deficits and work towards achieving LTGs. Plan of Care Interventions Electrical Stimulation,Gait Training,Hot Pack/Cold Pack,Manual Therapy,Neuro Re-education,Patient/ Caregiver Education,Therapeutic Activities, Therapeutic Exercise,Ultrasound Other Interventions IASTM, Taping PT Services Indicated Yes Treatment Frequency and 2x/wk x 12 visits Duration These treatments will address the objective and functional deficits as defined above. The patient will be advanced safely and appropriately in order for the patient to progress towards his/her prior level of function. Additional exercises will be introduced and as well as a comprehensive home exercise program upon discharge, if needed, to ensure carryover of functional gains achieved in the clinic. This treatment plan has been reviewed and agreement upon by the patient.
--- NOTE | 2025-01-29 18:03 | OPREHPOC ---
Outpatient Therapy Plan of Care This is a Multidisciplinary Plan of Care that may contain components documented by all disciplines (PT, OT, and ST.) PT Problem 1 PT Problem #1 Knowledge Deficit PT Goal 1 Goal / Goal Update Patient will be independent with performing HEP Target Visit 10 Progress Partially Met PT Problem 2 PT Problem #2 Impaired Strength PT Goal 1 Goal / Goal Update Patient will demonstrate increase bilateral hip strength 3+/5 Target Visit 5 Progress Partially Met PT Goal 2 Goal / Goal Update Patient will demonstrate increase bilateral hip strength 4/5 Target Visit 10 PT Problem 3 PT Problem #3 Impaired Balance PT Goal 1 Goal / Goal Update patient will demonstrate a score of 23 or greater on tinetti scale and >20 sec for 5xSTS with improved STS mechanics Target Visit 5 Progress Met PT Goal 2 Goal / Goal Update Patient will demonstrate a score of 45 or more on PÉREZ BALANCE SCALE and 15 sec or less for 5xSTS with improved STS mechanics to reduce risk for falls. Target Visit 10 Progress Met PT Problem 4 PT Problem #4 Impaired Gait PT Goal 1 Goal / Goal Update Patient will demonstrate improved gait mechanics with minimal gait deviations and imbalance with walking > 10 minutes Target Visit 5 Progress Met PT Goal 2 Goal / Goal Update Patient will demonstrate improved gait mechanics with no gait deviations or feeling of imbalance with prolonged walking > 20 minutes Target Visit 10 PT Problem 5 PT Problem #5 Pain PT Goal 1 Goal / Goal Update Pt will report greatest pain of 2-3/10 on R shoulder with provoking movements. Target Visit 12 Progress Partially Met
--- NOTE | 2025-02-04 12:40 | PCPTNOTE ---
This treatment is being continued on visit number [id number]. Please see documentation on both accounts to view progress. Completed interventions, outcomes, and problems have been marked as Inactive to facilitate the copying of the Care plan routine for recurring accounts.
== END 2025-02-01 23:59 | disposition home or self-care (01) ==
LOC: ANHHIPT 14:00
PROVIDERS: PCP Family Medicine; Visit Provider Internal Medicine
DX: R29.6 Repeated falls (principal); R26.89 Other abnormalities of gait and mobility
CPT/HCPCS: 97014; 97035; 97110; 97112; 97116; 97140; 97161; 97530; 97750; G0283

== ENCOUNTER 2025-02-11 08:06 | Outpatient (CLI) | payer MEDICARE, SELFPAY ==
--- NOTE | ~2025-02-11 | US_ITS ---
EXAMINATION: US thyroid DATE: 02/11/2025 08:54 INDICATION: Multinodular goiter TECHNIQUE: Multiple ultrasound images of the thyroid were obtained. COMPARISON: None. FINDINGS: The right thyroid lobe measures 4.3 x 2.0 x 2.0 cm. The left thyroid lobe measures 4.2 x 1.9 x 1.3 c m. There is a 9 mm TI RADS 1, anechoic cystic nodule peripheral echogenic foci with comet tail artif act which corresponds to the previously seen 1.2 cm cystic nodule with coalescence of the prior soft tissue component into the echogenic foci likely representing evolution of now inspissated colloid. In the right thyroid lobe there is an additional unchanged 7 mm wide than tall solid hyperechoic nodule with smooth to ill-defined margins and without echogenic foci (TI-RADS 3, mildly suspicious , FNA if >=2.5 cm, annual followup is >=1.5 cm). The thyroid isthmus measures 6 mm in thickness with 1.0 cm s olid hypoechoic wider than tall nodule with smooth to ill-defined margins and without echogenic foci in the left side of the thyroid isthmus. (TI-RADS 4, moderately suspicious , FNA if >=1.5 cm, annual followup is >=1 cm). A second 1.0 cm similar-appearing nodule with single internal echogenic foci in the superior left thyroid lobe. (TI-RADS 5, highly suspicious , FNA if >=1.0 cm, annual followup is > 0.5 cm) which has remained unchanged since prior biopsy with benign pathology on 05/09/2023. IMPRESSION: 1. No significant change in a multinodular goiter. Annual ultrasound follow-up would be recommended. Reviewed, dictated and finalized at location A.
--- OUTSIDE RECORDS SUMMARY | 2025-02-11 08:10 | XMS_ITS | Data Portability ---
Author Organization [facility], [id number] [facility] Address [address] [place] [address] Assessment No assessment recorded. Plan of Treatment Reminders Order Date Submit Date Provider Last Modified By Organization Details Last Modified Time Details Appointments ANNUAL- EST 15 2025 10:15A M BRAD IGNACIO MD Not available Not available Not available Lab None recorded. Referral None recorded. Procedures None recorded. Surgeries None recorded. Imaging MAMMO, screening , tomosynth esis, bilateral 2024 025 [facility] [place], [address] [facility], [place], [address], 01/14/2025 10:36:08 Medication Orders None recorded. Patient TargetsNo targets recorded. Patient InstructionsNo instructions recorded. Reason for Referral None Reported. 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 NEHA ST MD [address] [facility] [address], [place], [address] , [facility] 5 08:46:48 Osteoporo sis 78236840 Active ADP referred pt to endocrinol ogy [address] MD [address] [facility] [address], [place], [address] , [facility] 5 08:47:05 Migraine 35546091 Active 2024 Betsy Eli [facility], [place] [facility] 5 09:01:38 Degenerat toan disorder of macula 241566244 Active 2024 Betsy chan, [facility] 5 09:01:50 Hypertens toan disorder 54305319 Active 2024 Betsy chan, [facility] 5 09:01:57 Glaucoma 16850727 Active 2024 Betsy chan, [facility] 5 09:02:04 Diabetes mellitus 10274003 Active 2024 [facility]rolled [facility] 5 09:02:21 Disorder of thyroid gland 41660938 Active 2024 Betsy chan [facility] 5 09:02:47 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 Procedures Surgical History Date Name Laterality Status Provider Name and Address Organization Details Recorded Time 024 Date of Last Mammogram completed NEHA ST MD [address] [facility] [address], [place], [address], [facility] 12/31/2024 08:48:25 017 colonoscopy completed Betsy Eli [facility] 12/31/2024 09:26:42 006 total replacement of hip completed Betsy Eli [facility] 12/31/2024 09:27:15 004 operative procedure on knee completed Betsy Eli [facility] 12/31/2024 09:27:37 [address] MD [address] [facility] [address], [place], [address], [facility] 12/31/2024 08:47:48 967 cholecystectomy completed Betsy Eli [facility] 12/31/2024 09:26:57 960 Appendectomy completed Betsy Eli [facility] 12/31/2024 09:26:10 Dilation and Curettage completed Betsy Eli [facility] 12/31/2024 09:24:24 biopsy of uterine ligament completed Betsy Eli [facility] 12/31/2024 09:26:03 Unlisted px femur/knee completed Not Available [facility] 01/15/2025 15:33:33 Appendectomy completed Not Available [facility] 01/15/2025 15:33:33 Laparoscopic cholecystectomy completed Not Available [facility] 01/15/2025 15:33:33 Biopsy of uterus lining completed Not Available [facility] 01/15/2025 15:33:33 dilation and curettage completed Not Available [facility] 01/15/2025 15:33:34 hysterectomy completed Not Available [facility] 01/15/2025 15:33:34 repair of hip completed Not Available [facility] 01/15/2025 15:33:34 total knee replacement completed Not Available [facility] 01/15/2025 15:33:34 colonoscopy completed Not Available [facility] 01/15/2025 15:33:34 Imaging Results None recorded. Procedure Notes None recorded. Medical Equipment None Reported. Allergies Allergen ID Allergen Name Allergen Category Reaction Reaction Severity Criticality Documentation Date Start Date Code Code System Note Provider Name and Address Organization Details Recorded Time 599519 adhesive tape environme nt,medica tion Not available Not available Not available 12/31/2024 80562 UNK Betsy chan [facility] 08:52:33 813970 Benicar medicatio n Not available Not available Not available 12/31/2024 95333 3 RxNorm Betsy Voellinge r null, [facility] 5 08:52:40 421357 lisinopri l medicatio n Not available Not available Not available 12/31/2024 73636 RxNorm Betsy Voellinge r null, [facility] 5 08:52:48 018557 morphine medicatio n Not available Not available Not available 12/31/2024 7052 RxNorm Betsy Voellinge r null, [facility] 5 08:53:16 Medications Name Sig Start [...] Body mass index (BMI) Body height Systolic And Diastolic Provider Name and Address Organization Details Last Updated DateTime 12/31/2024 05928.05 g 33.5 kg/m2 170.18 cm 142/88 mm[Hg] Betsy Eli [facility] 12/31/2024 09:18:08 Social History Question Answer Notes LastModified by [employer] Details LastModified Time Tobacco Smoking Status Never Smoker Betsy Eli null, [facility] 12/31/2024 09:21:39 What Is Your Relationship Status? Information not available 12/31/2024 Sex: Female Functional Status Question Answer Note LastModified by Organizat [employer] Details LastModified Time Do you use any [...] Malignant neoplastic disease Cancer brothe r - ludonatom ia brothe r -lung Not available 01/15/2025 17:58:53 Brother Hypertensive disorder High Blood Pressu re Not available 01/15/2025 17:58:54 Brother Heart disease Heart Diseas e Not available 01/15/2025 17:58:54 Brother Diabetes mellitus Diabet es Not available 01/15/2025 17:58:55 Sister Malignant neoplastic disease Cancer brothe r - luekem ia brothe r -lung Not available 01/15/2025 17:58:53 Sister Parkinson's disease Concrete son's Diseas e Not available 01/15/2025 17:58:54 Father Hypertensive disorder High Blood Pressu re Not available 01/15/2025 17:58:54 Father Heart disease Heart Diseas e Not available 01/15/2025 17:58:55 Mother Parkinson's disease Concrete son's Diseas e Not available 01/15/2025 17:58:54 [...] Recorded Time SARS-COV-2 (COVID-19) vaccine, UNSPECIFIED 09/17/2020 [facility] Betsy Eli [facility] 12/31/2024 08:53:39 Hep B, unspecified formulation 05/25/2016 completed Betsy chan [facility] 12/31/2024 08:53:53 Past Encounters Encounter ID Performer Location Encounter Start Date Encounter Closed Date Diagnosis/Indication Diagnosis SNOMED-CT Code Diagnosis ICD10 Code Diagnosis Note [id number] NEHA ST MD [id number] [address] [address] 12/31/2024 08:44:59 12/31/2024 09:52:55 Screening mammography 92598910 Z12.31 Gynecologi c examination 54163203 Z01.419 Malignant tumor of kidney 960818672 C64.9 Osteoporosis 55803878 M8 1.0 Health Concerns Section Related Observation LastModified by Organization Detai ls LastModified Time None Recorded Concern Status LastModified by Organization Details LastModified Time None Recorded Advance Directives Directive None Recorded Payers Insurance Date Sequence Insurance Name Policy Number Policy Moreland Covered Member ID Moreland Member ID Guarantor Name 01/08/2025 2 [place] [id number] Mary Ellen Robles [id number] Mary Ellen Atkinson Margaret 12/31/2024 1 [place] Mary Ellen Atkinson Margaret [id number] Mary Ellen Atkinson Margaret Notes Date Note Type Note Provider Name and Address Organization Details Recorded Time 12/31/2024 text/html 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 Dunham in [place] rx reclast and has done PT for balance too. got some ED meds from [facility] and pt wants to resume SA, has not since her treatment, ok to do so based on my exam and be patient, sometimes leaks at night only NEHA ST MD [address], [place], [address], [facility] 12/31/2024 09:33:35 OBGyn Episode No OBEpisode recorded.
--- OUTSIDE RECORDS SUMMARY | 2025-02-11 08:10 | XMS_ITS | Clinical Summary ---
Author Organization [facility] Ereva miller [facility] Address [address] [place] [address] Care Team Providers Care Compact Assembler Name Role Phone Peyton Andre MD Primary Care Provider [phone] Allergies Active Allergy Reactions Criticality Noted Date Comments Adhesive Hives High 07/26/2015 Aspirin Other (See Comments) Medium 10/10/2023 Peptic Ulcers Clindamycin Diarrhea Low 04/30/2023 Ezetimibe Muscle Pain Medium 06/25/2023 Latex Rash Medium 01/03/2021 Morphine Rash,Unknown Medium 07/26/2015 Tbskzad-Dco-Rug Reductase Inhibitors Muscle Pain Medium 10/14/2020 Medications [...] ORAL Take by mouth. Active Vit C-Vit B-Ianjku-FhUo-L utein (PRESERVISION) 226-90-0.8-5 mg Capsule Take 1 [...] Data STL ABSTRACTION Provider, Abstract 01/16/2025 Abstract [facility] - [place] [address] [place] [address] Riki Garcia MD 12/30/2024 External Device Data STL ABSTRACTION Provider, Abstract 12/05/2024 Orders Only [facility] - [place] [address] [address] [place] [address] Riki Garcia MD 12/04/2024 9:00 AM CDT Office Visit [facility] [place] [address] [address] [place] [address] Riki Garcia MD Malignant neoplasm of ureter, unspecified laterality (CMS/HCC) (Primary Dx) 12/03/2024 External Device Data STL ABSTRACTION Provider, Abstract 12/01/2024 Orders Only [facility] - [place] [address] [place] [address] Riki Garcia MD Malignant neoplasm of ureter, unspecified laterality (CMS/HCC) 11/27/2024 Orders Only [facility] - [place] [address] [place] [address] Riki Garcia MD 11/17/2024 Orders Only [facility] - [place] [address] [place] [address] Riki Garcia MD Malignant neoplasm of ureter, [...] on file 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 [address] [place] [address] Riki Garcia MD [address] [facility] [address] [place] [address] Health Maintenance Due Date Last [...] PCV21) 08/25/2024 08/25/2019, 09/17/2006 OSTEOPOROSIS SCREENING 10/02/2029 5, 10/02/2024, 08/27/2023, Additional history exists DTAP/TDAP/TD VACCINES [...] Result from Last [address] [place] [address] MEDICARE PART A AND B [facility] Care Teams Compact Assembler Relationship Specialty Start Date End Date Peyton Andre MD [address] [place] [address] Dr [address] [place] [address] PCP - General Family Practice 09/26/23
--- OUTSIDE RECORDS SUMMARY | 2025-02-11 08:10 | XMS_ITS | Continuity of Care Document ---
Author Organization [facility] Address [address] [place] [address] [address] [place] [address] Phone Care Team Providers Care Sales Outfitter Name Role Phone Fatuma Snyder Unavailable Unavailable Advance Directives Directive Yes / No Effective Date File Name No Information Encounters Encounter Description Practice Location Reason(s) For Visit Diagnoses Date Provider Providers Copied on Encounter [facility], [address], [place], [place], [address], [place] tel:[phone] [facility] No Information [phone] Lillian Burris. [address] , [address], [place], [address], [place]. tel:[phone] Family History Family Member Type Diagnosis Age At Onset No Information Payers Payer name Insurance type Covered constitution party ID Authoriza timeena(s) [facility] CI [id number] Social History Type Description Quantity Date Captured [...]
--- OUTSIDE RECORDS SUMMARY | 2025-02-11 08:10 | XMS_ITS | Encounter Summary ---
Author Organization [facility] Health Address [address] [place] [address] Care Team Providers Care Rail Track Maintainer Name Role Phone Maury Mcgarry MD Unavailable [phone] Brenda Durbin MD Primary Care Provider + [phone] Valencia Luna MD Primary Care Provider [phone] Gregory Cook MD Unavailable [phone] Brenda Durbin MD Primary Care Provider [phone] [facility]ilia [facility] Primary Care Provider + Encounter Details Date Type Department Care Team (Late st Contact Info) Description 01/14/2018 [facility] [address] [place] [address] [place] [address] [address] Social History Tobacco Use Types Packs/Day Years Used Date Smoking Tobacco: Never Smokeless Tobacco: Never Alcohol Use Standard Drinks/Week Comments Yes 0 (1 standard drink = 0.6 oz pur e alcohol) Comments Unknown Sex and Gender Information Value Date Recorded Sex Assigned at Not on file 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 [place] [address] PCP - General Family Medicine 10/29/19 07/02/22 Brenda Durbin MD [address] [address] PCP - General 07/03/22 08/15/22 Emilia Brown APRN-[facility] [address] [address] PCP - General 08/16/22 [place] [address] [facility] [address] [place], [place] [address] Orthopedic Surgery 07/26/15 Gregory Cook MD [facility] [address] [place], [place] [address] Cardiovascular Disease 12/03/19 documented as of this encounter
--- OUTSIDE RECORDS SUMMARY | 2025-02-11 08:11 | XMS_ITS | Clinical Summary ---
Author Organization [facility] Address [address] [facility] [place] [address] Care Team Providers Care Auto Body Worker Name Role Phone Maury Mcgarry MD Unavailable [phone] Gregory Cook MD Unavailable [phone] Emilia Brown APRN-BANKING SERVICES CLERK Primary Care Provider + Source Comments [facility],non-owned Affiliates and Associated Physician Practices is amultiple site organization consisting of ambulatory clinics and hospital sitesin [place], [place], [place] and [place]. This disclosure is being madepursuant to the Care Everywhere program and may not contain all information available regarding this patient. 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 Left: Knee [employer] 02/14/2019 600-15-100 / / [id number] Cmpnt Ptlr 28mm 1 Pg Wire Ascnt Arcm Kn Implanted:Qty: 1 on 02/04/2018 by Maury Mcgarry MD at [facility] Left: Knee [employer] 12/28/2022 [id number] / / [id number] Tray Tib 75mm Kn Cocr I Beam Implanted:Qty: 1 on 02/04/2018 by Maury Mcgarry MD at [facility] Left: Knee [employer] 10/21/2027 [id number] / / [id number] Cmpnt Fem Kn Lt Cr Cmnt Prm Vngrd Intlk Implanted:Qty: 1 on 02/04/2018 by Maury Mcgarry MD at [facility] Left: Knee [employer] 12/14/2027 [id number] / / [id number] Brng [id number] Vngrd Arcm Kn Ant Stab Implanted:Qty: 1 on 02/04/2018 by Maury Mcgarry MD at [facility] Left: Knee [employer] 10/31/2022 [id number] / / [id number] Brng [id number] Vngrd Arcm Kn Ant Stab Implanted:Qty: 1 on 01/24/2021 by Maury Mcgarry MD at [facility] Right: Knee [employer] 05/30/2024 [id number] / / [id number] Cmpnt Fem Kn Rt Cr Cmnt Prm Vngrd Intlk Implanted:Qty: 1 on 01/24/2021 by Maury Mcgarry MD at [facility] Right: Knee [employer] 11/15/2030 [id number] / / [id number] Wale Bone [place] Bernard-G Hv 40/20 Implanted:Qty: 1 on 01/24/2021 by Maury Mcgarry MD at [facility] Right: Knee [employer] 08/28/2021 600-15-100 / / [id number] Tray Tib 79mm Kn Cocr I Beam Implanted:Qty: 1 on 01/24/2021 by Maury Mcgarry MD at [facility] Right: Knee [employer] 03/02/2030 [id number] / / [id number] Cmpnt Ptlr 28mm 1 Pg Wire Ascnt Arcm Kn Implanted:Qty: 1 on 01/24/2021 by Maury Mcgarry MD at [facility] Right: Knee [employer] 12/28/2022 [id number] / / [id number] Procedures Procedure Name Priority Date/Time Associated Diagnosis [...] The following cutoff levels are recommended by [place] [employer]. A1c > 6.5% : considered [...] exceeds 5% in the specimen. Sandra Farrell IRONWORKER APPRENTICE-BANKING SERVICES CLERK LAB - CHEMISTRY ORDER GELY Final Result [facility] [address] [place] [address] * (ABNORMAL) COMPREHENSIVE METABOLIC PANEL (01/03/2021 1:38 PM CDT) Pathologist [facility] Glucose 98 70 - 105 mg/dL 01/03/2021 2:02 PM CDT [facility] Sodium 139 136 - 145 mmol/L 01/03/2021 2:02 PM CDT [facility] Potassium 4.1 3.5 - 5.1 mmol/L 01/03/2021 2:02 PM CDT [facility] Chloride 107 98 - 107 mmol/L 01/03/2021 2:02 PM CDT [facility] CO2 26 23 - 31 mmol/L 01/03/2021 2:02 PM CDT [facility] Calcium 9.0 8.4 - 10.4 mg/dL 01/03/2021 2:02 PM CDT [facility] Anion Gap 6(L) 8 - 18 mmol/L 01/03/2021 2:02 PM CDT [facility] Comment:Attention clinician: Reference Range change. BUN 16 9.8 - 20.1 mg/dL 01/03/2021 2:02 PM CDT [facility] Creatinine 0.71 0.57 - 1.11 mg/dL 01/03/2021 2:02 PM CDT [facility] Alkaline Phosphatase 99 40 - 150 U/L 01/03/2021 2:02 PM CDT [facility] Comment:Attention clinician: Reference Range change. [...] CDT 01/03/2021 1:44 PM CDT Sandra Farrell IRONWORKER APPRENTICE-BANKING SERVICES CLERK LAB - CHEMISTRY ORDER GELY Final Result [facility] [address] [place] [id number] from Last 3 Months or Most Recently Relevant to Health Maintenance [place] [address] MEDICARE [facility] MEDICARE MEDICARE MEDICARE MEDICARE ANTHEM Advance Directives Documents on File Type Date Recorded Patient Value Stream Coach Expl anation Adv Directive/Living Will/POA 01/11/2018 10:24 AM [place] POA * Full Code (Latest Code Status on File) Date Activated Date Inactivated Comments 01/24/2021 11:38 AM 01/26/2021 3:15 PM * Full Code Date Activated Date Inactivated Comments 02/04/2018 11:32 AM 02/07/2018 1:39 PM Care Teams Auto Body Worker Relationship Specialty Start Date End Date Emilia Brown APRN-RYAN [address] [phone] PCP - General 08/16/22 [place] [address] [address] [address] Orthopedic Surgery 07/26/15 Gregory Cook MD [address] [place] [address] [place] [address] Cardiovascular Disease 12/03/19
--- OUTSIDE RECORDS SUMMARY | 2025-02-11 08:11 | XMS_ITS | Referral Summary ---
Author Organization [facility] [address] [facility] [address] Address [address] [place] [address] Care Team Providers Care Linoleum Layer Helper Name Role Phone Peyton Andre MD Primary Care Provider + Allergies Active Allergy Reactions Criticality Noted Date Comments Adhesive Hives Medium 07/26/2015 Adhesive Tape-Silicones Unknown 07/26/2015 Aspirin Other (See comments) Medium Peptic Ulcers Clindamycin Diarrhea Low 04/30/2023 Latex Rash Medium 01/03/2021 Morphine Unknown 07/26/2015 Vpvgukk-Mrf-Zqm Reductase Inhibitors Muscle pain Medium 10/14/2020 Ezetimibe [...] ulcer 09/11/2019 PSVT (paroxysmal supraventricular tachycardia) ( [facility]/HCC) 11/29/2017 Preoperative cardiovascular examination 08/15/20 17 Gastroduodenal [...] on file 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 Care Teams Linoleum Layer Helper Relationship Specialty Start Date End Date Peyton Andre MD PCP - General Family Medicine 10/18/22
--- OUTSIDE RECORDS SUMMARY | 2025-02-11 08:11 | XMS_ITS | Encounter Summary ---
Author Organization [facility] Healthcare Address [address] [place] [address] Care Team Providers Care Medical Review Specialist Name Role Phone Emilia Brown NP Primary Care Provider [phone] Peyton Andre MD Primary Care Provider + Encounter Details Date Type Department Care Team (Late st Contact Info) Description 07/29/2020 Telephone [facility] [address] [place] [address] Dmitri Patel, RT Social History Tobacco Use Types Packs/Day Years Used Date Smoking Tobacco: Never Smokeless Tobacco: Never Alcohol Use Standard Drinks/Week Comments Yes 0 (1 standard drink = 0.6 oz pur e alcohol) Comments Unknown Sex and Gender Information Value Date Recorded Sex Assigned at Not on file 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
--- OUTSIDE RECORDS SUMMARY | 2025-02-11 08:11 | XMS_ITS | Clinical Summary ---
Author Organization [facility] [address] [facility] [address] Address [address] [place] [address] Care Team Providers Care Supervisor Electronics Assembly Name Role Phone Peyton Andre MD Primary Care Provider + Allergies Active Allergy Reactions Criticality Noted Date Comments Adhesive Hives Medium 07/26/2015 Adhesive Tape-Silicones Unknown 07/26/2015 Aspirin Other (See comments) Medium Peptic Ulcers Clindamycin Diarrhea Low 04/30/2023 Latex Rash Medium 01/03/2021 Morphine Unknown 07/26/2015 Rrcmyix-Maf-Jpt Reductase Inhibitors Muscle pain Medium 10/14/2020 Ezetimibe [...] ulcer 09/11/2019 PSVT (paroxysmal supraventricular tachycardia) ( [facility]) 11/29/2017 Preoperative cardiovascular examination 08/15/20 17 [...] on file 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
== END 2025-02-11 08:07 | disposition home or self-care (01) ==
PROVIDERS: PCP Family Medicine; Visit Provider Internal Medicine
DX: E04.2 Nontoxic multinodular goiter (principal); E78.2 Mixed hyperlipidemia; M81.0 Age-related osteoporosis without current pathological fracture; R73.03 Prediabetes; I10 Essential (primary) hypertension
CPT/HCPCS: 76536

== ENCOUNTER 2025-03-09 10:30 | Outpatient (RCR) | payer MEDICARE, SELFPAY ==
--- NOTE | 2025-02-04 12:43 | PCPTNOTE ---
The treatment documented on this account is a continuation of the treatment documented on visit number [id number]. Please see documentation on both accounts to view progress. The Plan of Care has been transitioned and updated within the new V#. I have addressed and agree with the discipline specific Problems, Interventions, and Goals for the current certification period. Completed interventions, outcomes, and problems have been marked as Inactive to facilitate the copying of the Care plan routine for recurring accounts.
--- NOTE | 2025-02-26 08:50 | PCPTNOTE ---
Pt called to cancel her appointment due to having a to attend
--- NOTE | 2025-03-10 16:42 | PTOPDC ---
Assessment and note entered by Marti Grewal, PT Evaluation Information Assessment Status Discharge Diagnosis R29.6, R26.89, M54.6, M25.511 ICD-10 Condition Codes (PT) Pain in Thoracic Spine M54.6,Pain in right shoulder M25.511,Abnormalities of gait and mobility R26.9,Weakness R53.1 Subjective Information Pt reports upper back and shoulder blade still hurts and has a burning, once in a while. Pt reports feels at times like she has improved and sometimes doesn't feel she has improved. Pt reports can do activities but it hurts afterwards. Could feel a pull on her shoulder. Improvement: 50-60% better Goes away then comes back Right shoulder still pops with walking and swinging arms. Reports is able to walk almost a mile now, hasn't gone any farther than that. Reports no difficulty in right hip with this. Had discomfort in right hip with going to bed last night. Sitting for any length of time without moving is bothersome to the hip Improvement: 50-60% Was better after the alignment last session. Balance is pretty good. Swears she thinks others think she is drunk when she is walking. Reports was improved after aligning last session Has to be careful what shoes she wears and what she wears around the house. Reported Pain Level Pain Score 7,0: Self Report Assessment PT Clinical Summary Pt has attended therapy consistently for balance, right shoulder blade/thoracic/shoulder pain, and right sided hip/low back pain. She reports she has improved in these but reports only 50-60% improvement overall. Also continues to report high levels of discomfort though she reports these areas feel better. Pt is somewhat consistent with her home program though does have difficulty maintaining appropriate scapular postural position at all times. After last session with pelvic alignment, she reports she felt more improved in her balance and pain. She reports she has ordered an SI belt to assist in maintaining pelvic alignment and also today was encouraged to add a second layer heel lift to her left shoe to account for leg length discrepancy. Today it was discussed pt appears to have plateaued in her progress with her shoulder. Though she has also improved in her strength in her hips, it was decided pt would attempt to continue progression independently with her HEP for a time as she will be having vacations coming soon. Thus we are discharging patient at this time. Plan of Care PT Services Indicated No
== END 2025-03-11 11:20 | disposition home or self-care (01) ==
LOC: ANHHIPT 10:30
PROVIDERS: PCP Internal Medicine; Visit Provider Internal Medicine
DX: R29.6 Repeated falls (principal); R26.89 Other abnormalities of gait and mobility; M25.511 Pain in right shoulder; M19.011 Primary osteoarthritis, right shoulder; M51.34 Other intervertebral disc degeneration, thoracic region
CPT/HCPCS: 97014; 97110; 97112; 97140; 97530; 97750; G0283

== ENCOUNTER 2025-04-14 09:17 | Outpatient (CLI) | payer MEDICARE, SELFPAY ==
--- OUTSIDE RECORDS SUMMARY | 2025-04-14 09:27 | XMS_ITS | Continuity of Care Document ---
Author Organization [facility] Address [address] [place] [address] [address] [place] [address] Phone Care Team Providers Care Tape Folding Machine Operator Name Role Phone Fatuma Snyder Unavailable Unavailable Advance Directives Directive Yes / No Effective Date File Name No Information Encounters Encounter Description Practice Location Reason(s) For Visit Diagnoses Date Provider Providers Copied on Encounter [facility], [address], [place], [place], [id number], [place] tel:[phone] [facility] No Information [phone] Lillian Burris. [address] , [address], [place], [address], [place]. tel:[phone] Family History Family Member Type Diagnosis Age At Onset No Information Payers Payer name Insurance type Covered republican ID Authoriza timeena(s) [facility] CI [id number] Social History Type Description Quantity Date Captured [...]
--- OUTSIDE RECORDS SUMMARY | 2025-04-14 09:27 | XMS_ITS | Encounter Summary ---
Author Organization [facility] Health Address [address] [place] [address] Care Team Providers Care Legal Researcher Name Role Phone Maury Mcgarry MD Unavailable [phone] Brenda Durbin MD Primary Care Provider [phone] Valencia Luna MD Primary Care Provider [phone] Gregory Cook MD Unavailable [phone] Brenda Durbin MD Primary Care Provider [phone] Emilia Brown [facility]UL [facility]. [facility] Primary Care Provider + Encounter Details Date Type Department Care Team (Late st Contact Info) Description 01/14/2018 [facility] Outpatient Visit 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 [address] [place] [address] PCP - General Family Medicine 10/29/19 07/02/22 Brenda Durbin MD [address] [address] PCP - General 07/03/22 08/15/22 Emilia Brown [facility] [address] [address] PCP - General 08/16/22 [place] [address] [facility] [address] [place], [place] [address] Orthopedic Surgery 07/26/15 Gregory Cook MD [facility] [address] [place], [place] [address] Cardiovascular Disease 12/03/19 documented as of this encounter
--- OUTSIDE RECORDS SUMMARY | 2025-04-14 09:27 | XMS_ITS | Data Portability ---
Author Organization [id number] Address [address] [place] [address] Assessment No assessment recorded. Plan of Treatment Reminders Order Date Submit Date Provider Last Modified By Organization Details Last Modified Time Details Appointments ANNUAL- EST 15 2025 10:15A M BRAD IGNACIO MD Not available Not available Not available Lab None recorded. Referral None recorded. Procedures None recorded. Surgeries None recorded. Imaging MAMMO, screening , tomosynth esis, bilateral 2024 025 [facility] [place], [address] [place], [address], 01/14/2025 10:36:08 Medication Orders None recorded. Patient TargetsNo targets recorded. Patient InstructionsNo instructions recorded. Reason for Referral None Reported. Results Created Date Observation Date Name Description Value Unit Range Abnormal Flag Note LastModifiedBy Organization Detail LastModifiedTime 02/12/2002/10/2025 MAMMO , scree helder, tomos ynthe sis, bilat eral No observ ation record ed. [facility] [address] [place] [address], [address], 02/11/2025 12:13:24 Result Notes None recorded. 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 chemothera py NEHA ST MD [address], [place], [address] , [facility] 5 08:46:48 Osteoporo sis 31998036 Active ADP referred pt to endocrinol ognani [address] MD [address], [place], [address] , [facility] 5 08:47:05 Age related macular degenerat ion 278247582 Active Macular Degenerati on (senile) Of Retina, Problem Code: 362.50; Problem Code Type: ICD-9; Not Available [facility] 5 12:53:58 Essential hypertens ion 82166002 Active High Blood Pressure, Problem Code Descriptio n: 'High Blood Pressure'; Not Available [facility] 5 12:53:58 Migraine 20455498 Active 2024 [facility] 5 09:01:38 Degenerat toan disorder of macula 592879204 [facility] 2024 [facility] 5 09:01:50 Hypertens toan disorder 96272361 [facility] 2024 [facility] 5 09:01:57 Glaucoma 80847164 Active 2024 [facility] 5 09:02:04 Diabetes mellitus 69405860 Active 2024 Controlled by diet [facility] 5 09:02:21 Disorder of thyroid gland 62567860 Active 2024 Betsy chan, [facility] 5 09:02:47 Problem Notes None recorded. Procedures Surgical History Date Name Laterality Status Provider Name and Address Organization Details Recorded Time 025 Date of Last Mammogram completed NEHA ST MD [address], [place], [address], [facility] 02/11/2025 09:36:01 017 colonoscopy [facility] 12/31/2024 09:26:42 006 total replacement of hip [facility] 12/31/2024 09:27:15 004 operative procedure on knee [facility] 12/31/2024 09:27:37 [address] MD [address], [place], [address], [facility] 12/31/2024 08:47:48 967 cholecystectomy completed [facility] 12/31/2024 09:26:57 960 [facility] 12/31/2024 09:26:10 Dilation and Curettage completed [facility] 12/31/2024 09:24:24 biopsy of uterine ligament completed [facility] 12/31/2024 09:26:03 Unlisted px femur/knee completed Not Available [facility] 01/15/2025 15:33:33 Appendectomy completed Not Available [facility] 01/15/2025 15:33:33 Laparoscopic cholecystectomy completed Not Available [facility] 01/15/2025 15:33:33 Biopsy of uterus lining completed Not Available [facility] 01/15/2025 15:33:33 dilation and curettage completed Not Available [facility] 01/15/2025 15:33:34 hysterectomy completed Not Available [facility] 01/15/2025 15:33:34 repair of hip completed Not Available [facility] 01/15/2025 15:33:34 total knee replacement completed Not Available [facility] 01/15/2025 15:33:34 colonoscopy completed Not Available [facility] 01/15/2025 15:33:34 Imaging Results None recorded. Procedure Notes None recorded. Medical Equipment None Reported. Allergies Allergen ID Allergen Name Allergen Category Reaction Reaction Severity Criticality Documentation Date Start Date Code Code System Note Provider Name and Address Organization Details Recorded Time 756070 adhesive tape environme nt,medica tion Not available Not available Not available 12/31/2024 53804 UNK Betsy Voellinge r null, [place] - [facility] 5 08:52:33 877128 Benicar medicatio n Not available Not available Not available 12/31/2024 04685 3 RxNorm Betsy Voellinge r null, [place] - [facility] 5 08:52:40 825625 lisinopri l medicatio n Not available Not available Not available 12/31/2024 19202 RxNorm Betsy Voellinge r null, [place] - [facility] 5 08:52:48 070752 morphine medicatio n Not available Not available Not available 12/31/2024 7052 RxNorm Betsy Voellinge r null, [place] - [facility] 5 08:53:16 Medications Name Sig [...] Address Organization Details Last Updated DateTime 12/31/2024 04246.05 g 33.5 kg/m2 170.18 cm 142/88 mm[Hg] Betsy Eli [facility] 12/31/2024 09:18:08 Social History Question Answer Notes LastModified by [employer] Details LastModified Time Tobacco Smoking Status Never Smoker Betsy Eli [facility] 12/31/2024 09:21:39 What Is Your Relationship Status? Information not available 12/31/2024 Sex: Female Functional Status Question Answer Note LastModified by [employer] Details LastModified Time Do you use any [...] Not available 01/15/2025 17:58:53 Sister Parkinson's disease Shai son's Diseas e Not available 01/15/2025 17:58:54 Father Hypertensive disorder High Blood Pressu re Not available 01/15/2025 17:58:54 Father Heart disease Heart Diseas e Not available 01/15/2025 17:58:55 Mother Parkinson's disease [place] son's Diseas e Not available 01/15/2025 17:58:54 Medical History Condition Response Cancer- Genetic screening Eyes- Glaucoma Y Ortho-Other Neurology- Headaches/Migraines Y Cardiology- High Blood Pressure Y Endocrinology- Thyroid Problems Y Endocrinology- Diabetes Y Gynecological History Statement/Question Response Post Menopausal Hormone Therapy User Nev er Date of Last Colonoscopy Flow Heavy Date of Last Mammogram 02/10/2025 Date of LMP 09/17/1966 Current Control Method: [...] SARS-COV-2 (COVID-19) vaccine, UNSPECIFIED 09/17/2020 completed Betsy chan [facility] 12/31/2024 08:53:39 Hep B, unspecified formulation 05/25/2016 completed Betsy chan [facility] 12/31/2024 08:53:53 Past Encounters Encounter ID Performer Location Encounter Start Date Encounter Closed Date Diagnosis/Indication Diagnosis SNOMED-CT Code Diagnosis ICD10 Code Diagnosis Note [id number] NEHA ST MD [id number] [facility] [address] [facility] [place] [address] 12/31/2024 08:44:59 12/31/2024 09:52:55 Screening mammography 89965448 Z12.31 Gynecologi c examination 34970851 Z01.419 Malignant tumor of kidney 031178045 C64.9 Osteoporosis 97870969 M8 1.0 Health Concerns Section Related Observation LastModified by Organization Detai ls LastModified Time None Recorded Concern Status LastModified by Organization Details LastModified Time None Recorded Advance Directives Directive None Recorded Payers Insurance Date Sequence Insurance Name Policy Number Policy More[place] Covered Member ID More[place] Member ID Guarantor Name 01/08/2025 2 [place] [id number] Mary Ellen Robles [id number] Mary Ellen Robles 12/31/2024 1 [place] Mary Ellen Robles [id number] Mary Ellen Robles OBGyn Episode No OBEpisode recorded.
--- OUTSIDE RECORDS SUMMARY | 2025-04-14 09:27 | XMS_ITS | Clinical Summary ---
Author Organization [facility] Address [address] [place] [address] Care Team Providers Care Furrier Designer Name Role Phone Peyton Andre MD Primary Care Provider [phone] Allergies Active Allergy Reactions Criticality Noted Date Comments Adhesive Hives High 07/26/2015 Aspirin Other (See Comments) Medium 10/10/2023 Peptic Ulcers Clindamycin Diarrhea Low 04/30/2023 Ezetimibe Muscle Pain Medium 06/25/2023 Latex Rash Medium 01/03/2021 Morphine Rash,Unknown Medium 07/26/2015 Sxndpje-Smb-Tbc Reductase Inhibitors Muscle Pain Medium 10/14/2020 Medications [...] ORAL Take by mouth. Active Vit C-Vit P-Vpneba-PoUt-L utein (PRESERVISION) 226-90-0.8-5 mg Capsule Take 1 [...] Encounters Date Type Department Care Team Description 04/01/2025 External Device Data [facility] Provider, Abstract 03/31/2025 External Device Data [facility] Provider, Abstract 03/03/2025 External Device Data [facility] Provider, Abstract 01/20/2025 External Device Data [facility] Provider, Abstract 01/16/[address] 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 - [place] [address] [place] [address] Riki Garcia MD [address] [facility] [address] [place] [address] Health Maintenance Due Date Last Done Comments DIABETES ANNUAL FOOT EXAM 02/06/1960 DIABETES MICROALBUMIN ANNUAL SCREEN 02/06/1960 LDL CHOLESTEROL ANNUAL 02/06/1960 ZOSTER VACCINE (1 of 2) 02/06/1992 RSV VACCINE (60+ or ) (1 - 1-dose 75+ series) 2017 DIABETES ANNUAL RETINAL EXAM 10/06/2023, 11/02/2021, 09/13/2021, Additional history exists PNEUMOCOCCAL VACCINE 50+ YEA RS (3 of 3 - PCV20 or PCV21) 08/25/2024 08/25/2019, 09/17/2006 DIABETES HBA1C Q 6 MONTHS 04/13/20252024, 06/27/2023, 04/12/2023, Additional history exists INFLUENZA VACCINE (#1) 2025 OSTEOPOROSIS SCREENING 10/02/2029 , 10/02/2024, 08/27/2023, Additional history exists DTAP/TDAP/TD VACCINES (4 - T d or Tdap) 06/14/2030 06/14/2020, 03/15/2015, 03/14/[address] [facility] [id number] MEDICARE PART A AND B BCBS SUPP Care Teams Furrier Designer Relationship Specialty Start Date End Date Peyton Andre MD [address] [place] [address] [address] [place] [address] PCP - General Family Practice 09/26/23
--- OUTSIDE RECORDS SUMMARY | 2025-04-14 09:28 | XMS_ITS | Encounter Summary ---
Author Organization [facility] Healthcare Address [address] [place] [address] Care Team Providers Care Fishing Vessel Captain Name Role Phone Emilia Brown NP Primary Care Provider [phone] Peyton Andre MD Primary Care Provider + Encounter Details Date Type Department Care Team (Late st Contact Info) Description 07/29/2020 Telephone [facility] [address] [place] [address] Dmitri Patel, RT Social History Tobacco Use Types Packs/Day Years Used Date Smoking Tobacco: Never Smokeless Tobacco: Never Alcohol Use Standard Drinks/Week Comments Yes 0 (1 standard drink = 0.6 oz pur e alcohol) Comments Unknown Sex and Gender Information Value Date Recorded Sex Assigned at Not on file 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
--- OUTSIDE RECORDS SUMMARY | 2025-04-14 09:28 | XMS_ITS | Referral Summary ---
Author Organization [facility] [place] [address] [facility] [address] Address [address] [place] [address] Care Team Providers Care Armhole Sewer Name Role Phone Peyton Andre MD Primary Care Provider + Allergies Active Allergy Reactions Criticality Noted Date Comments Adhesive Hives Medium 07/26/2015 Adhesive Tape-Silicones Unknown 07/26/2015 Aspirin Other (See comments) Medium Peptic Ulcers Clindamycin Diarrhea Low 04/30/2023 Latex Rash Medium 01/03/2021 Morphine Unknown 07/26/2015 Byntvdq-Mcm-Mhw Reductase Inhibitors Muscle pain Medium 10/14/2020 Ezetimibe [...] ulcer 09/11/2019 PSVT (paroxysmal supraventricular tachycardia) ( [facility]/HCC) 11/29/2017 Preoperative cardiovascular examination 08/15/20 17 [...] on file 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
--- OUTSIDE RECORDS SUMMARY | 2025-04-14 09:28 | XMS_ITS | Clinical Summary ---
Author Organization [facility] [place] [address] [facility] [address] Address [address] [place] [address] Care Team Providers Care Linen Keeper Name Role Phone Peyton Andre MD Primary Care Provider + Allergies Active Allergy Reactions Criticality Noted Date Comments Adhesive Hives Medium 07/26/2015 Adhesive Tape-Silicones Unknown 07/26/2015 Aspirin Other (See comments) Medium Peptic Ulcers Clindamycin Diarrhea Low 04/30/2023 Latex Rash Medium 01/03/2021 Morphine Unknown 07/26/2015 Qqsiyym-Tnh-Cgr Reductase Inhibitors Muscle pain Medium 10/14/2020 Ezetimibe [...] ulcer 09/11/2019 PSVT (paroxysmal supraventricular tachycardia) ( [facility]/HCC) 11/29/2017 Preoperative cardiovascular examination 08/15/20 17 [...] on file Legal Sex Female 6:50 AM OB/GYN Gender Identity Not on file Sexual Orientation [...] or PCV21) 08/25/2024 08/25/2019, 09/17/2006 Influenza Vaccine (#1) 2025 Osteoporosis Screening-Bone Density Scan 08/27/2025 08/27/2023, [...] Recently Relevant to Health Maintenance [place] [address] MEDICARE [facility] MEDICARE [facility] MEDICARE BLUE [facility] [place] Care Teams Linen Keeper Relationship Specialty Start Date End Date Peyton Andre MD PCP - General Family Medicine 10/18/22
--- OUTSIDE RECORDS SUMMARY | 2025-04-14 09:28 | XMS_ITS | Clinical Summary ---
Author Organization [facility] Address [address] [facility] [place] [address] Care Team Providers Care Dough Scaler And Mixer Name Role Phone Maury Mcgarry MD Unavailable [phone] Gregory Cook MD Unavailable [phone] Emilia Brown APRN-TOOL ADJUSTER Primary Care Provider + Source Comments [facility],non-owned Affiliates and Associated Physician Practices is amultiple site organization consisting of ambulatory clinics and hospital sitesin [place], [place], [place] and [place]. This disclosure is being madepursuant to the Care Everywhere program and may not contain all information available regarding this patient. Last updated 18.[facility] Allergies Active Allergy Reactions Criticality Noted [...] 10/19/2015 Immunizations Immunization Administration Dates Next Due Dónde primary monoval ent 12+ yr 0.3mL Purple [...] on file Legal Sex Female 6:02 AM MUFFLER HAND Gender Identity Not on file Sexual Orientation [...] PNEUMOCOCCAL VACCINE 50+ (2 of 2 - PPSV23, PCV20, or PCV21) 10/20/2019 08/25/2019 DIABETES-HGB A1C 07/05/2021 01/03/2021, 10/29/2019 DIABETES-SERUM CREATININE 01/03/20222020, 10/29/2019, 01/11/2018 COVID-19 VACCINE (3 - 2023-2 5 season) 2024 12/23/2020, 12/02/2020 DEPRESSION SCREENING 09/17/2024 DIABETES - URINE PROTEIN SCREENING 09/17/2024 INFLUENZA VACCINE (#1) 2025 DTAP/TDAP/TD VACCINES (3 - T d [...] this topic Medical Devices Implanted Type Area Electrical Accessories Ii Assembler Device Identifier Shelf Expiration Date Model / Serial / Lot Wale Bone Zenda-G Hv 40/20 Implanted:Qty: 1 on 02/04/2018 by Maury Mcgarry MD at [facility] Left: Knee [employer] 02/14/2019 600-15-100 / / [id number] Cmpnt Ptlr 28mm 1 Pg Wire Ascnt Arcm Kn Implanted:Qty: 1 on 02/04/2018 by Maury Mcgarry MD at [facility] Left: Knee [employer] 12/28/2022 [id number] / / [id number] Tray Tib 75mm Kn Cocr I Beam Implanted:Qty: 1 on 02/04/2018 by Maury Mcgarry MD at [facility] Left: Knee [employer] 10/21/2027 [id number] / / [id number] Cmpnt Fem Kn Lt Cr Cmnt Prm Vngrd Intlk Implanted:Qty: 1 on 02/04/2018 by Maury Mcgarry MD at [facility] Left: Knee [employer] 12/14/2027 [id number] / / [id number] Brng [id number] Vngrd Arcm Kn Ant Stab Implanted:Qty: 1 on 02/04/2018 by Maury Mcgarry MD at [facility] Left: Knee [employer] 10/31/2022 [id number] / / [id number] Brng [id number] Vngrd Arcm Kn Ant Stab Implanted:Qty: 1 on 01/24/2021 by Maury Mcgarry MD at [facility] Right: Knee [employer] 05/30/2024 [id number] / / [id number] Cmpnt Fem Kn Rt Cr Cmnt Prm Vngrd Intlk Implanted:Qty: 1 on 01/24/2021 by Maury Mcgarry MD at [facility] Right: Knee [employer] 11/15/2030 [id number] / / [id number] Wale Bone Zenda-G Hv 40/20 Implanted:Qty: 1 on 01/24/2021 by Mauyr Mcgarry MD at [facility] Right: Knee [employer] 08/28/2021 600-15-100 / / [id number] Tray Tib 79mm Kn Cocr I Beam Implanted:Qty: 1 on 01/24/2021 by Maury Mcgarry MD at [facility] Right: Knee [employer] 03/02/2030 [id number] / / [id number] Cmpnt Ptlr 28mm 1 Pg Wire Ascnt Arcm Kn Implanted:Qty: 1 on 01/24/2021 by Maury Mcgarry MD at [facility] Right: Knee [employer] 12/28/2022 [id number] / / [id number] Procedures Procedure Name Priority Date/Time Associated Diagnosis [...] Glucose 117 mg/dL 01/03/2021 2:00 PM CDT [facility] Blood BLOOD SPECIMEN / Unknown Venipuncture / Unknown 01/03/2021 1:38 PM CDT 01/03/2021 1:44 PM CDT Narrative [facility] - 01/03/2021 2:00 PM CDT The following cutoff levels are recommended by [place] [employer]. A1c > 6.5% : considered [...] exceeds 5% in the specimen. Sandra Farrell WEAVER NARROW [employer]ICS-TOOL ADJUSTER LAB - CHEMISTRY ORDER GELY Final Result [facility] [address] [place] [address] * (ABNORMAL) COMPREHENSIVE METABOLIC PANEL (01/03/2021 1:38 PM CDT) Pathologist [facility] Glucose 98 70 - 105 mg/dL 01/03/2021 2:02 PM CDT [facility] Sodium 139 136 - 145 mmol/L 01/03/2021 2:02 PM CDT [facility] Potassium 4.1 3.5 - 5.1 mmol/L 01/03/2021 2:02 PM CDT [facility] Chloride 107 98 - 107 mmol/L 01/03/2021 2:02 PM CDT [facility] CO2 26 23 - 31 mmol/L 01/03/2021 2:02 PM CDT [facility] Calcium 9.0 8.4 - 10.4 mg/dL 01/03/2021 2:02 PM CDT [facility] Anion Gap 6(L) 8 - 18 mmol/L 01/03/2021 2:02 PM CDT [facility] Comment:Attention clinician: Reference Range change. BUN 16 9.8 - 20.1 mg/dL 01/03/2021 2:02 PM CDT [facility] Creatinine 0.71 0.57 - 1.11 mg/dL 01/03/2021 2:02 PM CDT [facility] Alkaline Phosphatase 99 40 - [...] CDT 01/03/2021 1:44 PM CDT Sandra Farrell WEAVER NARROW FABRICS-TOOL ADJUSTER LAB - CHEMISTRY ORDER GELY Final Result [facility] [address] [place] [address] from Last 3 Months or Most Recently Relevant [place] [address] MEDICARE [facility] MEDICARE MEDICARE MEDICARE MEDICARE ANTHEM Advance Directives Documents on File Type Date Recorded Patient Fruit Express Agent Expl anation Adv Directive/Living Will/POA 01/11/2018 10:24 AM [place] POA * Full Code (Latest Code Status on File) Date Activated Date Inactivated Comments 01/24/2021 11:38 AM 01/26/2021 3:15 PM * Full Code Date Activated Date Inactivated Comments 02/04/2018 11:32 AM 02/07/2018 1:39 PM Care Teams Dough Scaler And Mixer Relationship Specialty Start Date End Date Emilia Brown APRN-RYAN [address] [address] PCP - General 08/16/22 [place] [address] [address] [facility] [address] [place] [address] Orthopedic Surgery 07/26/15 Gregory Cook MD [address] [place] [address] [address] [place] [address] Cardiovascular Disease 12/03/19
[2025-04-14 20:45] LABS: Hemoglobin A1C 6.2 % (<5.7)
== END 2025-04-14 09:18 | disposition home or self-care (01) ==
LOC: ANHGOSHLAB 09:18
PROVIDERS: PCP Family Medicine; Visit Provider Internal Medicine
DX: R73.03 Prediabetes (principal)
CPT/HCPCS: 36415; 83036

== ENCOUNTER 2025-04-14 11:31 | Emergency (ER) | payer MEDICARE, SELFPAY ==
[2025-04-14] VITALS (13 sets, daily range): BP systolic 149–170; BP diastolic 73–109; PULSE 67–83; RESP 12–19; TEMP 36.6; O2SAT 95–98
--- NOTE | ~2025-04-14 | CT_ITS ---
History: Headache PROCEDURE: CT head without contrast. COMPARISON: None TECHNIQUE: Axial imaging of the head performed from the skull base to the vertex without IV contrast. Sagittal a nd coronal reformations obtained. DLP: 605 mGy-cm FINDINGS: The ventricles are enlarged. The dilatation of the ventricles is proportional to the degree of sulcal prominence, not uncommon in the senescent brain. Decreased attenuation is identified within the periventricular white matter, likely secondary to micr ovascular ischemic disease, in a patient of this age. There is no mass, mass effect or midline shift. There is no abnormal extra-axial fluid collection or intracranial hemorrhage. Visualized paranasal sinuses are clear. The mastoid air cells are well aerated. No acute displaced fractures within the overlying cranium. Impression: No acute intracranial hemorrhage or suspicious mass effect. Reviewed, dictated and finalized at location A. Impression: No acute intracranial hemorrhage or suspicious mass effect.
--- NOTE | ~2025-04-14 | XR_ITS ---
XR chest 1V portable 04/14/2025 12:38 Indication: CVA. Dizziness. Procedure: AP portable chest Comparison: Comparison to multiple prior studies sequentially, with oldest reviewed study dated 11/2023. Findings: Cardiomegaly. Large hiatal hernia. Portacatheter tip in the SVC. No focal air space disease , pulmonary edema, pleural effusion or suspected pneumothorax. Impression: 1: No acute cardiopulmonary disease. Reviewed, dictated and finalized at location B. Impression: 1: No acute cardiopulmonary disease.
--- OUTSIDE RECORDS SUMMARY | 2025-04-14 11:34 | XMS_ITS | Clinical Summary ---
Author Organization [facility] [address] [facility] [address] Address [address] [place] [address] Care Team Providers Care Zinc Miner Name Role Phone Peyton Andre MD Primary Care Provider + Allergies Active Allergy Reactions Criticality Noted Date Comments Adhesive Hives Medium 07/26/2015 Adhesive Tape-Silicones Unknown 07/26/2015 Aspirin Other (See comments) Medium Peptic Ulcers Clindamycin Diarrhea Low 04/30/2023 Latex Rash Medium 01/03/2021 Morphine Unknown 07/26/2015 Zvkxtxe-Yta-Uaq Reductase Inhibitors Muscle pain Medium 10/14/2020 Ezetimibe [...] ulcer 09/11/2019 PSVT (paroxysmal supraventricular tachycardia) ( [facility]/HCC) 11/29/2017 Preoperative cardiovascular examination 08/15/20 [...] on file 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
--- OUTSIDE RECORDS SUMMARY | 2025-04-14 11:34 | XMS_ITS | Encounter Summary ---
Author Organization [facility] Health Address [address] [place] [address] Care Team Providers Care Unemployment Insurance Director Name Role Phone Maury Mcgarry MD Unavailable [phone] Brenda Durbin MD Primary Care Provider + [phone] Valencia Luna MD Primary Care Provider [phone] Gregory Cook MD Unavailable [phone] Brenda Durbin MD Primary Care Provider [phone] [facility] Primary Care Provider + Encounter Details Date Type Department Care Team (Late st Contact Info) Description 01/14/2018 [facility] [address] [place] [address] [place] [address] [address] Social History Tobacco Use Types Packs/Day Years Used Date Smoking Tobacco: Never Smokeless Tobacco: Never Alcohol Use Standard Drinks/Week Comments Yes 0 (1 standard drink = 0.6 oz pur e alcohol) Comments Unknown Sex and Gender Information Value Date Recorded Sex Assigned at Not on file Legal Sex Female 6:02 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 [place] [address] PCP - General Family Medicine 10/29/19 07/02/22 Brenda Durbin MD [address] [address] PCP - General 07/03/22 08/15/22 Emilia Brown [facility] [address] [address] PCP - General 08/16/22 [place] [address] [facility] [address] [place], [place] [id number] Orthopedic Surgery 07/26/15 Gregory Cook MD [facility] [address] [place], [place] [id number] Cardiovascular Disease 12/03/19 documented as of this encounter
--- OUTSIDE RECORDS SUMMARY | 2025-04-14 11:34 | XMS_ITS | Clinical Summary ---
Author Organization [facility] Address [address] [place] [address] Care Team Providers Care Nurse Leader Name Role Phone Maury Mcgarry MD Unavailable [phone] Gregory Cook MD Unavailable [phone] Emilia Brown APRN-CHIPPING MACHINE OPERATOR Primary Care Provider + Source Comments [facility],non-owned Affiliates and Associated Physician Practices is amultiple site organization consisting of ambulatory clinics and hospital sitesin [place], [place], [place] and [place]. This disclosure is being madepursuant to the Care Everywhere program and may not contain all information available regarding this patient. 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 Gender Identity Not on file Sexual Orientation [...] this topic Medical Devices Implanted Type Area Stock Parts Inspector Device Identifier Shelf Expiration Date Model / Serial / Lot Wale Bone [place]-G Hv 40/20 Implanted:Qty: 1 on 02/04/2018 by Maury Mcgarry MD at [facility] Left: Knee [employer] 02/14/2019 600-15-100 / / [id number] Cmpnt Ptlr 28mm 1 Pg Wire Ascnt Arcm Kn Implanted:Qty: 1 on 02/04/2018 by Maury Mcgarry MD at [facility] Left: Knee [employer] 12/28/2022 [id number] / / [id number] Tray Tib 75mm Kn Cocr I Beam Implanted:Qty: 1 on 02/04/2018 by Maury Mcgarry MD at [facility] Left: Knee [employer] 10/21/2027 [id number] / / [id number] Cmpnt Fem Kn Lt Cr Cmnt Prm Vngrd Intlk Implanted:Qty: 1 on 02/04/2018 by Maury Mcgarry MD at [facility] Left: Knee [employer] 12/14/2027 [id number] / / [id number] Brng [id number] Vngrd Arcm Kn Ant Stab Implanted:Qty: 1 on 02/04/2018 by Maury Mcgarry MD at [facility] Left: Knee [employer] 10/31/2022 [id number] / / [id number] Brng [id number] Vngrd Arcm Kn Ant Stab Implanted:Qty: 1 on 01/24/2021 by Maury Mcgarry MD at [facility] Right: Knee [employer] 05/30/2024 [id number] / / [id number] Cmpnt Fem Kn Rt Cr Cmnt Prm Vngrd Intlk Implanted:Qty: 1 on 01/24/2021 by Maury Mcgarry MD at [facility] Right: Knee [employer] 11/15/2030 [id number] / / [id number] Wale Bone [place]-G Hv 40/20 Implanted:Qty: 1 on 01/24/2021 by Maury Mcgarry MD at [facility] Right: Knee [employer] 08/28/2021 600-15-100 / / [id number] Tray Tib 79mm Kn Cocr I Beam Implanted:Qty: 1 on 01/24/2021 by Maury Mcgarry MD at [facility] Right: Knee [employer] 03/02/2030 [id number] / / [id number] Cmpnt Ptlr 28mm 1 Pg Wire Ascnt Arcm Kn Implanted:Qty: 1 on 01/24/2021 by Maury Mcgarry MD at [facility] Right: Knee [employer] 12/28/2022 [id number] / / [id number] Procedures Procedure Name Priority Date/Time Associated Diagnosis [...] Glucose 117 mg/dL 01/03/2021 2:00 PM CDT [facility] Blood BLOOD SPECIMEN / Unknown Venipuncture / Unknown 01/03/2021 1:38 PM CDT 01/03/2021 1:44 PM CDT Narrative [facility] - 01/03/2021 2:00 PM CDT The following cutoff levels are recommended by [place] Diabetes [employer]. A1c > 6.5% : considered [...] exceeds 5% in the specimen. Sandra Farrell FOREMAN/PILE DRIVING AND ERECTION-CHIPPING MACHINE OPERATOR LAB - CHEMISTRY ORDER GELY Final Result [facility] [address] [place] [address] * (ABNORMAL) COMPREHENSIVE METABOLIC PANEL (01/03/2021 1:38 PM CDT) Pathologist [facility] Glucose 98 70 - 105 mg/dL 01/03/2021 2:02 PM CDT [facility] Sodium 139 136 - 145 mmol/L 01/03/2021 2:02 PM CDT [facility] Potassium 4.1 3.5 - 5.1 mmol/L 01/03/2021 2:02 PM CDT [facility] Chloride 107 98 - 107 mmol/L 01/03/2021 2:02 PM CDT [facility] CO2 26 23 - 31 mmol/L 01/03/2021 2:02 PM CDT [facility] Calcium 9.0 8.4 - 10.4 mg/dL 01/03/2021 2:02 PM CDT [facility] Anion Gap 6(L) 8 - 18 mmol/L 01/03/2021 2:02 PM CDT [facility] Comment:Attention clinician: Reference Range change. BUN 16 9.8 - 20.1 mg/dL 01/03/2021 2:02 PM CDT [facility] Creatinine 0.71 0.57 - 1.11 mg/dL 01/03/2021 2:02 PM CDT [facility] Alkaline Phosphatase 99 40 - 150 [...] CDT 01/03/2021 1:44 PM CDT Sandra Farrell FOREMAN/PILE DRIVING AND ERECTION-CHIPPING MACHINE OPERATOR LAB - CHEMISTRY ORDER GELY Final Result [facility] [address] [place] [address] from Last 3 Months or Most Recently Relevant to Health [place] [address] MEDICARE [facility] MEDICARE MEDICARE MEDICARE MEDICARE ANTHEM Advance Directives Documents on File Type Date Recorded Patient Film Drying Machine Operator Expl anation Adv Directive/Living Will/POA 01/11/2018 10:24 AM [place] POA * Full Code (Latest Code Status on File) Date Activated Date Inactivated Comments 01/24/2021 11:38 AM 01/26/2021 3:15 PM * Full Code Date Activated Date Inactivated Comments 02/04/2018 11:32 AM 02/07/2018 1:39 PM Care Teams Nurse Leader Relationship Specialty Start Date End Date Emilia Brown APRN-RYAN [address] [address] PCP - General 08/16/22 [place] [address] [address] [facility] [address] [place] [address] Orthopedic Surgery 07/26/15 Gregory Cook MD [address] [place] [address] [address] [place] [address] Cardiovascular Disease 12/03/19
--- OUTSIDE RECORDS SUMMARY | 2025-04-14 11:34 | XMS_ITS | Clinical Summary ---
Author Organization [facility] Address [address] [place] [address] Care Team Providers Care Wire Insulator Name Role Phone Peyton Andre MD Primary Care Provider [phone] Allergies Active Allergy Reactions Criticality Noted Date Comments Adhesive Hives High 07/26/2015 Aspirin Other (See Comments) Medium 10/10/2023 Peptic Ulcers Clindamycin Diarrhea Low 04/30/2023 Ezetimibe Muscle Pain Medium 06/25/2023 Latex Rash Medium 01/03/2021 Morphine Rash,Unknown Medium 07/26/2015 Sdlzemx-Zqj-Gxn Reductase Inhibitors Muscle Pain Medium 10/14/2020 Medications [...] ORAL Take by mouth. 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 Gender Identity Not on file Sexual Orientation [...] Description 06/12/2025 9:45 AM CDT Office Visit [facility] Oncology and Hematology - [address] [place] [address] Riki Garcia MD [address] [facility] [address] [place] [address] Health Maintenance Due Date Last [...] Tdap) 06/14/2030 06/14/2020, 03/15/2015, 03/14/[address] [place] [address] MEDICARE PART A AND B BCBS SUPP Care Teams Wire Insulator Relationship Specialty Start Date End Date Peyton Andre MD [address] [place] [address] [address] [place] [phone] PCP - General Family Practice 09/26/23
--- OUTSIDE RECORDS SUMMARY | 2025-04-14 11:34 | XMS_ITS | Clinical Summary ---
Author Organization [facility] Address [address] [place] [address] Care Team Providers Care Imaging Specialist Name Role Phone Peyton Andre MD Primary Care Provider [phone] Allergies Active Allergy Reactions Criticality Noted Date [...] Encounters Date Type Department Care Team Description 02/10/2025 3:13 PM CDT - 02/10/2025 11:59 PM CDT Hospital Encounter [facility] [address] [place] [address] MD Discharge Disposition: Home or Self Care (Routine Discharge) 02/10/2025 Travel from Last 3 Months Immunizations Immunization [...] 12:57 AM CDT Height 170.2 cm (5' 7) 06/18/2023 12:57 AM CDT Body Mass Index 32.11 06/18/2023 12:57 AM CDT Plan of Treatment Health Maintenance Due Date Last Done Comments Zoster Vaccines (1 of 2) 02/06/1992 Annual Medicare Wellness Visit 2007 RSV Immunization or 60+ Years (1 - 1-dose 75+ series) 2017 COVID-19 Vaccine ( season) 2024 12/23/2020, 12/02/2020, 09/17/2020 Pneumococcal Vaccine: 50+ Years (3 of 3 - PCV20 or PCV21) 08/25/2024 08/25/2019, 09/17/2006 PHQ-2 (Physician [place]) 09/17/2024 04/30/2023 DTaP, Tdap and Td Vaccines [...] Procedure Name Priority Date/Time Associated Diagnosis Comments MG SCREENING W DANI MARY BETH DIGI Routine 02/10/2025 3:28 PM CDT Encounter for screening mammogram for malignant neoplasm of breast BONE DENSITY/DEXA Routine 10/02/2024 3:1 1 PM LAUNDRY CLERK Age-related osteoporosis without current pathological fracture from Last 3 Months or Most Recently Relevant to Health Maintenance Results * MG SCREENING W DANI MARY BETH DIGI (02/10/2025 3:28 PM CDT) Anatomical Region Laterality Modality Breast Bilateral Mammography 02/11/2025 8:18 AM CDT Impressions 02/11/2025 8:21 AM CDT ===== IMPRESSION: ===== 1. No mammographic findings suggestive of malignancy. Assessment: ACR BI-RADS 2 - BENIGN FINDING(S) Recommendation: 1: Routine Screening Bilateral Comments: A negative or benign mammogram should not delay further workup and/or biopsy of a clinically suspicious finding or palpable abnormality. Regions of dense breast tissue may obscure an underlying mass. Ordered By: IDALMIS ST Interpreted By: Jose Washington MD, 02/11/2025 8:18 AM Narrative 02/11/2025 8:21 [place] [address] Examination: Digital bilateral screening mammogram Exam Date/Time: 02/10/2025 3:18 PM Reason For Exam: Encounter for screening mammogram for malignant neoplasm of breast Comparison: Screening mammograms 01/29/2024, 10/10/2022, 10/03/2021, 08/03/2020. Technique: MLO and CC views both breasts. Tissue density: There are scattered areas of fibroglandular density. Findings: Right Lxprsi-u-Tpmj slightly limits study sensitivity. Scattered benign- appearing calcifications noted. No new area of focal asymmetry, dominant mass lesion, area of skin thickening, or cluster of suspicious appearing calcifications in the breast to suggest malignancy. us Idalmis St MD MAMMO Final Result * BONE DENSITY/DEXA (10/02/2024 3:11 PM LAUNDRY CLERK) Anatomical Region Laterality Modality Bone Bone Density 10/03/2024 7:26 AM LAUNDRY CLERK Impressions 10/03/2024 7:27 AM LAUNDRY CLERK IMPRESSION: WHO Classification: Osteoporosis RECOMMENDATIONS: All patients [...] 10/03/2024 7:26 AM Narrative 10/03/2024 7:27 AM LAUNDRY CLERK [facility] [address] [place] [address] EXAMINATION: BONE DENSITY/DEXA INDICATIONS: Age-related osteoporosis without [...] Procedure Note Zheng Tejada MD - 10/03/2024 [facility] [address] [facility] [address] [place] [id number] EXAMINATION: BONE DENSITY/DEXA INDICATIONS: Age-related osteoporosis without [...] By: Zheng Tejada MD, 10/03/2024 7:26 AM us Andrae Zhang RECRUITING ADMINISTRATOR DEXA Final Result from Last 3 Months or Most Recently Relevant to Health Maintenance Insurance MED[place] [id number] Care Teams Imaging Specialist Relationship Specialty Start Date End Date Peyton Andre MD [address] [facility] [address] [place] [address] PCP - General FAMILY PRACTICE 11/16/22
--- OUTSIDE RECORDS SUMMARY | 2025-04-14 11:34 | XMS_ITS | Continuity of Care Document ---
Author Organization [facility] Address [address] [place] [address] [address] [place] [address] Phone Care Team Providers Care Drying Room Attendant Name Role Phone Fatuma Snyder Unavailable Unavailable Advance Directives Directive Yes / No Effective Date File Name No Information Encounters Encounter Description Practice Location Reason(s) For Visit Diagnoses Date Provider Providers Copied on Encounter [facility], [address], [place], [place], [id number], [place] tel:[phone] [facility] No Information [phone] Lillian Burris. [address], [place], [address], [place]. tel:[phone] Family History Family Member Type Diagnosis Age At Onset No Information Payers Payer name Insurance type Covered republican ID Authoriza timeena(s) [facility] CI [id number] Social History Type Description Quantity Date Captured [...]
--- OUTSIDE RECORDS SUMMARY | 2025-04-14 11:34 | XMS_ITS | Encounter Summary ---
Author Organization [facility] Healthcare Address [address] [place] [address] Care Team Providers Care Program Medical Director Name Role Phone Emilia Brown NP Primary Care Provider Peyton Andre MD Primary Care Provider + Encounter Details Date Type Department Care Team (Late st Contact Info) Description 07/29/2020 Telephone [facility] [address] [place] [address] Dmitri Patel, RT Social History Tobacco Use Types Packs/Day Years Used Date Smoking Tobacco: Never Smokeless Tobacco: Never Alcohol Use Standard Drinks/Week Comments Yes 0 (1 standard drink = 0.6 oz pur e alcohol) Comments Unknown Sex and Gender Information Value Date Recorded Sex Assigned at Not on file Legal Sex Female 6:50 AM MANAGER PATIENT Gender Identity Not on file Sexual Orientation Not on file documented as of this encounter Plan of Treatment Not on file documented as of this encounter Visit Diagnoses Not on filedocumented in this encounter Care Teams Program Medical Director Relationship Specialty Start Date End Date Emilia Brown NP PCP - General 07/12/12 10/17/22 Peyton Andre MD PCP - General Family Medicine 10/18/22 documented as of this encounter
--- OUTSIDE RECORDS SUMMARY | 2025-04-14 11:34 | XMS_ITS | Referral Summary ---
Author Organization [facility] [address] [facility] [address] Address [address] [place] [address] Care Team Providers Care Computer Programming Supervisor Name Role Phone Peyton Andre MD Primary Care Provider + Allergies Active Allergy Reactions Criticality Noted Date Comments Adhesive Hives Medium 07/26/2015 Adhesive Tape-Silicones Unknown 07/26/2015 Aspirin Other (See comments) Medium Peptic Ulcers Clindamycin Diarrhea Low 04/30/2023 Latex Rash Medium 01/03/2021 Morphine Unknown 07/26/2015 Oakjpfj-Tix-Kfa Reductase Inhibitors Muscle pain Medium 10/14/2020 Ezetimibe [...] ulcer 09/11/2019 PSVT (paroxysmal supraventricular tachycardia) ( [facility]/HCC) 11/29/2017 Preoperative cardiovascular examination 08/15/20 17 Gastroduodenal [...] on file Legal Sex Female 6:50 AM ILLUSIONIST Gender Identity Not on file Sexual Orientation [...] Recently Relevant to Health Maintenance Insurance [place]IC[place] [employer] [place] [email or web address] [place] [facility] Care Teams Computer Programming Supervisor Relationship Specialty Start Date End Date Peyton Andre MD PCP - General Family Medicine 10/18/22
--- NOTE | 2025-04-14 12:15 | ECG_ITS ---
Test Date: 2025-04-14 12:30:48 Measurements Intervals [place] Rate: 70 P: 62 NH: 164 QRS: 49 QRSD: 104 T: 45 QT: 399 QTc: 431 Interpretive Statements SINUS RHYTHM Electronically Signed On 04-14-2025 17:30:05 CDT by Rancho Tan D.O
--- OUTSIDE RECORDS SUMMARY | 2025-04-14 12:25 | XMS_ITS | Encounter Summary ---
Author Organization [facility] Healthcare Address [address] [place] [address] Care Team Providers Care Note Taker Name Role Phone Emilia Brown NP Primary Care Provider [phone] Peyton Andre MD Primary Care Provider + Encounter Details Date Type Department Care Team (Late st Contact Info) Description 07/29/2020 Telephone [facility] [address] [place] [address] Dmitri Patel, RT Social History Tobacco Use Types Packs/Day Years Used Date Smoking Tobacco: Never Smokeless Tobacco: Never Alcohol Use Standard Drinks/Week Comments Yes 0 (1 standard drink = 0.6 oz pur e alcohol) Comments Unknown Sex and Gender Information Value Date Recorded Sex Assigned at Not on file 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
--- OUTSIDE RECORDS SUMMARY | 2025-04-14 12:25 | XMS_ITS | Referral Summary ---
Author Organization [facility] [address] [facility] [address] Address [address] [place] [address] Care Team Providers Care Pipe Organ Mechanic Apprentice Name Role Phone Peyton Andre MD Primary Care Provider + Allergies Active Allergy Reactions Criticality Noted Date Comments Adhesive Hives Medium 07/26/2015 Adhesive Tape-Silicones Unknown 07/26/2015 Aspirin Other (See comments) Medium Peptic Ulcers Clindamycin Diarrhea Low 04/30/2023 Latex Rash Medium 01/03/2021 Morphine Unknown 07/26/2015 Ialfoul-Rbz-Tmh Reductase Inhibitors Muscle pain Medium 10/14/2020 Ezetimibe [...] ulcer 09/11/2019 PSVT (paroxysmal supraventricular tachycardia) ( 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
--- OUTSIDE RECORDS SUMMARY | 2025-04-14 12:25 | XMS_ITS | Clinical Summary ---
Author Organization [facility] [address] [facility] [address] Address [address] [place] [address] Care Team Providers Care Mash Processing Operator Name Role Phone Peyton Andre MD Primary Care Provider + Allergies Active Allergy Reactions Criticality Noted Date Comments Adhesive Hives Medium 07/26/2015 Adhesive Tape-Silicones Unknown 07/26/2015 Aspirin Other (See comments) Medium Peptic Ulcers Clindamycin Diarrhea Low 04/30/2023 Latex Rash Medium 01/03/2021 Morphine Unknown 07/26/2015 Faniatw-Urf-Xmu Reductase Inhibitors Muscle pain Medium 10/14/2020 Ezetimibe [...] ulcer 09/11/2019 PSVT (paroxysmal supraventricular tachycardia) ( [facility]/HCC) 11/29/2017 Preoperative cardiovascular examination 08/15/20 17 [...] on file Legal Sex Female 6:50 AM 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
--- OUTSIDE RECORDS SUMMARY | 2025-04-14 12:25 | XMS_ITS | Encounter Summary ---
Author Organization [facility] Health Address [address] [place] [address] Care Team Providers Care Legal Director Name Role Phone Maury Mcgarry MD Unavailable [phone] Brenda Durbin MD Primary Care Provider + [phone] Valencia Luna MD Primary Care Provider [phone] Gregory Cook MD Unavailable [phone] Brenda [place]urbin MD Primary Care Provider [phone] Emilia Brown [facility] Primary Care Provider + Encounter Details Date Type Department Care Team (Late st Contact Info) Description 01/14/2018 [facility] [address] [place] [address] [place] [address] [address] Social History Tobacco Use Types Packs/Day Years Used Date Smoking Tobacco: Never Smokeless Tobacco: Never Alcohol Use Standard Drinks/Week Comments Yes 0 (1 standard drink = 0.6 oz pur e alcohol) Comments Unknown Sex and Gender Information Value Date Recorded Sex Assigned at Not on file Legal 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 [address] [place] [address] PCP - General Family Medicine 10/29/19 07/02/22 Brenda Durbin MD [address] [address] PCP - General 07/03/22 08/15/22 Emilia Brown APRN-[facility] [address] [address] PCP - General 08/16/22 [place] [address] [facility] [address] [place], [place] [id number] Orthopedic Surgery 07/26/15 Gregory Cook MD [facility] [address] [place], [place] [address] Cardiovascular Disease 12/03/19 documented as of this encounter
--- OUTSIDE RECORDS SUMMARY | 2025-04-14 12:25 | XMS_ITS | Clinical Summary ---
Author Organization [facility] Address [address] [place] [address] Care Team Providers Care Supplier Relationship Director Name Role Phone Peyton Andre MD Primary Care Provider [phone] Allergies Active Allergy Reactions Criticality Noted Date Comments Adhesive Hives High 07/26/2015 Aspirin Other (See Comments) Medium 10/10/2023 Peptic Ulcers Clindamycin Diarrhea Low 04/30/2023 Ezetimibe Muscle Pain Medium 06/25/2023 Latex Rash Medium 01/03/2021 Morphine Rash,Unknown Medium 07/26/2015 Hlgzpjt-Jwl-Gjt Reductase Inhibitors Muscle Pain Medium 10/14/2020 Medications [...] ORAL Take by mouth. Active Vit C-Vit B-Nuocmc-ByBf-L utein (PRESERVISION) 226-90-0.8-5 mg Capsule Take 1 [...] Data STL ABSTRACTION Provider, Abstract 01/16/2025 Abstract [facility] H[facility] [address] [place] [address] Riki Garcia MD from Last [...] on file Legal Sex Female 1:19 PM PIPE BENDER Gender Identity Not on file Sexual Orientation [...] Description 06/12/2025 9:45 AM CDT Office Visit [facility] Oncology and Hematology - [address] [address] [place] [address] Riki Garcia MD [address] [facility] [address] [place] [address] Health Maintenance Due Date Last [...] Tdap) 06/14/2030 06/14/2020, 03/15/2015, 03/14/[address] [place] [id number] MEDICARE PART A AND B [employer] SUPP Care Teams Supplier Relationship Director Relationship Specialty Start Date End Date Peyton Andre MD [address] [place] [address] [address] [place] [address] PCP - General Family Practice 09/26/23
--- OUTSIDE RECORDS SUMMARY | 2025-04-14 12:25 | XMS_ITS | Continuity of Care Document ---
Author Organization [facility] Address [address] [place] [address] [address] [place] [address] Phone Care Team Providers Care Front Desk Admin Name Role Phone Fatuma Snyder Unavailable Unavailable Advance Directives Directive Yes / No Effective Date File Name No Information Encounters Encounter Description Practice Location Reason(s) For Visit Diagnoses Date Provider Providers Copied on Encounter [facility], [address], [place], [place], [id number], [place] tel:[phone] [facility] No Information 0-200 6 Lillian Burris. [address], [place], [address], [place]. tel:[phone] Family History Family Member Type Diagnosis Age At Onset No Information Payers Payer name Insurance type Covered constitution party ID Authoriza timeena(s) [facility] CI [id number] Social History Type Description Quantity Date Captured [...]
--- OUTSIDE RECORDS SUMMARY | 2025-04-14 12:25 | XMS_ITS | Clinical Summary ---
Author Organization [facility] Address [address] [place] [address] Care Team Providers Care Parker Name Role Phone Peyton Andre MD Primary Care Provider [phone] Allergies Active Allergy Reactions Criticality Noted Date [...] - 02/10/2025 11:59 PM CDT Hospital Encounter [facility] [address] [place] [address] MD Discharge Disposition: Home or [...] or PCV21) 08/25/2024 08/25/2019, 09/17/2006 PHQ-2 (Physician Torres Martinez) 09/17/2024 04/30/2023 DTaP, Tdap and Td Vaccines [...] BONE DENSITY/DEXA Routine 10/02/2024 3:1 1 PM ALGEBRA TUTOR Age-related osteoporosis without current pathological fracture from [...] 8:18 AM Narrative 02/11/2025 8:21 [place] [address] Examination: Digital bilateral screening mammogram Exam Date/Time: 02/10/2025 3:18 PM Reason For Exam: Encounter for screening mammogram for malignant neoplasm of breast Comparison: Screening mammograms 01/29/2024, 10/10/2022, 10/03/2021, 08/03/2020. Technique: MLO and CC views both breasts. Tissue density: There are scattered areas of fibroglandular density. Findings: Right Dhbukk-k-Iskb slightly limits study sensitivity. Scattered benign- appearing calcifications noted. No new area of focal asymmetry, dominant mass lesion, area of skin thickening, or cluster of suspicious appearing calcifications in the breast to suggest malignancy. us Id[address] St MD MAMMO Final Result * BONE DENSITY/DEXA (10/02/2024 3:11 PM ALGEBRA TUTOR) Anatomical Region Laterality Modality Bone Bone Density 10/03/2024 7:26 AM ALGEBRA TUTOR Impressions 10/03/2024 7:27 AM ALGEBRA TUTOR IMPRESSION: WHO Classification: Osteoporosis RECOMMENDATIONS: All patients [...] 10/03/2024 7:26 AM Narrative 10/03/2024 7:27 AM ALGEBRA TUTOR [facility] [address] [place] [address] EXAMINATION: BONE DENSITY/DEXA INDICATIONS: Age-related osteoporosis without [...] Procedure Note Zheng Tejada MD - 10/03/2024 [facility] [address] [facility] [address] [place] [id number] EXAMINATION: BONE DENSITY/DEXA INDICATIONS: Age-related osteoporosis without [...] MD, 10/03/2024 7:26 AM us Andrae Zhang SAUSAGE SMOKER DEXA Final Result from Last 3 Months or Most Recently Relevant to Health Maintenance Insurance [place] [id number] Care Teams Parker Relationship Specialty Start Date End Date Peyton Andre MD [address] [facility] [address] [place] [address] PCP - General FAMILY PRACTICE 11/16/22
--- OUTSIDE RECORDS SUMMARY | 2025-04-14 12:25 | XMS_ITS | Clinical Summary ---
Author Organization [facility] [place] Address [address] [place] [address] Care Team Providers Care Certified Pharmacy Tech Name Role Phone Maury Mcgarry MD Unavailable [phone] Gregory Cook MD Unavailable [phone] Emilia Brown APRN-PHOTOENGRAVING SKETCH MAKER Primary Care Provider + Source Comments [facility],non-owned Affiliates and Associated Physician Practices is amultiple site organization consisting of ambulatory clinics and hospital sitesin [place], [place], [place] and [place]. This disclosure is being madepursuant to the Care Everywhere program and may not contain all information available regarding this patient. 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 Gender Identity Not on file Sexual Orientation [...] this topic Medical Devices Implanted Type Area Wet End Supervisor Device Identifier Shelf Expiration Date Model / Serial / Lot Wale Bone Vale-G Hv 40/20 Implanted:Qty: 1 on 02/04/2018 by Maury Mcgarry MD at [facility] Left: Knee [employer] 02/14/2019 600-15-100 / / [id number] Cmpnt Ptlr 28mm 1 Pg Wire Ascnt Arcm Kn Implanted:Qty: 1 on 02/04/2018 by Maury Mcgarry MD at [facility] Left: Knee [employer] 12/28/2022 [id number] / / [id number] Tray Tib 75mm Kn Cocr I Beam Implanted:Qty: 1 on 02/04/2018 by Maury Mcgarry MD at [facility] Left: Knee [employer] 10/21/2027 [id number] / / [id number] Cmpnt Fem Kn Lt Cr Cmnt Prm Vngrd Intlk Implanted:Qty: 1 on 02/04/2018 by Maury Mcgarry MD at [facility] Left: Knee [employer] 12/14/2027 [id number] / / [id number] Brng [id number] Vngrd Arcm Kn Ant Stab Implanted:Qty: 1 on 02/04/2018 by Maury Mcgarry MD at [facility] Left: Knee [employer] 10/31/2022 [id number] / / [id number] Brng [id number] Vngrd Arcm Kn Ant Stab Implanted:Qty: 1 on 01/24/2021 by Maury Mcgarry MD at [facility] Right: Knee [employer] 05/30/2024 [id number] / / [id number] Cmpnt Fem Kn Rt Cr Cmnt Prm Vngrd Intlk Implanted:Qty: 1 on 01/24/2021 by Maury Mcgarry MD at [facility] Right: Knee [employer] 11/15/2030 [id number] / / [id number] [employer] Hv 40/20 Implanted:Qty: 1 on 01/24/2021 by Maury Mcgarry MD at [facility] Right: Knee [employer] 08/28/2021 600-15-100 / / [id number] Tray Tib 79mm Kn Cocr I Beam Implanted:Qty: 1 on 01/24/2021 by Maury Mcgarry MD at [facility] Right: Knee [employer] 03/02/2030 [id number] / / [id number] Cmpnt Ptlr 28mm 1 Pg Wire Ascnt Arcm Kn Implanted:Qty: 1 on 01/24/2021 by Maury Mcgarry MD at [facility] Right: Knee [employer] 12/28/2022 [id number] / / [id number] Procedures Procedure Name Priority Date/Time Associated Diagnosis [...] Glucose 117 mg/dL 01/03/2021 2:00 PM CDT [facility] Blood BLOOD SPECIMEN / Unknown Venipuncture / Unknown 01/03/2021 1:38 PM CDT 01/03/2021 1:44 PM CDT Narrative [facility] - 01/03/2021 2:00 PM CDT The following cutoff levels are recommended by [place] [employer]. A1c > 6.5% : considered [...] exceeds 5% in the specimen. Sandra Farrell AVIONICS TEST TECHNICIAN-PHOTOENGRAVING SKETCH MAKER LAB - CHEMISTRY ORDER GELY Final Result [facility] [address] [place] [address] * (ABNORMAL) COMPREHENSIVE METABOLIC PANEL (01/03/2021 1:38 PM CDT) Pathologist [facility] Glucose 98 70 - 105 mg/dL 01/03/2021 2:02 PM CDT [facility] Sodium 139 136 - 145 mmol/L 01/03/2021 2:02 PM CDT [facility] Potassium 4.1 3.5 - 5.1 mmol/L 01/03/2021 2:02 PM CDT [facility] Chloride 107 98 - 107 mmol/L 01/03/2021 2:02 PM CDT [facility] CO2 26 23 - 31 mmol/L 01/03/2021 2:02 PM CDT [facility] Calcium 9.0 8.4 - 10.4 mg/dL 01/03/2021 2:02 PM CDT [facility] Anion Gap 6(L) 8 - 18 mmol/L 01/03/2021 2:02 PM CDT [facility] Comment:Attention clinician: Reference Range change. BUN 16 9.8 - 20.1 mg/dL 01/03/2021 2:02 PM CDT [facility] Creatinine 0.71 0.57 - 1.11 mg/dL 01/03/2021 2:02 PM CDT [facility] Alkaline Phosphatase 99 40 - [...] CDT 01/03/2021 1:44 PM CDT Sandra Farrell AVIONICS TEST TECHNICIAN-PHOTOENGRAVING SKETCH MAKER LAB - CHEMISTRY ORDER GELY Final Result [facility] [address] [place] [address] from Last 3 Months or Most Recently Relevant to Health [place] [address] MEDICARE [facility] MEDICARE MEDICARE MEDICARE MEDICARE ANTHEM Advance Directives Documents on File Type Date Recorded Patient Nursing Techn Expl anation Adv Directive/Living Will/POA 01/11/2018 10:24 AM [place] POA * Full Code (Latest Code Status on File) Date Activated Date Inactivated Comments 01/24/2021 11:38 AM 01/26/2021 3:15 PM * Full Code Date Activated Date Inactivated Comments 02/04/2018 11:32 AM 02/07/2018 1:39 PM Care Teams Certified Pharmacy Tech Relationship Specialty Start Date End Date Emilia Brown APRN-RYAN [address] [id number] PCP - General 08/16/22 [place] [id number] [address] [facility] [address] [place] [address] Orthopedic Surgery 07/26/15 Gregory Cook MD [address] [place] [address] [address] [place] [address] Cardiovascular Disease 12/03/19
[2025-04-14 13:04] LABS: Hematocrit 40.6 % (37.0-47.0); Hemoglobin 13.2 g/dL (12.0-15.0); Immature Granulocyte Percent A 0.2 % (0-0.5); Lymphocytes Absolute Auto 1.87 K/mm3 (0.9-3.2); Mean Corpuscular HGB Conc 32.5 g/dl (32-36); Mean Corpuscular Hemoglobin 28.6 pg (26-34); Mean Corpuscular Volume 88.1 fl (80-100); Nucleated Red Blood Cells Absolute Auto 0.000 K/mm3 (0.0-0.012); Nucleated Red Blood Cells Perc 0.0 % (0.0-0.2); Platelet Count Result 223 k/mm3 (150-375); Red Blood Count 4.61 M/mm3 (4.2-5.4); White Blood Count 5.1 K/mm3 (4.5-10.0)
[2025-04-14 13:13] LABS: Alanine Aminotransferase 24 U/L (6-35); Albumin Level 4.2 g/dL (3.5-5.1); Alkaline Phosphatase 83 U/L (38-126); Anion Gap 3 mmol/L (4-12); Aspartate Amino Transferase 33 U/L (14-36); Bilirubin,Total 0.5 mg/dL (0.2-1.3); Blood Urea Nitrogen 16 mg/dL (7-17); Calcium 9.5 mg/dL (8.4-10.2); Carbon Dioxide 29 mmol/L (22-30); Chloride 101 mmol/L (98-107); Estimated CRCL calculation 68 ml/min; Estimated Glomerular Filt Rate > 60; Glucose 97 mg/dL (65-110); Potassium 4.0 mmol/L (3.4-5.0); Sodium 133 mmol/L (137-145); Total Protein 6.6 g/dL (6.3-8.2)
[2025-04-14 13:25] LABS: Troponin I < 0.012 ng/mL (0.000-0.034)
--- NOTE | 2025-04-14 14:08 | ED_ITS ---
HPI - General Adult General Chief complaint: Headache Stated complaint: left sided numbness, headache Time Seen by Provider: 04/14/25 12:12 Source: patient and family Mode of arrival: ambulatory Limitations: no limitations History of Present Illness HPI narrative: 85-year-old with a history of hypertension, hyperlipidemia, prediabetic here with the complaints of left arm heaviness on and off for past 2 weeks. Patient was at her doctor's office earlier this morning was found to have high blood pressure was later referred to ER for evaluation. She presently has no chest pain or shortness of breath. Does have mild headache but no arm numbness. Onset (ago): day(s) (1) Severity: mild Pain Consistency: intermittent and now resolved Relieving factors: none Exacerbating factors: none Associated symptoms: denies other symptoms Related Data Home Medications ?Medication ?Instructions ?Recorded ?Confirmed ?Last Taken ?Type ascorbic acid (vitamin C) 500 mg 500 mg PO DAILY 10/11/22 09/15/24 08/31/23 History capsule vitamins A,C,Z-bblm-fzzjwn 4,296 2 cap PO DAILY 10/11/22 09/15/24 08/31/23 History mcg-226 mg-90 mg capsule (PreserVision AREDS) blood-glucose meter (Contour Next 07/26/23 09/15/24 Unknown History Glucose Meter kit) cholecalciferol (vitamin D3) 125 12.5 mcg PO DAILY 08/27/23 09/15/24 08/31/23 History mcg/mL (5,000 unit/mL) oral drops coQ10 (ubiquinol) 200 mg capsule 200 mg PO DAILY 08/27/23 09/15/24 08/31/23 History cyanocobalamin (vitamin B-12) 1,000 mcg PO DAILY 08/27/23 09/15/24 08/31/23 History 1,000 mcg tablet zoledronic acid 5 mg/100 mL in 5 mg IV ONCE 12/18/23 09/15/24 Unknown History mannitol 5 %-water intravenous piggybck (Reclast) nitrofurantoin macrocrystal 50 mg 50 mg PO Q24H 11/17/24 11/17/24 Unknown History capsule Allergies Allergy/AdvReac Type Severity Reaction Status Date / Time cephalexin Allergy Intermediate Rash TO Verified 04/14/25 12:55 LEGS adhesive Allergy Mild BLISTERS/RA Verified 04/14/25 12:55 SH morphine Allergy Mild Rash, Verified 04/14/25 12:55 difficulty waking up atorvastatin AdvReac Intermediate Cramping Verified 04/14/25 12:55 of the Muscles lisinopril AdvReac Unknown Cough Verified 04/14/25 12:55 olmesartan (From Benicar) AdvReac Unknown Cough Verified 04/14/25 12:55 Review of Systems 2 Review of Systems: All systems reviewed & are unremarkable except as noted in HPI and below Constitutional: Constitutional: Reports no additional constitutional complaints Eyes: Eyes: Reports no additional eye complaints ENT: Reports system reviewed and no additional complaints, except as documented Cardiovascular: Cardiovascular: Reports no additional cardiovascular complaints Respiratory: Respiratory: Reports no additional respiratory complaints Gastrointestinal: Gastrointestinal: Reports no additional gastrointestinal complaints Musculoskeletal: Musculoskeletal: Reports as per HPI Neurologic: Reports system reviewed and no additional complaints, except as documented [facility] Past Medical History Medical History SVT (supraventricular tachycardia) Brain TIA 2022 PONV (postoperative nausea and vomiting) Aortic regurgitation mild,PERLA 1.4.23 Essential hypertension Endometriosis Skin neoplasm Benign mole Actinic keratosis Obesity Surgical History Surgical History History of kidney surgery R ureterectomy 09.06.23 S/P JASON-BSO 1969/endometriosis History of surgery on lower extremity 2001, closure of bilateral varicose veins History of knee replacement right 2020 Left 2018 History of hip replacement 12/2005, left History of cholecystectomy 1967 History of appendectomy 1960 Family History Family History Sibling Leukemia Lung cancer Parkinson disease Mother Parkinson disease Father Heart attack Sibling Brain tumor Sibling Diabetes mellitus Social History Social History Smoking status: Never smoker Second hand tobacco smoke exposure: Yes Alcohol intake: never Drinks per week: 1 Substance use: never Substance use type: does not use Do You Feel Safe in your Home?: Yes Lack of Transportation: No Lack of Food: Never True Current Housing: I Have Housing Concerned About Future Housing: No Difficulty Paying Gas/Electric Bills: No Difficulty Paying for Meds: No Currently Unemployed: No Education: Decline to Answer Difficulty w/ Childcare or Family Care: No Living arrangements: with family [facility] Spiritual care concerns: No Exam 2 Narrative: GENERAL: Well-appearing, well-nourished, and in no acute distress. HEAD: Normocephalic, atraumatic. EYES: PERRLA and EOMI. ENT: Nares clear, no rhinorrhea or epistaxis. Mucous membranes moist. NECK: Supple. CHEST: Clear to auscultation. No respiratory distress. HEART: Regular rate and rhythm. No murmur heard. Normal peripheral pulses. ABDOMEN: Soft, nontender, nondistended, normal active bowel sounds. EXTREMITIES: Normal range of motion. No edema. SKIN: Warm, dry, no rash. NEURO: No focal deficits. Alert and oriented x3. PSYCH: Normal mood and affect. Course Course Emergency Course: Patient remains asymptomatic here while she is here in the ER. No I did inform her about her lab work, CT and EKG findings. Advised to follow with her primary doctor consider outpatient MRI of the brain if indicated. Advised aspirin daily. Vital Signs Vital signs: Vital Signs Temperature 36.6 C 04/14/25 11:34 Pulse Rate 83 04/14/25 11:34 Respiratory Rate 18 04/14/25 11:34 Blood Pressure 170/87 H 04/14/25 11:34 Pulse Oximetry 98 04/14/25 11:34 Oxygen Delivery Room Air 04/14/25 11:34 Temperature 36.6 C 04/14/25 11:34 Pulse Rate 69 04/14/25 13:31 Respiratory Rate 14 04/14/25 13:31 Blood Pressure 156/84 H 04/14/25 13:31 Pulse Oximetry 95 04/14/25 13:31 Oxygen Delivery Room Air 04/14/25 12:51 Medical Decision Making Differential Diagnosis Differential Diagnosis: Shoulder impingement syndrome. Arthritis, TIA, ACS Medical Records Medical records reviewed: Yes I reviewed the external patient's medical records. Vital Signs Vital Signs: Vital Signs Temperature 36.6 C 04/14/25 11:34 Pulse Rate 83 04/14/25 11:34 Respiratory Rate 18 04/14/25 11:34 Blood Pressure 170/87 H 04/14/25 11:34 Pulse Oximetry 98 04/14/25 11:34 Oxygen Delivery Room Air 04/14/25 11:34 Temperature 36.6 C 04/14/25 11:34 Pulse Rate 69 04/14/25 13:31 Respiratory Rate 14 04/14/25 13:31 Blood Pressure 156/84 H 04/14/25 13:31 Pulse Oximetry 95 04/14/25 13:31 Oxygen Delivery Room Air 04/14/25 12:51 Lab Data Lab results reviewed: Yes I reviewed the patient's lab results. 04/14/25 12:56 04/14/25 12:56 Labs: Lab Results 04/14/25 Range/Units 12:56 WBC 5.1 (4.5-10.0) K/mm3 RBC 4.61 (4.2-5.4) M/mm3 Hgb 13.2 (12.0-15.0) g/dL Hct 40.6 (37.0-47.0) % MCV 88.1 (80-100) fl MCH 28.6 (26-34) pg MCHC 32.5 (32-36) g/dl RDW 15.3 H (11.5-14.5) % Plt Count 223 (150-375) k/mm3 MPV 9.2 (7.4-10.4) fl Immature Gran % (Auto) 0.2 (0-0.5) % Neut % (Auto) 52.9 (45.5-73.1) % Lymph % (Auto) 37.0 (18.3-44.2) % [place] % (Auto) 7.9 (2.6-8.5) % Eos % (Auto) 1.0 (0-4.4) % Baso % (Auto) 1.0 (0.2-1.2) % Lymph # (Auto) 1.87 (0.9-3.2) K/mm3 [place] # (Auto) 0.4 (0.1-0.6) K/mm3 Eos # (Auto) 0.1 (0-0.3) K/mm3 Baso # (Auto) 0.1 (0.0-0.1) K/mm3 Abs Immat Gran (auto) 0.01 (0.00-0.031) K/mm3 Absolute Neuts (auto) 2.7 (1.3-6.7) K/mm3 Absolute Nucleated RBC 0.000 (0.0-0.012) K/mm3 Nucleated RBC % 0.0 (0.0-0.2) % Sodium 133 L (137-145) mmol/L Potassium 4.0 (3.4-5.0) mmol/L Chloride 101 (98-107) mmol/L Carbon Dioxide 29 (22-30) mmol/L Anion Gap 3 L (4-12) mmol/L BUN 16 (7-17) mg/dL Creatinine 0.63 L (0.7-1.0) mg/dL Estim Creat Clear Calc 68 ml/min Estimated GFR > 60 (59 - ) Glucose 97 (65-110) mg/dL Calcium 9.5 (8.4-10.2) mg/dL Total Bilirubin 0.5 (0.2-1.3) mg/dL AST 33 (14-36) U/L ALT 24 (6-35) U/L Alkaline Phosphatase 83 (38-126) U/L Troponin I < 0.012 (0.000-0.034) ng/mL Total Protein 6.6 (6.3-8.2) g/dL Albumin 4.2 (3.5-5.1) g/dL Imaging Data Radiologist's impression: ITS Impressions Chest X-Ray 04/14/25 12:39 Impression: 1: No acute cardiopulmonary disease. Head CT 04/14/25 13:14 Impression: No acute intracranial hemorrhage or suspicious mass effect. ECG Data EKG #1: ECG completion date: 04/14/25 ECG completion time: 12:30 EKG Interpretation: normal rate (70), sinus rhythm, no ectopy and normal QRS Discharge Plan Discharge Clinical Impression: Arm pain, left Head ache Qualifiers: Headache type: unspecified Headache chronicity pattern: unspecified pattern I ntractability: intractable Qualified Code(s): R51.9 - Headache, unspecified Patient Disposition: Home Condition: Stable Instructions: Acute Headache (ED), Arthralgia (ED) Additional Instructions: Continue home medication, call Dr. Andre's office for an appointment. Take aspirin daily Patient Language: German Prescriptions: No Action nitrofurantoin macrocrystal 50 mg capsule 50 mg PO Q24H PreserVision AREDS 14,320-226-200 etmw-cd-tvpk capsule 2 cap PO DAILY ascorbic acid (vitamin C) 500 mg capsule 500 mg PO DAILY (DME) blood-glucose meter [Contour Next Glucose Meter] Kit See Rx Instructions .Route Rx Instructions: As directed calcium carbonate [Calcium 600] 600 mg calcium (1,500 mg) tablet 600 mg PO DAILY Qty: 90 0RF coQ10 (ubiquinol) 200 mg Capsule 200 mg PO DAILY cholecalciferol (vitamin D3) 125 mcg/mL (5,000 unit/mL) Drops 12.5 mcg PO DAILY cyanocobalamin (vitamin B-12) 1,000 mcg Tablet 1,000 mcg PO DAILY zoledronic zaka-ydgrylai-yvtfy [Reclast] 5 mg/100 mL Piggyback 5 mg IV ONCE Rx Instructions: administer over at least 15 mins. ANNUALLY (DME) Blood Glucose Test Strip See Rx Instructions .Route Qty: 100 3RF Rx Instructions: 1 q day losartan 100 mg tablet 100 mg PO QAM Qty: 90 1RF amlodipine 10 mg tablet 10 mg PO DAILY Qty: 90 1RF Follow-up/Referrals: Peyton Andre MD [Primary Care Provider] - Quality Stroke Date of last known normal: 04/14/25 Stroke Scale Stroke Scale 1: Stroke scale date:: 04/14/25 Stroke scale time:: 12:25 1a Level of consciousness: alert-0 1b Level of consciousness questions: answers both correctly-0 1c Level of consciousness commands: obeys both correctly-0 2 Best gaze: normal-0 3 Visual: no visual loss-0 4 Facial palsy: normal-0 5a Motor: left arm: no drift-0 5b Motor: right arm: no drift-0 6a Motor: left leg: no drift-0 6b Motor: right leg: no drift-0 7 Limb ataxia: absent-0 8 Sensory: normal-0 9 Best language: no aphasia-0 10 Dysarthria: normal-0 11 Extinction and inattention: no abnormality-0 Level:: 0
== END 2025-04-14 14:56 | disposition home or self-care (01) ==
PROVIDERS: Emergency Provider Family Medicine; PCP Family Medicine
DX: R51.9 Headache, unspecified (principal); M79.602 Pain in left arm; I10 Essential (primary) hypertension; I35.1 Nonrheumatic aortic (valve) insufficiency
CPT/HCPCS: 36415; 70450; 71045; 80053; 84484; 85025; 93005; 99284

== ENCOUNTER 2025-05-04 08:05 | Outpatient (CLI) | payer MEDICARE, SELFPAY ==
--- NOTE | ~2025-05-04 | MR_ITS ---
MRI of the brain Clinical History: TIA Technique: Axial and sagittal T1-weighted images were acquired. These were followed by axial T2-weigh nuha, diffusion weighted, gradient, and FLAIR images. COMPARISON: 01/30/2023 Findings: There is no acute infarct, intracranial hemorrhage or mass lesion. Moderate to advanced chr onic microvascular ischemic changes are present throughout the periventricular white matter bilateral ly. Ventricles and some arachnoid spaces are mildly dilated. Orbits are unremarkable. Paranasal sinuses a nd mastoid air cells are clear. Major intracranial flow voids are intact. Sagittal midline structures are intact. IMPRESSION: No acute infarct, intracranial hemorrhage, or mass lesion. Moderate to advanced chronic microvascular ischemic change, similar to prior exam. Reviewed, dictated and finalized at location M. IMPRESSION: No acute infarct, intracranial hemorrhage, or mass lesion. Moderate to advanced chronic microvascular ischemic change, similar to prior ex am.
== END 2025-05-04 08:06 | disposition home or self-care (01) ==
PROVIDERS: PCP Internal Medicine Cardiovascular Disease; Visit Provider Student in an Organized Health Care Education/Training Program
DX: I67.82 Cerebral ischemia (principal); G45.9 Transient cerebral ischemic attack, unspecified
CPT/HCPCS: 70551

== ENCOUNTER 2025-06-02 12:43 | Outpatient (CLI) | payer MEDICARE, SELFPAY ==
--- OUTSIDE RECORDS SUMMARY | 2005-09-26 11:45 | XMS_ITS | Continuity of Care Document ---
Author Organization [facility] Address [address] [place] [address] [address] [place] [address] Phone Care Team Providers Care Supervisor Powdered Metal Name Role Phone Fatuma Snyder Unavailable Unavailable Advance Directives Directive Yes / No Effective Date File Name No Information Encounters Encounter Description Practice Location Reason(s) For Visit Diagnoses Date Provider Providers Copied on Encounter [facility], [address], [place], [place], [id number], [place] tel:[phone] [facility] No Information 0-200 6 Lillian Burris. [address] , [address], [place], [address], [place]. tel:[phone] Family History Family Member Type Diagnosis Age At Onset No Information Payers Payer name Insurance type Covered democrat ID Authoriza timeena(s) [facility] CI [id number] Social History Type Description Quantity Date Captured [...]
--- NOTE | 2025-06-02 13:37 | ECHO_ITS ---
Patient Info Name: Mary Ellen Robles Age: 85 years : 1940 Gender: Female Ht: 67 in Wt: 206 lbs BSA: 2.13 m2 HR: 72 bpm BP: 148 / 86 mmHg Heart Rhythm: Sinus Rhythm Technical Quality: Good Exam Date: 06/02/2025 1:56 PM Patient Status: O Admit Date: 06/02/2025 Exam Type: CA echo doppler color flow Complete two-dimensional, color flow and Doppler transthoracic echocardiogram is performed. Staff Referring Physician: Aron Desai MD Jail Manager: Irene Spann Attending Provider: Andrae Zhang Summary 1. Complete two-dimensional, color flow and Doppler transthoracic echocardiogram is performed. 2. Left ventricular chamber dimension is normal. 3. Left ventricular systolic function is normal, estimated at 65-70. 4. There is mildly increased left ventricular wall thickness. 5. The left ventricular diastolic function is grade I diastolic dysfunction. 6. Left atrial chamber dimension is mildly enlarged. 7. There is mild mitral valve regurgitation. 8. The mitral valve has a calcified annulus. 9. There is mild tricuspid valve regurgitation. 10. Mild pulmonary hypertension, estimated pulmonary arterial systolic pressure is 40 mmHg. 11. There is mild pulmonic regurgitation. 12. Chordal systolic anterior motion with redundant chordae. Cannot exclude torn minor cord. Left Ventricle Left ventricular chamber dimension is normal. Left ventricular systolic function is normal, estimated at 65-70. There is mildly increased left ventricular wall thickness. The left ventricular diastolic function is grade I diastolic dysfunction. Right Ventricle Right ventricular chamber dimension is normal. Right ventricular systolic function is normal. Left Atria Left atrial chamber dimension is mildly enlarged. Right Atria Right atrial chamber dimension is normal. Atrial Septum Intact interatrial septum visualized by color flow imaging. Aortic Valve The aortic valve is trileaflet. There is mild aortic valve sclerosis. There is no aortic valve stenosis. There is trace aortic valve regurgitation. Pulmonic Valve The pulmonic valve is normal. There is no pulmonic valve stenosis. There is mild pulmonic regurgitation. Mitral Valve The mitral valve has a calcified annulus. There is no mitral valve stenosis. There is mild mitral valve regurgitation. Tricuspid Valve The tricuspid valve leaflets are normal. There is no significant tricuspid valve stenosis. There is mild tricuspid valve regurgitation. Mild pulmonary hypertension, estimated pulmonary arterial systolic pressure is 40 mmHg. Pericardium/Pleural The pericardium appears normal. There is no pericardial effusion. Inferior Vena Cava Normal inferior vena cava with >50% collapse upon inspiration consistent with normal right atrial pressure, 10 mmHg. Aorta The aortic root size at the sinus of Valsalva is normal. The prox ascending aorta size is normal. Left Ventricular Outflow Tract Name Value Normal LVOT 2D LVOT Diameter 2.0 cm LVOT Doppler LVOT Peak Velocity 116 cm/s LVOT Peak Gradient 5 mmHg LVOT Mean Gradient 4 mmHg LVOT VTI 29 cm LVOT VTI/AV VTI Ratio 0.9 LVOT Stroke Volume 89 ml LVOT CO 16.8 l/min LVOT CI 7.9 l/min/m2 Pulmonic Valve Name Value Normal PV Doppler PV Peak Velocity 96 cm/s PV Peak Gradient 4 mmHg Mitral Valve Name Value Normal MV Doppler MV Peak Gradient 12 mmHg MV Mean Gradient 5 mmHg MV Area (Cont Eq VTI) 2.1 cm2 MV Diastolic Function MV E Peak Velocity 103 cm/s MV A Peak Velocity 156 cm/s MV E/A 0.7 MV Decel Time (PW) 289 ms MV Annular TDI MV E/e' (Septal) 22.4 MV E/e' (Lateral) 16.4 MV E/e' (Average) 19.4 Tricuspid Valve Name Value Normal TV Regurgitation Doppler TR Peak Velocity 276 cm/s TR Peak Gradient 30 mmHg Estimated PAP/RSVP RA Pressure 10 mmHg <=5 PA Systolic Pressure 40 mmHg <36 RV Systolic Pressure 40 mmHg <36 TV Annular TDI TV Lateral Bryanna s' Velocity 15.4 cm/s >=9.5 Aorta Name Value Normal Ascending Aorta Ao Root Diameter (MM) 3.4 cm Ao Root Diam Index (MM) 1.6 cm/m2 Aortic Valve Name Value Normal AV Doppler AV Peak Velocity 147 cm/s AV Peak Gradient 9 mmHg AV Mean Gradient 5 mmHg AV VTI 32 cm AV Area (Cont Eq VTI) 2.8 cm2 >=3.0 AV Area (Cont Eq Derrek) 2.4 cm2 AV DI (Derrek) 0.79 AV Regurgitation 2D LVOT Area 3.0 cm2 Ventricles Name Value Normal LV Dimensions 2D/MM IVS Diastolic Thickness (2D) 0.9 cm 0.6-1.0 LVID Diastole (2D) 4.4 cm 3.8-5.2 LVIW Diastolic Thickness (2D) 1.0 cm 0.6-0.9 LVID Systole (2D) 2.7 cm 2.2-3.5 LVOT Diameter 2.0 cm LV Mass (2D Cubed) 134.02 g 67.00-162.00 LV Mass Index (2D Cubed) 63 g/m2 43-95 Relative Wall Thickness (2D) 0.44 <=0.42 LV Fractional Shortening/Ejection Fraction 2D/MM LV Fractional Shortening (2D) 38 % 27-45 LV EF (2D Teichholz) 68 % LV Diastolic Volume (4C MOD) 100 ml LV EF (4C MOD) 74 % LV Diastolic Volume (2C MOD) 79 ml LV EF (2C MOD) 59 % LV Diastolic Volume (BP MOD) 90 ml 46-106 LV Diastolic Volume Index (BP MOD) 42 ml/m2 29-61 LV Systolic Volume (BP MOD) 29 ml 14-42 LV Systolic Volume Index (BP MOD) 14 ml/m2 8-24 LV EF (BP MOD) 68 % 54-74 LV Diastolic Length (4C) 8.4 cm LV Systolic Length (4C) 6.7 cm LV Stroke Volume (4C MOD) 74 ml RV Dimensions 2D/MM RVID Diastole (2D) 4.2 cm 2.1-3.5 Atria Name Value Normal LA Dimensions LA Dimension (MM) 3.8 cm 2.7-3.8 LA Volume (4C A-L) 72 ml LA Volume (BP A-L) 72 ml RA Dimensions RA Systolic Major [place] Length (4C) 4.6 cm 2.2-2.8 RA Area (4C) 14.7 cm2 <=18.0 Report Signatures
--- OUTSIDE RECORDS SUMMARY | 2025-06-02 14:14 | XMS_ITS | Encounter Summary ---
Author Organization [facility] Health Address [address] [place] [address] Care Team Providers Care Life Scientists Name Role Phone Maury Mcgarry MD Unavailable [phone] Brenda Durbin MD Primary Care Provider + [phone] Valencia Luna MD Primary Care Provider [phone] Gregory Cook MD Unavailable [phone] Brenda Durbin MD Primary Care Provider [phone] Emilia [facility] Primary Care Provider + Encounter Details Date Type Department Care Team (Late st Contact Info) Description 01/14/2018 [facility] [address] [place] [address] [place] [address] [address] Social History Tobacco Use Types Packs/Day Years Used Date Smoking Tobacco: Never Smokeless Tobacco: Never Alcohol Use Standard Drinks/Week Comments Yes 0 (1 standard drink = 0.6 oz pur e alcohol) Comments Unknown Sex and Gender Information Value Date Recorded Sex Assigned at Not on file 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 [place] [address] PCP - General Family Medicine 10/29/19 07/02/22 Brenda Durbin MD [address] [address] PCP - General 07/03/22 08/15/22 Emilia Brown APRN-[facility] [address] [address] PCP - General 08/16/22 [place] [address] [facility] [address] [place], [place] [id number] Orthopedic Surgery 07/26/15 Gregory Cook MD [facility] [facility] [address] [place], [place] [id number] Cardiovascular Disease 12/03/19 documented as of this encounter
--- OUTSIDE RECORDS SUMMARY | 2025-06-02 14:14 | XMS_ITS | Clinical Summary ---
Author Organization [facility] Address [address] [place] [address] Care Team Providers Care Sweatband Cutting Machine Operator Name Role Phone Maury Mcgarry MD Unavailable [phone] Gregory Cook MD Unavailable [phone] Emilia Brown APRN-AGRICULTURE SPECIALIST Primary Care Provider + Source Comments [facility],non-owned Affiliates and Associated Physician Practices is amultiple site organization consisting of ambulatory clinics and hospital sitesin [place], [place], [place] and [place]. This disclosure is being madepursuant to the Care Everywhere program and may not contain all information available regarding this patient. 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 Gender Identity Not on file Sexual Orientation [...] 01/03/2021, 10/29/2019 DIABETES-SERUM CREATININE 01/03/20222020, 10/29/2019, 01/11/2018 DEPRESSION SCREENING 09/17/2024 DIABETES - URINE PROTEIN SCREENING 09/17/2024 COVID-19 VACCINE (3 - 2024-2 6 season) 2025 12/23/2020, 12/02/2020 INFLUENZA VACCINE (#1) 2025 DTAP/TDAP/TD VACCINES (3 [...] this topic Medical Devices Implanted Type Area Director Of Pulmonary Unit Device Identifier Shelf Expiration Date Model / Serial / Lot Wale Bone [place]-G Hv 40/20 Implanted:Qty: 1 on 02/04/2018 by Maury Mcgarry MD at [facility] Left: Knee [employer] 02/14/2019 600-15-100 / / [id number] Cmpnt Ptlr 28mm 1 Pg Wire Ascnt Arcm Kn Implanted:Qty: 1 on 02/04/2018 by Mauyr Mcgarry MD at [facility] Left: Knee [employer] 12/28/2022 [id number] / / [id number] Tray Tib 75mm Kn Cocr I Beam Implanted:Qty: 1 on 02/04/2018 by Maury Mcgarry MD at [facility] Left: Knee [employer] 10/21/2027 [id number] / / [id number] Cmpnt Fem Kn Lt Cr Cmnt Prm Vngrd Intlk Implanted:Qty: 1 on 02/04/2018 by Maury Mcgarry MD at [facility] Left: Knee [employer] 12/14/2027 [id number] / / [id number] Brng [id number] Vngrd Arcm Kn Ant Stab Implanted:Qty: 1 on 02/04/2018 by Maury Mcgarry MD at [facility] Left: Knee [employer] 10/31/2022 [id number] / / [id number] Brng [id number] Vngrd Arcm Kn Ant Stab Implanted:Qty: 1 on 01/24/2021 by Maury Mcgarry MD at [facility] Right: Knee [employer] 05/30/2024 [id number] / / [id number] Cmpnt Fem Kn Rt Cr Cmnt Prm Vngrd Intlk Implanted:Qty: 1 on 01/24/2021 by Maury Mcgarry MD at [facility] Right: Knee [employer] 11/15/2030 [id number] / / [id number] Wale Bone [place]-G Hv 40/20 Implanted:Qty: 1 on 01/24/2021 by Maury Mcgarry MD at [facility] Right: Knee [employer] 08/28/2021 600-15-100 / / [id number] Tray Tib 79mm Kn Cocr I Beam Implanted:Qty: 1 on 01/24/2021 by Maury Mcgarry MD at [facility] Right: Knee [employer] 03/02/2030 [id number] / / [id number] Cmpnt Ptlr 28mm 1 Pg Wire Ascnt Arcm Kn Implanted:Qty: 1 on 01/24/2021 by Maury Mcgarry MD at [facility] Right: Knee [employer] 12/28/2022 [id number] / / [id number] Procedures Procedure Name Priority Date/Time Associated Diagnosis [...] Glucose 117 mg/dL 01/03/2021 2:00 PM CDT [facility] Blood BLOOD SPECIMEN / Unknown Venipuncture / Unknown 01/03/2021 1:38 PM CDT 01/03/2021 1:44 PM CDT Narrative [facility] - 01/03/2021 2:00 PM CDT The following cutoff levels are recommended by [employer]. A1c > 6.5% : considered [...] exceeds 5% in the specimen. Sandra Farrell PROFESSIONAL BONDSMAN-AGRICULTURE SPECIALIST LAB - CHEMISTRY ORDER GELY Final Result [facility] [address] [place] [address] * (ABNORMAL) COMPREHENSIVE METABOLIC PANEL [...] - 18 mmol/L 01/03/2021 2:02 PM CDT [facility] Comment:Attention clinician: Reference Range change. BUN 16 9.8 - 20.1 mg/dL 01/03/2021 2:02 PM CDT [facility] Creatinine 0.71 0.57 - 1.11 mg/dL 01/03/2021 2:02 PM CDT [facility] Alkaline Phosphatase 99 40 - [...] CDT 01/03/2021 1:44 PM CDT Sandra Farrell PROFESSIONAL BONDSMAN-AGRICULTURE SPECIALIST LAB - CHEMISTRY ORDER GELY Final Result [facility] [address] [place] [address] from Last 3 Months or Most Recently Relevant to Health [place] [address] MEDICARE [facility] MEDICARE MEDICARE MEDICARE MEDICARE ANTHEM Advance Directives Documents on File Type Date Recorded Patient Prenatal Teacher Expl anation Adv Directive/Living Will/POA 01/11/2018 10:24 AM [place] POA * Full Code (Latest Code Status on File) Date Activated Date Inactivated Comments 01/24/2021 11:38 AM 01/26/2021 3:15 PM * Full Code Date Activated Date Inactivated Comments 02/04/2018 11:32 AM 02/07/2018 1:39 PM Care Teams Sweatband Cutting Machine Operator Relationship Specialty Start Date End Date Emilia Brown APRN-RYAN [address] [address] PCP - General 08/16/22 [place] [address] [address] [facility] [address] [place] [address] Orthopedic Surgery 07/26/15 Gregory Cook MD [address] [place] [address] [address] [place] [address] Cardiovascular Disease 12/03/19
--- OUTSIDE RECORDS SUMMARY | 2025-06-02 14:14 | XMS_ITS | Clinical Summary ---
Author Organization [facility] [place] [address] Address [address] [place] [address] Care Team Providers Care Book Store Associate Name Role Phone Peyton Andre MD Primary Care Provider + Allergies Active Allergy Reactions Criticality Noted Date Comments Adhesive Hives Medium 07/26/2015 Adhesive Tape-Silicones Unknown 07/26/2015 Aspirin Other (See comments) Medium Peptic Ulcers Clindamycin Diarrhea Low 04/30/2023 Latex Rash Medium 01/03/2021 Morphine Unknown 07/26/2015 Wldjlcc-Vmh-Lnj Reductase Inhibitors Muscle pain Medium 10/14/2020 Ezetimibe Muscle pain Medium 06/25/2023 Medications losartan (COZAAR) 100 mg tablet take 1 tablet (100MG) by oral route every day 30 5 09/12/201 2 Active coenzyme Q10 200 mg capsule Take 1 capsule (200 mg total) by mouth daily Active VIT A/VIT C/VIT E/ZINC/COPPER (PRESERVISION AREDS ORAL) Take by mouth. Active ascorbate calcium/bioflavon oid (TALA-C WITH BIOFLAVONOIDS ORAL) Take by mouth as directed 3 tablets daily Active cyanocobalamin (Vitamin B-12) 100 mcg tabletIndications :Prevention of Vitamin B12 Deficiency Take 1 tablet (100 mcg total) by mouth daily Active cholecalciferol, vitamin D3, 500 unit/5 mL liquid Take 5,000 Units by mouth daily Active ascorbic acid (VITAMIN C) 500 mg tablet,chewable Acti ve ferrous sulfate 325 mg (65 mg of elemental iron) tabletIndications :Iron Deficiency Anemia Take 1 tablet (325 mg total) by mouth 2 (two) times a day Active aspirin 81 mg enteric coated tablet Take 1 tablet (81 mg total) by mouth daily Active nitrofurantoin (MACRODANTIN) 50 mg capsule Take 1 capsule (50 mg total) by mouth daily Active amLODIPine (NORVASC) 5 mg tabletIndications :Hypertension associated with diabetes (HCC) Take 1 tablet (5 mg total) by mouth daily 90 tablet 3 5 05/21/20 26 Active amLODIPine (NORVASC) 10 mg tablet Take 1 tablet (10 mg total) by mouth daily 3 05/21/20 25 Discontin ued(Alter rachael therapy) Active Problems Problem Noted Date Diagnosed Date TIA (transient ischemic attack) 02/02/2023 Moderate left ventricular hypertrophy 11/29/2022 Nonrheumatic mitral valve stenosis 04/14/2022 Mixed diabetic hyperlipidemi a associated with type 2 diabetes mellitus 04/20/2021 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 Double vision 09/11/2019 H/O: duodenal ulcer 09/11/2019 PSVT (paroxysmal supraventricular tachycardia) ( [facility]/HCC) 11/29/2017 Preoperative cardiovascular examination 08/15/20 17 Gastroduodenal [...] Encounters Date Type Department Care Team Description 05/21/2025 1:30 PM CDT Office Visit [facility] Cardiology [address] [place] [address] Chata Duncan NP TIA (transient ischemic attack) (Primary Dx); Statin myopathy; Hypertension associated with diabetes (HCC); PSVT (paroxysmal supraventricular tachycardia) (CMS/HCC) (HCC) 05/04/2025 Orders Only [facility] [place] Information Management [address] [place] [address] Scanning, Provider 04/14/2025 Orders Only [facility] [place] Information Management [address] [place] [address] Wil Hernandez MD from Last 3 Months Medical History Medical History Date Comments Hypertension [...] on file Legal 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 Gender Identity Not on file Sexual Orientation Not on file Obstetrics History Last Filed Vital Signs Vital Sign Reading Time Taken Comments Blood Pressure 142/80 05/21/2025 1:21 PM CDT Pulse 81 05/21/2025 1:21 PM CDT Temperature - - Respiratory Rate 16 05/21/2025 1:21 PM CDT Oxygen Saturation 96% 05/21/2025 1:21 PM CDT Inhaled Oxygen Concentration - - Weight 96.6 kg (213 lb) 05/21/2025 1:21 PM CDT Height 170.2 cm (5' 7) 05/21/2025 1:21 PM CDT Body Mass Index 33.36 05/21/2025 1:21 PM CDT Plan of Treatment Health Maintenance [...] Vaccine (#1) 2025 Osteoporosis Screening-Bone Density Scan 10/02/2026 10/02/2024, 08/27/2023, 08/07/2022, Additional history exists DTaP/Tdap/Td Vaccine (4 - Td or Tdap) 06/14/2030 06/14/2020, 03/15/2015, 03/14/2015 Procedures Procedure Name Priority Date/Time Associated Diagnosis Comments ELECTROCARDIOGRAM REPORT Routine 05/21/2025 TIA (transient ischemic attack) SCAN - RADIOLOGY/IMAGING 05/04/2025 CARDIOLOGY DOCUMENT SCAN 04/14/2025 SCAN - LABS 04/14/2025 SCAN - RADIOLOGY/IMAGING 04/14/2025 POCT LIPID PANEL Routine 06/25/2023 1:30 PM CDT Mixed diabetic hyperlipidemia associated with type 2 diabetes mellitus (HCC) from Last 3 Months or Most Recently Relevant to Health Maintenance Results * Electrocardiogram Report (05/21/2025) 05/21/2025 Chata Duncan NP ECG ORDERABLES Edited Re sult - Final * SCAN - RADIOLOGY/IMAGING (05/04/2025) Anatomical Region Laterality Modality Other Provider Scanning Final Result * SCAN - RADIOLOGY/IMAGING (04/14/2025) Anatomical Region Laterality Modality Other Wil Hernandez MD Edited Result - Final * SCAN - LABS (04/14/2025) Provider Scanning Final Result * Cardiology Document Scan (04/14/2025) Anatomical Region Laterality Modality Other Wil Hernandez MD CV CARDIAC SERVICES PROCEDURES Final Result * POCT lipid panel (06/25/2023 1:30 PM [...] Recently Relevant [place] [address] MEDICARE [employer] [facility] Member Subscriber Plan / Payer (Ef fective 2021-Present) Name:Thad Robles [place] Relation to Subscriber:Self Name:Thad Robles Payer ID:[id number] (NAIC) Group ID:[id number] Type: OTHER Address[address] [address] MEDICARE [employer] [place] Member Subscriber Plan / Payer (Ef fective 2012-Present) Name:Thad Robles Relation to Subscriber:Self Name:YonathanThad bender Payer ID:[id number] (NAIC) Type: OTHER Address: [place] [id number] MEDICARE [facility] MEDICARE SUPPLEMENT Care Teams Book Store Associate Relationship Specialty Start Date End Date Peyton Andre MD PCP - General Family Medicine 10/18/22
--- OUTSIDE RECORDS SUMMARY | 2025-06-02 14:14 | XMS_ITS | Encounter Summary ---
Author Organization [facility] Healthcare Address [address] [place] [address] Care Team Providers Care Newspaper Subscription Solicitor Name Role Phone Emilia Brown NP Primary Care Provider [phone] Peyton Andre MD Primary Care Provider + Encounter Details Date Type Department Care Team (Late st Contact Info) Description 07/29/2020 Telephone [facility] [address] [place] [address] Dmitri Patel, RT Social History Tobacco Use Types Packs/Day Years Used Date Smoking Tobacco: Never Smokeless Tobacco: Never Alcohol Use Standard Drinks/Week Comments Yes 0 (1 standard drink = 0.6 oz pur e alcohol) Comments Unknown Sex and Gender Information Value Date Recorded Sex Assigned at Not on file 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
--- OUTSIDE RECORDS SUMMARY | 2025-06-02 14:14 | XMS_ITS | Encounter Summary ---
Author Organization [facility] Healthcare Address [address] [place] [address] Care Team Providers Care Barrel Roller Operator Name Role Phone Emilia Brown NP Primary Care Provider [phone] Peyton Andre MD Primary Care Provider + Encounter Details Date Type Department Care Team (Late st Contact Info) Description 10/21/2017 Orders Only [facility] Health Information Management [address] [place] [address] Scanning, Provider Social History Tobacco Use Types Packs/Day Years Used Date Smoking Tobacco: Never Smokeless Tobacco: Never Alcohol Use Standard Drinks/Week Comments Yes 0 (1 standard drink = 0.6 oz pur e alcohol) Comments Unknown Sex and Gender Information Value Date Recorded Sex Assigned at Not on file 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 MIX 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 Gender Identity Not on file Sexual Orientation Not on file documented as of this encounter Plan of Treatment Not on file documented as of this encounter Procedures Procedure Name Priority Date/Time Associated Diagnosis Comments SCAN - LABS 10/21/2017 documented in this encounter Results * SCAN - LABS (10/21/2017) us Provider Scanning Final Result documented in this encounter Visit Diagnoses Not on filedocumented in this encounter Care Teams Barrel Roller Operator Relationship Specialty Start Date End Date Emilia Brown NP PCP - General 07/12/12 10/17/22 Peyton Andre MD PCP - General Family Medicine 10/18/22 documented as of this encounter
--- OUTSIDE RECORDS SUMMARY | 2025-06-02 14:14 | XMS_ITS | Clinical Summary ---
Author Organization [facility] Address [address] [place] [address] Care Team Providers Care Animal Damage Control Agent Name Role Phone Peyton Andre MD Primary Care Provider [phone] Allergies Active Allergy Reactions Criticality Noted Date Comments Adhesive Hives High 07/26/2015 Aspirin Other (See Comments) Medium 10/10/2023 Peptic Ulcers Clindamycin Diarrhea Low 04/30/2023 Ezetimibe Muscle Pain Medium 06/25/2023 Latex Rash Medium 01/03/2021 Morphine Rash,Unknown Medium 07/26/2015 Pfxqphh-Afi-Vdl Reductase Inhibitors Muscle Pain Medium 10/14/2020 Medications [...] ORAL Take by mouth. 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 Gender Identity Not on file Sexual Orientation [...] Description 06/12/2025 9:45 AM CDT Office Visit [facility] [address] [facility] [address] [place] [address] Riki Garcia MD [address] [facility] [address] [place] [address] Health Maintenance Due Date Last [...] 06/14/2030 06/14/2020, 03/15/2015, 03/14/[address] [facility] [address] MEDICARE PART A AND B BS SUPP Care Teams Animal Damage Control Agent Relationship Specialty Start Date End Date Peyton Andre MD [address] [place] [address] [place] [address] PCP - General Family Practice 09/26/23
--- NOTE | 2025-06-17 11:19 | WPDHOLTEREM ---
Holter/Event Monitor Holter/Event Monitor Date of procedure: 06/02/25 Holter/Event Procedure: 3-7 Day Holter Monitor Indications: TIA Conclusion: 1. 7 days holter monitor on 06/02/25. 2. Predominant rhythm is sinus rhythm. HR range 30-171 bpm; average 79 bpm. HR at 30 bpm was due to one dropped beat due to a second degree AV block type II on 06/05/25 at 4:44 am. 3. There are rare premature supraventricular complexes, rare supraventricular couplets, and rare supraventricular triplets. There are 4 episodes of supraventricular tachycardia with fastest at 171 bpm and longest lasting 7 beats. 4. There are rare premature ventricular complexes and rare ventricular couplets. No ventricular tachycardia. 5. No significant pauses greater than 3 seconds. A second degree AV block as described above. 6. No symptoms available for correlation.
== END 2025-06-02 12:44 | disposition home or self-care (01) ==
LOC: ANHCARD 12:45
PROVIDERS: PCP Family Medicine; Referring Provider Internal Medicine Cardiovascular Disease; Visit Provider Student in an Organized Health Care Education/Training Program
DX: G45.9 Transient cerebral ischemic attack, unspecified (principal); I08.1 Rheumatic disorders of both mitral and tricuspid valves; I27.20 Pulmonary hypertension, unspecified; I37.1 Nonrheumatic pulmonary valve insufficiency; Z86.73 Personal history of transient ischemic attack (TIA), and cerebral infarction without residual deficits
CPT/HCPCS: 93242; 93306

== ENCOUNTER 2025-06-05 08:09 | Outpatient (CLI) | payer MEDICARE, SELFPAY ==
--- OUTSIDE RECORDS SUMMARY | 2005-09-26 11:45 | XMS_ITS | Continuity of Care Document ---
Author Organization [facility] Address [address] [place] [address] [address] [place] [address] Phone Care Team Providers Care Dev Manager Name Role Phone Fatuma Snyder Unavailable Unavailable Advance Directives Directive Yes / No Effective Date File Name No Information Encounters Encounter Description Practice Location Reason(s) For Visit Diagnoses Date Provider Providers Copied on Encounter [facility], [address], [place], [place], [id number], [place] tel:[phone] [facility] No Information 0-200 6 Lillian Burris. [address] , [address], [place], [address], [place]. tel:[phone] Family History Family Member Type Diagnosis Age At Onset No Information Payers Payer name Insurance type Covered alliance party ID Authoriza timeena(s) [facility] CI [id number] Social History Type Description Quantity Date Captured [...]
--- NOTE | ~2025-06-05 | CT_ITS ---
EXAMINATION: CT abdomen pelvis w con DATE: 06/05/2025 08:36 INDICATION: Malignant neoplasm of the ureter TECHNIQUE: Computed tomography (CT) of the abdomen and pelvis was performed with 100 mL Omnipaque-350 intravenous contrast. Automated exposure control and iterative reconstruction technique were employed. The dose-length product was 882.41 mGy-cm. COMPARISON: 11/27/2024 FINDINGS: The/lower lungs are clear. Heart size is normal. No pericardial or pleural effusion. Distal tip of a central venous catheter at the superior cavoatrial junction. Large sliding-type hiatal hernia. Large calcified left subphrenic lymph node and multiple small hepatic and splenic calcifications consistent with old granulomatous disease. Cholecystectomy clips the gallbladder fossa. Pancreas, bilateral adrenal glands and kidneys are normal. No hydronephrosis. Postoperative change of prior distal right ureteral resection with right psoas hitch procedure resulting cephalad tenting of the right-sided the dome of the bladder.. The uterus is not identified and has likely been surgically resected. There is mild colonic diverticulosis with a sigmoid predominance and without adjacent inflammatory change to suggest diverticulitis. No bowel obstruction. Appendix is again not visualized and likely absent. No free intraperitoneal gas or fluid. No pathologically enlarged abdominal or pelvic lymphadenopathy. Left total hip arthroplasty. Mild thoracolumbar levocurvature with mild to moderate lower thoracic and moderate to severe lumbar spondylosis. IMPRESSION: 1. 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 No hydronephrosis or evident residual, locally recurrent or metastatic disease. 2. Large sliding-type hiatal hernia. Reviewed, dictated and finalized at location A. IMPRESSION: 1. 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 No hydronephrosis or evident residual, locally recurrent or metastatic disease. 2. Large sliding-type hiatal hernia.
--- OUTSIDE RECORDS SUMMARY | 2025-06-05 08:12 | XMS_ITS | Encounter Summary ---
Author Organization [facility] Health Address [address] [place] [address] Care Team Providers Care Dealer Card Room Name Role Phone Maury Mcgarry MD Unavailable [phone] Brenda Durbin MD Primary Care Provider + [phone] Valencia Luna MD Primary Care Provider [phone] Gregory Cook MD Unavailable [phone] Brenda Durbin MD Primary Care Provider [phone] [facility] Primary Care Provider + Encounter Details Date Type Department Care Team (Late st Contact Info) Description 01/14/2018 [facility] [address] [place] [address] [place] [address] [address] Social History Tobacco Use Types Packs/Day Years Used Date Smoking Tobacco: Never Smokeless Tobacco: Never Alcohol Use Standard Drinks/Week Comments Yes 0 (1 standard drink = 0.6 oz pur e alcohol) Comments Unknown Sex and Gender Information Value Date Recorded Sex Assigned at Not on file 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 [address] [place] [address] PCP - General Family Medicine 10/29/19 07/02/22 Brenda Durbin MD [address] [address] PCP - General 07/03/22 08/15/22 Emilia Brown APRN-[facility] [address] [address] PCP - General 08/16/22 [place] [address] [facility] [address] [place], [place] [id number] Orthopedic Surgery 07/26/15 Gregory Cook MD [facility] [facility] [address] [place], [place] [address] Cardiovascular Disease 12/03/19 documented as of this encounter
--- OUTSIDE RECORDS SUMMARY | 2025-06-05 08:13 | XMS_ITS | Clinical Summary ---
[facility] Organization [facility] Address [address] [facility] [place] [address] Care Team Providers Care As400 Consultant Name Role Phone Peyton Andre MD Primary Care Provider [phone] Allergies Active Allergy Reactions Criticality Noted Date Comments Adhesive Hives High 07/26/2015 Aspirin Other (See Comments) Medium 10/10/2023 Peptic Ulcers Clindamycin Diarrhea Low 04/30/2023 Ezetimibe Muscle Pain Medium 06/25/2023 Latex Rash Medium 01/03/2021 Morphine Rash,Unknown Medium 07/26/2015 Tpctxct-Ekf-Ufc Reductase Inhibitors Muscle Pain Medium 10/14/2020 Medications [...] ORAL Take by mouth. 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 Gender Identity Not on file Sexual Orientation [...] Description 06/12/2025 9:45 AM CDT Office Visit [facility] Oncology and Hematology [facility] [address] [facility] [address] [place] [address] Riki Garcia MD [address] [facility] [address] [place] [address] Health Maintenance Due Date Last [...] Tdap) 06/14/2030 06/14/2020, 03/15/2015, 03/14/[address] [place] [address] MEDICARE PART A AND B BCBS SUPP Care Teams As400 Consultant Relationship Specialty Start Date End Date Peyton Andre MD [facility] [facility] [place] [address] PCP - General Family Practice 09/26/23
--- OUTSIDE RECORDS SUMMARY | 2025-06-05 08:13 | XMS_ITS | Clinical Summary ---
Author Organization [facility] Address [address] [place] [address] Care Team Providers Care Source Water Protection Specialist Name Role Phone Peyton Andre MD Primary Care Provider [phone] Allergies Active Allergy Reactions Criticality Noted Date [...] Noted Date Diagnosed Date Stress incontinence 10/13/2022 Immunizations Immunization Administration Dates Next Due PFIZER [...] Years (1 - 1-dose 75+ series) 2017 Pneumococcal Vaccine: 50+ Years (3 of 3 - PCV20 or PCV21) 08/25/2024 08/25/2019, 09/17/2006 COVID-19 Vaccine (4 - season) 2025 12/23/2020, 12/02/2020, 09/17/2020 DTaP, Tdap and Td Vaccines (4 - [...] BONE DENSITY/DEXA Routine 10/02/2024 3:1 1 PM DENTAL CHAIRSIDE ASSISTANT Age-related osteoporosis without current pathological fracture from Last 3 Months or Most Recently Relevant to Health Maintenance Results * BONE DENSITY/DEXA (10/02/2024 3:11 PM DENTAL CHAIRSIDE ASSISTANT) Anatomical Region Laterality Modality Bone Bone Density 10/03/2024 7:26 AM DENTAL CHAIRSIDE ASSISTANT Impressions 10/03/2024 7:27 AM DENTAL CHAIRSIDE ASSISTANT IMPRESSION: WHO Classification: Osteoporosis RECOMMENDATIONS: All patients [...] 10/03/2024 7:26 AM Narrative 10/03/2024 7:27 AM DENTAL CHAIRSIDE ASSISTANT [facility] [address] [facility] [address] EXAMINATION: BONE DENSITY/DEXA INDICATIONS: Age-related osteoporosis without [...] Procedure Note Zheng Tejada MD - 10/03/2024 [facility] [address] [address] [place] [id number] EXAMINATION: BONE DENSITY/DEXA INDICATIONS: Age-related osteoporosis without [...] Tejada MD, 10/03/2024 7:26 AM [address] ENGINEER DEXA Final Result from Last 3 Months or Most Recently Relevant to Health Maintenance Insurance MEDICARE [facility] Care Teams Source Water Protection Specialist Relationship Specialty Start Date End Date Peyton Andre MD [address] [place] [address] [address] PCP - General FAMILY PRACTICE 11/16/22
--- OUTSIDE RECORDS SUMMARY | 2025-06-05 08:13 | XMS_ITS | Encounter Summary ---
Author Organization [facility] Healthcare Address [address] [place] [address] Care Team Providers Care Mobile Application Development Lead Name Role Phone Emilia Brown NP Primary Care Provider Peyton Andre MD Primary Care Provider + Encounter Details Date Type Department Care Team (Late st Contact Info) Description 07/29/2020 Telephone [facility] [address] [place] [address] Dmitri Patel, RT Social History Tobacco Use Types Packs/Day Years Used Date Smoking Tobacco: Never Smokeless Tobacco: Never Alcohol Use Standard Drinks/Week Comments Yes 0 (1 standard drink = 0.6 oz pur e alcohol) Comments Unknown Sex and Gender Information Value Date Recorded Sex Assigned at Not on file 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
--- OUTSIDE RECORDS SUMMARY | 2025-06-05 08:13 | XMS_ITS | Clinical Summary ---
Author Organization [facility] Address [address] [facility] [place] [address] Care Team Providers Care Pulp Mill Operator Name Role Phone Maury Mcgarry MD Unavailable [phone] Gregory Cook MD Unavailable [phone] Emilia Brown APRN-BAND PRESSER Primary Care Provider + Source Comments [facility],non-owned Affiliates and Associated Physician Practices is amultiple site organization consisting of ambulatory clinics and hospital sitesin [place], [place], [place] and [place]. This disclosure is being madepursuant to the Care Everywhere program and may not contain all information available regarding this patient. 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 Left: Knee [employer] 02/14/2019 600-15-100 / / [id number] Cmpnt Ptlr 28mm 1 Pg Wire Ascnt Arcm Kn Implanted:Qty: 1 on 02/04/2018 by Maury Mcgarry MD at [facility] Left: Knee [employer] 12/28/2022 [id number] / / [id number] Tray Tib 75mm Kn Cocr I Beam Implanted:Qty: 1 on 02/04/2018 by Maury Mcgarry MD at [facility] Left: Knee [employer] 10/21/2027 [id number] / / [id number] Cmpnt Fem Kn Lt Cr Cmnt Prm Vngrd Intlk Implanted:Qty: 1 on 02/04/2018 by Maury Mcgarry MD at [facility] Left: Knee [employer] 12/14/2027 [id number] / / [id number] Brng 90iio83ia Vngrd Arcm Kn Ant Stab Implanted:Qty: 1 on 02/04/2018 by Maury Mcgarry MD at [facility] Left: Knee [employer] 10/31/2022 [id number] / / [id number] Brng [id number] Vngrd Arcm Kn Ant Stab Implanted:Qty: 1 on 01/24/2021 by Maury Mcgarry MD at [facility] Right: Knee [employer] 05/30/2024 [id number] / / [id number] Cmpnt Fem Kn Rt Cr Cmnt Prm Vngrd Intlk Implanted:Qty: 1 on 01/24/2021 by Maury Mcgarry MD at [facility] Right: Knee [employer] 11/15/2030 [id number] / / [id number] Wale Bone Gillett-G Hv 40/20 Implanted:Qty: 1 on 01/24/2021 by Maury Mcgarry MD at [facility] Right: Knee [employer] 08/28/2021 600-15-100 / / [id number] Tray Tib 79mm Kn Cocr I Beam Implanted:Qty: 1 on 01/24/2021 by Maury Mcgarry MD at [facility] Right: Knee [employer] 03/02/2030 [id number] / / [id number] Cmpnt Ptlr 28mm 1 Pg Wire Ascnt Arcm Kn Implanted:Qty: 1 on 01/24/2021 by Maury Mcgarry MD at [facility] Right: Knee [employer] 12/28/2022 [id number] / / [id number] Procedures Procedure Name Priority Date/Time Associated Diagnosis [...] Glucose 117 mg/dL 01/03/2021 2:00 PM CDT [facility] Blood BLOOD SPECIMEN / Unknown Venipuncture / Unknown 01/03/2021 1:38 PM CDT 01/03/2021 1:44 PM CDT Narrative [facility] - 01/03/2021 2:00 PM CDT The following cutoff levels are recommended by [place] [employer]. A1c > 6.5% : considered [...] exceeds 5% in the specimen. Sandra Farrell MUTUEL TELLER-BAND PRESSER LAB - CHEMISTRY ORDER GELY Final Result [facility] [address] [place] [address] * (ABNORMAL) COMPREHENSIVE METABOLIC PANEL (01/03/2021 1:38 PM CDT) Pathologist [facility] Glucose 98 70 - 105 mg/dL 01/03/2021 2:02 PM CDT [facility] Sodium 139 136 - 145 mmol/L 01/03/2021 2:02 PM CDT [facility] Potassium 4.1 3.5 - 5.1 mmol/L 01/03/2021 2:02 PM CDT [facility] Chloride 107 98 - 107 mmol/L 01/03/2021 2:02 PM CDT [facility] CO2 26 23 - 31 mmol/L 01/03/2021 2:02 PM CDT [facility] Calcium 9.0 8.4 - 10.4 mg/dL 01/03/2021 2:02 PM CDT [facility] Anion Gap 6(L) 8 - 18 mmol/L 01/03/2021 2:02 PM CDT [facility] Comment:Attention clinician: Reference Range change. BUN 16 9.8 - 20.1 mg/dL 01/03/2021 2:02 PM CDT [facility] Creatinine 0.71 0.57 - 1.11 mg/dL 01/03/2021 2:02 PM CDT [facility] Alkaline Phosphatase 99 40 - [...] CDT 01/03/2021 1:44 PM CDT Sandra Farrell MUTUEL TELLER-BAND PRESSER LAB - CHEMISTRY ORDER GELY Final Result [facility] [address] [place] [address] from Last 3 Months or Most Recently Relevant to Health [place] [address] MEDICARE [facility] MEDICARE MEDICARE MEDICARE MEDICARE ANTHEM Advance Directives Documents on File Type Date Recorded Patient Fabric Awning Repairer Expl anation Adv Directive/Living Will/POA 01/11/2018 10:24 AM [place] POA * Full Code (Latest Code Status on File) Date Activated Date Inactivated Comments 01/24/2021 11:38 AM 01/26/2021 3:15 PM * Full Code Date Activated Date Inactivated Comments 02/04/2018 11:32 AM 02/07/2018 1:39 PM Care Teams Pulp Mill Operator Relationship Specialty Start Date End Date Emilia Brown APRN-RYAN [address] [address] PCP - General 08/16/22 [place] [address] [address] [facility] [address] [place] [address] Orthopedic Surgery 07/26/15 Gregory Cook MD [address] [place] [address] [address] [place] [address] Cardiovascular Disease 12/03/19
--- OUTSIDE RECORDS SUMMARY | 2025-06-05 08:13 | XMS_ITS | Clinical Summary ---
Author Organization [facility] [address] Address [address] [place] [address] Care Team Providers Care Assistant Public Defender Name Role Phone Peyton Andre MD Primary Care Provider + Allergies Active Allergy Reactions Criticality Noted Date Comments Adhesive Hives Medium 07/26/2015 Adhesive Tape-Silicones Unknown 07/26/2015 Aspirin Other (See comments) Medium Peptic Ulcers Clindamycin Diarrhea Low 04/30/2023 Latex Rash Medium 01/03/2021 Morphine Unknown 07/26/2015 Vfibkog-Nnx-Uga Reductase Inhibitors Muscle pain Medium 10/14/2020 Ezetimibe [...] ulcer 09/11/2019 PSVT (paroxysmal supraventricular tachycardia) ( [facility]/HCC) 11/29/2017 Preoperative cardiovascular examination 08/15/20 17 Gastroduodenal [...] Description 05/21/2025 1:30 PM CDT Office Visit [facility] Card[facility] [address] [place] [address] Chata Duncan NP TIA (transient ischemic attack) (Primary Dx); Statin myopathy; Hypertension associated with diabetes (HCC); PSVT (paroxysmal supraventricular tachycardia) (CMS/HCC) (HCC) 05/04/2025 Orders Only [facility] Health Information Management [address] [place] [address] Scanning, Provider 04/14/2025 Orders Only [facility] Health Information Management [address] [place] [address] Wil Hernandez MD from Last 3 Months [...] on file Legal Sex Female 6:50 AM CHEMISTS Gender Identity Not on file Sexual Orientation [...] Relevant [place] [address] MEDICARE [id number] Member Subscriber Plan / Payer (Ef fective 2021-Present) Name:Thad Robles [place] Relation to Subscriber:Self Name:Thad Robles Payer ID:[id number] (NAIC) Group ID:[id number] Type: OTHER Address: [address] MEDICARE [place] Member Subscriber Plan / Payer (Ef fective 2012-Present) Name:Thad Robles Relation to Subscriber:Self Name:YonathanThad bender Payer ID:[id number] (NAIC) Type: OTHER Address: [place] [id number] MEDICARE [facility] MEDICARE SUPPLEMENT Care Teams Assistant Public Defender Relationship Specialty Start Date End Date Peyton Andre MD PCP - General Family Medicine 10/18/22
--- OUTSIDE RECORDS SUMMARY | 2025-06-05 08:13 | XMS_ITS | Encounter Summary ---
Author Organization [facility] Healthcare Address [address] [place] [address] Care Team Providers Care Wildlife Biology Internship Name Role Phone Emilia Brown NP Primary Care Provider [phone] Peyton Andre MD Primary Care Provider + Encounter Details Date Type Department Care Team (Late st Contact Info) Description 10/21/2017 Orders Only [facility] Health Information Management [address] [place] [address] Scanning, Provider Social History Tobacco Use Types Packs/Day Years Used Date Smoking Tobacco: Never Smokeless Tobacco: Never Alcohol Use Standard Drinks/Week Comments Yes 0 (1 standard drink = 0.6 oz pur e alcohol) Comments Unknown Sex and Gender Information Value Date Recorded Sex Assigned at Not on file 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
[2025-06-05 08:32] LABS: Estimated Glomerular Filt Rate > 60
== END 2025-06-05 08:10 | disposition home or self-care (01) ==
PROVIDERS: PCP Family Medicine; Visit Provider Internal Medicine Hematology & Oncology
DX: C66.9 Malignant neoplasm of unspecified ureter (principal); K44.9 Diaphragmatic hernia without obstruction or gangrene; Z98.890 Other specified postprocedural states
CPT/HCPCS: 74177; Q9967

== ENCOUNTER 2025-07-21 10:07 | Outpatient (CLI) | payer MEDICARE, SELFPAY ==
--- OUTSIDE RECORDS SUMMARY | 2005-09-26 10:45 | XMS_ITS | Continuity of Care Document ---
Author Organization [facility] Address [id number] [place] [address] [address] [place] [address] Phone Care Team Providers Care Senior Corporate Recruiter Name Role Phone Fatuma Snyder Unavailable Unavailable Advance Directives Directive Yes / No Effective Date File Name No Information Encounters Encounter Description Practice Location Reason(s) For Visit Diagnoses Date Provider Providers Copied on Encounter [facility], [address], [place], [place], [id number], [place] tel:[phone] [facility] (formerly [facility]) No Information 0-200 6 Lillian Burris. [address] , [address], [place], [address], [place]. tel:[phone] Family History Family Member Type Diagnosis Age At Onset No Information Payers Payer name Insurance type Covered republican ID Authoriza timeena(s) [facility] CI [id number] Social History Type Description Quantity Date Captured Comments Sex Female Smoking Status No Information Chief Complaint And Reason For Visit No Information Reason For Referral Reason For Referral No Information History Of Present Illness Encounter Date Complaint History Of Prese nt Illness No Information Functional Status Date Functional Assessmen t No Information Instructions Date Instruction Additional Infor mation No Information Assessments Type Assessment Date No Information Patient Care Teams Name Effective Dates (start - stop) Status Members No Information
--- OUTSIDE RECORDS SUMMARY | 2025-07-21 11:29 | XMS_ITS | Clinical Summary ---
Author Organization [facility] Address [address] [place] [address] Care Team Providers Care Veneer Sander Name Role Phone Peyton Andre MD Primary Care Provider [phone] Allergies Active Allergy Reactions Criticality Noted Date Comments Adhesive Hives High 07/26/2015 Aspirin Other (See Comments) Medium 10/10/2023 Peptic Ulcers Clindamycin Diarrhea Low 04/30/2023 Ezetimibe Muscle Pain Medium 06/25/2023 Latex Rash Medium 01/03/2021 Morphine Rash,Unknown Medium 07/26/2015 Ovhusud-Bzn-Qox Reductase Inhibitors Muscle Pain Medium 10/14/2020 Medications [...] ORAL Take by mouth. Active Vit C-Vit C-Eihylx-BjJv-L utein (PRESERVISION) 226-90-0.8-5 mg Capsule Take 1 [...] Encounters Date Type Department Care Team Description 06/16/2025 Orders Only [facility] Oncology and Hematology - [place] [address] [place] [address] Riki Garcia MD 06/15/2025 Orders Only [facility] Oncology and Hematology - [place] [address] [place] [address] Riki Garcia MD 06/12/2025 9:45 AM CDT Office Visit [facility] Oncology and Hematology - [place] [address] [place] [address] Riki Garcia MD Malignant neoplasm of ureter, unspecified laterality (CMS/HCC) (Primary Dx) 06/11/2025 Orders Only [facility] Oncology and Hematology - [place] [address] [place] [address] Riki Garcia MD 05/19/2025 External Device Data STL ABSTRACTION Provider, [...] on file 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 Gender Identity Not on file Sexual Orientation Not on file Last Filed Vital Signs Vital Sign Reading Time Taken Comments Blood Pressure 152/97 06/12/2025 9:59 AM CDT Pulse 82 06/12/2025 9:53 AM CDT Temperature 36.3 C (97.4 F) 06/12/2025 9:53 AM CDT Respiratory Rate 15 06/12/2025 9:53 AM CDT Oxygen Saturation 94% 06/12/2025 9:53 AM CDT Inhaled Oxygen Concentration - - Weight 95.5 kg (210 lb 9.6 oz) 06/12/2025 9:53 A M CDT Height - - Body Mass Index - - Plan of Treatment Upcoming Encounters Date Type Department Care Team (Late st Contact Info) Description 12/18/2025 9:45 AM CDT Office Visit [facility] Oncology and Hematology - [place] [address] [facility] [address] [place] [address] Riki Garcia MD [address] [facility] [address] [place] [address] Health Maintenance Due Date Last [...] Associated Diagnosis Comments BASIC METABOLIC PANEL Routine 06/12/2025 10:51 AM CDT CBC WITH AUTODIFFERENTIAL Routine 2024 10:50 AM CDT COMPREHENSIVE METABOLIC PANEL Routine 06/12/2025 9:[address] ABDOMEN PELVIS W CONTRAST Routine 06/05/2025 10:18 AM CDT from Last 3 Months Results * BASIC METABOLIC PANEL (06/12/2025 10:51 AM CDT) Blood Riki Garcia MD CHEMISTRY ORDERABLES Final Resu lt * CBC WITH AUTODIFFERENTIAL (06/12/2025 10:50 AM CDT) Blood Riki Garcia MD HEMATOLOGY ORDERABLES Final Res ult * COMPREHENSIVE METABOLIC PANEL (06/12/2025 9:38 AM CDT) Blood Riki Garcia MD CHEMISTRY ORDERABLES Final Resu lt * CT ABDOMEN PELVIS W CONTRAST (06/05/2025 10:18 AM CDT) Anatomical Region Laterality Modality Abdomen Computed Tomogra phy Riki Garcia MD CT ORDERABLES Final Result from Last 3 [place] [address] MEDICARE PART A AND [facility] Care Teams Veneer Sander Relationship Specialty Start Date End Date Peyton Andre MD [address] [place] [address] [address] PCP - General Family Practice 09/26/23
--- OUTSIDE RECORDS SUMMARY | 2025-07-21 11:29 | XMS_ITS | Encounter Summary ---
Author Organization [facility] Health Address [address] [place] [address] Care Team Providers Care Pattern Molder Name Role Phone Maury Mcgarry MD Unavailable [phone] Brenda Durbin MD Primary Care Provider [phone] Valencia Luna MD Primary Care Provider [phone] Gregory Cook MD Unavailable [phone] Brenda Durbin MD Primary Care Provider [phone] Emilia [facility] Primary Care Provider + Encounter Details Date Type Department Care Team (Late st Contact Info) Description 01/14/2018 [facility] [address] [place] [address] [place] [address] [address] Social History Tobacco Use Types Packs/Day Years Used Date Smoking Tobacco: Never Smokeless Tobacco: Never Alcohol Use Standard Drinks/Week Comments Yes 0 (1 standard drink = 0.6 oz pur e alcohol) Comments Unknown Sex and Gender Information Value Date Recorded Sex Assigned at Not on file 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 [address] [place] [address] PCP - General Family Medicine 10/29/19 07/02/22 Brenda Durbin MD [address] [phone] PCP - General 07/03/22 08/15/22 Emilia Brown APRN-[facility] [address] [address] PCP - General 08/16/22 [place] [address] [facility] [address] [place], [place] [id number] Orthopedic Surgery 07/26/15 Gregory Cook MD [facility] [address] [place], [place] [address] Cardiovascular Disease 12/03/19 documented as of this encounter
--- OUTSIDE RECORDS SUMMARY | 2025-07-21 11:29 | XMS_ITS | Encounter Summary ---
Author Organization [facility] Healthcare Address [address] [place] [address] Care Team Providers Care Logging Equipment Mechanic Name Role Phone Emilia Brown NP Primary Care Provider [phone] Peyton Andre MD Primary Care Provider + Peyton Andre MD Primary Care Provider + Encounter Details Date Type Department Care Team (Late st Contact Info) Description 10/21/2017 Orders Only [facility] Health Information Management [address] [place] [address] Scanning, Provider Social History Tobacco Use Types Packs/Day Years Used Date Smoking Tobacco: Never Smokeless Tobacco: Never Alcohol Use Standard Drinks/Week Comments Yes 0 (1 standard drink = 0.6 oz pur e alcohol) Comments Unknown Sex and Gender Information Value Date Recorded Sex Assigned at Not on file 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
--- OUTSIDE RECORDS SUMMARY | 2025-07-21 11:30 | XMS_ITS | Encounter Summary ---
Author Organization [facility] Healthcare Address [address] [place] [address] Care Team Providers Care In Classroom Tutor Name Role Phone Emilia Brown NP Primary Care Provider [phone] Peyton Andre MD Primary Care Provider + Peyton Andre MD Primary Care Provider + Encounter Details Date Type Department Care Team (Late st Contact Info) Description 07/29/2020 Telephone [facility] [address] [place] [address] Dmitri Patel, RT Social History Tobacco Use Types Packs/Day Years Used Date Smoking Tobacco: Never Smokeless Tobacco: Never Alcohol Use Standard Drinks/Week Comments Yes 0 (1 standard drink = 0.6 oz pur e alcohol) Comments Unknown Sex and Gender Information Value Date Recorded Sex Assigned at Not on file 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 [place] [address] PCP - General Family Medicine 06/16/25 documented as of this encounter
--- OUTSIDE RECORDS SUMMARY | 2025-07-21 11:30 | XMS_ITS | Clinical Summary ---
Author Organization [facility] Address [address] [facility] [address] Care Team Providers Care Cargo Handler Name Role Phone Maury Mcgarry MD Unavailable [phone] Gregory Cook MD Unavailable [phone] Emilia Brown APRN-[facility] Primary Care Provider + Source Comments [facility],non-owned Affiliates and Associated Physician Practices is amultiple site organization consisting of ambulatory clinics and hospital sitesin [place]. This disclosure is being madepursuant to the Care Everywhere program and may not contain all information available regarding this patient. 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 Gender Identity Not on file Sexual [...] this topic Medical Devices Implanted Type Area Logging Supervisor Device Identifier Shelf Expiration Date Model / Serial / Lot Wale Bone [place]-G Hv 40/20 Implanted:Qty: 1 on 02/04/2018 by Maury Mcgarry MD at [facility] Left: Knee [employer] 02/14/2019 600-15-100 / / [id number] Cmpnt Ptlr 28mm 1 Pg Wire Ascnt Arcm Kn Implanted:Qty: 1 on 02/04/2018 by Maury Mcgarry MD at [facility] Left: Knee [employer] 12/28/2022 [id number] / / [id number] Tray Tib 75mm Kn Cocr I Beam Implanted:Qty: 1 on 02/04/2018 by Maury Mcgarry MD at [facility] Left: Knee [employer] 10/21/2027 [id number] / / [id number] Cmpnt Fem Kn Lt Cr Cmnt Prm Vngrd Intlk Implanted:Qty: 1 on 02/04/2018 by Maury Mcgarry MD at [facility] Left: Knee [employer] 12/14/2027 [id number] / / [id number] Brng [id number] Vngrd Arcm Kn Ant Stab Implanted:Qty: 1 on 02/04/2018 by Maury Mcgarry MD at [facility] Left: Knee [employer] 10/31/2022 [id number] / / [id number] Brng [id number] Vngrd Arcm Kn Ant Stab Implanted:Qty: 1 on 01/24/2021 by Maury Mcgarry MD at [facility] Right: Knee [employer] 05/30/2024 [id number] / / [id number] Cmpnt Fem Kn Rt Cr Cmnt Prm Vngrd Intlk Implanted:Qty: 1 on 01/24/2021 by Maury Mcgarry MD at [facility] Right: Knee [employer] 11/15/2030 [id number] / / [id number] Wale Bone [place]-G Hv 40/20 Implanted:Qty: 1 on 01/24/2021 by Maury Mcgarry MD at [facility] Right: Knee [employer] 08/28/2021 600-15-100 / / [id number] Tray Tib 79mm Kn Cocr I Beam Implanted:Qty: 1 on 01/24/2021 by Maury Mcgarry MD at [facility] Right: Knee [employer] 03/02/2030 [id number] / / [id number] Cmpnt Ptlr 28mm 1 Pg Wire Ascnt Arcm Kn Implanted:Qty: 1 on 01/24/2021 by Maury Mcgarry MD at [facility] Right: Knee [employer] 12/28/2022 [id number] / / [id number] Procedures Procedure Name Priority Date/Time Associated Diagnosis [...] Glucose 117 mg/dL 01/03/2021 2:00 PM CDT [facility] Blood BLOOD SPECIMEN / Unknown Venipuncture / Unknown 01/03/2021 1:38 PM CDT 01/03/2021 1:44 PM CDT Narrative [facility] - 01/03/2021 2:00 PM CDT The following cutoff levels are recommended by [place] [employer]. A1c > 6.5% : considered [...] exceeds 5% in the specimen. Sandra Farrell ETHICS INSTRUCTOR-MACHINE GRINDER LAB - CHEMISTRY ORDER GELY Final Result [facility] [address] [place] [address] * (ABNORMAL) COMPREHENSIVE METABOLIC PANEL (01/03/2021 1:38 PM CDT) Pathologist [facility] Glucose 98 70 - 105 mg/dL 01/03/2021 2:02 PM CDT [facility] Sodium 139 136 - 145 mmol/L 01/03/2021 2:02 PM CDT [facility] Potassium 4.1 3.5 - 5.1 mmol/L 01/03/2021 2:02 PM CDT [facility] Chloride 107 98 - 107 mmol/L 01/03/2021 2:02 PM CDT [facility] CO2 26 23 - 31 mmol/L 01/03/2021 2:02 PM CDT [facility] Calcium 9.0 8.4 - 10.4 mg/dL 01/03/2021 2:02 PM CDT [facility] Anion Gap 6(L) 8 - 18 mmol/L 01/03/2021 2:02 PM CDT [facility] Comment:Attention clinician: Reference Range change. BUN 16 9.8 - 20.1 mg/dL 01/03/2021 2:02 PM CDT [facility] Creatinine 0.71 0.57 - 1.11 mg/dL 01/03/2021 2:02 PM CDT [facility] Alkaline Phosphatase 99 40 - [...] CDT 01/03/2021 1:44 PM CDT Sandra Farrell ETHICS INSTRUCTOR-MACHINE GRINDER LAB - CHEMISTRY ORDER GELY Final Result [facility] [address] [place] [address] from Last 3 Months or Most Recently Relevant to [place] [address] MEDICARE [facility] MEDICARE MEDICARE MEDICARE MEDICARE ANTHEM Advance Directives Documents on File Type Date Recorded 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 [address] [place] [address] Orthopedic Surgery 07/26/15 Gregory Cook MD [address] [place] [address] [address] [place] [address] Cardiovascular Disease 12/03/19
--- OUTSIDE RECORDS SUMMARY | 2025-07-21 11:30 | XMS_ITS | Clinical Summary ---
Author Organization [facility] [address] Address [address] [place] [address] Care Team Providers Care Channel Opener Name Role Phone Peyton Andre MD Primary Care Provider + Allergies Active Allergy Reactions Criticality Noted Date Comments Adhesive Hives Medium 07/26/2015 Adhesive Tape-Silicones Unknown 07/26/2015 Aspirin Other (See comments) Medium Peptic Ulcers Clindamycin Diarrhea Low 04/30/2023 Latex Rash Medium 01/03/2021 Morphine Unknown 07/26/2015 Mdmcnto-Jfs-Ivu Reductase Inhibitors Muscle pain Medium 10/14/2020 Ezetimibe [...] mouth daily Active amLODIPine (NORVASC) 5 mg tabletIndications: Hypertension associated with diabetes (HCC) Take 1 tablet (5 mg total) by mouth daily 90 tablet 3 5 05/21/20 26 Active Active Problems Problem Noted Date Diagnosed Date TIA (transient ischemic attack) 02/02/2023 Moderate left ventricular hypertrophy 11/29/2022 Nonrheumatic mitral valve stenosis 04/14/2022 Mixed diabetic hyperlipidemi a associated with type 2 diabetes mellitus 04/20/2021 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 Double vision 09/11/2019 H/O: duodenal ulcer 09/11/2019 PSVT (paroxysmal supraventricular tachycardia) ( CMS/HCC) 11/29/2017 Preoperative cardiovascular examination 08/15/20 17 Gastroduodenal [...] Date Type Department Care Team Description 06/16/2025 Telephone [facility] Cardiology [address] [place] [address] Chata Duncan NP 05/21/2025 1:30 PM CDT Office Visit [facility] Medical [facility] Cardiology [address] [place] [address] Chata Duncan NP TIA (transient ischemic attack) (Primary Dx); Statin myopathy; Hypertension associated with diabetes (HCC); PSVT (paroxysmal supraventricular tachycardia) (CMS/HCC) (HCC) 05/04/2025 Orders Only [facility] Health Information Management [address] [place] [address] Scanning, Provider from Last 3 Months Medical History Medical [...] on file 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 Gender Identity Not on file Sexual Orientation [...] (transient ischemic attack) SCAN - RADIOLOGY/IMAGING 05/04/2025 POCT LIPID PANEL Routine 06/25/2023 1:30 PM CDT Mixed diabetic hyperlipidemia associated with type 2 diabetes mellitus (HCC) from Last 3 Months or Most Recently Relevant to Health Maintenance Results * Electrocardiogram Report (05/21/2025) 05/21/2025 us Chata Duncan NP ECG ORDERABLES Edited Re sult - Final * SCAN - RADIOLOGY/IMAGING (05/04/2025) Anatomical Region Laterality Modality Other us Provider Scanning Final Result * POCT lipid panel (06/25/2023 [...] Most Recently Relevant to Health [place] [address] MEDICARE [facility] MEDICARE [employer] [facility] MEDICARE [employer] MEDICARE SUPPLEMENT Care Teams Channel Opener Relationship Specialty Start Date End Date Peyton Andre MD [facility] [facility] [place] [address] PCP - General Family Medicine 06/16/25
--- OUTSIDE RECORDS SUMMARY | 2025-07-21 11:30 | XMS_ITS | Clinical Summary ---
Author Organization [facility] Address [address] [place] [address] Care Team Providers Care Front Desk Host Name Role Phone Peyton Andre MD Primary Care Provider [phone] Allergies Active Allergy Reactions Criticality Noted Date [...] 08/25/2024 08/25/2019, 09/17/2006 COVID-19 Vaccine (4 - 2024- season) 2025 12/23/2020, 12/02/2020, 09/17/2020 Influenza Adult (#1) 2025 DTaP, Tdap and Td Vaccines (4 - Td or Tdap) 06/14/2030 06/14/2020, 03/15/2015, 03/14/2015 Dexa Scan (General) Completed 10/02/2024, 08/27/2023, 08/27/2023, Additional history exists Hepatitis A Vaccines Aged Out No long er eligible based on patient's age to complete this topic Meningococcal B Vaccine Aged Out No l [...] BONE DENSITY/DEXA Routine 10/02/2024 3:1 1 PM CIRCUIT RECORDER Age-related osteoporosis without current pathological fracture from Last 3 Months or Most Recently Relevant to Health Maintenance Results * BONE DENSITY/DEXA (10/02/2024 3:11 PM CIRCUIT RECORDER) Anatomical Region Laterality Modality Bone Bone Density 10/03/2024 7:26 AM CIRCUIT RECORDER Impressions 10/03/2024 7:27 AM CIRCUIT RECORDER IMPRESSION: WHO Classification: Osteoporosis RECOMMENDATIONS: All patients [...] 10/03/2024 7:26 AM Narrative 10/03/2024 7:27 AM CIRCUIT RECORDER [facility] [address] [place] [address] EXAMINATION: BONE DENSITY/DEXA INDICATIONS: Age-related osteoporosis without [...] Procedure Note Zheng Tejada MD - 10/03/2024 [facility] [address] [place] [address] EXAMINATION: BONE DENSITY/DEXA INDICATIONS: Age-related osteoporosis without [...] Tejada MD, 10/03/2024 7:26 AM Andrae Zhang BIOMEDICAL SPECIALIST DEXA Final Result from Last 3 Months or Most Recently Relevant to Health Maintenance Insurance MEDICARE [facility] Care Teams Front Desk Host Relationship Specialty Start Date End Date Peyton Andre MD [facility]NOTE [address] [address] PCP - General FAMILY PRACTICE 11/16/22
[2025-07-21 13:21] LABS: Alanine Aminotransferase 19 U/L (6-35); Albumin Level 4.0 g/dL (3.5-5.1); Alkaline Phosphatase 75 U/L (38-126); Aspartate Amino Transferase 58 U/L (14-36); Bilirubin,Total 0.4 mg/dL (0.2-1.3); Blood Urea Nitrogen 15 mg/dL (7-17); Calcium 9.3 mg/dL (8.4-10.2); Carbon Dioxide 28 mmol/L (22-30); Estimated Glomerular Filt Rate > 60; Glucose 103 mg/dL (65-110); Total Protein 6.4 g/dL (6.3-8.2)
[2025-07-21 13:47] LABS: Free T4 Free Thyroxine 1.13 ng/dL (0.78-2.19)
[2025-07-21 14:23] LABS: Anion Gap 5 mmol/L (4-12); Chloride 103 mmol/L (98-107); Potassium 4.0 mmol/L (3.4-5.0); Sodium 136 mmol/L (137-145)
[2025-07-21 14:58] LABS: Thyroid Stimulating Hormone 2.040 uIU/mL (0.465-4.680)
== END 2025-07-21 10:08 | disposition home or self-care (01) ==
PROVIDERS: PCP Family Medicine; Visit Provider Internal Medicine
DX: R74.8 Abnormal levels of other serum enzymes (principal); E04.2 Nontoxic multinodular goiter; I10 Essential (primary) hypertension; R73.03 Prediabetes; M81.0 Age-related osteoporosis without current pathological fracture; E78.2 Mixed hyperlipidemia; E66.811 Obesity, class 1; Z68.33 Body mass index [BMI] 33.0-33.9, adult
CPT/HCPCS: 36415; 80053; 82306; 84439; 84443